=== PATIENT | male | born 1950 | race Caucasian/White ===

== ENCOUNTER → 2017-01-26 | Outpatient (CLI) | payer MEDICARE ==
--- NOTE | 2017-01-26 12:33 | XR ---
EXAM TYPE: LUMBAR SPINE X RAY SERIES COMPARISON: NONE HISTORY: Pain TECHNIQUE: 3 views are submitted. FINDINGS: Alignment is anatomic. The pedicles are intact. The transverse processes are intact. There is no s pondylolisthesis. There is a slight curvature of the spine with diffuse osteopenia. Severe degenerat florencia disc disease of the lumbosacral junction. At the thoracolumbar junction there is a severe compression deformity which likely is chronic and was noted on previous chest x-ray of 04/12/2016. Remaining vertebral bodies demonstrate normal height. IMPRESSION: 1. Severe compression deformity at the thoracolumbar junction appears chronic. 2. Diffuse osteopenia with multilevel degenerative disc disease.
== END | disposition home or self-care (01) ==
LOC: RADXRMAIN 11:45
PROVIDERS: ATTEND Internal Medicine
DX: M51.37 Other intervertebral disc degeneration, lumbosacral region (principal); M43.8X5 Other specified deforming dorsopathies, thoracolumbar region; M85.88 Other specified disorders of bone density and structure, other site
CPT/HCPCS: 72100

== ENCOUNTER → 2017-01-26 | Outpatient (CLI) | payer MEDICARE ==
[2017-01-26 12:16] LABS: ALT 20 U/L (21-72); AST 22 U/L (17-59); Alkaline Phosphatase 60 U/L (38-126); Anion Gap 12 mmol/L; Blood Urea Nitrogen 17 mg/dL (9-20); Calcium 9.5 mg/dL (8.4-10.2); Carbon Dioxide 26 mmol/L (22-30); Chloride 106 mmol/L (98-107); Cholesterol 150 mg/dL (<200); Glucose 89 mg/dL (74-99); HDL Cholesterol 70 mg/dL (40-60); Non-African American GFR(MDRD) >60 (>60 ml/min/1.73 sqM); Sodium 144 mmol/L (137-145); Total Bilirubin 1.9 mg/dL (0.2-1.3); Total Protein 6.9 g/dL (6.3-8.2); Triglycerides 56 mg/dL (<150)
[2017-01-26 12:20] LABS: Basophils # (A) 0.1 k/uL (0-0.2); Basophils % (A) 1 %; CH 32.9; CHCM 33.9; Eosinophils # (A) 0.2 k/uL (0-0.7); Eosinophils % (A) 3 %; HCT 50.2 % (39.0-53.0); HDW 2.59; HGB 16.8 gm/dL (13.0-17.5); Luc # (Auto) 0.15; Luc % (Auto) 3; Lymphocytes # (A) 1.4 k/uL (1.0-4.8); Lymphocytes % (A) 25 %; MCH 32.7 pg (25.0-35.0); MCHC 33.5 g/dL (31.0-37.0); MCV 97.5 fL (80.0-100.0); Mean Platelet Volume 8.3; Monocytes # (A) 0.4 k/uL (0-1.0); Monocytes % (A) 7 %; Neutrophils # (A) 3.6 k/uL (1.3-7.7); Neutrophils % (A) 62 %; RBC 5.15 m/uL (4.30-5.90); WBC 5.8 k/uL (3.8-10.6); WBC (Perox) 5.68
== END | disposition home or self-care (01) ==
LOC: LABWHC1 11:15
PROVIDERS: ATTEND Internal Medicine
DX: I10 Essential (primary) hypertension (principal)
CPT/HCPCS: 36415; 80053; 80061; 85025

== ENCOUNTER → 2017-03-05 | Outpatient (CLI) | payer MEDICARE ==
--- NOTE | 2017-03-05 15:41 | MR ---
EXAMINATION TYPE: MR thoracic spine wo con DATE OF EXAM: 03/05/2017 COMPARISON: NONE HISTORY: Chronic Back Pain Thoracolumbar area CONTRAST: Performed utilizing 0 mL intravenous MultiHance gadolinium contrast. TECHNIQUE: Multiplanar, multiecho imaging on a 3.0 Chloé magnet is performed through the thoracic spi ne. FINDINGS: There is compression deformity at T12. There is disc space narrowing of T11-12. Some news anchor ior wall displacement of T12 is evident estimated at approximately 0.4 cm. Cord terminates at the L1 level. No cord contact is evident. No AP spinal canal stenosis posterior to the wall displacement is evident. Neural foramen are patent. Remainder of the thoracolumbar spine appears unremarkable. Spinal cord maintains normal signal through its visualized course. Vertebral body alignment is normal. Remaining Disc heights are preserved. Disc hydration levels are preserved. No spinal canal stenosis is evident. IMPRESSIONS: 1. Compression deformity T12 appears chronic with approximately 0.4 cm central posterior wall displac ement without spinal canal stenosis or cord contact.
== END | disposition home or self-care (01) ==
LOC: RADMRIMAIN 13:27
PROVIDERS: ATTEND Internal Medicine
DX: M43.8X4 Other specified deforming dorsopathies, thoracic region (principal); M54.9 Dorsalgia, unspecified; G89.29 Other chronic pain
CPT/HCPCS: 72146

== ENCOUNTER → 2017-09-06 | Outpatient (CLI) | payer MEDICARE ==
--- NOTE | 2017-09-07 15:40 | ECHOF ---
Referral Reason:I42.9 Cardiomyopathy MEASUREMENTS -------- HEIGHT: 179.1 cm WEIGHT: 90.7 kg BP: 122/86 RVIDd: 3.1 cm (< 3.3) IVSd: 1.0 cm (0.6 - 1.1) LVIDd: 4.8 cm (3.9 - 5.3) LVPWd: 1.2 cm (0.6 - 1.1) EDV(Teich): 106 ml IVSs: 1.4 cm LVIDs: 4.1 cm LVPWs: 1.4 cm ESV(Teich): 73 ml EF(Teich): 31 % %FS: 15 % SV(Teich): 33 ml LA Diam: 3.1 cm (2.7 - 3.8) LVLd A4C: 8.3 cm LVEDV MOD A4C: 109 ml LVLs A4C: 8.1 cm LVESV MOD A4C: 82 ml LVEF MOD A4C: 25 % SV MOD A4C: 28 ml LVLd A2C: 7.9 cm LVEDV MOD A2C: 85 ml LVLs A2C: 8.6 cm LVESV MOD A2C: 67 ml LVEF MOD A2C: 22 % SV MOD A2C: 19 ml EF Biplane: 21 % LVEDV MOD BP: 96 ml LVESV MOD BP: 76 ml LALs A4C: 6.7 cm LAAs A4C: 27.3 cm LAESV A-L A4C: 95 ml LAESV MOD A4C: 96 ml LALs A2C: 7.8 cm LAAs A2C: 32.2 cm LAESV A-L A2C: 113 ml LAESV MOD A2C: 113 ml LAESV(A-L): 112 ml LAESV Index (A-L): 53.18 ml/m Ao Diam: 3.7 cm (2.0 - 3.7) AV Cusp: 2.4 cm (1.5 - 2.6) EPSS: 0.8 cm MV DecT: 233 ms MV PHT: 84 ms MVA By PHT: 2.6 cm AV Vmax: 0.93 m/s AV maxP.49 mmHg TR Vmax: 2.41 m/s TR maxP.23 mmHg RAP: 5.00 mmHg RVSP: 28.23 mmHg MV EF SLOPE: 87.54 mm/s (70 - 150) MV EXCURSION: 2.04 cm (> 18.000) FINDINGS -------- Atrial fibrillation. This was a technically good study. The left ventricular size is normal. There is borderline concentric left ventricular hypertrophy. Overall left ventricular systolic function is moderately impaired with, an EF between 35 - 40 %. The right ventricle is normal in size. LA is severely dilated >40 ml/m2 The right atrium is normal in size. The aortic valve is trileaflet and appears structurally normal. Mild mitral annular calcification present. Mild tricuspid regurgitation present. Right ventricular systolic pressure is normal at < 35 mmHg. Trace/mild (physiologic) pulmonic regurgitation. The aortic root is dilated measuring 3.7cm. IVC Not well visulized. There is no pericardial effusion. CONCLUSIONS -------- 1. Atrial fibrillation. 2. This was a technically good study. 3. The left ventricular size is normal. 4. There is borderline concentric left ventricular hypertrophy. 5. Overall left ventricular systolic function is moderately impaired with, an EF between 35 - 40 %. 6. The right ventricle is normal in size. 7. LA is severely dilated >40 ml/m2 8. The right atrium is normal in size. 9. The aortic valve is trileaflet and appears structurally normal. 10. Mild mitral annular calcification present. 11. Mild tricuspid regurgitation present. 12. Right ventricular systolic pressure is normal at < 35 mmHg. 13. Trace/mild (physiologic) pulmonic regurgitation. 14. The aortic root is dilated measuring 3.7cm. 15. IVC Not well visulized. 16. There is no pericardial effusion. PEWTER FABRICATOR: Amira Robles RD
== END | disposition home or self-care (01) ==
LOC: RADECHMAIN 15:08
PROVIDERS: ATTEND Internal Medicine
DX: I48.91 Unspecified atrial fibrillation (principal); I07.1 Rheumatic tricuspid insufficiency; I05.8 Other rheumatic mitral valve diseases; I77.819 Aortic ectasia, unspecified site
CPT/HCPCS: 93306

== ENCOUNTER → 2017-12-18 | Outpatient (CLI) | payer MEDICARE ==
[2017-12-18 16:12] LABS: Basophils % (A) 1 %; Eosinophils # (A) 0.2 k/uL (0-0.7); Eosinophils % (A) 3 %; HCT 48.2 % (39.0-53.0); HGB 16.1 gm/dL (13.0-17.5); Lymphocytes # (A) 1.5 k/uL (1.0-4.8); Lymphocytes % (A) 24 %; MCH 31.7 pg (25.0-35.0); MCHC 33.3 g/dL (31.0-37.0); MCV 95.1 fL (80.0-100.0); Mean Platelet Volume 8.6; Monocytes # (A) 0.5 k/uL (0-1.0); Monocytes % (A) 8 %; Neutrophils # (A) 4.1 k/uL (1.3-7.7); Neutrophils % (A) 63 %; Platelet Count 185 k/uL (150-450); RBC 5.07 m/uL (4.30-5.90); RDW 13.4 % (11.5-15.5); WBC 6.5 k/uL (3.8-10.6)
[2017-12-18 16:30] LABS: Albumin 4.1 g/dL (3.5-5.0); Calcium 9.2 mg/dL (8.4-10.2); Potassium 3.7 mmol/L (3.5-5.1); Total Bilirubin 0.9 mg/dL (0.2-1.3); Total Protein 6.4 g/dL (6.3-8.2)
== END | disposition home or self-care (01) ==
LOC: LABWHC1 15:30
PROVIDERS: ATTEND Internal Medicine
DX: I10 Essential (primary) hypertension (principal)
CPT/HCPCS: 36415; 80053; 85025

== ENCOUNTER → 2017-12-20 | Outpatient (CLI) | payer MEDICARE ==
[2017-12-20 15:49] LABS: Appearance,Urine Turbid (Clear); Bacteria,Urine Many /hpf; Bilirubin,Urine Negative (Negative); Blood,Urine Negative (Negative); Color,Urine Light Red; Glucose,Urine (UA) Negative (Negative); Ketones,Urine Negative (Negative); Leukocyte Esterase,Urine Moderate (Negative); Mucus,Urine Few /hpf; Nitrite,Urine Negative (Negative); Protein,Urine 1+ (Negative); RBC,Urine 21 /hpf (0-5); Specific Gravity,Urine 1.022 (1.001-1.035); Squamous Epithelial Cell,Urine 4 /hpf (0-4); WBC,Urine 19 /hpf (0-5)
== END | disposition home or self-care (01) ==
LOC: LABWHC1 15:33
PROVIDERS: ATTEND Internal Medicine
DX: I10 Essential (primary) hypertension (principal)
CPT/HCPCS: 81001

== ENCOUNTER 2018-01-09 07:58 | Day surgery (SDC) | payer MEDICARE ==
[2018-01-07 10:37] VITALS: BMI 28.2
--- NOTE | 2018-01-08 13:21 | HP ---
HISTORY AND PHYSICAL Surgery is 01/09/2018. Derick Valle is a 67-year-old patient seen with progressive right shoulder pain. Treatment options were discussed. He elected to proceed with arthroscopy. Consent was obtained. Medical clearance was provided by Dr. Pierson. Cardiac clearance was provided by Dr. Lewis. PAST MEDICAL HISTORY: Hypertension, cardiovascular disease. PAST SURGICAL HISTORY: Right total hip arthroplasty, left foot surgery. DAILY MEDICATIONS: 1. Lasix. 2. Lisinopril. 3. Percocet. 4. Wellbutrin. 5. Xarelto. 6. Coreg. ALLERGIES: None reported. SOCIAL HISTORY: Patient denies current tobacco use. PHYSICAL EXAMINATION: Physical evaluation right shoulder: Flexion 80 degrees, abduction 80 degrees, external rotation is 30 degrees with pain and weakness. Tenderness along the anterior lateral acromion and rotator cuff insertion site. Impingement sign is positive at 70 degrees. Drop-arm sign is positive. Distal neurovascular exam is intact. Radiographs of the right shoulder revealed a type 2 anterior acromion, acromioclavicular joint osteoarthritis and cystic changes of the greater tuberosity. An MRI of the right shoulder revealed a retracted rotator cuff tendon tear. IMPRESSION: 1. Right shoulder impingement with rotator cuff tear. 2. Hypertension. 3. Cardiovascular disease. PLAN: Right shoulder arthroscopy with subacromial decompression probable arthroscopic rotator cuff repair probable Michael procedure and debridement. MMODL / IJN: [id number] /
[~2018-01-09 07:58] MED LIST: DEXAMETHASONE SOD PHOSPHATE 10 MG/ML 1 ML VIAL IV ONE; LACTATED RINGERS 1,000 ML IV SCH; LIDOCAINE 1% 20 ML VIAL (10MG/ML) FOR IV START INTRADERMA PRN; MIDAZOLAM 2 MG/2 ML VIAL IV PRN; ONDANSETRON ODT 4 MG TAB PO ONE; SCOPOLAMINE 1.5MG/72HR PATCH TRANSDERM ONE; ceFAZolin IN SWFI 2 GM/20 ML SYRINGE IVP ONE; fentaNYL (PF) 50 MCG/ML 2 ML AMP IV PRN
[2018-01-09] MEDS ORDERED: ONDANSETRON 4 MG/2 ML VIAL IVP ONE (08:32)
[2018-01-09] MEDS ORDERED: MIDAZOLAM 2 MG/2 ML VIAL ONE ×2 (08:38→09:47)
[2018-01-09 08:41] LABS: Glucose,Whole Blood 87 mg/dL (75-99)
--- NOTE | 2018-01-09 09:21 | P.ONQ ---
Anesthesiology Proc Note - PNB - Peripheral Nerve Block Performed Right Interscalene Procedure Start Time: 08:45 Indication: Acute Post-Operative Pain, Requested by physician (Dr Vasquez) Sedation Type: Sedate with meaningful contact maintained Preparation: Sterile Prep Position: Supine Catheter: None Needle Types: Other (see comment) (Hazel) Needle Size: 50mm (2") Needle Gauge: 21 Technique: Ultrasound (0.5% Ropivacaine 12cc lidocaine 2% 12cc, 1:100,000 epi) Blood Aspirated: No Pain Paresthesia on Injection Noted: No Resistance on Injection: Normal Events: Uneventful and Well Tolerated
[2018-01-09] MEDS ORDERED: LIDOCAINE 2%-EPI 1:100,000 20 ML VIAL ONE (09:47)
[2018-01-09] MEDS ORDERED: ROCURONIUM BROMIDE 10 MG/ML 10 ML VIAL IV ONE (09:47)
[2018-01-09] MEDS ORDERED: PROPOFOL 10 MG/ML 20 ML VIAL IV ONE (09:47)
[2018-01-09] MEDS ORDERED: SUCCINYLCHOLINE CHLORIDE 100 MG/5 ML SYR IV ONE (09:47)
[2018-01-09] MEDS ORDERED: PHENYLEPHRINE-0.9% NACL SYG 1 MG/10 ML SYRINGE ONE (09:47)
[2018-01-09] MEDS ORDERED: ROPIVACAINE 5 MG/ML 30 ML VIAL ONE (09:47)
[2018-01-09] MEDS ORDERED: NEOSTIGMINE 1 MG/ML 10 ML VIAL ONE (09:47)
[2018-01-09] MEDS ORDERED: fentaNYL (PF) 50 MCG/ML 2 ML AMP ONE (09:47)
[2018-01-09] MEDS ORDERED: GLYCOPYRROLATE 0.2 MG/ML 2 ML VIAL ONE (09:47)
[2018-01-09] MEDS ORDERED: LIDOCAINE 1% INJ 10MG/ML (20 ML MDV) ONE (09:47)
[2018-01-09] MEDS ORDERED: LACTATED RINGERS 1,000 ML IV ONE (10:54)
--- NOTE | 2018-01-09 11:44 | P.OP ---
Date of Procedure: 01/09/18 Preoperative Diagnosis: Right shoulder impingement Postoperative Diagnosis: 1. Right shoulder rotator cuff tear 2. Right shoulder impingement 3. Right shoulder acromioclavicular joint osteoarthritis 4. Right shoulder partial biceps tendon tear 5. Right shoulder superficial labral tear Procedure(s) Performed: 1. Right shoulder arthroscopic rotator cuff repair 2. Right shoulder arthroscopic subacromial decompression 3. Right shoulder arthroscopic Michael procedure 4. Right shoulder arthroscopic biceps tenotomy 5. Right shoulder arthroscopic debridement labral tear Implants: 2-4.5 peek anchors 2-5.5 peek anchors Anesthesia: GETA, regional (Interscalene block) Surgeon: Angel Vasquez Onsite Health Coach #1: Richie Bragg Estimated Blood Loss (ml): 11 Pathology: none sent Condition: stable Disposition: PACU Indications for Procedure: 67-year-old patient seen with progressive right shoulder pain. After treatment options were discussed, he elected to proceed with arthroscopy. Operative Findings: See description of procedure Description of Procedure: Patient underwent a shoulder block by department of anesthesia. The patient was then taken to the operative suite. The patient underwent a general anesthetic by the department of anesthesia. The patient was placed into a lateral position and secured. There was appropriate padding of the bony prominence. Right shoulder was then prepped and draped in normal sterile orthopedic fashion. We placed the extremity in 10 pounds of longitudinal traction. A posterior incision was now made for a posterior working portal site. The trocar and cannula were inserted into the glenohumeral joint. Arthroscopy was initiated. Spinal needle was now inserted anteriorly, to ascertain the anterior working portal site. An incision was now made in that area, a trocar was inserted followed by a probe. There was superficial tearing of the anterior labrum. There was a partial long head biceps tendon tear present. There was an obvious large rotator cuff tear visualized from the glenohumeral side. There were some grade 1 chondromalacia changes of the humeral head and glenoid fossa with no osteochondral tears present. The remaining labrum appeared intact. I performed an arthroscopic biceps tenotomy. I debrided the superficial labral tears down to stable tissue. The residual labrum was found to be stable. Instruments were removed from the glenohumeral joint. Utilizing the posterior working portal site, the trocar and cannula were inserted into the subacromial space. Arthroscopy initiated. I made an incision 2 fingerbreadths lateral to the acromion. I introduced my trocar followed by my ArthroCare ablator. I now began ablating thick subacromial bursal tissue, which exposed the undersurface of the anterior acromion. This was diminished subacromial space. There was a very prominent anterior acromion. A motorized bur was introduced and a subacromial decompression was performed. I also excised some osteophytes off the inferior aspect of the distal clavicle. The AC joint was visualized and noted to be fairly arthritic. Our motorized bur was introduced in the anterior portal site and a Michael procedure was performed without difficulty, decompressing the AC joint nicely. I turned my attention to the rotator cuff. There was a large 3 cm tear along the distal supraspinatus area. It was retracted about 1 cm. It was freely mobile over the footprint. I did debrided the margins down to stable tissue. I abraded the footprint with a motorized bur. I made an assessory portal site off the lateral acromion. I introduced 2 medial row anchors with 2 sutures each. I passed all 8 limbs of suture through good bites of rotator cuff tendon. I crisscrossed the sutures and noted a dogear anteriorly. 2 loops sutures were introduced through good bites of tendon to correct for that dogear area. I now crisscrossed the sutures again pulling over the footprint and introduced 2 lateral anchors compressing the tendon very nicely along her entire abraded footprint. The residual suture limbs were clipped. The repair was probed and found to be stable. I injected 1 mL of a Renue Intra-articular. Instruments now removed from the portal sites. All portal sites were approximated with nylon suture. Sterile dressings were applied followed by a shoulder immobilizer. Vel FITZPATRICK assisted with the procedure. The patient was awakened, transferred to a bed, and taken to recovery in stable condition.
[2018-01-09 11:45] VITALS: RESP 16; TEMP 97.1
[2018-01-09 13:04] VITALS: BP 131/87; PULSE 60
== END 2018-01-09 13:50 | disposition home or self-care (01) ==
LOC: OR 07:58
PROVIDERS: ATTEND Orthopaedic Surgery
DX: M75.101 Unspecified rotator cuff tear or rupture of right shoulder, not specified as traumatic (principal); M75.41 Impingement syndrome of right shoulder; M19.011 Primary osteoarthritis, right shoulder; S46.111A Strain of muscle, fascia and tendon of long head of biceps, right arm, initial encounter; S43.431A Superior glenoid labrum lesion of right shoulder, initial encounter; X58.XXXA Exposure to other specified factors, initial encounter; M25.711 Osteophyte, right shoulder; I48.2 Chronic atrial fibrillation; Z79.01 Long term (current) use of anticoagulants; I25.10 Atherosclerotic heart disease of native coronary artery without angina pectoris; I42.0 Dilated cardiomyopathy; I10 Essential (primary) hypertension; Z79.899 Other long term (current) drug therapy
CPT/HCPCS: 29826; 29827; 29824; 64415; C1713 ×3; C1894; C1765; J2250; J1100; J2710; J2405; J2001; J3010; J2795; J2370; J0330; J2704; J0690

== ENCOUNTER 2018-12-04 18:14 | Inpatient (IN) | payer MEDICARE ==
--- NOTE | 2018-12-04 18:46 | XR ---
EXAMINATION TYPE: XR Hip LT and AP Pelvis DATE OF EXAM: 12/04/2018 COMPARISON: NONE HISTORY: Pain after falling TECHNIQUE: A single AP view of the pelvis is obtained. Two views of the left hip are obtained. FINDINGS: There is an impacted subcapital fracture left femur. There is no dislocation. Pelvic ring i s intact. There are pins fixing the proximal right femur. Sacroiliac joints are intact. IMPRESSION: Acute impacted subcapital fracture left femur.
--- NOTE | 2018-12-04 18:47 | XR ---
EXAMINATION TYPE: XR chest 1V DATE OF EXAM: 12/04/2018 COMPARISON: 04/12/2016 HISTORY: Chest pain TECHNIQUE: Single frontal view of the chest is obtained. FINDINGS: Heart is enlarged. There is no heart failure. Costophrenic angles are clear. Thoracic aort a is atheromatous. Bony thorax is intact. There is hiatal hernia. IMPRESSION: Hiatal hernia. No active cardiopulmonary disease. No significant change.
[2018-12-04 18:58] LABS: Basophils % (A) 0 %; Eosinophils # (A) 0.2 k/uL (0-0.7); Eosinophils % (A) 3 %; HCT 45.6 % (39.0-53.0); HGB 15.6 gm/dL (13.0-17.5); Lymphocytes # (A) 1.1 k/uL (1.0-4.8); Lymphocytes % (A) 17 %; MCHC 34.2 g/dL (31.0-37.0); MCV 96.6 fL (80.0-100.0); Mean Platelet Volume 8.7; Monocytes # (A) 0.4 k/uL (0-1.0); Monocytes % (A) 5 %; Neutrophils # (A) 4.8 k/uL (1.3-7.7); Neutrophils % (A) 73 %; Platelet Count 139 k/uL (150-450); RBC 4.72 m/uL (4.30-5.90); RDW 13.8 % (11.5-15.5); WBC 6.6 k/uL (3.8-10.6)
[2018-12-04 19:10] LABS: INR 1.2 (<1.2); Partial Thromboplastin Time 28.6 sec (22.0-30.0); Prothrombin Time 12.6 sec (9.0-12.0)
[2018-12-04 19:12] LABS: ALT 28 U/L (21-72); AST 22 U/L (17-59); Albumin 3.7 g/dL (3.5-5.0); Alkaline Phosphatase 58 U/L (38-126); Anion Gap 11 mmol/L; Blood Urea Nitrogen 10 mg/dL (9-20); Calcium 8.8 mg/dL (8.4-10.2); Carbon Dioxide 22 mmol/L (22-30); Chloride 105 mmol/L (98-107); Creatine Kinase 50 U/L (55-170); Glucose 77 mg/dL (74-99); Magnesium 2.1 mg/dL (1.6-2.3); Potassium 3.5 mmol/L (3.5-5.1); Sodium 138 mmol/L (137-145); Total Bilirubin 1.4 mg/dL (0.2-1.3); Total Protein 6.1 g/dL (6.3-8.2)
[2018-12-04 19:25] LABS: Creatine Kinase MB 0.6 ng/mL (0.0-2.4); Troponin I <0.012 ng/mL (0.000-0.034)
--- NOTE | 2018-12-04 19:36 | ED ---
Fall HPI - General Chief Complaint: Fall Stated Complaint: fall Time Seen by Provider: 12/04/18 18:14 Source: patient, EMS, RN notes reviewed Mode of arrival: EMS - History of Present Illness Initial Comments: This is a 67-year-old male with a history of heart disease hypertension and prior right hip fracture 2001 who states he was walking his dog today when the dog pulled on any of the falling down. He landed on his left side when trying to a blade after patient himself up could not weight-bear on his left hip. He denies any head neck or back pain or other injury other than abrasions to his left wrist. He is on blood thinner. He was brought in by EMS with a cervical collar in place. MD Complaint: fall - Related Data Home Medications Medication Instructions Recorded Confirmed Rivaroxaban [Xarelto] 20 mg PO DAILY 06/11/15 12/04/18 Furosemide [Lasix] 40 mg PO DAILY 06/14/15 12/04/18 Lisinopril [Zestril] 10 mg PO DAILY 06/14/15 12/04/18 oxyCODONE-APAP 7.5-325MG [Percocet 1 tab PO Q6HR PRN 01/07/18 12/04/18 7.5-325 mg] Carvedilol [Coreg] 6.25 mg PO BID 12/04/18 12/04/18 Pantoprazole Sodium [Protonix] 40 mg PO DAILY 12/04/18 12/04/18 buPROPion HCL [Wellbutrin SR] 200 mg PO BID 12/04/18 12/04/18 Allergies Allergy/AdvReac Type Severity Reaction Status Date / Time No Known Allergies Allergy Verified 12/04/18 19:09 Review of Systems ROS Statement: Those systems with pertinent positive or pertinent negative responses have been documented in the HPI. ROS Other: All systems not noted in ROS Statement are negative. Past Medical History Past Medical History: Heart Failure, Hypertension Additional Past Medical History / Comment(s): DIFFICULTY WITH SWALLOWING History of Any Multi-Drug Resistant Organisms: None Reported Past Surgical History: Orthopedic Surgery Additional Past Surgical History / Comment(s): ESOPHAGUS, HIATAL HERNIA, RIGHT HIP,RIGHT ARM PLATE AND SCREW, LEFT FOOT, Past Anesthesia/Blood Transfusion Reactions: No Reported Reaction Past Psychological History: Depression Smoking Status: Former smoker - Past Family History Mother Family Medical History: No Reported History General Exam - General Exam Comments Initial Comments: This is a well little pulmonary awake alert oriented 3 male he does demonstrate a Vaishnavi Coma Scale of 15 Limitations: no limitations General appearance: alert, in no apparent distress Head exam: Present: atraumatic, normocephalic, normal inspection Eye exam: Present: normal appearance, PERRL, EOMI. Absent: scleral icterus, conjunctival injection, periorbital swelling ENT exam: Present: normal exam, mucous membranes moist Neck exam: Present: normal inspection, full ROM, other (No stridor JVD or bruits cervical collar was cleared clinically). Absent: tenderness, meningismus, lymphadenopathy Respiratory exam: Present: normal lung sounds bilaterally. Absent: respiratory distress, wheezes, rales, rhonchi, stridor Cardiovascular Exam: Present: regular rate, normal rhythm, normal heart sounds. Absent: systolic murmur, diastolic murmur, rubs, gallop, clicks GI/Abdominal exam: Present: soft, normal bowel sounds. Absent: distended, tenderness, guarding, rebound, rigid Extremities exam: Present: full ROM, normal capillary refill, other (Shortening of the left lower extremity compared to the right no rotation seen. On palpation no tenderness is elicited with movement pain is elicited left.). Absent: tenderness, pedal edema, joint swelling, calf tenderness Back exam: Present: normal inspection Neurological exam: Present: alert, oriented X3, CN II-XII intact Psychiatric exam: Present: normal affect, normal mood Skin exam: Present: warm, dry, intact, normal color. Absent: rash Course Vital Signs 12/04/18 18:16 Temperature 97.3 F L Pulse Rate 64 Respiratory 18 Rate Blood Pressure 121/93 O2 Sat by Pulse 95 Oximetry - Reevaluation(s) Reevaluation #1: 12/04/18 19:35 pricing specialist: Indicated for history of A. fib rule out PVCs or PACs. Some PVCs were noted on examination. Heart rate was about 70. Reevaluation #2: 12/04/18 19:35 Repeat EKG was done after the initial one after the findings of PVCs that showed a atrial fibrillation rate of 70 with PVCs QRS 94 daily since QTC 470/o [address]-T wave configuration prolonged QT Medical Decision Making - Medical Decision Making I did discuss the findings with the patient I did also discuss the case with Dr. Egan who is covering orthopedics today. Patient will be admitted with consultation by medicine. I did discuss his Dr. Gutierrez who did come the emergency department to evaluate the patient. - Lab Data Result diagrams: 12/04/18 18:49 12/04/18 18:49 Lab Results 12/04/18 12/04/18 12/04/18 Range/Units 18:49 18:49 18:49 WBC 6.6 (3.8-10.6) k/uL RBC 4.72 (4.30-5.90) m/uL Hgb 15.6 (13.0-17.5) gm/dL Hct 45.6 (39.0-53.0) % MCV 96.6 (80.0-100.0) fL MCH 33.0 (25.0-35.0) pg MCHC 34.2 (31.0-37.0) g/dL RDW 13.8 (11.5-15.5) % Plt Count 139 L (150-450) k/uL Neutrophils % 73 % Lymphocytes % 17 % Monocytes % 5 % Eosinophils % 3 % Basophils % 0 % Neutrophils # 4.8 (1.3-7.7) k/uL Lymphocytes # 1.1 (1.0-4.8) k/uL Monocytes # 0.4 (0-1.0) k/uL Eosinophils # 0.2 (0-0.7) k/uL Basophils # 0.0 (0-0.2) k/uL PT 12.6 H (9.0-12.0) sec INR 1.2 H (<1.2) APTT 28.6 (22.0-30.0) sec Sodium (137-145) mmol/L Potassium (3.5-5.1) mmol/L Chloride (98-107) mmol/L Carbon Dioxide (22-30) mmol/L Anion Gap mmol/L BUN (9-20) mg/dL Creatinine (0.66-1.25) mg/dL Est GFR (CKD-EPI)AfAm (>60 ml/min/1.73 sqM) Est GFR (CKD-EPI)NonAf (>60 ml/min/1.73 sqM) Glucose (74-99) mg/dL Calcium (8.4-10.2) mg/dL Magnesium (1.6-2.3) mg/dL Total Bilirubin (0.2-1.3) mg/dL AST (17-59) U/L ALT (21-72) U/L Alkaline Phosphatase (38-126) U/L Total Creatine Kinase 50 L (55-170) U/L CK-MB (CK-2) 0.6 (0.0-2.4) ng/mL CK-MB (CK-2) Rel Index 1.2 Troponin I <0.012 (0.000-0.034) ng/mL Total Protein (6.3-8.2) g/dL Albumin (3.5-5.0) g/dL 12/04/18 Range/Units 18:49 WBC (3.8-10.6) k/uL RBC (4.30-5.90) m/uL Hgb (13.0-17.5) gm/dL Hct (39.0-53.0) % MCV (80.0-100.0) fL MCH (25.0-35.0) pg MCHC (31.0-37.0) g/dL RDW (11.5-15.5) % Plt Count (150-450) k/uL Neutrophils % % Lymphocytes % % Monocytes % % Eosinophils % % Basophils % % Neutrophils # (1.3-7.7) k/uL Lymphocytes # (1.0-4.8) k/uL Monocytes # (0-1.0) k/uL Eosinophils # (0-0.7) k/uL Basophils # (0-0.2) k/uL PT (9.0-12.0) sec INR (<1.2) APTT (22.0-30.0) sec Sodium 138 (137-145) mmol/L Potassium 3.5 (3.5-5.1) mmol/L Chloride 105 (98-107) mmol/L Carbon Dioxide 22 (22-30) mmol/L Anion Gap 11 mmol/L BUN 10 (9-20) mg/dL Creatinine 0.92 (0.66-1.25) mg/dL Est GFR (CKD-EPI)AfAm >90 (>60 ml/min/1.73 sqM) Est GFR (CKD-EPI)NonAf 85 (>60 ml/min/1.73 sqM) Glucose 77 (74-99) mg/dL Calcium 8.8 (8.4-10.2) mg/dL Magnesium 2.1 (1.6-2.3) mg/dL Total Bilirubin 1.4 H (0.2-1.3) mg/dL AST 22 (17-59) U/L ALT 28 (21-72) U/L Alkaline Phosphatase 58 (38-126) U/L Total Creatine Kinase (55-170) U/L CK-MB (CK-2) (0.0-2.4) ng/mL CK-MB (CK-2) Rel Index Troponin I (0.000-0.034) ng/mL Total Protein 6.1 L (6.3-8.2) g/dL Albumin 3.7 (3.5-5.0) g/dL - EKG Data -: EKG Interpreted by Me - Radiology Data Radiology results: report reviewed (I did review the imaging and report or is a subcapital hip fracture on the left.), image reviewed Disposition Clinical Impression: Fall, Subcapital fracture of left hip, Chronic atrial fibrillation, PVCs (premature ventricular contractions) Disposition: ADMITTED IP TO THIS [facility] Condition: Stable Referrals: Caleb Pierson MD [Primary Care Provider] - 1-2 days
[2018-12-04] MEDS ORDERED: NALOXONE 0.4 MG/ML 1 ML VIAL IV PRN (19:39)
[2018-12-04] MEDS: SODIUM CHLORIDE 0.9% 1,000 ML IV SCH (19:58)
[2018-12-04] MEDS: HYDROmorphone 0.5 MG/0.5 ML SYRINGE IVP PRN (19:59)
--- NOTE | 2018-12-04 21:53 | CONS ---
CONSULTATION DATE OF SERVICE: 12/04/2018 REASON FOR CONSULTATION: Advice regarding hypertension and CHF and other medical issues requested by orthopedic surgery. HISTORY OF PRESENT ILLNESS: This 68-year-old gentleman with a past medical history of hypertension, CHF history of difficulty swallowing being followed by Dr. Pierson in the outpatient setting apparently had a fall. Patient tripped and fell and developed right hip fracture and the patient was taken to [facility] and was admitted for further evaluation and treatment. Patient apparently landed falling down and there is no history of fever, rigors. No history of headache, loss of consciousness, seizures. The patient has seen Dr. Lewis previously. PAST MEDICAL HISTORY: History of CHF, history of hypertension, history of difficulty swallowing, history of esophagitis, hiatal hernia, history of depression. MEDICATIONS: Prior to admission include home medications are: 1. Oxycodone 7.5 mg q.6h p.r.n. 2. Wellbutrin SR 200 mg p.o. b.i.d. 3. Xarelto 20 mg p.o. daily. 4. Protonix 40 mg. 5. Zestril 10 mg p.o. daily. 6. Lasix 40 mg daily. 7. Coreg 6.25 mg p.o. b.i.d. ALLERGIES: None. FAMILY HISTORY: No history of heart disease or strokes in the family. SOCIAL HISTORY: Remote history of smoking. Occasional alcohol intake. REVIEW OF SYSTEMS: ENT: No diminished vision. No diminished hearing. Cardiovascular system: As mentioned earlier. RESPIRATORY: As mentioned earlier. GI no nausea or vomiting. : No dysuria. NERVOUS SYSTEM: No numbness or weakness. ALLERGY/IMMUNOLOGY: No asthma or hayfever. MUSCULOSKELETAL: As mentioned earlier. HEMATOLOGY/ONCOLOGY: No history of anemia. ENDOCRINE: No history of diabetes or hypothyroidism. CONSTITUTIONAL: As mentioned earlier. Dermatology: Negative. Rheumatology: Negative. Psychiatry: As mentioned earlier. PHYSICAL EXAMINATION: The patient is alert and oriented times three. Pulse 64, blood pressure 113/89, respiration 18, temperature 97.2, pulse ox 97% on room air. HEENT: Conjunctivae normal. Oral mucosa moist. NECK: No jugular venous distention. No carotid bruit. No lymph node enlargement. RESPIRATORY SYSTEM: Breath sounds diminished at the bases. Slightly emphysematous. A few scattered rhonchi and crackles otherwise. Abdomen is soft, nontender. No mass palpable. Legs status post hip fracture. NERVOUS SYSTEM: Higher functions as mentioned earlier. Moves all four extremities. No focal deficits. Lymphatics: No lymph nodes palpable in the neck, axillae or groin. SKIN: No ulcer, josie or bleeding. Joints: No active deforming arthropathy. LAB STUDIES: WBC 6.2, hemoglobin 10.2, platelets 139. Total bilirubin is 1.4. ASSESSMENT: 1. Status post right hip fracture. 2. History of hypertension. 3. History of congestive heart failure possible cardiomyopathy with chronic systolic dysfunction EF improving 4. Mild thrombocytopenia. 5. Mild increased bilirubin. 6. History of difficulty swallowing and hiatal hernia. 7. History of degenerative joint disease. 8. History of depression. 9. Remote history of nicotine dependence. 10.Apparent history of EtOH. 11.History of congestive heart failure with chronic systolic dysfunction. RECOMMENDATIONS AND DISCUSSION: In this 62-year-old gentleman with past medical history of multiple medical problems was admitted after fall for orthopedic surgery, is currently hemodynamically stable. At this time, I recommend a BNP, a set of troponins. Also get a cardiology consultation and previous 2D echo done in 2017 showed ejection fraction about 35 to 40%. Otherwise, we will continue to monitor. Guarded, guarded prognosis. Further recommendations to follow Thank you for letting us participate in the care of this patient. MMODL / IJN: [id number] / [place]
[2018-12-04] MEDS: CARVEDILOL 6.25 MG TAB PO SCH (22:36)
[2018-12-04] MEDS: buPROPion SR 100 MG TABLET.ER PO SCH (22:36)
[2018-12-05] MEDS: HYDROmorphone 0.5 MG/0.5 ML SYRINGE IVP PRN ×3 (07:12→20:16)
[2018-12-05] MEDS: FUROSEMIDE 40 MG TAB PO SCH (08:12)
[2018-12-05] MEDS: LISINOPRIL 10 MG TAB PO SCH (08:12)
[2018-12-05] MEDS: CARVEDILOL 6.25 MG TAB PO SCH ×3 (08:12→18:30)
[2018-12-05] MEDS: PANTOPRAZOLE 40 MG TABLET PO SCH (08:12)
--- NOTE | 2018-12-05 08:47 | P.HPOR ---
History of Present Illness H&P Date: 12/05/18 Chief Complaint: Left hip subcapital fracture This is a 68-year-old male with a history of hypertension and chronic atrial fibrillation, who presented to the hospital with a left hip fracture. He states that he was outside with his dog and his dog was going to run after another dog when he tried to stop the dog he fell over onto his left hip. He had immediate left hip pain and was unable to bear weight. He presented to the hospital and he was found to have a displaced left hip subcapital fracture. He denies hitting his head or neck injury. He denies any other injuries. The patient does take Xarelto with the last dose taken yesterday morning. The patient does have a history of a right hip fracture with screw placement in 2001, the patient does not know where or what surgeon performed the procedure. He does live alone in his own house. He does not use an ambulatory aide at home. This morning, the patient states that he only has pain when he bears weight on the leg and sometimes with moving in the bed. Review of Systems Constitutional: Denies chills, Denies fever Cardiovascular: Denies chest pain, Denies shortness of breath Respiratory: Denies cough Gastrointestinal: Denies abdominal pain, Denies diarrhea, Denies nausea, Denies vomiting Musculoskeletal: left: hip pain, hip stiffness, hip swelling Neurological: Denies head injury Past Medical History Past Medical History: Heart Failure, Hypertension Additional Past Medical History / Comment(s): DIFFICULTY WITH SWALLOWING History of Any Multi-Drug Resistant Organisms: None Reported Past Surgical History: Orthopedic Surgery Additional Past Surgical History / Comment(s): ESOPHAGUS, HIATAL HERNIA, RIGHT HIP,RIGHT ARM PLATE AND SCREW, LEFT FOOT, Past Anesthesia/Blood Transfusion Reactions: No Reported Reaction Past Psychological History: Depression Smoking Status: Former smoker Past Alcohol Use History: Occasional Past Drug Use History: None Reported - Past Family History Mother Family Medical History: No Reported History Medications and Allergies Home Medications Medication Instructions Recorded Confirmed Type Rivaroxaban [Xarelto] 20 mg PO DAILY 06/11/15 12/04/18 History Furosemide [Lasix] 40 mg PO DAILY 06/14/15 12/04/18 History Lisinopril [Zestril] 10 mg PO DAILY 06/14/15 12/04/18 History oxyCODONE-APAP 7.5-325MG [Percocet 1 tab PO Q6HR PRN 01/07/18 12/04/18 History 7.5-325 mg] Carvedilol [Coreg] 6.25 mg PO BID 12/04/18 12/04/18 History Pantoprazole Sodium [Protonix] 40 mg PO DAILY 12/04/18 12/04/18 History buPROPion HCL [Wellbutrin SR] 200 mg PO BID 12/04/18 12/04/18 History Allergies Allergy/AdvReac Type Severity Reaction Status Date / Time No Known Allergies Allergy Verified 12/04/18 19:09 Physical Examination The patient is a 68 year old male that is no acute distress. He is alert and oriented x3. The patient's head is normocephalic and atraumatic. Exam of the cervical spine reveals no pain upon palpation or range of motion. Exam of the bilateral upper extremities reveal no obvious deformities or pain upon range of motion. Exam of the right lower extremity reveals no pain upon palpation. Exam of the left lower extremity reveals a externally rotated and shortened leg. There is an abrasion to the anterior left knee without signs or symptoms of infection. No pain upon palpation to the lateral hip. There is pain upon logrolling and any range of motion of the leg. Bilateral calves are soft and nontender. Patient has good foot and ankle motion bilaterally. Neurological and circulatory status is intact. Results - Labs Labs: Abnormal Lab Results - Last 24 Hours (Table) 12/04/18 12/04/18 12/04/18 Range/Units 18:49 18:49 18:49 Plt Count 139 L (150-450) k/uL PT 12.6 H (9.0-12.0) sec INR 1.2 H (<1.2) Total Bilirubin (0.2-1.3) mg/dL Total Creatine Kinase 50 L (55-170) U/L Total Protein (6.3-8.2) g/dL 12/04/18 Range/Units 18:49 Plt Count (150-450) k/uL PT (9.0-12.0) sec INR (<1.2) Total Bilirubin 1.4 H (0.2-1.3) mg/dL Total Creatine Kinase (55-170) U/L Total Protein 6.1 L (6.3-8.2) g/dL H & H 12/04/18 Range/Units 18:49 Hgb 15.6 (13.0-17.5) gm/dL Hct 45.6 (39.0-53.0) % Coagulation 12/04/18 Range/Units 18:49 INR 1.2 H (<1.2) Result Diagrams: 12/04/18 18:49 12/04/18 18:49 - Diagnostic results Hip x-ray: image reviewed (Left hip displaced subcapital fracture and hardware to the right hip appears to be in good position.) Assessment and Plan (1) Hypertension Current Visit: Yes Status: Acute Code(s): I10 - ESSENTIAL (PRIMARY) HYPERTENSION SNOMED Code(s): 96399436 (2) Chronic atrial fibrillation Current Visit: Yes Status: Acute Code(s): I48.2 - CHRONIC ATRIAL FIBRILLAT ION SNOMED Code(s): 082708485 (3) Fall Current Visit: Yes Status: Acute Code(s): W19.XXXA - UNSPECIFIED FALL, INITIAL ENCOUNTER SNOMED Code(s): 7945271 (4) Subcapital fracture of left hip Current Visit: Yes Status: Acute Code(s): S72.012A - UNSP INTRACAPSULAR FRACTURE OF LEFT FEMUR, INIT FOR CLOS FX SNOMED Code(s): 750503907 Plan: The clinical and x-ray findings were discussed with the patient and the patient's daughter at the bedside. The case was also discussed with Dr. Egan. We are recommending a left hip hemiarthroplasty to be performed this afternoon. Internal medicine has seen the patient and recommended a cardiology consult. Xarelto is on hold. The patient is nothing by mouth. The procedure was discussed with the patient and the patient's daughter and surgical risks were discussed at length with the patient. Possible risks and complications including but not limited to risk of bleeding, infection, dislocation, DVT, stroke, heart attack, and were discussed. We will await further recommendations by cardiology and internal medicine and anticipate surgery this afternoon.
[2018-12-05] MEDS: buPROPion SR 100 MG TABLET.ER PO SCH ×2 (10:21→20:06)
--- NOTE | 2018-12-05 12:07 | P.CRDCN ---
History of Present Illness Consult date: 12/05/18 History of present illness: This is a 68-year-old gentleman with history of cardiomyopathy and congestive heart failure being followed by Dr. Lewis regularly. He was diagnosed to have cardiac myopathy and congestive heart failure in 2016. Initial ejection fraction was 20 to 25%. A nuclear stress test done around that time did not reveal any inducible ischemia. Patient has been clinically doing well. He did have an echocardiogram done in September 2017 which showed an ejection fraction about 40-45%. Patient has been clinically stable without any symptoms of chest pain or shortness of breath. He claims that he is physically very active. Yesterday, he apparently he was walking the dog and fell on the dog and sustained fracture of the hip. Patient is being considered for hip replacement. Patient is lying in the bed flat without any symptoms. Given his stable clinical status without any overt signs of CHF or angina, patient is being cleared for surgery with the above average risk. Patient also has history of chronic atrial fibrillation on anticoagulation. Review of Systems REVIEW OF SYSTEMS: CONSTITUTIONAL:. Patient is doing well. No complaints of fever or chills EYES: Denies diplopia, blurring of vision EARS, NOSE, MOUTH, THROAT: Denies headaches, denies sore throat. CARDIOVASCULAR: Denies chest pain, denies shortness of breath, denies palpitations RESPIRATORY: Denies shortness of breath, denies cough. GASTROINTESTINAL: Denies change in appetite, denies abdominal pain, denies diarrhea GENITOURINARY: Denies hematuria, denies infections. MUSKULOSKELETAL: Complains of pain in the hip INTEGUMENTARY: Denies rash, denies eczema. NEUROLOGICAL: Denies focal weakness, or visual disturbance. Denies any dizziness or syncope PSYCHIATRIC: Denies anxiety, denies depression. HEMATOLOGIC/LYMPHATIC: Denies any bleeding, denies enlarged lymph nodes. Past Medical History Past Medical History: Heart Failure, Hypertension Additional Past Medical History / Comment(s): DIFFICULTY WITH SWALLOWING, atrial fibrillation, chronic History of Any Multi-Drug Resistant Organisms: None Reported Past Surgical History: Orthopedic Surgery Additional Past Surgical History / Comment(s): ESOPHAGUS, HIATAL HERNIA, RIGHT HIP,RIGHT ARM PLATE AND SCREW, LEFT FOOT, Past Anesthesia/Blood Transfusion Reactions: No Reported Reaction Past Psychological History: Depression Smoking Status: Former smoker Past Alcohol Use History: Occasional Past Drug Use History: None Reported - Past Family History Mother Family Medical History: No Reported History Medications and Allergies Home Medications Medication Instructions Recorded Confirmed Type Rivaroxaban [Xarelto] 20 mg PO DAILY 06/11/15 12/04/18 History Furosemide [Lasix] 40 mg PO DAILY 06/14/15 12/04/18 History Lisinopril [Zestril] 10 mg PO DAILY 06/14/15 12/04/18 History oxyCODONE-APAP 7.5-325MG [Percocet 1 tab PO Q6HR PRN 01/07/18 12/04/18 History 7.5-325 mg] Carvedilol [Coreg] 6.25 mg PO BID 12/04/18 12/04/18 History Pantoprazole Sodium [Protonix] 40 mg PO DAILY 12/04/18 12/04/18 History buPROPion HCL [Wellbutrin SR] 200 mg PO BID 12/04/18 12/04/18 History Allergies Allergy/AdvReac Type Severity Reaction Status Date / Time No Known Allergies Allergy Verified 12/04/18 19:09 Physical Exam Vitals: Vital Signs Temp Pulse Pulse Resp BP BP Pulse Ox 12/05/18 07:14 99.1 F 71 18 126/79 95 12/05/18 02:15 99.1 F 70 17 111/76 92 L 12/04/18 21:00 98.4 F 65 17 145/90 96 12/04/18 19:54 64 18 139/83 97 12/04/18 18:16 97.3 F L 64 18 121/93 95 Intake and Output 12/04/18 12/05/18 12/05/18 22:59 06:59 14:59 Intake Total 480 640 Balance 480 640 Intake: Intake, IV Titration 640 Amount Sodium Chloride 0.9% 1, 640 000 ml @ 80 mls/hr IV . [id number] [facility] Rx#:[id number] Oral 480 Other: Weight 88.451 kg GENERAL EXAM: Patient is alert and oriented and doesn't appear to be in any acute distress HEENT: Normocephalic. Normal reaction of pupils, equal size, normal range of extraocular motion. No erythema or exudates in the throat. NECK: No masses, no nuchal rigidity. CHEST: No chest wall deformity. LUNGS: Equal air entry with no crackles or wheeze. HEART: S1 and S2 normal with no audible mumurs or gallops. Regular rhythm, femorals equal on both sides.. ABDOMEN: No hepatosplenomegaly, normal bowel sounds, no guarding or rigidity. SKIN: No rashes CENTRAL NERVOUS SYSTEM: No focal deficits. EXTREMITIES: No cyanosis, clubbing or edema. Results 12/04/18 18:49 12/04/18 18:49 Cardiac Enzymes 12/04/18 12/04/18 Range/Units 18:49 18:49 AST 22 (17-59) U/L CK-MB (CK-2) 0.6 (0.0-2.4) ng/mL Troponin I <0.012 (0.000-0.034) ng/mL Coagulation 12/04/18 Range/Units 18:49 PT 12.6 H (9.0-12.0) sec APTT 28.6 (22.0-30.0) sec CBC 12/04/18 Range/Units 18:49 WBC 6.6 (3.8-10.6) k/uL RBC 4.72 (4.30-5.90) m/uL Hgb 15.6 (13.0-17.5) gm/dL Hct 45.6 (39.0-53.0) % Plt Count 139 L (150-450) k/uL Comprehensive Metabolic Panel 12/04/18 Range/Units 18:49 Sodium 138 (137-145) mmol/L Potassium 3.5 (3.5-5.1) mmol/L Chloride 105 (98-107) mmol/L Carbon Dioxide 22 (22-30) mmol/L BUN 10 (9-20) mg/dL Creatinine 0.92 (0.66-1.25) mg/dL Glucose 77 (74-99) mg/dL Calcium 8.8 (8.4-10.2) mg/dL AST 22 (17-59) U/L ALT 28 (21-72) U/L Alkaline Phosphatase 58 (38-126) U/L Total Protein 6.1 L (6.3-8.2) g/dL Albumin 3.7 (3.5-5.0) g/dL Current Medications Generic Name Dose Route Start Last Admin Trade Name Freq PRN Reason Stop Dose Admin Bupropion HCl 200 mg 12/04/18 21:00 12/05/18 10:21 Wellbutrin Sr PO Not Given BID [facility] Carvedilol 6.25 mg 12/04/18 21:00 12/05/18 11:53 Coreg PO 6.25 mg BID-W/MEALS PREM Administration Cefazolin Sodium 2 gm 12/05/18 14:00 Kefzol IVP 12/05/18 14:01 ONCE ONE Furosemide 40 mg 12/05/18 09:00 12/05/18 08:12 Lasix PO Not Given DAILY [facility] [place] Hydromorphone HCl 0.5 mg 12/04/18 19:39 12/05/18 11:53 Dilaudid IVP 0.5 mg Q3HR PRN Administration Moderate Pain Sodium Chloride 1,000 mls @ 80 mls/hr 12/04/18 19:45 12/04/18 19:58 Saline 0.9% IV 80 mls/hr .[id number] PREM Administration Tranexamic Acid 1,000 mg/ 110 mls @ 200 mls/hr 12/05/18 14:30 Sodium Chloride IVPB 12/05/18 15:02 ONCE ONE Protocol Tranexamic Acid 1,000 mg/ 110 mls @ 200 mls/hr 12/05/18 15:00 Sodium Chloride IVPB 12/05/18 15:32 ONCE ONE Protocol Lisinopril 10 mg 12/05/18 09:00 12/05/18 08:12 Zestril PO Not Given DAILY [facility] [place] Naloxone HCl 0.2 mg 12/04/18 19:39 Narcan IV Q2M PRN Opioid Reversal Oxycodone/Acetaminophen 1 each 12/04/18 19:41 Percocet 7.5-325 PO Q6HR PRN Pain Pantoprazole Sodium 40 mg 12/05/18 07:30 12/05/18 08:12 Protonix PO Not Given [id number] PREM Intake and Output 12/04/18 12/05/18 12/05/18 22:59 06:59 14:59 Intake Total 480 640 Balance 480 640 Intake: Intake, IV Titration 640 Amount Sodium Chloride 0.9% 1, 640 000 ml @ 80 mls/hr IV . [id number] [facility] [place] Rx#:[id number] Oral 480 Other: Weight 88.451 kg 12/04/18 18:49 12/04/18 18:49 EKG Interpretations (text) Atrial fibrillation with controlled ventricular response with occasional PVCs Assessment and Plan (1) Chronic systolic (congestive) heart failure Current Visit: Yes Status: Acute Code(s): I50.22 - CHRONIC SYSTOLIC (DOM ESTIVE) HEART FAILURE SNOMED Code(s): 286823557 (2) Fall Current Visit: Yes Status: Acute Code(s): W19.XXXA - UNSPECIFIED FALL, INITIAL ENCOUNTER SNOMED Code(s): 9248809 (3) Hypertension Current Visit: Yes Status: Acute Code(s): I10 - ESSENTIAL (PRIMARY) HYPERTENSION SNOMED Code(s): 75059119 (4) PVCs (premature ventricular contractions) Current Visit: Yes Status: Acute Code(s): I49.3 - VENTRICULAR PREMATURE DEPOLARIZATION SNOMED Code(s): 13957944 (5) Subcapital fracture of left hip Current Visit: Yes Status: Acute Code(s): S72.012A - UNSP INTRACAPSULAR FRACTURE OF LEFT FEMUR, INIT FOR CLOS FX SNOMED Code(s): 127968685 (6) Cardiomyopathy Current Visit: Yes Status: Acute Code(s): I42.9 - CARDIOMYOPATHY, UNSPECIFIED SNOMED Code(s): 36306581 Plan: Patient has history of chronic atrial fibrillation and cardiomyopathy and chronic compensated congestive heart failure. Based on stable clinical status without overt signs of congestive heart failure or angina, patient is being cleared for surgery with more than average risk. Thank you
--- NOTE | 2018-12-05 12:10 | ECHOF ---
Referral Reason:pre-op MEASUREMENTS -------- HEIGHT: 182.9 cm WEIGHT: 88.5 kg BP: IVSd: 1.4 cm (0.6 - 1.1) LVIDd: 4.1 cm (3.9 - 5.3) LVPWd: 1.2 cm (0.6 - 1.1) IVSs: 1.1 cm LVIDs: 2.9 cm LVPWs: 1.2 cm LAESV Index (A-L): 33.29 ml/m Ao Diam: 2.8 cm (2.0 - 3.7) AV Cusp: 2.3 cm (1.5 - 2.6) LA Diam: 2.9 cm (2.7 - 3.8) MV EXCURSION: 14.924 mm (> 18.000) MV EF SLOPE: 92 mm/s (70 - 150) EPSS: 0.5 cm MV E Jose M: 0.81 m/s MV DecT: 294 ms MV A Jose M: 0.33 m/s MV E/A Ratio: 2.48 RAP: 5.00 mmHg RVSP: 39.12 mmHg FINDINGS -------- Atrial fibrillation. This was a technically difficult study with suboptimal views. Pt unable to turn due to hip fx. The left ventricular size is normal. There is mild concentric left ventricular hypertrophy. Overa ll left ventricular systolic function is normal with, an EF between 55 - 60 %. The right ventricle is normal in size. The left atrial size is normal. The right atrium is normal in size. Lumason used Aortic valve is trileaflet and is mildly thickened. There is trace mitral regurgitation. Ettt-js-nhqktzue tricuspid regurgitation present. There is mild pulmonary hypertension. The right ventricular systolic pressure, as measured by Doppler, is 39.12mmHg. The pulmonic valve was not well visualized. The aortic root size is normal. IVC Not well visulized. The pericardium is normal. CONCLUSIONS -------- 1. Atrial fibrillation. 2. This was a technically difficult study with suboptimal views. 3. Pt unable to turn due to hip fx. 4. The left ventricular size is normal. 5. There is mild concentric left ventricular hypertrophy. 6. Overall left ventricular systolic function is normal with, an EF between 55 - 60 %. 7. The right ventricle is normal in size. 8. The left atrial size is normal. 9. The right atrium is normal in size. 10. Lumason used 11. Aortic valve is trileaflet and is mildly thickened. 12. There is trace mitral regurgitation. 13. Oxql-na-hmqmxhxy tricuspid regurgitation present. 14. There is mild pulmonary hypertension. 15. The right ventricular systolic pressure, as measured by Doppler, is 39.12mmHg. 16. The pulmonic valve was not well visualized. 17. The aortic root size is normal. 18. IVC Not well visulized. 19. The pericardium is normal. REIMBURSEMENT ANALYST: Ethel Abebe RDCS
[2018-12-05] MEDS ORDERED: IV FLUID CONTINUATION 1,000 ML IV ONE (13:45)
[2018-12-05] MEDS ORDERED: ceFAZolin IN SWFI 2 GM/20 ML SYRINGE IVP ONE (14:00)
[2018-12-05] MEDS ORDERED: ceFAZolin 2 GM in SODIUM CHLORIDE 0.9% 100 ML IVPB ONE (14:00)
[2018-12-05] MEDS ORDERED: TRANEXAMIC ACID 1,000 MG in SODIUM CHLORIDE 0.9% 100 ML IVPB ONE ×2 (14:30→15:00)
[2018-12-05] MEDS ORDERED: ROCURONIUM BROMIDE 10 MG/ML 10 ML VIAL IV ONE (14:49)
[2018-12-05] MEDS ORDERED: GLYCOPYRROLATE 0.2 MG/ML 2 ML VIAL ONE (14:49)
[2018-12-05] MEDS ORDERED: fentaNYL (PF) 50 MCG/ML 2 ML AMP ONE (14:49)
[2018-12-05] MEDS ORDERED: LIDOCAINE 1% INJ 10MG/ML (20 ML MDV) ONE (14:49)
[2018-12-05] MEDS ORDERED: TRANEXAMIC ACID 1,000 MG/10 ML VIAL ONE (14:49)
[2018-12-05] MEDS ORDERED: NEOSTIGMINE 1 MG/ML 10 ML VIAL ONE (14:49)
[2018-12-05] MEDS ORDERED: PHENYLEPHRINE-0.9% NACL SYG 1 MG/10 ML SYRINGE ONE (14:49)
[2018-12-05] MEDS ORDERED: MIDAZOLAM 2 MG/2 ML VIAL ONE (14:49)
[2018-12-05] MEDS ORDERED: ETOMIDATE 2 MG/ML 10 ML VIAL ONE (14:49)
[2018-12-05] MEDS ORDERED: ePHEDrine SULFATE/0.9% NACL/PF 50 MG/5 ML SYRINGE IV ONE (14:49)
[2018-12-05] MEDS ORDERED: HYDROmorphone (PF) 1 MG/ML ONE (14:49)
[2018-12-05] MEDS ORDERED: SUCCINYLCHOLINE CHLORIDE 100 MG/5 ML SYR IV ONE (14:49)
[2018-12-05] MEDS ORDERED: ONDANSETRON 4 MG/2 ML VIAL ONE (14:49)
[2018-12-05] MEDS ORDERED: SODIUM CHLORIDE 0.9% 100 ML BAG ONE (14:49)
[2018-12-05] MEDS ORDERED: LACTATED RINGERS 1,000 ML IV ONE ×2 (15:16)
--- NOTE | 2018-12-05 16:10 | P.OP ---
Date of Procedure: 12/05/18 Procedure(s) Performed: PREOPERATIVE DIAGNOSIS: Left hip femoral neck fracture POSTOPERATIVE DIAGNOSIS: Left hip femoral neck fracture OPERATION: Left hip cemented unipolar hemiarthroplasty. ANESTHESIA: Spinal ESTIMATED BLOOD LOSS: 100 ml. SENIOR SOFTWARE QA ENGINEER: TRUNG Gage (assistance with: patient positioning, retraction, exposure, hemostasis, leg positioning, implantation, irrigation, closure, dressing) COMPLICATIONS: None apparent. COMPONENTS IMPLANTED: Jhon LDFx cemented femoral stem; unipolar femoral head; neck extension augments as needed. INDICATIONS: Mr. Valle is a 68 year old male with a history of falling and sustaining a femoral neck fracture. I have recommended surgical treatment with a cemented unipolar hemiarthroplasty. I have discussed this procedure in detail and explained the potential risks and complications as being inclusive of, but not limited to: Bleeding, infection, scarring, discomfort, blood vessel and/or nerve damage, limb length inequality, gait disturbance, blood clot, pulmonary embolism, , and other risks. The consent form has been signed. PROCEDURE: After appropriate consent was obtained, the patient was taken to the operating room and placed in supine position. General anesthetic was administered and after confirmation of adequate anesthesia, the patient was placed into the lateral decubitus position with the affected side up. Care was taken to make sure that all pressure points were adequately padded and a Alban hip positioner was utilized for positioning. The hip was prepped and draped in the usual aseptic fashion using a combination of Chloraprep and alcohol. Ioban drape was used for the case and the patient received intravenous antibiotics and 1 gram intravenous tranexamic acid prior to the incision. The incision was created directly over the greater trochanter and carried slightly posteriorly for a posterior approach to the hip. The incision was then deepened down to subcutaneous tissue and fascia hector. Fascia hector was split in line with the incision and split proximally along the fibers of the gluteus maxi mus. The underlying fibers of the muscle were teased apart using finger dissection and bleeding vessels were picked up and coagulated. Retractor was then placed posteriorly consisting of a blunt Ameena. The short external rotators and capsule were exposed and good visualization of the attachment of the external rotators to the femur was established. The short external rotators and capsule were released using electrocautery from their femoral attachments. A hockey stick shaped incision was created in the capsule. Joint fluid and hemarthrosis was evacuated and the patient's hip was internally rotated to expose the fracture site. The femoral neck cut was created approximately 1 cm superior to the lesser trochanter using a reciprocating saw. The femoral head and neck fragment was removed and visualization and palpation of the acetabular vault showed intact hyaline cartilage with no bone exposure or significant degeneration. Attention was then directed back to the proximal femur. Retractors were placed around the proximal femur and box osteotome was used followed by canal finder and trochanteric reamer. Cylindrical reaming was performed. Progressive broaching was then performed starting with a #10 broach and progressing final size, in a position of 10-15 degrees anteversion. [place] anteversion was within 5 degrees of stem position. The final size broach had excellent fit and fill of the patient's metaphysis and diaphysis. Calcar planing was performed. Trial reduction was then performed starting with appropriately sized femoral head and various neck extensions to evaluate stability, limb length equality, and soft tissue tension. Once these parameters were satisfactory, the corresponding final components were then called for. Trial components were removed. The femoral canal was sized for the centralizer and cement plug. Once the cement plug had been inserted distal to the planned length of the femoral component, the canal was pulse lavaged and brushed to remove any unstable bone. It was then dried with a lap sponge. Cement was mixed under vacuum conditions to decrease porosity and inserted into a cement gun. Distal centralizer was placed onto the femoral component with a bit of cement. The cement was allowed to reach a slightly doughy consistency and then the canal was filled retrograde with the cement gun. Thumb pressurization was performed three times. The femoral component was then inserted with the previously determined degree of anteversion. Excess cement was removed before it hardened completely. The femoral head was then impacted onto the Tang taper. Blood and debris were removed from the acetabular socket and the hip was then reduced and checked for stability, limb length and soft tissue tension. These parameters were found to be satisfactory; the wound was then thoroughly irrigated with normal saline. Final hemostasis was obtained using electrocautery and IV tranexamic acid, 1 g given at the time of prepping and draping, and another 1 g given at the time of closure. Closure of the capsule was performed meticulously using #3 Vicryl suture. Four [id number] sutures were placed in the posterior capsule along with repair of the external rotators. The fascia hector was then repaired using combination of #3 Vicryl suture in interrupted fashion and Quill and running fashion. 2-0 Vicryl suture was used for the subcutaneous tissues and 3-0 Quill for the skin. Dermabond or Steri-Strips were then applied. The patient tolerated the procedure well. There were no complications and the wound bed was dry and there was no need for drain placement. Sterile dressing was then applied and the patient was carefully removed from the operating room table, placed on the stretcher and was taken to the recovery room in stable condition. Sponge and needle counts were correct.
[2018-12-05] MEDS ORDERED: TEMAZEPAM 15 MG CAP PO PRN (16:43)
[2018-12-05] MEDS ORDERED: DIAZEPAM 5 MG TAB PO PRN (16:43)
[2018-12-05] MEDS ORDERED: ONDANSETRON 4 MG/2 ML VIAL IVP PRN (16:43)
[2018-12-05] MEDS ORDERED: MAGNESIUM HYDROXIDE 2,400 MG/10 ML CUP PO PRN (16:43)
[2018-12-05] MEDS ORDERED: hydrOXYzine PAMOATE 25 MG CAP PO PRN (16:43)
[2018-12-05] MEDS ORDERED: HYDROmorphone 1 MG/ML 1 ML SYRINGE IVP PRN (16:43)
[2018-12-05] MEDS: HYDROmorphone 1 MG/ML 1 ML SYRINGE IVP ONE ×2 (17:05→17:13)
--- NOTE | 2018-12-05 17:34 | XR ---
PROCEDURE: XR Hip Limited LT - 3V DATE AND TIME: 12/05/2018 5:17 PM CLINICAL INDICATION: PHH; Status post hip surgery, assess surgical alignment TECHNIQUE: Department protocol COMPARISON: None FINDINGS: AP left hip shows post hip arthroplasty changes, with the prosthesis appearing in anatomic positioning and alignment on this single view. No unexpected findings. IMPRESSION: Postoperative left hip AP view.
[2018-12-05 18:53] LABS: ALT 26 U/L (21-72); AST 25 U/L (17-59); Albumin 2.6 g/dL (3.5-5.0); Alkaline Phosphatase 50 U/L (38-126); Anion Gap 4 mmol/L; Blood Urea Nitrogen 13 mg/dL (9-20); Calcium 7.8 mg/dL (8.4-10.2); Carbon Dioxide 24 mmol/L (22-30); Chloride 110 mmol/L (98-107); Glucose 81 mg/dL (74-99); Potassium 3.8 mmol/L (3.5-5.1); Sodium 138 mmol/L (137-145); Total Bilirubin 1.8 mg/dL (0.2-1.3); Total Protein 4.7 g/dL (6.3-8.2)
[2018-12-05] MEDS: SENNOSIDES-DOCUSATE SODIUM 1 EACH TAB PO SCH (20:06)
[2018-12-05] MEDS: SODIUM CHLORIDE 0.9% 1,000 ML IV SCH ×2 (20:42→20:43)
--- NOTE | 2018-12-05 21:45 | PN ---
PROGRESS NOTE DATE OF SERVICE: 12/05/2018 This 68-year-old gentleman was admitted after right total right hip fracture is slated to have surgery today. No chest pain. No palpitations. No fever. The patient also had CHF previously, but the most recent 2D echocardiogram done by Cardiology showed significant improvement in ejection fraction about 50-60. The patient is also euvolemic at this time. There is no evidence of fluid overload. The patient is being closely monitored. PAST MEDICAL HISTORY: Past medical history reviewed. REVIEW OF SYSTEMS: CARDIOVASCULAR: No angina or palpitations. Respiration as mentioned earlier. GI: No nausea or vomiting. no dysuria. CENTRAL NERVOUS SYSTEM: No numbness or weakness. CURRENT MEDICATIONS: Reviewed and include: 1. Wellbutrin 200 mg p.o. b.i.d. 2. Coreg 6.25 mg b.i.d. 3. Kefzol 2 g IV q.8h. 4. Valium 2.5 mg q.i.d. 5. Lactobacillus 40 mg daily. 6. Dilaudid 0.5 q.3 p.r.n. 7. Vistaril. 8. Zestril. 9. Narcan. 10.Zofran. 11.Percocet. 12.Xarelto. EXAM: Patient is alert, oriented x3. Pulse is 70, blood pressure 113/59, respiration 18, temp 99 degrees, pulse ox 98% on 6 L. HEENT: Conjunctivae normal. Neck: Normal. CARDIOVASCULAR: S1, S2 muffled. RESPIRATORY: Breath sounds diminished in the bases. A few scattered rhonchi. No crackles. Abdomen is soft, nontender. No mass palpable. Legs status post fracture. No focal deficits. LABS: WBC 6.7, hemoglobin 10. Platelets 139. Sodium is 130, potassium 3.5. Total bilirubin is 1.4. ASSESSMENT: 1. Status post right hip fracture. 2. History of hypertension. 3. History of congestive heart failure with possible cardiomyopathy with chronic systolic dysfunction, ejection fraction improved to 50 to 60% on recent 2D echo. 4. Mild to moderate tricuspid regurgitation and dilatation. 5. Mild thrombocytopenia. 6. Mildly increased bilirubin. 7. History of following hiatal hernia. 8. History of degenerative joint disease. 9. History of depression. 10.Remote history of nicotine dependence. 11.History of EtOH. RECOMMENDATIONS AND DISCUSSION: Recommend to continue current medications, management and symptomatic treatment. Otherwise we will clear the patient for surgery and we will continue to monitor. Monitor fluid and electrolytes balance closely. Repeat labs. Otherwise, ensure oxygenation. Continue the rest of the medications. DVT prophylaxis. Closely follow with Cardiology as well as Orthopedic surgery. Further recommendations to follow. MMHALLEYL / BEATRICEN: [id number] / MTDD
[2018-12-05] MEDS: ceFAZolin IN SWFI 2 GM/20 ML SYRINGE IVP SCH (23:35)
[2018-12-06] MEDS: HYDROmorphone 0.5 MG/0.5 ML SYRINGE IVP PRN ×3 (02:27→16:36)
[2018-12-06] MEDS: oxyCODONE-APAP 7.5-325MG 1 EACH TAB PO PRN ×2 (07:10→22:11)
[2018-12-06 07:26] LABS: Basophils % (A) 0 %; Eosinophils # (A) 0.1 k/uL (0-0.7); Eosinophils % (A) 2 %; HCT 40.9 % (39.0-53.0); HGB 14.3 gm/dL (13.0-17.5); Lymphocytes # (A) 0.7 k/uL (1.0-4.8); Lymphocytes % (A) 12 %; MCH 33.2 pg (25.0-35.0); MCHC 34.9 g/dL (31.0-37.0); Mean Platelet Volume 10.5; Monocytes # (A) 0.4 k/uL (0-1.0); Monocytes % (A) 6 %; Neutrophils # (A) 4.7 k/uL (1.3-7.7); Neutrophils % (A) 78 %; Platelet Count 118 k/uL (150-450); RBC 4.31 m/uL (4.30-5.90); RDW 14.3 % (11.5-15.5)
--- NOTE | 2018-12-06 08:03 | P.PN ---
Subjective Progress Note Date: 12/06/18 This is a 68-year-old male who is status post left hip hemiarthroplasty. This is postoperative day #1 and patient is seen and evaluated at bedside. Patient states that his pain is under control. Patient denies any new complaints today. Objective - Vital Signs Vital signs: Vital Signs Temp 98.1 F 12/06/18 07:46 Pulse 85 12/06/18 07:46 Resp 16 12/06/18 07:46 BP 131/56 12/06/18 07:46 Pulse Ox 95 12/06/18 07:46 Intake & Output 12/05/18 12/06/18 12/06/18 18:59 06:59 18:59 Intake Total 1500 640 Output Total 1100 600 Balance 400 40 Intake: IV 1500 Intake, IV Titration 640 Amount Sodium Chloride 0.9% 1, 640 000 ml @ 80 mls/hr IV . [id number] [facility] Rx#:[id number] Output: Urine 1000 600 Estimated Blood Loss 100 Other: Voiding Method Toilet - Exam Vital signs are stable. Patient is in no acute distress and is alert and oriented 3. Calf is soft and nontender to palpation. Dressing is clean, dry, and intact. Patient has full foot and ankle motion without pain or difficulty. Neurovascular status and circulatory status are intact. - Labs CBC & Chem 7: 12/06/18 06:35 12/05/18 18:26 Labs: Abnormal Lab Results - Last 24 Hours (Table) 12/05/18 12/06/18 Range/Units 18:26 06:35 Plt Count 118 L (150-450) k/uL Lymphocytes # 0.7 L (1.0-4.8) k/uL Chloride 110 H (98-107) mmol/L Calcium 7.8 L (8.4-10.2) mg/dL Total Bilirubin 1.8 H (0.2-1.3) mg/dL Total Protein 4.7 L (6.3-8.2) g/dL Albumin 2.6 L (3.5-5.0) g/dL Assessment and Plan Assessment: Heart failure Hypertension Atrial fibrillation Dysphagia (1) Fall Current Visit: Yes Status: Acute Code(s): W19.XXXA - UNSPECIFIED FALL, INITIAL ENCOUNTER SNOMED Code(s): 8477109 (2) Subcapital fracture of left hip Current Visit: Yes Status: Acute Code(s): S72.012A - UNSP INTRACAPSULAR FRACTURE OF LEFT FEMUR, INIT FOR CLOS FX SNOMED Code(s): 209216609 Plan: Continue routine postop care and pain control. Continue anticoagulation with Xarelto. Weightbearing as tolerated with a walker. Daily dressing changes. Appreciate input from medicine. Anticipate discharge to rehab in the next 1-2 days.
[2018-12-06] MEDS: LISINOPRIL 10 MG TAB PO SCH (08:52)
[2018-12-06] MEDS: CARVEDILOL 6.25 MG TAB PO SCH ×2 (08:52→17:43)
[2018-12-06] MEDS: PANTOPRAZOLE 40 MG TABLET PO SCH (08:52)
[2018-12-06] MEDS: buPROPion SR 100 MG TABLET.ER PO SCH ×2 (08:53→20:11)
[2018-12-06] MEDS: FUROSEMIDE 40 MG TAB PO SCH (08:53)
[2018-12-06] MEDS: RIVAROXABAN 20 MG TAB PO SCH (08:53)
[2018-12-06] MEDS: ceFAZolin IN SWFI 2 GM/20 ML SYRINGE IVP SCH (09:46)
--- NOTE | 2018-12-06 11:11 | P.PN ---
Subjective Progress Note Date: 12/06/18 This is a 68-year-old gentleman who was admitted with a fracture of the hip and undergone surgery. He has history of chronic atrial fibrillation, cardiomyopathy and congestive heart failure. CHF seemed to be well compensated. Patient tolerated the procedure well. He seemed to be stable without any symp toms of shortness of breath, orthopnea or paroxysmal dyspnea. His heart rate is controlled. Overall, patient is currently stable. We'll continue current medical therapy. We will follow him on when necessary basis. Patient should be continued on anticoagulation therapy Objective - Vital Signs Vital signs: Vital Signs Temp 98.1 F 12/06/18 07:46 Pulse 85 12/06/18 08:00 Resp 16 12/06/18 08:00 BP 131/56 12/06/18 07:46 Pulse Ox 95 12/06/18 07:46 Intake & Output 12/05/18 12/06/18 12/06/18 18:59 06:59 18:59 Intake Total 1500 640 Output Total 1100 600 Balance 400 40 Intake: IV 1500 Intake, IV Titration 640 Amount Sodium Chloride 0.9% 1, 640 000 ml @ 80 mls/hr IV . [id number] [facility] Rx#:[id number] Output: Urine 1000 600 Estimated Blood Loss 100 Other: Voiding Method Toilet Toilet - Exam GENERAL EXAM: Patient is alert and oriented and doesn't appear to be in any acute distress HEENT: Normocephalic. Normal reaction of pupils, equal size, normal range of extraocular motion. No erythema or exudates in the throat. NECK: No masses, no nuchal rigidity. CHEST: No chest wall deformity. LUNGS: Equal air entry with no crackles or wheeze. HEART: S1 and S2 normal with no audible mumurs or gallops. Regular rhythm, femorals equal on both sides.. ABDOMEN: No hepatosplenomegaly, normal bowel sounds, no guarding or rigidity. SKIN: No rashes CENTRAL NERVOUS SYSTEM: No focal deficits. EXTREMITIES: No cyanosis, clubbing or edema. - Labs CBC & Chem 7: 12/06/18 06:35 12/05/18 18:26 Labs: Abnormal Lab Results - Last 24 Hours (Table) 12/05/18 12/06/18 Range/Units 18:26 06:35 Plt Count 118 L (150-450) k/uL Lymphocytes # 0.7 L (1.0-4.8) k/uL Chloride 110 H (98-107) mmol/L Calcium 7.8 L (8.4-10.2) mg/dL Total Bilirubin 1.8 H (0.2-1.3) mg/dL Total Protein 4.7 L (6.3-8.2) g/dL Albumin 2.6 L (3.5-5.0) g/dL Assessment and Plan (1) Chronic systolic (congestive) heart failure Current Visit: Yes Status: Acute Code(s): I50.22 - CHRONIC SYSTOLIC (CONGESTIVE) HEART FAILURE SNOMED Code(s): 301118618 (2) Fall Current Visit: Yes Status: Acute Code(s): W19.XXXA - UNSPECIFIED FALL, INITIAL ENCOUNTER SNOMED Code(s): 7543334 (3) Hypertension Current Visit: Yes Status: Acute Code(s): I10 - ESSENTIAL (PRIMARY) HYPERTENSION SNOMED Code(s): 42393300 (4) PVCs (premature ventricular contractions) Current Visit: Yes Status: Acute Code(s): I49.3 - VENTRICULAR PREMATURE DEPOLARIZATION SNOMED Code(s): 62331610 (5) Subcapital fracture of left hip Current Visit: Yes Status: Acute Code(s): S72.012A - UNSP INTRACAPSULAR FRACTURE OF LEFT FEMUR, INIT FOR CLOS FX SNOMED Code(s): 245172057 (6) Cardiomyopathy Current Visit: Yes Status: Acute Code(s): I42.9 - CARDIOMYOPATHY, UNSPECIFIED SNOMED Code(s): 79676325 Plan: Patient is clinically stable. Patient will continue current medical therapy. We'll follow on when necessary basis
[2018-12-06] MEDS: SODIUM CHLORIDE 0.9% 1,000 ML IV SCH ×2 (19:01→19:30)
[2018-12-06] MEDS: SENNOSIDES-DOCUSATE SODIUM 1 EACH TAB PO SCH (20:11)
--- NOTE | 2018-12-07 00:49 | XR ---
EXAM: XR Chest, 1 View CLINICAL HISTORY: ITS.REASON XR Reason: pneumonia TECHNIQUE: Frontal view of the chest. COMPARISON: Chest x-ray 12/04/18 IMPRESSION: Cardiomegaly. Increased bibasilar opacities may represent atelectasis. No pleural effusion. Hiatal hernia.
[2018-12-07 05:42] LABS: Appearance,Urine Clear (Clear); Bilirubin,Urine Negative (Negative); Blood,Urine Small (Negative); Color,Urine Yellow; Glucose,Urine (UA) Negative (Negative); Ketones,Urine 1+ (Negative); Leukocyte Esterase,Urine Large (Negative); Mucus,Urine Few /hpf; Nitrite,Urine Negative (Negative); Protein,Urine Trace (Negative); RBC,Urine 29 /hpf (0-5); Specific Gravity,Urine 1.022 (1.001-1.035); WBC,Urine 43 /hpf (0-5)
[2018-12-07] MEDS: PANTOPRAZOLE 40 MG TABLET PO SCH (08:32)
[2018-12-07] MEDS: CARVEDILOL 6.25 MG TAB PO SCH ×2 (08:32→16:51)
[2018-12-07] MEDS: FUROSEMIDE 40 MG TAB PO SCH (08:32)
[2018-12-07] MEDS: RIVAROXABAN 20 MG TAB PO SCH (08:32)
[2018-12-07] MEDS: LISINOPRIL 10 MG TAB PO SCH (08:32)
[2018-12-07] MEDS: buPROPion SR 100 MG TABLET.ER PO SCH ×2 (08:32→20:18)
[2018-12-07] MEDS: HYDROmorphone 0.5 MG/0.5 ML SYRINGE IVP PRN ×2 (08:32→15:43)
--- NOTE | 2018-12-07 08:35 | PN ---
PROGRESS NOTE DATE OF SERVICE: 12/06/2018 This 68-year-old gentleman who was admitted with right hip fracture also had hypertension. The patient is being closely monitored at this time. Orthopedics is following the patient closely as well as cardiology. The patient is being worked for rehab. No chest pain. No palpitations. No fever. EXAM: Alert and oriented times three. Pulse 84. Blood pressure 122/80, respiratory rate 18, temperature 101.1, pulse ox 96% on room air. HEENT: Conjunctivae normal. Cardiovascular system: Breath sounds diminished in the bases. A few scattered rhonchi. No crackles. Abdomen is soft, nontender. Legs are no edema. No swelling. CENTRAL NERVOUS SYSTEM: No focal deficits. LABORATORY DATA: Labs are albumin is 2.6, total protein is 4.7, platelets are 118. REVIEW OF SYSTEMS: CARDIOVASCULAR: S1, S2. RESPIRATORY: Occasional cough. GI as mentioned earlier. : No dysuria. CENTRAL NERVOUS SYSTEM: As mentioned earlier. CURRENT MEDICATIONS ARE: Reviewed and include: 1. Wellbutrin 200 mg p.o. b.i.d. 2. Coreg 6.25 mg p.o. b.i.d. 3. Valium 2.5 mg. 4. Lasix. 5. Dilaudid. 6. Restoril. 7. Zestril. 8. Milk of magnesia. 9. Zofran. 10.Protonix. 11.Senokot-S. ASSESSMENT: 1. Status post right hip fracture. 2. Fever for evaluation. 3. History of hypertension. 4. History of congestive heart failure with possible cardiomyopathy with chronic systolic dysfunction, ejection fraction improved to 50 to 60% with most recent 2D echo. 5. [id number] tricuspid regurgitation. 6. Mild thrombocytopenia. 7. Mild increased bilirubin. 8. History of hiatal hernia. 9. History of degenerative joint disease. 10.History of depression. 11.Remote history of nicotine dependence. 12.History of EtOH. RECOMMENDATIONS AND DISCUSSION: Recommend to continue current medications, continue to monitor, symptomatic treatment, recommend UA with micro. Repeat labs. Portable chest x-ray. Symptomatic treatment. Otherwise, continue the rest of medication. Monitor fluid and electrolytes balance closely. Further recommendations to follow. MMODL / IJN: [id number] / [facility]Fran
--- NOTE | 2018-12-07 09:47 | P.PN ---
Subjective Progress Note Date: 12/07/18 This is a 68-year-old male who is status post left hip hemiarthroplasty. This is postoperative day #2 and patient is seen and evaluated at bedside. Patient states that his pain is under control and he denies any new complaints today. Patient denies any fever/chills, numbness, weakness, tingling, abdominal pain, shortness of breath or chest pain. Objective - Vital Signs Vital signs: Vital Signs Temp 99.8 F H 12/07/18 07:39 Pulse 78 12/07/18 07:39 Resp 18 12/07/18 05:17 BP 111/67 12/07/18 07:39 Pulse Ox 92 L 12/07/18 07:39 Intake & Output 12/06/18 12/07/18 12/07/18 18:59 06:59 18:59 Intake Total 560 1280 Output Total 900 Balance -340 1280 Intake: Intake, IV Titration 560 1280 Amount Sodium Chloride 0.9% 1, 560 1280 000 ml @ 80 mls/hr IV . [id number] [facility] Rx#:[id number] Output: Urine 900 Other: Voiding Method Indwelling Catheter Indwelling Catheter # Voids 1 # Bowel Movements 1 - Exam Vital signs are stable. Patient is in no acute distress and is alert and oriented 3. Calf is soft and nontender to palpation. Dressing is clean, dry, and intact. Patient has full foot and ankle motion without pain or difficulty. Neurovascular status and circulatory status are intact. - Labs CBC & Chem 7: 12/06/18 06:35 12/05/18 18:26 Labs: Abnormal Lab Results - Last 24 Hours (Table) 12/07/18 Range/Units 04:40 Urine Protein Trace H (Negative) Urine Ketones 1+ H (Negative) Urine Blood Small H (Negative) Ur Leukocyte Esterase Large H (Negative) Urine RBC 29 H (0-5) /hpf Urine WBC 43 H (0-5) /hpf Urine Mucus Few H (None) /hpf Assessment and Plan Assessment: Heart failure Hypertension Atrial fibrillation Dysphagia (1) Fall Current Visit: Yes Status: Acute Code(s): W19.XXXA - UNSPECIFIED FALL, INITIAL ENCOUNTER SNOMED Code(s): 5745975 (2) Subcapital fracture of left hip Current Visit: Yes Status: Acute Code(s): S72.012A - UNSP INTRACAPSULAR FRACTURE OF LEFT FEMUR, INIT FOR CLOS FX SNOMED Code(s): 545793897 Plan: Continue routine postop care and pain control. Continue anticoagulation with Xarelto. Weightbearing as tolerated with a walker. Daily dressing changes. Appreciate input from medicine. Anticipate discharge to rehab in the next 1-2 days.
--- NOTE | 2018-12-07 09:57 | P.DS ---
Providers Date of admission: 12/04/18 19:39 Expected date of discharge: 12/07/18 Attending physician: Kory Egan Consults: 12/04/18 19:39 Consult Physician Urgent Consulting Provider: Neha Gutierrez Consult Reason/Comments: Medical clearance for surgery Do you want consulting provider notified?: Already Contacted 12/05/18 08:50 Consult Physician Stat Consulting Provider: [facility] Consult Reason/Comments: pre op clearance Do you want consulting provider notified?: Yes Primary care physician: Caleb Pierson - [place] Diagnosis(es) (1) Fall Current Visit: Yes Status: Acute (2) Subcapital fracture of left hip Current Visit: Yes Status: Acute Hospital Course: This is a 68-year-old male who sustained a fracture of the left hip after a fall. The patient presents for evaluation. After discussion and consideration patient elects to proceed with left hip hemiarthroplasty. The patient is seen preoperatively by Dr. Egan and medically cleared for surgery by internal medicine. Patient is admitted to [facility] on 12/04/2018 and left hip hemiarthroplasty is performed on 12/05/2018. The procedures performed without complication or sequelae. The patient is doing well postoperatively. Labs and vital signs are stable on day of discharge. On day of discharge patient's hip incision is healing well. There is minimal erythema. There is no drainage noted at this time. There is minimal soft tissu e swelling to the hip and thigh. Patient has full foot and ankle motion without difficulty or pain. Calf is soft and nontender to palpation. Neurovascular status to the left lower extremity is intact. Patient is discharged to rehab in good condition. Opioid start talking form is reviewed and signed at patient bedside. Please see med rec for accurate list of home medications. Patient Condition at Discharge: Stable Plan - Discharge Summary New Discharge Prescriptions: New oxyCODONE-APAP 7.5-325MG [Percocet 7.5-325 mg] 1 tab PO Q6HR PRN #30 tab PRN Reason: Pain Sennosides [Senokot] 1 tab PO BID #60 tablet No Action Rivaroxaban [Xarelto] 20 mg PO DAILY Furosemide [Lasix] 40 mg PO DAILY Lisinopril [Zestril] 10 mg PO DAILY oxyCODONE-APAP 7.5-325MG [Percocet 7.5-325 mg] 1 tab PO Q6HR PRN PRN Reason: Pain buPROPion HCL [Wellbutrin SR] 200 mg PO BID Carvedilol [Coreg] 6.25 mg PO BID Pantoprazole Sodium [Protonix] 40 mg PO DAILY Discharge Medication List Rivaroxaban [Xarelto] 20 mg PO DAILY 06/11/15 [History] Furosemide [Lasix] 40 mg PO DAILY 06/14/15 [History] Lisinopril [Zestril] 10 mg PO DAILY 06/14/15 [History] oxyCODONE-APAP 7.5-325MG [Percocet 7.5-325 mg] 1 tab PO Q6HR PRN 01/07/18 [History] Carvedilol [Coreg] 6.25 mg PO BID 12/04/18 [History] Pantoprazole Sodium [Protonix] 40 mg PO DAILY 12/04/18 [History] buPROPion HCL [Wellbutrin SR] 200 mg PO BID 12/04/18 [History] Sennosides [Senokot] 1 tab PO BID #60 tablet 12/07/18 [Rx] oxyCODONE-APAP 7.5-325MG [Percocet 7.5-325 mg] 1 tab PO Q6HR PRN #30 tab 12/07/18 [Rx] Follow up Appointment(s)/Referral(s): Alcira Wright, [NON-STAFF] - As Needed Caleb Pierson MD [Primary Care Provider] - 1-2 days Kory Egan MD [STAFF PHYSICIAN] - 10 Days Activity/Diet/Wound Care/Special Instructions: Weightbearing as tolerated with walker. May shower after 2 days if no drainage from the incision. Daily dressing changes. Continue posterior hip precautions. Discharge Xarelto dosing per internal medicine. Follow-up with [facility] in 10 days with any questions or concerns, please call with any questions or concerns, Discharge Disposition: TRANSFER TO SNF/ECF
[2018-12-07] MEDS: SENNOSIDES-DOCUSATE SODIUM 1 EACH TAB PO SCH (21:15)
[2018-12-08] MEDS: oxyCODONE-APAP 7.5-325MG 1 EACH TAB PO PRN ×2 (07:21→14:12)
--- NOTE | 2018-12-08 07:43 | P.PN ---
Subjective Progress Note Date: 12/08/18 This is a 68-year-old male who is status post left hip hemiarthroplasty. This is postoperative day #3 and patient is seen and evaluated at bedside. Patient states that his pain is under control and he has been up and walking with physical therapy. Patient denies any new complaints today. Patient denies any fever/chills, numbness, weakness, tingling, abdominal pain, shortness of breath or chest pain. Objective - Vital Signs Vital signs: Vital Signs Temp 100.0 F H 12/08/18 01:46 Pulse 71 12/08/18 01:46 Resp 16 12/08/18 01:46 BP 125/76 12/08/18 01:46 Pulse Ox 91 L 12/08/18 01:46 Intake & Output 12/07/18 12/08/18 12/08/18 18:59 06:59 18:59 Intake Total 560 280 Output Total 550 1700 Balance 10 -1420 Intake: Intake, IV Titration 560 280 Amount IV Fluid Continuation 1, 560 000 ml @ 0 mls/hr IV .[facility] Rx#:[id number] Sodium Chloride 0.9% 1, 280 000 ml @ 80 mls/hr IV . [id number] [facility] Rx#:[id number] Output: Urine 550 1700 Other: Voiding Method Indwelling Catheter Indwelling Catheter - Exam Vital signs are stable. Patient is in no acute distress and is alert and oriented 3. Calf is soft and nontender to palpation. Dressing is clean, dry, and intact. Patient has full foot and ankle motion without pain or difficulty. Neurovascular status and circulatory status are intact. - Labs CBC & Chem 7: 12/06/18 06:35 12/05/18 18:26 Labs: Microbiology - Last 24 Hours (Table) 12/07/18 00:30 Blood Culture - Preliminary Blood No Growth after 24 hours 12/07/18 04:40 Urine Culture - Preliminary Urine,Catheterized Assessment and Plan Assessment: Heart failure Hypertension Atrial fibrillation Dysphagia (1) Fall Current Visit: Yes Status: Acute Code(s): W19.XXXA - UNSPECIFIED FALL, INITIAL ENCOUNTER SNOMED Code(s): 8920514 (2) Subcapital fracture of left hip Current Visit: Yes Status: Acute Code(s): S72.012A - UNSP INTRACAPSULAR FRACTURE OF LEFT FEMUR, INIT FOR CLOS FX SNOMED Code(s): 214274427 Plan: Continue routine postop care and pain control. Continue anticoagulation with Xarelto. Weightbearing as tolerated with a walker. Daily dressing changes. Appreciate input from medicine. Anticipate discharge to rehab tomorrow.
--- NOTE | 2018-12-08 08:00 | PN ---
PROGRESS NOTE DATE OF SERVICE: 12/07/2018 This 68-year-old gentleman who was admitted after right hip fracture is improving significantly. No chest pain. No palpitations. No fever. PHYSICAL EXAM: Alert and oriented times three. Pulse 88, blood pressure 117/76, respiration 18, temperature 99.4, pulse ox 92% on room air. HEENT: Conjunctivae normal. NECK: No jugular venous distention. CARDIOVASCULAR: S1, S2. RESPIRATIONS: Breath sounds diminished in the bases. Scattered rhonchi. ABDOMEN is soft. No masses. CENTRAL NERVOUS SYSTEM: No focal deficits. LABS: WBC 6, hemoglobin is 14.2, platelets 118. UA noted. ASSESSMENT: 1. Status post right hip fracture. 2. Fever for evaluation. 3. History of hypertension. 4. History of congestive heart failure with possible cardiomyopathy with chronic systolic dysfunction. Ejection fraction 50 to 60% with most recent 2D echo. 5. Mild to moderate tricuspid regurgitation. 6. Mild thrombocytopenia. 7. Increased bilirubin. 8. History of hiatal hernia. 9. History of degenerative joint disease. 10.History of depression. 11.Remote history of nicotine dependence. 12.History of EtOH. 13.Possible urinary tract infection. RECOMMENDATIONS AND DISCUSSION: Recommend to continue current medications, monitoring, management and symptomatic treatment. Patient is currently afebrile. Otherwise, the UA showed some evidence of UTI. Patient has had possibly UTI. I would recommend a short course of antibiotics at this time. Further recommendations to follow. MMODL / IJN: [id number] /
[2018-12-08] MEDS: PANTOPRAZOLE 40 MG TABLET PO SCH (08:29)
[2018-12-08] MEDS: FUROSEMIDE 40 MG TAB PO SCH (08:29)
[2018-12-08] MEDS: RIVAROXABAN 20 MG TAB PO SCH (08:29)
[2018-12-08] MEDS: buPROPion SR 100 MG TABLET.ER PO SCH ×2 (08:29→19:50)
[2018-12-08] MEDS: LISINOPRIL 10 MG TAB PO SCH (08:29)
[2018-12-08] MEDS: CARVEDILOL 6.25 MG TAB PO SCH ×2 (08:29→17:14)
[2018-12-08 09:15] LABS: Basophils % (A) 0 %; Eosinophils # (A) 0.1 k/uL (0-0.7); Eosinophils % (A) 2 %; HCT 36.7 % (39.0-53.0); HGB 12.8 gm/dL (13.0-17.5); Lymphocytes # (A) 0.7 k/uL (1.0-4.8); Lymphocytes % (A) 14 %; MCH 32.9 pg (25.0-35.0); Mean Platelet Volume 11.7; Monocytes # (A) 0.5 k/uL (0-1.0); Monocytes % (A) 10 %; Neutrophils # (A) 3.4 k/uL (1.3-7.7); Neutrophils % (A) 71 %; Platelet Count 116 k/uL (150-450); RDW 15.7 % (11.5-15.5); WBC 4.7 k/uL (3.8-10.6)
[2018-12-08 09:56] LABS: Anion Gap 5 mmol/L; Blood Urea Nitrogen 9 mg/dL (9-20); Calcium 7.8 mg/dL (8.4-10.2); Carbon Dioxide 27 mmol/L (22-30); Chloride 107 mmol/L (98-107); Glucose 99 mg/dL (74-99); Potassium 3.6 mmol/L (3.5-5.1); Sodium 139 mmol/L (137-145)
--- NOTE | 2018-12-08 12:12 | P.CRDCN ---
History of Present Illness History of present illness: Patient is a 68-year-old male with past medical history of chronic atrial fibrillation, cardiomyopathy, and congestive heart failure, who is admitted after a fall and subsequently underwent left hip in my arthroplasty with Dr. Egan. In the cardiac standpoint he has done well during his admission. On exam, patient is resting comfortably in bed. He denies any chest discomfort, dyspnea, palpitations, dizziness, or vertigo. He has gotten up out of at this morning and ambulated to the bathroom without any symptoms. He does report some discomfort in his left, however states he feels as though he is doing well. PHYSICAL EXAMINATION: HEENT: Head is atraumatic, normocephalic. Pupils are equal, round. Sclerae anicteric. Conjunctivae are clear. Mucous membranes of the mouth are moist. Neck is supple. There is no jugular venous distention. No carotid bruit is heard. CHEST EXAMINATION: Lungs are clear to auscultation. No chest wall tenderness is noted on palpation or with deep breathing. HEART EXAMINATION: Heart irregular rate and rhythm. No murmurs, gallops or rub. ABDOMEN: Soft, nontender. Bowel sounds are heard. No organomegaly noted. EXTREMITIES: 2+ peripheral pulses with no evidence of peripheral edema and no calf tenderness noted. NEUROLOGIC EXAMINATION: Patient is awake, alert and oriented x3. LABORATORY DATA: WBC 4.7 Hemoglobin 0.8, sodium 139, potassium 3.6, BUN 9, creatinine 0.64, FINAL ASSESSMENT AND PLAN: Left hip fracture, status post hemiarthroplasty Chronic atrial fibrillation, rate controlled, on anticoagulation Cardiomyopathy Congestive heart failure, euvolemic Hypertension PLAN: We will continue current regimen. Patient will continue to follow up in office with Dr. Lewis. Past Medical History Past Medical History: Heart Failure, Hypertension Additional Past Medical History / Comment(s): DIFFICULTY WITH SWALLOWING, atrial fibrillation, chronic History of Any Multi-Drug Resistant Organisms: None Reported Past Surgical History: Orthopedic Surgery Additional Past Surgical History / Comment(s): ESOPHAGUS, HIATAL HERNIA, RIGHT HIP,RIGHT ARM PLATE AND SCREW, LEFT FOOT, Past Anesthesia/Blood Transfusion Reactions: No Reported Reaction Past Psychological History: Depression Smoking Status: Former smoker Past Alcohol Use History: Occasional Past Drug Use History: None Reported - Past Family History Mother Family Medical History: No Reported History Medications and Allergies Home Medications Medication Instructions Recorded Confirmed Type Rivaroxaban [Xarelto] 20 mg PO DAILY 06/11/15 12/05/18 History Furosemide [Lasix] 40 mg PO DAILY 06/14/15 12/04/18 History Lisinopril [Zestril] 10 mg PO DAILY 06/14/15 12/04/18 History oxyCODONE-APAP 7.5-325MG [Percocet 1 tab PO Q6HR PRN 01/07/18 12/04/18 History 7.5-325 mg] Carvedilol [Coreg] 6.25 mg PO BID 12/04/18 12/04/18 History Pantoprazole Sodium [Protonix] 40 mg PO DAILY 12/04/18 12/04/18 History buPROPion HCL [Wellbutrin SR] 200 mg PO BID 12/04/18 12/04/18 History Sennosides [Senokot] 1 tab PO BID #60 tablet 12/07/18 Rx oxyCODONE-APAP 7.5-325MG [Percocet 1 tab PO Q6HR PRN #30 tab 12/07/18 Rx 7.5-325 mg] Allergies Allergy/AdvReac Type Severity Reaction Status Date / Time No Known Allergies Allergy Verified 12/05/18 13:50 Physical Exam Vitals: Vital Signs Temp Pulse Pulse Resp BP BP Pulse Ox 12/08/18 07:00 98.3 F 60 16 115/73 95 12/08/18 01:46 100.0 F H 71 16 125/76 91 L 12/07/18 20:00 99.5 F 88 18 117/76 92 L 12/07/18 16:00 99.5 F 96 16 129/88 90 L 12/07/18 15:38 78 18 Intake and Output 12/07/18 12/08/18 12/08/18 22:59 06:59 14:59 Intake Total 280 236 Output Total 550 1700 350 Balance -270 -1700 -114 Intake: Intake, IV Titration 280 Amount Sodium Chloride 0.9% 1, 280 000 ml @ 80 mls/hr IV . [id number] [facility] Rx#:[id number] Oral 236 Output: Urine 550 1700 350 Other: Voiding Method Indwelling Catheter Results 12/08/18 08:03 12/08/18 08:03 CBC 12/08/18 Range/Units 08:03 WBC 4.7 (3.8-10.6) k/uL RBC 3.90 L (4.30-5.90) m/uL Hgb 12.8 L (13.0-17.5) gm/dL Hct 36.7 L (39.0-53.0) % Plt Count 116 L (150-450) k/uL Comprehensive Metabolic Panel 12/08/18 Range/Units 08:03 Sodium 139 (137-145) mmol/L Potassium 3.6 (3.5-5.1) mmol/L Chloride 107 (98-107) mmol/L Carbon Dioxide 27 (22-30) mmol/L BUN 9 (9-20) mg/dL Creatinine 0.64 L (0.66-1.25) mg/dL Glucose 99 (74-99) mg/dL Calcium 7.8 L (8.4-10.2) mg/dL Current Medications Generic Name Dose Route Start Last Admin Trade Name Freq PRN Reason Stop Dose Admin Bupropion HCl 200 mg 12/04/18 21:00 12/08/18 08:29 Wellbutrin Sr PO 200 mg BID PREM Administration Carvedilol 6.25 mg 12/04/18 21:00 12/08/18 08:29 Coreg PO 6.25 mg BID-W/MEALS PREM Administration Diazepam 2.5 mg 12/05/18 16:43 Valium PO Q8HR PRN Mild Spasms Furosemide 40 mg 12/05/18 09:00 12/08/18 08:29 Lasix PO 40 mg DAILY PREM Administration Hydromorphone HCl 0.5 mg 12/04/18 19:39 12/07/18 15:43 Dilaudid IVP 0.5 mg Q3HR PRN Administration Moderate Pain Hydromorphone HCl 1 mg 12/05/18 16:43 Dilaudid IVP Q3HR PRN Severe Pain Hydroxyzine Pamoate 25 mg 12/05/18 16:43 Vistaril PO Q4HR PRN Nausea, Anxiety, Pain Control Ceftriaxone Sodium 1 gm/ 50 mls @ 100 mls/hr 12/08/18 09:00 Sodium Chloride IVPB Q24HR [facility] Lisinopril 10 mg 12/05/18 09:00 12/08/18 08:29 Zestril PO 10 mg DAILY PREM Administration Magnesium Hydroxide 2,400 mg 12/05/18 16:43 Milk Of Magnesia PO DAILY PRN Constipation Naloxone HCl 0.2 mg 12/04/18 19:39 Narcan IV Q2M PRN Opioid Reversal Ondansetron HCl 4 mg 12/05/18 16:43 Zofran IVP DAILY PRN Nausea And Vomiting Oxycodone/Acetaminophen 1 each 12/04/18 19:41 12/08/18 07:21 Percocet 7.5-325 PO 1 each Q6HR PRN Administration Pain Pantoprazole Sodium 40 mg 12/05/18 07:30 12/08/18 08:29 Protonix PO 40 mg [id number] PREM Administration Rivaroxaban 20 mg 12/06/18 09:00 12/08/18 08:29 Xarelto PO 20 mg DAILY [facility] Administration Senna/Docusate Sodium 2 each 12/05/18 21:00 12/07/18 21:15 Senokot-S PO Not Given HS [facility] Temazepam 15 mg 12/05/18 16:43 Restoril PO HS PRN Insomnia Intake and Output 12/07/18 12/08/18 12/08/18 22:59 06:59 14:59 Intake Total 280 236 Output Total 550 1700 350 Balance -270 -1700 -114 Intake: Intake, IV Titration 280 Amount Sodium Chloride 0.9% 1, 280 000 ml @ 80 mls/hr IV . [id number] [facility] Rx#:[id number] Oral 236 Output: Urine 550 1700 350 Other: Voiding Method Indwelling Catheter 12/08/18 08:03 12/08/18 08:03
--- NOTE | 2018-12-08 19:32 | PN ---
PROGRESS NOTE DATE OF SERVICE: 12/08/2018 This 68-year-old gentleman admitted after right hip fracture also has fever and hypertension. Patient also has CHF. Multiple consultants are following the patient closely. No chest pain. No palpitations. No fever. EXAM: Alert and oriented x3. Pulse is 64. Blood pressure 190/73, respirations 16, temperature 97.4, pulse ox 97% on room air. HEENT: Conjunctivae normal. NECK: No jugular venous distention. CARDIOVASCULAR: S1, S2 muffled. RESPIRATORY: Breath sounds diminished in the bases. A few scattered rhonchi and crackles. Abdomen is soft, nontender. Legs are status post surgery. CENTRAL NERVOUS SYSTEM: No focal deficits. LABS: UA noted. Possible UTI. ASSESSMENT: 1. Status post left hip femoral neck fracture and left hip unipolar hemiarthroplasty. 2. Fever possible acute urinary tract infection present on admission. 3. History of hypertension. 4. History of congestive heart failure with possible cardiomyopathy with chronic systolic dysfunction, ejection fraction improved to 50 to 60% in the most recent 2D echo. 5. Mild to moderate tricuspid regurgitation. 6. Mild thrombocytopenia. 7. Increased bilirubin. 8. History of hiatal hernia. 9. History of degenerative joint disease. 10.History of depression. 11.Remote history of nicotine dependence. 12.Possible ETOH. RECOMMENDATIONS AND DISCUSSION: Recommend to continue current medications, monitoring, management and symptomatic treatment. Continue with the current medication. Continue small dose of diuretics and empiric antibiotics. The cultures are negative so far. Closely follow with Orthopedic surgery. The patient will be stable for transfer to [facility] tomorrow. MMHALLEYL / IJN: [id number] /
[2018-12-08] MEDS: SENNOSIDES-DOCUSATE SODIUM 1 EACH TAB PO SCH (22:22)
[2018-12-09 01:55] VITALS: RESP 16
[2018-12-09 07:42] LABS: Basophils % (A) 0 %; Eosinophils # (A) 0.2 k/uL (0-0.7); Eosinophils % (A) 4 %; HCT 36.6 % (39.0-53.0); HGB 12.2 gm/dL (13.0-17.5); Lymphocytes # (A) 0.8 k/uL (1.0-4.8); Lymphocytes % (A) 15 %; MCH 32.5 pg (25.0-35.0); MCHC 33.4 g/dL (31.0-37.0); MCV 97.4 fL (80.0-100.0); Mean Platelet Volume 8.7; Monocytes # (A) 0.4 k/uL (0-1.0); Monocytes % (A) 8 %; Neutrophils # (A) 3.6 k/uL (1.3-7.7); Neutrophils % (A) 69 %; Platelet Count 132 k/uL (150-450); RBC 3.76 m/uL (4.30-5.90); WBC 5.3 k/uL (3.8-10.6)
[2018-12-09 08:05] LABS: Anion Gap 6 mmol/L; Blood Urea Nitrogen 12 mg/dL (9-20); Calcium 7.9 mg/dL (8.4-10.2); Carbon Dioxide 26 mmol/L (22-30); Chloride 109 mmol/L (98-107); Glucose 82 mg/dL (74-99); Potassium 3.6 mmol/L (3.5-5.1); Sodium 141 mmol/L (137-145)
[2018-12-09 08:15] VITALS: BP 128/82; PULSE 63; TEMP 98.9
[2018-12-09] MEDS: LISINOPRIL 10 MG TAB PO SCH (08:32)
[2018-12-09] MEDS: FUROSEMIDE 40 MG TAB PO SCH (08:32)
[2018-12-09] MEDS: PANTOPRAZOLE 40 MG TABLET PO SCH (08:33)
[2018-12-09] MEDS: CARVEDILOL 6.25 MG TAB PO SCH (08:34)
[2018-12-09] MEDS: buPROPion SR 100 MG TABLET.ER PO SCH (09:34)
[2018-12-09] MEDS: RIVAROXABAN 20 MG TAB PO SCH (09:34)
== END 2018-12-09 14:49 | DRG 470 ==
LOC: EC 18:14 → 4SSUR 19:39
PROVIDERS: ADMIT Hospitalist; ATTEND Hospitalist
PROC: 0SRS0J9 Replacement of Left Hip Joint, Femoral Surface with Synthetic Substitute, Cemented, Open Approach (ICD-10-PCS; principal; 2018-12-05 14:30)
DX: S72.012A Unspecified intracapsular fracture of left femur, initial encounter for closed fracture (principal); I50.22 Chronic systolic (congestive) heart failure; I42.9 Cardiomyopathy, unspecified; N39.0 Urinary tract infection, site not specified; I48.2 Chronic atrial fibrillation; I49.3 Ventricular premature depolarization; F32.9 Major depressive disorder, single episode, unspecified; D69.6 Thrombocytopenia, unspecified; I07.1 Rheumatic tricuspid insufficiency; I11.0 Hypertensive heart disease with heart failure; R13.10 Dysphagia, unspecified; K44.9 Diaphragmatic hernia without obstruction or gangrene; S60.812A Abrasion of left wrist, initial encounter; W01.0XXA Fall on same level from slipping, tripping and stumbling without subsequent striking against object, initial encounter; Y93.K1 Activity, walking an animal; Z87.891 Personal history of nicotine dependence; Z79.899 Other long term (current) drug therapy; Z79.01 Long term (current) use of anticoagulants; Z87.81 Personal history of (healed) traumatic fracture
CPT/HCPCS: 36415; 71045; 73501; 73502; 80048; 80053; 81001; 82550; 82553; 83735; 84484; 85025; 85610; 85730; 87040; 87086; 88305; 88311; 93005; 93306; 96361; 96374; 99285

== ENCOUNTER → 2019-05-02 | Outpatient (CLI) | payer MEDICARE ==
--- NOTE | 2019-05-02 22:08 | MR ---
EXAMINATION TYPE: MR lumbar spine wo con DATE OF EXAM: 05/02/2019 COMPARISON: None HISTORY: 68-year-old male Chronic low back pain TECHNIQUE: Multiplanar, multisequence images of the lumbar spine were acquired. FINDINGS: Extensive susceptibility artifact right pelvis likely relating to left hip arthroplasty. Additional m etallic pins within the right hip. There is a transitional lumbosacral segment is noted as a lumbarized S1. Mild to moderate degenerative disc disease throughout with disc desiccation. Moderate disc height los s at L5-S1 with some fatty Modic type II endplate change. Scattered ligamentum flavum thickening and hypertrophic facet arthropathy. There is also superior endplate fracture deformity of L1 with mild retropulsion into the ventral spin al canal and accentuated kyphosis at this level. Otherwise, vertebral body heights are preserved. Ali gnment maintained. Conus medullaris is normal. Mild heterogeneous marrow signal without suspicious bone marrow replacement. At T12-L1, retropulsion encroaches onto the ventral spinal canal but does not cause significant spina l canal stenosis. Moderate bilateral neuroforaminal stenosis. At L1-L2, minimal bulging disc. No significant spinal canal or neuroforaminal stenosis. At L2-L3, mild facet arthropathy without significant canal or foraminal stenosis. L3-L4, minimal bulging disc with ligamentum flavum thickening and facet arthropathy. Changes result i n mild left neuroforaminal stenosis without spinal canal stenosis. At L4-L5, mild bulging disc and ligamentum flavum thickening as well as facet arthropathy. Changes re sult in mild bilateral neural foraminal stenosis without significant spinal canal stenosis. At L5-S1, hypertrophic facet arthropathy and mild bulging disc. Changes result in moderate left and m ild right neuroforaminal stenosis. No spinal canal stenosis. No prevertebral or paravertebral soft tissue abnormality seen. IMPRESSION: 1. [id number] multilevel degenerative disc disease. Transitional lumbosacral segment denoted as a lumbarized S1. 2. Some scattered ligamentum flavum thickening and hypertrophic facet arthropathy. 3. Old superior endplate fracture of L1 with mild retropulsion into the spinal canal but no significa nt spinal canal stenosis. Changes result in moderate bilateral neural foraminal stenosis here at T12- L1. The compression deformity also results in focal kyphosis at this level. 4. Variable mild neuroforaminal stenoses as outlined above. No large focal disc herniation or signifi cant spinal canal stenosis.
== END | disposition home or self-care (01) ==
LOC: RADMRIMAIN 17:09
PROVIDERS: ATTEND Internal Medicine
DX: M48.05 Spinal stenosis, thoracolumbar region (principal); M48.061 Spinal stenosis, lumbar region without neurogenic claudication; M51.36 Other intervertebral disc degeneration, lumbar region; M46.96 Unspecified inflammatory spondylopathy, lumbar region; M53.85 Other specified dorsopathies, thoracolumbar region; M40.295 Other kyphosis, thoracolumbar region
CPT/HCPCS: 72148

== ENCOUNTER → 2019-08-01 | Outpatient (CLI) | payer MEDICARE ==
--- NOTE | 2019-08-01 11:29 | CT ---
EXAMINATION TYPE: CT chest w con DATE OF EXAM: 08/01/2019 COMPARISON: 06/03/2015 HISTORY: Cough CT DLP: 454.0 mGycm Automated exposure control for dose reduction was used. CONTRAST: CT scan of the chest is performed with IV Contrast, patient injected with 100 mL of Isovue 300. FINDINGS: LUNGS: There is subtle patchy density right upper lobe posteriorly which may reflect developing infil trate. The lungs are otherwise clear. Hyperinflation is compatible with COPD. No evidence for nodule or mass. MEDIASTINUM: There are no greater than 1 cm hilar or mediastinal lymph nodes. No pericardial effusi on is seen. Thoracic aorta is of normal caliber. The heart is not enlarged. There is a large fixed h iatal hernia with internal debris noted. UPPER ABDOMEN: No significant abnormality appreciated. OTHER: No additional significant abnormality is seen. IMPRESSION: 1. large fixed hiatal hernia with internal debris. No change from prior study. 2. Subtle infiltrate right upper lobe may reflect developing pneumonia. Correlate clinically.
== END ==
LOC: RADCTMAIN 09:31
PROVIDERS: ATTEND Internal Medicine
DX: K44.9 Diaphragmatic hernia without obstruction or gangrene (principal); R91.8 Other nonspecific abnormal finding of lung field
CPT/HCPCS: 36415; 71260; 82565; 84520

== ENCOUNTER 2019-10-03 18:46 | Inpatient (IN) | payer MEDICARE ==
[2019-10-03 19:19] LABS: Basophils # (A) 0.1 k/uL (0-0.2); Basophils % (A) 1 %; Eosinophils # (A) 0.1 k/uL (0-0.7); Eosinophils % (A) 2 %; HCT 49.3 % (39.0-53.0); HGB 16.1 gm/dL (13.0-17.5); Lymphocytes # (A) 1.1 k/uL (1.0-4.8); Lymphocytes % (A) 14 %; MCH 30.3 pg (25.0-35.0); MCHC 32.7 g/dL (31.0-37.0); MCV 92.9 fL (80.0-100.0); Mean Platelet Volume 8.6; Monocytes # (A) 0.5 k/uL (0-1.0); Monocytes % (A) 6 %; Neutrophils # (A) 5.6 k/uL (1.3-7.7); Neutrophils % (A) 75 %; Platelet Count 155 k/uL (150-450); RBC 5.31 m/uL (4.30-5.90); RDW 13.5 % (11.5-15.5); WBC 7.5 k/uL (3.8-10.6)
--- NOTE | 2019-10-03 19:23 | XR ---
EXAMINATION TYPE: XR chest 2V DATE OF EXAM: 10/03/2019 COMPARISON: 12/07/2018 HISTORY: Chest pain TECHNIQUE: FINDINGS: Heart is normal. There is hiatal hernia. Lungs are clear of consolidation. There is no hear t failure. There are no hilar masses. Bony thorax appears intact. There is some increased density rig ht lung base probably due to scarring and subsegmental atelectasis unchanged. IMPRESSION: No active cardiopulmonary disease. There is clearing of the cardiomegaly compared to old exam.
[2019-10-03 19:28] LABS: ALT 12 U/L (4-49); AST 24 U/L (17-59); African American GFR (CKD) >90 (>60 ml/min/1.73 sqM); Albumin 3.9 g/dL (3.5-5.0); Alkaline Phosphatase 52 U/L (38-126); Anion Gap 9 mmol/L; Blood Urea Nitrogen 16 mg/dL (9-20); Calcium 8.6 mg/dL (8.4-10.2); Carbon Dioxide 22 mmol/L (22-30); Chloride 110 mmol/L (98-107); Glucose 95 mg/dL (74-99); Non-African American GFR(CKD) 80 (>60 ml/min/1.73 sqM); Potassium 3.9 mmol/L (3.5-5.1); Sodium 141 mmol/L (137-145); Total Bilirubin 1.5 mg/dL (0.2-1.3); Total Protein 6.6 g/dL (6.3-8.2)
[2019-10-03 19:41] LABS: INR 1.2 (<1.2)
--- NOTE | 2019-10-03 20:23 | ED ---
General Adult HPI - General Chief complaint: Chest Pain Stated complaint: Chest pain Time Seen by Provider: 10/03/19 18:59 Source: patient Mode of arrival: wheelchair Limitations: no limitations - History of Present Illness Initial comments: 69-year-old male patient presents to the emergency department today for evaluation of chest pain. Patient states he's had intermittent chest pain for the last 4 days. Patient states with onset the pain is severe. Denies radiation of the pain through to his back. He does report some shortness of breath with this. States he has been nauseated. Patient does have a history of congestive heart failure and atrial fibrillation. He does take xarelto. He denies any fever or chills. States he does have a cough. Denies any palpitations. Denies dizziness or weakness. Patient denies any recent rash, abdominal pain, diarrhea, constipation, back pain, numbness, tingling, hematuria, dysuria, urinary urgency, urinary frequency, headache, visual changes, or any other complaints. - Related Data Home Medications Medication Instructions Recorded Confirmed Rivaroxaban [Xarelto] 20 mg PO DAILY 06/11/15 12/05/18 Furosemide [Lasix] 40 mg PO DAILY 06/14/15 12/04/18 Lisinopril [Zestril] 10 mg PO DAILY 06/14/15 12/04/18 Carvedilol [Coreg] 6.25 mg PO BID 12/04/18 12/04/18 Pantoprazole Sodium [Protonix] 40 mg PO DAILY 12/04/18 12/04/18 buPROPion HCL [Wellbutrin SR] 200 mg PO BID 12/04/18 12/04/18 Previous Rx's Medication Instructions Recorded Sennosides [Senokot] 1 tab PO BID #60 tablet 12/07/18 oxyCODONE-APAP 7.5-325MG [Percocet 1 tab PO Q6HR PRN #30 tab 12/07/18 7.5-325 mg] Cefuroxime Axetil [Ceftin] 500 mg PO BID 3 Days #6 tab 12/09/18 Allergies Allergy/AdvReac Type Severity Reaction Status Date / Time No Known Allergies Allergy Verified 10/03/19 18:51 Review of Systems ROS Statement: Those systems with pertinent positive or pertinent negative responses have been documented in the HPI. ROS Other: All systems not noted in ROS Statement are negative. Past Medical History Past Medical History: Heart Failure, Hypertension Additional Past Medical History / Comment(s): DIFFICULTY WITH SWALLOWING, atrial fibrillation, chronic History of Any Multi-Drug Resistant Organisms: None Reported Past Surgical History: Orthopedic Surgery Additional Past Surgical History / Comment(s): ESOPHAGUS, HIATAL HERNIA, RIGHT HIP,RIGHT ARM PLATE AND SCREW, LEFT FOOT, Past Anesthesia/Blood Transfusion Reactions: No Reported Reaction Past Psychological History: Depression Smoking Status: Former smoker Past Alcohol Use History: Occasional Past Drug Use History: None Reported - Past Family History Mother Family Medical History: No Reported History General Exam Limitations: no limitations General appearance: alert, in no apparent distress Eye exam: Present: normal appearance, PERRL, EOMI. Absent: scleral icterus, conjunctival injection, periorbital swelling ENT exam: Present: normal exam, normal oropharynx, mucous membranes moist Respiratory exam: Present: normal lung sounds bilaterally. Absent: respiratory distress, wheezes, rales, rhonchi, stridor Cardiovascular Exam: Present: regular rate, normal rhythm, normal heart sounds. Absent: systolic murmur, diastolic murmur, rubs, gallop, clicks GI/Abdominal exam: Present: soft, normal bowel sounds. Absent: distended, tenderness, guarding, rebound, rigid Neurological exam: Present: alert, oriented X3, CN II-XII intact Psychiatric exam: Present: normal affect, normal mood Skin exam: Present: warm, dry, intact, normal color. Absent: rash Course Vital Signs 10/03/19 18:48 Temperature 98.1 F Pulse Rate 59 L Respiratory 20 Rate Blood Pressure 110/72 O2 Sat by Pulse 96 Oximetry EKG Findings - EKG Comments: EKG Findings:: EKG obtained at 2016 shows atrial fibrillation with PVCs. Ventricular rate is 64, QRS duration 92, QT 396, QTc 408. No evidence of ST elevation or depression. Medical Decision Making - Medical Decision Making 69-year-old male patient presents the emergency department today for evaluation of chest pain. Physical examination is relatively unremarkable. Initial troponin is negative. Patient is have history of A. fib and congestive heart failure. We'll admit to the hospital for surgery troponins and evaluation by cardiology. Patient verbalizes understanding and agrees with this plan. - Lab Data Result diagrams: 10/03/19 19:00 10/03/19 19:00 Lab Results 10/03/19 10/03/19 10/03/19 Range/Units 19:00 19:00 19:00 WBC 7.5 (3.8-10.6) k/uL RBC 5.31 (4.30-5.90) m/uL Hgb 16.1 (13.0-17.5) gm/dL Hct 49.3 (39.0-53.0) % MCV 92.9 (80.0-100.0) fL MCH 30.3 (25.0-35.0) pg MCHC 32.7 (31.0-37.0) g/dL RDW 13.5 (11.5-15.5) % Plt Count 155 (150-450) k/uL Neutrophils % 75 % Lymphocytes % 14 % Monocytes % 6 % Eosinophils % 2 % Basophils % 1 % Neutrophils # 5.6 (1.3-7.7) k/uL Lymphocytes # 1.1 (1.0-4.8) k/uL Monocytes # 0.5 (0-1.0) k/uL Eosinophils # 0.1 (0-0.7) k/uL Basophils # 0.1 (0-0.2) k/uL PT 12.0 (9.0-12.0) sec INR 1.2 H (<1.2) APTT 26.0 (22.0-30.0) sec Sodium 141 (137-145) mmol/L Potassium 3.9 (3.5-5.1) mmol/L Chloride 110 H (98-107) mmol/L Carbon Dioxide 22 (22-30) mmol/L Anion Gap 9 mmol/L BUN 16 (9-20) mg/dL Creatinine 0.96 (0.66-1.25) mg/dL Est GFR (CKD-EPI)AfAm >90 (>60 ml/min/1.73 sqM) Est GFR (CKD-EPI)NonAf 80 (>60 ml/min/1.73 sqM) Glucose 95 (74-99) mg/dL Calcium 8.6 (8.4-10.2) mg/dL Magnesium 2.0 (1.6-2.3) mg/dL Total Bilirubin 1.5 H (0.2-1.3) mg/dL AST 24 (17-59) U/L ALT 12 (4-49) U/L Alkaline Phosphatase 52 (38-126) U/L Troponin I (0.000-0.034) ng/mL Total Protein 6.6 (6.3-8.2) g/dL Albumin 3.9 (3.5-5.0) g/dL Lipase 47 (23-300) U/L 10/03/19 Range/Units 19:00 WBC (3.8-10.6) k/uL RBC (4.30-5.90) m/uL Hgb (13.0-17.5) gm/dL Hct (39.0-53.0) % MCV (80.0-100.0) fL MCH (25.0-35.0) pg MCHC (31.0-37.0) g/dL RDW (11.5-15.5) % Plt Count (150-450) k/uL Neutrophils % % Lymphocytes % % Monocytes % % Eosinophils % % Basophils % % Neutrophils # (1.3-7.7) k/uL Lymphocytes # (1.0-4.8) k/uL Monocytes # (0-1.0) k/uL Eosinophils # (0-0.7) k/uL Basophils # (0-0.2) k/uL PT (9.0-12.0) sec INR (<1.2) APTT (22.0-30.0) sec Sodium (137-145) mmol/L Potassium (3.5-5.1) mmol/L Chloride (98-107) mmol/L Carbon Dioxide (22-30) mmol/L Anion Gap mmol/L BUN (9-20) mg/dL Creatinine (0.66-1.25) mg/dL Est GFR (CKD-EPI)AfAm (>60 ml/min/1.73 sqM) Est GFR (CKD-EPI)NonAf (>60 ml/min/1.73 sqM) Glucose (74-99) mg/dL Calcium (8.4-10.2) mg/dL Magnesium (1.6-2.3) mg/dL Total Bilirubin (0.2-1.3) mg/dL AST (17-59) U/L ALT (4-49) U/L Alkaline Phosphatase (38-126) U/L Troponin I <0.012 (0.000-0.034) ng/mL Total Protein (6.3-8.2) g/dL Albumin (3.5-5.0) g/dL Lipase (23-300) U/L - Radiology Data Radiology results: report reviewed, image reviewed Two-view x-ray of the chest is obtained. Report reviewed in its entirety. Impression by Dr. Palacios shows no active cardiopulmonary disease. There is clearing of the cardiomegaly compared to old exam Disposition Clinical Impression: Chest pain Disposition: ADMITTED IP TO THIS [facility] Condition: Serious Referrals: Caleb Pierson MD [Primary Care Provider] - 1-2 days Decision to Admit Reason: Admit from EC Decision Date: 10/03/19 Decision Time: 20:23
[2019-10-03] MEDS ORDERED: NALOXONE 0.4 MG/ML 1 ML VIAL IV PRN (20:30)
[2019-10-03] MEDS ORDERED: ONDANSETRON 4 MG/2 ML VIAL IVP PRN (20:30)
[2019-10-03] MEDS: MORPHINE SULFATE 4 MG/ML SYRINGE IV PRN (20:44)
[2019-10-04] MEDS: MORPHINE SULFATE 4 MG/ML SYRINGE IV PRN ×3 (02:39→22:58)
[2019-10-04] MEDS: RIVAROXABAN 20 MG TAB PO SCH (11:19)
[2019-10-04] MEDS: FUROSEMIDE 40 MG TAB PO SCH (11:19)
[2019-10-04] MEDS: CARVEDILOL 6.25 MG TAB PO SCH ×2 (11:19→17:41)
[2019-10-04] MEDS: LISINOPRIL 10 MG TAB PO SCH (11:19)
[2019-10-04] MEDS: buPROPion SR 100 MG TABLET.ER PO SCH ×2 (12:11→20:19)
--- NOTE | 2019-10-04 13:14 | P.CRDCN ---
History of Present Illness Consult date: 10/04/19 Consult reason: chest pain Chief complaint: Chest pain History of present illness: This is a 68-year-old gentleman presented to the emergency department yesterday afternoon with complaints of chest discomfort. Patient stated he has been having intermittent chest discomfort for the past 4 days. Chest pain is more worse with cough, deep breathing and after eating food. His chest pain is mostly at the mid epigastric, and to the left anterior chest wall no radiation to neck or arms. He reports having some nausea, coughing, and minimal shortness of breath along with it. Patient is been having recurrent hiccups for past 2 months. Denies any palpitations. Denies dizziness or weakness. Patient denies any abdominal pain, diarrhea, constipation, back pain, numbness, tingling, hematuria, dysuria, urinary urgency, urinary frequency, headache, visual changes. Patient has past medical history of cardiomyopathy and congestive heart failure being followed by Dr. Lewis regularly. He was diagnosed to have cardiac m yopathy and congestive heart failure in 2015. Initial ejection fraction was 20 to 25%. A nuclear stress test done around that time did not reveal any inducible ischemia. He did have an echocardiogram done in September 2017 which showed an ejection fraction about 40-45%. Patient also has history of chronic atrial fibrillation on anticoagulation with Xarelto Patient was seen and examined on consultation. He is sitting at the side of the bed, on room air, respirations are stable, does not appear to be any acute discomfort. Patient continued to have minimal chest discomfort, worse with coughing and swallowing food. Denied shortness of breath, denied orthopnea, or PND. He denied lower extremity edema. Patient had normal cardiac enzymes 3, EKG showed atrial fibrillation with a controlled ventricular rate, chest x-ray no active cardiopulmonary disease. There is clearing off the cardiomegaly compared to old exam. Review of Systems All systems: negative Constitutional: Reports as per HPI Ears, nose, mouth and throat: Reports as per HPI Cardiovascular: Reports as per HPI, Reports chest pain Respiratory: Reports as per HPI Gastrointestinal: Reports as per HPI Musculoskeletal: Reports as per HPI Neurological: Reports as per HPI Psychiatric: Reports as per HPI Past Medical History Past Medical History: Atrial Fibrillation, Heart Failure, Hypertension Additional Past Medical History / Comment(s): DIFFICULTY WITH SWALLOWING, atrial fibrillation History of Any Multi-Drug Resistant Organisms: None Reported Past Surgical History: Orthopedic Surgery Additional Past Surgical History / Comment(s): ESOPHAGUS, HIATAL HERNIA, RIGHT HIP,RIGHT ARM PLATE AND SCREW, LEFT FOOT,left hip replaced Past Anesthesia/Blood Transfusion Reactions: No Reported Reaction Past Psychological History: Depression Smoking Status: Former smoker Past Alcohol Use History: Occasional Past Drug Use History: None Reported - Past Family History Mother Family Medical History: No Reported History Medications and Allergies Home Medications Medication Instructions Recorded Confirmed Type Rivaroxaban [Xarelto] 20 mg PO DAILY 06/11/15 10/03/19 History Furosemide [Lasix] 40 mg PO DAILY 06/14/15 10/03/19 History Lisinopril [Zestril] 10 mg PO DAILY 06/14/15 10/03/19 History Carvedilol [Coreg] 6.25 mg PO BID 12/04/18 10/03/19 History buPROPion HCL [Wellbutrin SR] 200 mg PO BID 12/04/18 10/03/19 History oxyCODONE-APAP 7.5-325MG [Percocet 1 tab PO Q6HR PRN #30 tab 12/07/18 10/03/19 Rx 7.5-325 mg] Ibandronate Sodium 150 mg PO Q30D 10/03/19 10/03/19 History Allergies Allergy/AdvReac Type Severity Reaction Status Date / Time No Known Allergies Allergy Verified 10/03/19 22:53 Physical Exam Vitals: Vital Signs Temp Pulse Pulse Resp BP BP Pulse Ox 10/04/19 12:00 98.5 F 73 18 145/87 92 L 10/04/19 08:00 98.4 F 63 18 125/82 96 10/04/19 04:00 98.1 F 73 18 115/72 96 10/03/19 22:14 98.3 F 66 18 124/81 97 10/03/19 20:48 60 18 134/86 98 10/03/19 18:48 98.1 F 59 L 20 110/72 96 Intake and Output 10/03/19 10/04/19 10/04/19 22:59 06:59 14:59 Other: Voiding Method Toilet Toilet Weight 90.718 kg 85.9 kg PHYSICAL EXAMINATION: HEENT: Head is atraumatic, normocephalic. Pupils are equal, round. Sclerae anicteric. Conjunctivae are clear. Mucous membranes of the mouth are moist. Neck is supple. There is no jugular venous distention. No carotid bruit is heard. CHEST EXAMINATION: Lungs are clear to auscultation. Minimal chest wall tenderness is noted on palpation and with deep breathing. HEART EXAMINATION: Irregular rate and rhythm, S1-S2 percent, systolic murmur at the apex. ABDOMEN: Soft, nontender. Bowel sounds are heard. No organomegaly noted. EXTREMITIES: no evidence of peripheral edema and no calf tenderness noted. NEUROLOGIC EXAMINATION: Patient is awake, alert and oriented x3 Results 10/03/19 19:00 10/03/19 19:00 Cardiac Enzymes 10/03/19 10/03/19 10/04/19 Range/Units 19:00 19:00 01:06 AST 24 (17-59) U/L Troponin I <0.012 <0.012 (0.000-0.034) ng/mL 10/04/19 Range/Units 07:10 AST (17-59) U/L Troponin I 0.014 (0.000-0.034) ng/mL Coagulation 10/03/19 Range/Units 19:00 PT 12.0 (9.0-12.0) sec APTT 26.0 (22.0-30.0) sec CBC 10/03/19 Range/Units 19:00 WBC 7.5 (3.8-10.6) k/uL RBC 5.31 (4.30-5.90) m/uL Hgb 16.1 (13.0-17.5) gm/dL Hct 49.3 (39.0-53.0) % Plt Count 155 (150-450) k/uL Comprehensive Metabolic Panel 10/03/19 Range/Units 19:00 Sodium 141 (137-145) mmol/L Potassium 3.9 (3.5-5.1) mmol/L Chloride 110 H (98-107) mmol/L Carbon Dioxide 22 (22-30) mmol/L BUN 16 (9-20) mg/dL Creatinine 0.96 (0.66-1.25) mg/dL Glucose 95 (74-99) mg/dL Calcium 8.6 (8.4-10.2) mg/dL AST 24 (17-59) U/L ALT 12 (4-49) U/L Alkaline Phosphatase 52 (38-126) U/L Total Protein 6.6 (6.3-8.2) g/dL Albumin 3.9 (3.5-5.0) g/dL Current Medications Generic Name Dose Route Start Last Admin Trade Name Freq PRN Reason Stop Dose Admin Bupropion HCl 200 mg 10/04/19 11:00 10/04/19 12:11 Wellbutrin Sr PO 200 mg BID PREM Administration Carvedilol 6.25 mg 10/04/19 10:15 10/04/19 11:19 Coreg PO 6.25 mg BID-W/MEALS PREM Administration Furosemide 40 mg 10/04/19 10:15 10/04/19 11:19 Lasix PO 40 mg DAILY PREM Administration Lisinopril 10 mg 10/04/19 10:15 10/04/19 11:19 Zestril PO 10 mg DAILY PREM Administration Morphine Sulfate 4 mg 10/03/19 20:30 10/04/19 10:03 Morphine Sulfate (Inj) IV 4 mg Q4HR PRN Administration Severe Pain Naloxone HCl 0.2 mg 10/03/19 20:30 Narcan IV Q2M PRN Opioid Reversal Ondansetron HCl 4 mg 10/03/19 20:30 10/04/19 10:05 Zofran IVP 4 mg Q8HR PRN Administration Nausea And Vomiting Oxycodone/Acetaminophen 1 each 10/04/19 10:54 Percocet 7.5-325 PO Q6HR PRN Pain Rivaroxaban 20 mg 10/04/19 10:15 10/04/19 11:19 Xarelto PO 20 mg DAILY PREM Administration Intake and Output 10/03/19 10/04/19 10/04/19 22:59 06:59 14:59 Other: Voiding Method Toilet Toilet Weight 90.718 kg 85.9 kg 10/03/19 19:00 10/03/19 19:00 Assessment and Plan Assessment: -Atypical chest discomfort with a normal cardiac enzymes, no significant EKG changes inconsistent with ACS Chronic atrial fibrillation rate controlled on anticoagulation Cardiomyopathy Congestive heart failure euvolemic Hypertension Hyperlipidemia Multiple medical conditions Plan: We'll continue current cardiac regimen including anticoagulation Obtain echo Doppler to assess left ventricular size and function and valvular abnormalities We'll continue monitor patient closely and make further recommendations. The impression and plan of care has been dictated as directed. Dr. Ribeiro I performed a history and examination of this patient, discussed the same with the dictator. I agree with the dictator's note ,documented as a scribe. Any additional findings or plans will be noted.
--- NOTE | 2019-10-04 18:05 | P.HPIM ---
History of Present Illness H&P Date: 10/04/19 Chief Complaint: Unable to swallow History of presenting complaint: This is a very pleasant 69-year-old patient of Dr. Caleb Maynard. Chronic stable medical conditions include atrial fibrillation, congestive heart failure, hypertension, depression. Patient states he recovered from treatment for flu symptoms. Prognosis remains guarded. We started having attacks of coughing and hiccups. Every time he had a Serious chest pain. 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 mark Liu. Sometimes patient gets bouts of hiccups and coughing that he cannot control. For about 4 days patient will be resumed he did drink anything. Can barely able to keep anything down BACK up. Was only able to tolerate some oranges 2 nights ago. Patient daughter the bedside. No cardiac sounding pain at all. Review of systems: GEN.: Slightly tired EYES: None HEENT: None NECK: None RESPIRATORY: None CARDIOVASCULAR: None GASTROINTESTINAL: As above GENITOURINARY: None MUSCULOSKELETAL: None LYMPHATICS: None HEMATOLOGICAL: None PSYCHIATRY: None NEUROLOGICAL: None Past medical history to include: Atrophic vision, CHF, hypertension, depression Social history: Patient does smoke in the past. Alcohol occasionally. Patient retired from [employer]. Has a dog at home. Lives alone Family history: Reviewed, noncontributory to presentation Physical examination: VITAL SIGNS: 98.1, 73, 18, 11 5/72, 96% on room air GENERAL: BMI 26.8, sitting at the edge of the bed not in distress. EYES: Pupils equal. Conjunctiva normal. HEENT: External appearance of nose and ears normal, oral cavity grossly normal. NECK: JVD not raised; masses not palpable. HEART: First and second heart sounds are normal; no edema. LUNGS: Respiratory rate normal; clear to auscultation. ABDOMEN: Soft, nontender, liver spleen not palpable, no masses palpable. PSYCH: Alert and oriented x3; mood and affect normal. NEUROLOGICAL: Cranial nerves grossly intact; no facial asymmetry, power and sensation grossly intact. LYMPHATICS: No lymph nodes palpable in the axilla and neck INVESTIGATIONS, reviewed in the clinical context: White count 7.5 hemoglobin 16.1 potassium 3.9 bun 16 creatinine 0.96 Troponin I 3 negative EKG tracing personally reviewed by ne-atrial flutter fibrillation rate 64 Chest x-ray film personally reviewed by me-borderline cardiomegaly Assessment: -This is a patient with a surgery for what he describes a ruptured esophagus and hiatal hernia over 25 years ago. Patient intermittently gets episodes of hiccups that sometimes can be intractable. He had the same episode now causing some chest pain with every time he hiccups. For the last 40 is not been able to eat anything. Barely keep anything down. Only got a few pieces of or injured. Denies any obvious reflux symptoms. -Persistent atrial fibrillation flutter -Chronic congestive heart failure EF not known -Essential hypertension -Depression not otherwise specified Plan: Home medications resumed. Presentation does not sound to be cardiac but because of patient and family's conservatively.. We'll get a barium swallow done. We'll also consult Dr. Liu complaint the patient is known and patient will need a further intervention depending on the barium swallow results. Care was discussed with the patient and daughter question were answered. Patient be kept on a full liquid diet. Past Medical History Past Medical History: Atrial Fibrillation, Heart Failure, Hypertension Additional Past Medical History / Comment(s): DIFFICULTY WITH SWALLOWING, atrial fibrillation History of Any Multi-Drug Resistant Organisms: None Reported Past Surgical History: Orthopedic Surgery Additional Past Surgical History / Comment(s): ESOPHAGUS, HIATAL HERNIA, RIGHT HIP,RIGHT ARM PLATE AND SCREW, LEFT FOOT,left hip replaced Past Anesthesia/Blood Transfusion Reactions: No Reported Reaction Past Psychological History: Depression Smoking Status: Former smoker Past Alcohol Use History: Occasional Past Drug Use History: None Reported - Past Family History Mother Family Medical History: No Reported History Medications and Allergies Home Medications Medication Instructions Recorded Confirmed Type Rivaroxaban [Xarelto] 20 mg PO DAILY 06/11/15 10/03/19 History Furosemide [Lasix] 40 mg PO DAILY 06/14/15 10/03/19 History Lisinopril [Zestril] 10 mg PO DAILY 06/14/15 10/03/19 History Carvedilol [Coreg] 6.25 mg PO BID 12/04/18 10/03/19 History buPROPion HCL [Wellbutrin SR] 200 mg PO BID 12/04/18 10/03/19 History oxyCODONE-APAP 7.5-325MG [Percocet 1 tab PO Q6HR PRN #30 tab 12/07/18 10/03/19 Rx 7.5-325 mg] Ibandronate Sodium 150 mg PO Q30D 10/03/19 10/03/19 History Allergies Allergy/AdvReac Type Severity Reaction Status Date / Time No Known Allergies Allergy Verified 10/03/19 22:53 Physical Exam Vitals: Vital Signs Temp Pulse Pulse Resp BP BP Pulse Ox 10/04/19 15:45 98.1 F 53 L 18 101/68 96 10/04/19 12:00 98.5 F 73 18 145/87 92 L 10/04/19 08:00 98.4 F 63 18 125/82 96 10/04/19 04:00 98.1 F 73 18 115/72 96 10/03/19 22:14 98.3 F 66 18 124/81 97 10/03/19 20:48 60 18 134/86 98 10/03/19 18:48 98.1 F 59 L 20 110/72 96 Intake and Output 10/04/19 10/04/19 10/04/19 06:59 14:59 22:59 Other: Voiding Method Toilet Toilet # Voids 1 Weight 85.9 kg Results CBC & Chem 7: 10/03/19 19:00 10/03/19 19:00 Labs: Abnormal Lab Results - Last 24 Hours (Table) 10/03/19 10/03/19 Range/Units 19:00 19:00 INR 1.2 H (<1.2) Chloride 110 H (98-107) mmol/L Total Bilirubin 1.5 H (0.2-1.3) mg/dL Thrombosis Risk Factor Assmnt - Choose All That Apply Any of the Below Risk Factors Present?: Yes Each Factor Represents 1 point: Abnormal pulmonary function (COPD), Obesity (BMI >25) Other Risk Factors: Yes Each Risk Factor Represents 2 Points: Age 61-74 years Other congenital or acquired thrombophilia - If yes, enter type in comment: No Thrombosis Risk Factor Assessment Total Risk Factor Score: 4 Thrombosis Risk Factor Assessment Level: Moderate Risk
[2019-10-04] MEDS: oxyCODONE-APAP 7.5-325MG 1 EACH TAB PO PRN (18:19)
--- NOTE | 2019-10-05 10:04 | P.GSCN ---
History of Present Illness Consult date: 10/05/19 Reason for Consult: Dysphagia History of present illness: 69-year-old male with history of previous hiatal hernia surgery many years ago. States he had a perforation at that time he believes. Comes in with complaints of recurrent reflux and dysphagia. Now with some chest pain for the last 4 weeks or so. Apparently he has been dealing with these issues intermittently over the years. CAT scan performed last year showed a recurrent hiatal hernia containing some food like material. Patient states he has been vomiting sometimes food from 2-3 days prior. No pain if he is not eating. He does have more hiccups lately than he used to. Upper GI was ordered for today but apparently is being performed tomorrow instead. He is afebrile. Vital signs are stable. White blood cell count is normal. Review of Systems The patient denies any acute changes in vision or hearing, no shortness of breath, no dysuria or hematuria, no headache, no runny nose, no rectal bleeding or melena, no unexplained weight loss Past Medical History Past Medical History: Atrial Fibrillation, Heart Failure, Hypertension Additional Past Medical History / Comment(s): DIFFICULTY WITH SWALLOWING, atrial fibrillation History of Any Multi-Drug Resistant Organisms: None Reported Past Surgical History: Orthopedic Surgery Additional Past Surgical History / Comment(s): ESOPHAGUS, HIATAL HERNIA, RIGHT HIP,RIGHT ARM PLATE AND SCREW, LEFT FOOT,left hip replaced Past Anesthesia/Blood Transfusion Reactions: No Reported Reaction Past Psychological History: Depression Smoking Status: Former smoker Past Alcohol Use History: Occasional Past Drug Use History: None Reported - Past Family History Mother Family Medical History: No Reported History Medications and Allergies Home Medications Medication Instructions Recorded Confirmed Type Rivaroxaban [Xarelto] 20 mg PO DAILY 06/11/15 10/03/19 History Furosemide [Lasix] 40 mg PO DAILY 06/14/15 10/03/19 History Lisinopril [Zestril] 10 mg PO DAILY 06/14/15 10/03/19 History Carvedilol [Coreg] 6.25 mg PO BID 12/04/18 10/03/19 History buPROPion HCL [Wellbutrin SR] 200 mg PO BID 12/04/18 10/03/19 History oxyCODONE-APAP 7.5-325MG [Percocet 1 tab PO Q6HR PRN #30 tab 12/07/18 10/03/19 Rx 7.5-325 mg] Ibandronate Sodium 150 mg PO Q30D 10/03/19 10/03/19 History Allergies Allergy/AdvReac Type Severity Reaction Status Date / Time No Known Allergies Allergy Verified 10/03/19 22:53 Surgical - Exam Vital Signs Temp Pulse Resp BP Pulse Ox 98.1 F 59 L 20 110/72 96 10/03/19 18:48 10/03/19 18:48 10/03/19 18:48 10/03/19 18:48 10/03/19 18:48 Physical exam: General: Well-developed, well-nourished HEENT: Normocephalic, sclerae nonicteric Abdomen: Nontender, nondistended Extremities: No edema Neuro: Alert and oriented Results - Labs 10/03/19 19:00 10/03/19 19:00 Assessment and Plan (1) Hiatal hernia Narrative/Plan: 69-year-old male with recurrent hiatal hernia and dysphagia. Agree with plans for esophagram as soon as radiology can perform. May require endoscopy following that. Current Visit: Yes Status: Acute Code(s): K44.9 - DIAPHRAGMATIC HERNIA WITHOUT OBSTRUCTION OR GANGRENE SNOMED Code(s): 15636669
[2019-10-05] MEDS: LISINOPRIL 10 MG TAB PO SCH (10:07)
[2019-10-05] MEDS: RIVAROXABAN 20 MG TAB PO SCH (10:07)
[2019-10-05] MEDS: buPROPion SR 100 MG TABLET.ER PO SCH ×2 (10:07→20:06)
[2019-10-05] MEDS: FUROSEMIDE 40 MG TAB PO SCH (10:07)
[2019-10-05] MEDS: CARVEDILOL 6.25 MG TAB PO SCH ×2 (10:07→18:00)
[2019-10-05] MEDS: PANTOPRAZOLE 40 MG/10 ML VIAL IVP SCH ×2 (10:14→20:06)
[2019-10-05] MEDS: oxyCODONE-APAP 7.5-325MG 1 EACH TAB PO PRN ×2 (10:15→18:00)
--- NOTE | 2019-10-05 18:26 | P.PN ---
Progress Note - Text Progress Note Date: 10/05/19 Chief Complaint: Unable to swallow Interval history: This is a very pleasant 69-year-old patient of Dr. Caleb Maynard. Chronic stable medical conditions include atrial fibrillation, congestive heart failure, hypertension, depression. Patient states he recovered from treatment for flu symptoms. Prognosis remains guarded. We started having attacks of coughing and hiccups. Every time he had a Serious chest pain. 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 mark Liu. Sometimes patient gets bouts of hiccups and coughing that he cannot control. For about 4 days patient barely able to drink anything. Can barely able to keep anything down , throws BACK up. Was only able to tolerate some oranges 2 nights ago. Patient daughter the bedside. No cardiac sounding pain at all. Today-patient did throw up last night. Able to keep some liquids down. Today. Pending barium swallow. Possibly EGD following that. Review of systems: Was done for constitutional, cardiovascular, GI, pulmonary. relevant finding as above Active Medications Bupropion HCl (Wellbutrin Sr) 200 mg PO BID [facility] Last Admin: 10/05/19 10:07 Dose: 200 mg Documented by: Carvedilol (Coreg) 6.25 mg PO BID-W/MEALS [facility] Last Admin: 10/05/19 18:00 Dose: 6.25 mg Documented by: Furosemide (Lasix) 40 mg PO DAILY [facility] Last Admin: 10/05/19 10:07 Dose: 40 mg Documented by: Lisinopril (Zestril) 10 mg PO DAILY [facility] Last Admin: 10/05/19 10:07 Dose: 10 mg Documented by: Morphine Sulfate (Morphine Sulfate (Inj)) 4 mg IV Q4HR PRN PRN Reason: Severe Pain Last Admin: 10/04/19 22:58 Dose: 4 mg Documented by: Naloxone HCl (Narcan) 0.2 mg IV Q2M PRN PRN Reason: Opioid Reversal Ondansetron HCl (Zofran) 4 mg IVP Q8HR PRN PRN Reason: Nausea And Vomiting Last Admin: 10/04/19 10:05 Dose: 4 mg Documented by: Oxycodone/Acetaminophen (Percocet 7.5-325) 1 each PO Q6HR PRN PRN Reason: Pain Last Admin: 10/05/19 18:00 Dose: 1 each Documented by: Pantoprazole Sodium (Protonix) 40 mg IVP BID [facility] Last Admin: 10/05/19 10:14 Dose: 40 mg Documented by: Rivaroxaban (Xarelto) 20 mg PO DAILY [facility] Last Admin: 10/05/19 10:07 Dose: 20 mg Documented by: Physical examination: VITAL SIGNS: 99.2, 68, 18, 11 8/76, 94% GENERAL:, sitting at the edge of the bed not in distress. EYES: Pupils equal. Conjunctiva normal. HEENT: External appearance of nose and ears normal, oral cavity grossly normal. NECK: JVD not raised; masses not palpable. HEART: First and second heart sounds are normal; no edema. LUNGS: Respiratory rate normal; clear to auscultation. ABDOMEN: Soft, nontender, liver spleen not palpable, no masses palpable. PSYCH: Alert and oriented x3; mood and affect normal. INVESTIGATIONS, reviewed in the clinical context: White count 7.5 hemoglobin 16.1 potassium 3.9 bun 16 creatinine 0.96 Troponin I 3 negative EKG tracing personally reviewed by me-atrial flutter fibrillation rate 64 Chest x-ray film personally reviewed by me-borderline cardiomegaly Assessment: -This is a patient with a surgery for what he describes a ruptured esophagus and hiatal hernia over 25 years ago. Patient intermittently gets episodes of hiccups that sometimes can be intractable. He had the same episode now causing some chest pain with every time he hiccups. For the last 4 days is not been able to eat anything. Barely keep anything down. Only got a few pieces of oranges Denies any obvious reflux symptoms. -Persistent atrial fibrillation flutter -Chronic congestive heart failure EF not known -Essential hypertension -Depression not otherwise specified Plan: Pending barium swallow. Possible EGD. Care was discussed with the patient.
[2019-10-06] MEDS: oxyCODONE-APAP 7.5-325MG 1 EACH TAB PO PRN ×2 (02:44→17:14)
--- NOTE | 2019-10-06 09:09 | FL ---
ESOPHOGRAM. HISTORY: Dysphagia Esophagram was performed per the single contrast technique. The patient swallowed barium without dif ficulty or delay. 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 There is a moderately large fixed hi atal hernia identified. Subsequently single contrast cervical esophagram was performed which fails de monstrate evidence for aspiration penetration or mass. IMPRESSION: Moderately large fixed hiatal hernia.
--- NOTE | 2019-10-06 09:39 | P.PN ---
Subjective This is a pleasant 69-year-old male past medical history significant for non-ischemic cardiomyopathy, chronic persistent atrial fibrillation on xarelto, chronic systolic heart failure and hypertension. Most recent echo obtained 12/2018 reveals preserved LV systolic function with EF 55-60%, mild- moderate TR and mild pulmonary hypertension with RVSP of 39mmHg. He is seen and examined sitting up in bed. He is having ongoing vomiting that is quite dark in color. He underwent a barium swallow this morning revaling moderately large fixed hiatal hernia. Surgery is following. He denies chest pain, shortness of breath dizziness or palpitations. Currently maintained on carvedilol 6.25 mg twice a day, Lasix 40 mg daily, lisinopril 10 mg daily and Xarelto 20 mg daily. Blood pressure 110/68 heart rate 53 afebrile and maintaining oxygen saturation on room air. GENERAL: Well-appearing, well-nourished and in no acute distress. NECK: Supple without JVD or thyromegaly. LUNGS: Breath sounds clear to auscultation bilaterally. Respiration equal and unlabored. No wheezes, rales or rhonchi. HEART: Irregular rate and rhythm with systolic ejection murmur at the left sternal border, no rubs or gallops. S1 and S2 heard. EXTREMITIES: Normal range of motion, no edema. No clubbing or cyanosis. Peripheral pulses intact. ASSESSMENT Chest pain, atypical. An acute coronary event has been ruled out. Chronic persistent atrial fibrillation on long-term anticoagulation, rate controlled Chronic systolic heart failure, currently euvolemic Hypertension Dyslipidemia PLAN Repeat echocardiogram has been ordered and will be reviewed. Ongoing medical evaluation to assess for underlying peptic ulcer disease. Stable from a cardiac perspective, follow-up with Dr. Lewis upon discharge. Nurse Practitioner note has been reviewed, I agree with a documented findings and plan of care. Patient was seen and examined. Objective - Vital Signs Vital signs: Vital Signs Temp 98.3 F 10/06/19 07:33 Pulse 53 L 10/06/19 08:00 Resp 18 10/06/19 08:00 BP 110/68 10/06/19 07:33 Pulse Ox 94 L 10/06/19 07:33 Intake & Output 10/05/19 10/06/19 10/06/19 18:59 06:59 18:59 Intake Total 0 Balance 0 Intake: Oral 0 Other: Voiding Method Toilet Toilet Toilet # Voids 1 1 - Labs CBC & Chem 7: 10/03/19 19:00 10/03/19 19:00
[2019-10-06] MEDS: LISINOPRIL 10 MG TAB PO SCH (09:41)
[2019-10-06] MEDS: PANTOPRAZOLE 40 MG/10 ML VIAL IVP SCH ×2 (09:42→20:09)
[2019-10-06] MEDS: buPROPion SR 100 MG TABLET.ER PO SCH ×2 (09:42→20:09)
[2019-10-06] MEDS: CARVEDILOL 6.25 MG TAB PO SCH ×2 (09:42→17:11)
[2019-10-06] MEDS: FUROSEMIDE 40 MG TAB PO SCH (09:42)
[2019-10-06] MEDS: RIVAROXABAN 20 MG TAB PO SCH (10:26)
--- NOTE | 2019-10-06 11:45 | P.PN ---
Subjective Progress Note Date: 10/06/19 CHIEF COMPLAINT: Dysphagia HISTORY OF PRESENT ILLNESS: 69-year-old male who presented to the emergency room due to reflux and dysphagia. Patient underwent upper GI this morning revealing moderately large fixed hiatal hernia. Patient also reports episode of emesis this morning. Denies abdominal pain. Vital signs are stable. PHYSICAL EXAM: VITAL SIGNS: Reviewed. GENERAL: Well-developed in no acute distress. HEENT: No sclera icterus. Extraocular movements grossly intact. Moist buccal mucosa. Head is atraumatic, normocephalic. ABDOMEN: Soft. Nondistended. Nontender. NEUROLOGIC: Alert and oriented. Cranial nerves II through XII grossly intact. ASSESSMENT: 1. Dysphagia 2. Gastroesophageal reflux disease 4. Hiatal hernia PLAN: Continue to hold Xarelto Clear liquid diet today NPO at midnight EGD scheduled for tomorrow with Dr. Liu Nurse practitioner note has been reviewed by physician. Signing provider agrees with the documented findings, assessment, and plan of care. Objective - Vital Signs Vital signs: Vital Signs Temp 98.3 F 10/06/19 07:33 Pulse 53 L 10/06/19 08:00 Resp 18 10/06/19 08:00 BP 110/68 10/06/19 07:33 Pulse Ox 94 L 10/06/19 07:33 Intake & Output 10/05/19 10/06/19 10/06/19 18:59 06:59 18:59 Intake Total 0 Balance 0 Intake: Oral 0 Other: Voiding Method Toilet Toilet Toilet # Voids 1 1 - Labs CBC & Chem 7: 10/03/19 19:00 10/03/19 19:00
--- NOTE | 2019-10-06 12:05 | ECHOF ---
Referral Reason: MEASUREMENTS -------- HEIGHT: 179.1 cm WEIGHT: 85.7 kg BP: 110/68 RVIDd: 5.3 cm (< 3.3) IVSd: 1.5 cm (0.6 - 1.1) LVIDd: 3.5 cm (3.9 - 5.3) LVPWd: 1.8 cm (0.6 - 1.1) IVSs: 2.1 cm LVIDs: 1.9 cm LVPWs: 2.3 cm LAESV Index (A-L): 56.94 ml/m Ao Diam: 3.5 cm (2.0 - 3.7) RAP: 5.00 mmHg RVSP: 37.19 mmHg FINDINGS -------- Atrial fibrillation. This was a technically adequate study. This was a technically difficult study with suboptimal radha ternal views. The left ventricular size is normal. There is moderate concentric left ventricular hypertrophy. O verall left ventricular systolic function is low-normal with, an EF between 50 - 55 %. Left ventric ular fillimg pressure cannot be estimated due to Atrial fibrillation. The right ventricle is severely enlarged. LA is severely dilated >40 ml/m2 The right atrium is moderately enlarged. Interatrial and interventricular septum intact. The aortic valve was not well visualized. There is no evidence of aortic regurgitation. There is no evidence of aortic stenosis. Mild mitral annular calcification present. Moderate mitral regurgitation is present. Mild tricuspid regurgitation present. There is mild pulmonary hypertension. The right ventricular systolic pressure, as measured by Doppler, is 37.19mmHg. There is no pulmonic regurgitation present. The aortic root size is normal. There is no pericardial effusion. CONCLUSIONS -------- 1. Atrial fibrillation. 2. This was a technically adequate study. 3. This was a technically difficult study with suboptimal parasternal views. 4. The left ventricular size is normal. 5. There is moderate concentric left ventricular hypertrophy. 6. Left ventricular fillimg pressure cannot be estimated due to Atrial fibrillation. 7. The right ventricle is severely enlarged. 8. LA is severely dilated >40 ml/m2 9. The right atrium is moderately enlarged. 10. Interatrial and interventricular septum intact. 11. The aortic valve was not well visualized. 12. There is no evidence of aortic regurgitation. 13. There is no evidence of aortic stenosis. 14. Mild mitral annular calcification present. 15. Moderate mitral regurgitation is present. 16. Mild tricuspid regurgitation present. 17. There is mild pulmonary hypertension. 18. The right ventricular systolic pressure, as measured by Doppler, is 37.19mmHg. 19. There is no pulmonic regurgitation present. 20. The aortic root size is normal. 21. There is no pericardial effusion. SKIN CARVER: Yuki Sorto RDCS
--- NOTE | 2019-10-06 17:31 | P.PN ---
Progress Note - Text Progress Note Date: 10/06/19 Chief Complaint: Unable to swallow Interval history: This is a very pleasant 69-year-old patient of Dr. Caleb Maynard. Chronic stable medical conditions include atrial fibrillation, congestive heart failure, hypertension, depression. Patient states he recovered from treatment for flu symptoms. Prognosis remains guarded. We started having attacks of coughing and hiccups. Every time he had a Serious chest pain. 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 mark Liu. Sometimes patient gets bouts of hiccups and coughing that he cannot control. For about 4 days patient barely able to drink anything. Can barely able to keep anything down , throws BACK up. Was only able to tolerate some oranges 2 nights ago. Patient daughter the bedside. No cardiac sounding pain at all. Had a barium swallow study today..-Showing moderately large fixed hiatal hernia. Also evidence of presbyesophagus. Awaiting input from Dr. Liu. Review of systems: Was done for constitutional, cardiovascular, GI, pulmonary. relevant finding as above Active Medications Bupropion HCl (Wellbutrin Sr) 200 mg PO BID [facility] Last Admin: 10/06/19 09:42 Dose: 200 mg Documented by: Carvedilol (Coreg) 6.25 mg PO BID-W/MEALS [facility] Last Admin: 10/06/19 17:11 Dose: 6.25 mg Documented by: Furosemide (Lasix) 40 mg PO DAILY [facility] Last Admin: 10/06/19 09:42 Dose: 40 mg Documented by: Lisinopril (Zestril) 10 mg PO DAILY [facility] Last Admin: 10/06/19 09:41 Dose: 10 mg Documented by: Morphine Sulfate (Morphine Sulfate (Inj)) 4 mg IV Q4HR PRN PRN Reason: Severe Pain Last Admin: 10/04/19 22:58 Dose: 4 mg Documented by: Naloxone HCl (Narcan) 0.2 mg IV Q2M PRN PRN Reason: Opioid Reversal Ondansetron HCl (Zofran) 4 mg IVP Q8HR PRN PRN Reason: Nausea And Vomiting Last Admin: 10/04/19 10:05 Dose: 4 mg Documented by: Oxycodone/Acetaminophen (Percocet 7.5-325) 1 each PO Q6HR PRN PRN Reason: Pain Last Admin: 10/06/19 17:14 Dose: 1 each Documented by: Pantoprazole Sodium (Protonix) 40 mg IVP BID [facility] Last Admin: 10/06/19 09:42 Dose: 40 mg Documented by: Rivaroxaban (Xarelto) 20 mg PO DAILY [facility] Last Admin: 10/06/19 10:26 Dose: Not Given Documented by: Physical examination: VITAL SIGNS: 98.3, 80, 18, 121/70, 94% on room air GENERAL:, Laying in bed, comfortable. EYES: Pupils equal. Conjunctiva normal. HEENT: External appearance of nose and ears normal, oral cavity grossly normal. NECK: JVD not raised; masses not palpable. HEART: First and second heart sounds are normal; no edema. LUNGS: Respiratory rate normal; clear to auscultation. ABDOMEN: Soft, nontender, liver spleen not palpable, no masses palpable. PSYCH: Alert and oriented x3; mood and affect normal. INVESTIGATIONS, reviewed in the clinical context: . Barium Swallow-large fixed hiatal hernia, and evidence of presbyesophagus White count 7.5 hemoglobin 16.1 potassium 3.9 bun 16 creatinine 0.96 Troponin I 3 negative EKG tracing personally reviewed by me-atrial flutter fibrillation rate 64 Chest x-ray film personally reviewed by me-borderline cardiomegaly Assessment: -Severe dysphagia intermittent from patient having significant presbyesophagus. -Large fixed hiatal hernia -Persistent atrial fibrillation flutter -Chronic congestive heart failure EF not known -Essential hypertension -Depression not otherwise specified Plan: Patient's pending evaluation with Dr. Liu from general surgery. We'll also consult GI. Given the tertiary contraction findings. This may be difficult to treat. Follow.
[2019-10-06] MEDS: MORPHINE SULFATE 4 MG/ML SYRINGE IV PRN (20:10)
[2019-10-07] MEDS: oxyCODONE-APAP 7.5-325MG 1 EACH TAB PO PRN ×2 (03:08→15:14)
[2019-10-07] MEDS: RIVAROXABAN 20 MG TAB PO SCH (07:32)
[2019-10-07] MEDS ORDERED: LIDOCAINE 1% INJ 10MG/ML (20 ML MDV) ONE (10:33)
[2019-10-07] MEDS ORDERED: PROPOFOL 10 MG/ML 20 ML VIAL IV ONE (10:33)
[2019-10-07] MEDS ORDERED: SODIUM CHLORIDE 0.9% 500 ML IV ONE ×2 (10:38)
--- NOTE | 2019-10-07 10:53 | P.OP ---
Date of Procedure: 10/07/19 Preoperative Diagnosis: Hiatal hernia GERD Postoperative Diagnosis: Hiatal hernia GERD Procedure(s) Performed: EGD Anesthesia: MAC Surgeon: Salvatore Liu Pathology: none sent Condition: stable Disposition: PACU Description of Procedure: The patient's placed on the endoscopy table lateral position. He received IV sedation. The gastroscope placed oropharynx pharynx in the past esophagus. The proximal esophagus was a large amount of liquid food. The appeared to be vegetable matter within the liquid. The scope was then brought back down into the esophagus the GE junction was at 34 7 is. The scope was then placed and stomach. There was a large hiatal hernia. There was a large amount of fluid within the hiatal hernia. The open hiatal hernia was visualized. It was decided to withdraw from stomach in order to prevent aspiration. A large amount liquid was aspirated. The scope was then withdrawn. There is significant esophagitis seen. The proximal esophagus appeared normal. The scope was withdrawn from patient.
[2019-10-07] MEDS: LISINOPRIL 10 MG TAB PO SCH (11:13)
[2019-10-07] MEDS: CARVEDILOL 6.25 MG TAB PO SCH ×2 (11:13→17:42)
[2019-10-07] MEDS: FUROSEMIDE 40 MG TAB PO SCH (11:13)
[2019-10-07] MEDS: PANTOPRAZOLE 40 MG/10 ML VIAL IVP SCH ×2 (11:13→19:36)
[2019-10-07] MEDS: buPROPion SR 100 MG TABLET.ER PO SCH ×2 (11:14→19:35)
--- NOTE | 2019-10-07 11:57 | P.PN ---
Subjective This is a pleasant 69-year-old male past medical history significant for non-ischemic cardiomyopathy, chronic persistent atrial fibrillation on xarelto, chronic systolic heart failure and hypertension. Most recent echo obtained 12/2018 reveals preserved LV systolic function with EF 55-60%, mild- moderate TR and mild pulmonary hypertension with RVSP of 39mmHg. He is seen and examined sitting up in bed. He is having ongoing vomiting that is quite dark in color. He underwent a barium swallow this morning revaling moderately large fixed hiatal hernia. Surgery is following. He denies chest pain, shortness of breath dizziness or palpitations. Currently maintained on carvedilol 6.25 mg twice a day, Lasix 40 mg daily, lisinopril 10 mg daily and Xarelto 20 mg daily. Blood pressure 110/68 heart rate 53 afebrile and maintaining oxygen saturation on room air. 10/07/2019 Patient is seen and examined sitting up in bed. He is status post EGD. Proximal esophagus had a large amount of liquid food, large hiatal hernia noted and a large amount of fluid within hiatal hernia. He is scheduled to undergo diya fundoplication tomorrow. He denies symptoms of chest discomfort, shortness of breath, dizziness or palpitations. Blood pressure 121/70 heart rate 80 afeibrile and maintaining oxygen saturation on room air. Xarelto currently on hold. Echocardiogram obtained reveals preserved LV systolic function with ejection fraction 50-55%, severely dilated left atrium, moderate mitral regurgitation, mild tricuspid regurgitation and mild pulmonary hypertension with an RVSP of 37 mmHg. Currently maintained on carvedilol 6.25 mg twice a day, Lasix 40 mg by mouth daily and lisinopril 10 mg daily. GENERAL: Well-appearing, well-nourished and in no acute distress. NECK: Supple without JVD or thyromegaly. LUNGS: Breath sounds clear to auscultation bilaterally. Respiration equal and unlabored. No wheezes, rales or rhonchi. HEART: Irregular rate and rhythm with systolic ejection murmur at the left sternal border, no rubs or gallops. S1 and S2 heard. EXTREMITIES: Normal range of motion, no edema. No clubbing or cyanosis. Peripheral pulses intact. ASSESSMENT Chest pain, atypical. An acute coronary event has been ruled out. Febrile illness Hiatal hernia, large Chronic persistent atrial fibrillation on long-term anticoagulation, rate controlled Chronic systolic heart failure, currently euvolemic Hypertension Dyslipidemia PLAN Stable to proceed with proposed surgical intervention. Hold Xarelto. To be resumed as soon as possible after surgery. Follow-up with Dr. Lewis upon discharge. Nurse Practitioner note has been reviewed, I agree with a documented findings and plan of care. Patient was seen and examined. Objective - Vital Signs Vital signs: Vital Signs Temp 99.1 F 10/07/19 11:05 Pulse 80 10/07/19 11:35 Resp 18 10/07/19 11:05 BP 121/70 10/07/19 11:35 Pulse Ox 94 L 10/07/19 11:35 Intake & Output 10/06/19 10/07/19 10/07/19 18:59 06:59 18:59 Intake Total 200 Balance 200 Intake: IV 200 Other: Voiding Method Toilet Toilet Toilet # Voids 2 - Labs CBC & Chem 7: 10/03/19 19:00 10/03/19 19:00
--- NOTE | 2019-10-07 19:00 | CONS ---
CONSULTATION DATE OF DICTATION: 10/07/2019 REASON FOR CONSULTATION: Dysphagia. HISTORY OF PRESENT ILLNESS: The patient is a 69-year-old pleasant white male with history of hiatal hernia surgery in 2001. He was doing reasonably well, started complaining of progressive dysphagia to solids as well as occasional liquids on and off since December of last year. He has been having intermittent chest pain for the same duration of time. He was evaluated by Dr. Liu. He underwent an upper endoscopy today that showed evidence of large amount of retained liquid and solid food in the esophagus and evidence of recurrent large hiatal hernia with retained food in the hiatal hernial sac. The distal stomach appeared normal. The patient is scheduled for laparoscopic hiatal hernia repair tomorrow. The patient states that he has been having intermittent episodes of nausea and vomiting for the last few days' duration. He denies any abdominal pain. He lost about 15 pounds since the onset of this dysphagia. PAST MEDICAL HISTORY: Significant for atrial fibrillation, congestive heart failure, hypertension, gastroesophageal reflux disease. PAST SURGICAL HISTORY: Hiatal hernia repair, right foot surgery, left foot surgery, left hip replacement. MEDICATIONS: Medications at home include Xarelto, Lasix, Zestril, Coreg, Wellbutrin, Percocet. ALLERGIES: NONE. SOCIAL HISTORY: Former smoker. No alcohol use. FAMILY HISTORY: Mother unremarkable. REVIEW OF SYSTEMS: CARDIOPULMONARY: No chest pain or shortness of breath. GENITOURINARY: No dysuria or hematuria. MUSCULOSKELETAL: Unremarkable. SKIN: Unremarkable. ENDOCRINE: Unremarkable. PSYCHIATRIC: Unremarkable. NEUROLOGY: Unremarkable. ENT/VISION: Unremarkable. CONSTITUTIONAL: No recent weight loss. No fever, chills, night sweats. He had a barium esophagogram done yesterday that showed moderately large fixed hiatal hernia. IMPRESSION: This is a patient who presented to the hospital with progressive dysphagia to solids with intermittent nausea, vomiting for the last 7 months' duration. He has remote history of hiatal hernia surgery in 2001. The patient had done well following the surgery. He did have an upper endoscopy by Dr. Liu today that showed retained food in the esophagus and in the hiatal hernial sac with recurrence of large hiatal hernia. No obvious esophageal stricture identified. Reviewed the barium esophagogram results, which also showed a fixed large hiatal hernia. His symptoms likely could be as a result of recurrent large hiatal hernia. RECOMMENDATIONS: 1. The patient is already scheduled for laparoscopic repair of hiatal hernia tomorrow by Dr. Liu. 2. At this time we will follow with you closely. Thank you for this consultation. MMODL / IJN: [id number] /
--- NOTE | 2019-10-07 19:40 | P.PN ---
Progress Note - Text Progress Note Date: 10/07/19 Chief Complaint: Unable to swallow Interval history: This is a very pleasant 69-year-old patient of Dr. Caleb Maynard. Chronic stable medical conditions include atrial fibrillation, congestive heart failure, hypertension, depression. Patient states he recovered from treatment for flu symptoms. Prognosis remains guarded. We started having attacks of coughing and hiccups. Every time he had a Serious chest pain. 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 mark Liu. Sometimes patient gets bouts of hiccups and coughing that he cannot control. For about 4 days patient barely able to drink anything. Can barely able to keep anything down , throws BACK up. Was only able to tolerate some oranges 2 nights ago. Patient daughter the bedside. No cardiac sounding pain at all. Hospital course: barium swallow study ..-Showing moderately large fixed hiatal hernia. Also evidence of presbyesophagus. Today-underwent EGD. large amount of liquid food with vegetable matter. Large amount of fluid with the hiatal hernia. Significant esophagitis. Getting hiccups Review of systems: Was done for constitutional, cardiovascular, GI, pulmonary. relevant finding as above Active Medications Bupropion HCl (Wellbutrin Sr) 200 mg PO BID [facility] Last Admin: 10/07/19 11:14 Dose: 200 mg Documented by: Carvedilol (Coreg) 6.25 mg PO BID-W/MEALS [facility] Last Admin: 10/07/19 17:42 Dose: 6.25 mg Documented by: Furosemide (Lasix) 40 mg PO DAILY [facility] Last Admin: 10/07/19 11:13 Dose: 40 mg Documented by: Lisinopril (Zestril) 10 mg PO DAILY [facility] Last Admin: 10/07/19 11:13 Dose: 10 mg Documented by: Morphine Sulfate (Morphine Sulfate (Inj)) 4 mg IV Q4HR PRN PRN Reason: Severe Pain Last Admin: 10/06/19 20:10 Dose: 4 mg Documented by: Naloxone HCl (Narcan) 0.2 mg IV Q2M PRN PRN Reason: Opioid Reversal Ondansetron HCl (Zofran) 4 mg IVP Q8HR PRN PRN Reason: Nausea And Vomiting Last Admin: 10/04/19 10:05 Dose: 4 mg Documented by: Oxycodone/Acetaminophen (Percocet 7.5-325) 1 each PO Q6HR PRN PRN Reason: Pain Last Admin: 10/07/19 15:14 Dose: 1 each Documented by: Pantoprazole Sodium (Protonix) 40 mg IVP BID [facility] Last Admin: 10/07/19 11:13 Dose: 40 mg Documented by: Physical examination: VITAL SIGNS: Melena 9.4, 72, 18, 111/76, 92% room air GENERAL:, Laying in bed, comfortable. EYES: Pupils equal. Conjunctiva normal. HEENT: External appearance of nose and ears normal, oral cavity grossly normal. NECK: JVD not raised; masses not palpable. HEART: First and second heart sounds are normal; no edema. LUNGS: Respiratory rate normal; clear to auscultation. ABDOMEN: Soft, nontender, liver spleen not palpable, no masses palpable. PSYCH: Alert and oriented x3; mood and affect normal. INVESTIGATIONS, reviewed in the clinical context: EGD-stomach showing a large amount of fluid with vegetable matter. Large hiatal hernia. Significant esophagitis . Barium Swallow-large fixed hiatal hernia, and evidence of presbyesophagus White count 7.5 hemoglobin 16.1 potassium 3.9 bun 16 creatinine 0.96 Troponin I 3 negative EKG tracing personally reviewed by me-atrial flutter fibrillation rate 64 Chest x-ray film personally reviewed by me-borderline cardiomegaly Assessment: -Severe dysphagia intermittent from patient having significant presbyesophagus. Slow to respond -Severe esophagitis, new diagnosis -Large fixed hiatal hernia, new diagnosis -Persistent atrial fibrillation flutter -Chronic congestive heart failure EF not known -Essential hypertension -Depression not otherwise specified Plan: Discussed with Dr. Liu. He will proceed for hiatal hernia surgery tomorrow. Discussed with the patient. Other medications to continue. Start IV fluids.
[2019-10-07] MEDS: LACTATED RINGERS 1,000 ML IV SCH (21:19)
[2019-10-08] MEDS: LACTATED RINGERS 1,000 ML IV SCH ×4 (03:32→23:06)
[2019-10-08 06:11] LABS: HCT 42.8 % (39.0-53.0); HGB 14.1 gm/dL (13.0-17.5); MCH 30.3 pg (25.0-35.0); MCHC 32.8 g/dL (31.0-37.0); MCV 92.2 fL (80.0-100.0); Mean Platelet Volume 9.7; Platelet Count 140 k/uL (150-450); RBC 4.65 m/uL (4.30-5.90); RDW 13.6 % (11.5-15.5); WBC 4.8 k/uL (3.8-10.6)
[2019-10-08 06:28] LABS: African American GFR (CKD) >90 (>60 ml/min/1.73 sqM); Anion Gap 7 mmol/L; Blood Urea Nitrogen 16 mg/dL (9-20); Calcium 8.4 mg/dL (8.4-10.2); Carbon Dioxide 31 mmol/L (22-30); Chloride 100 mmol/L (98-107); Glucose 95 mg/dL (74-99); Non-African American GFR(CKD) >90 (>60 ml/min/1.73 sqM); Potassium 3.4 mmol/L (3.5-5.1); Sodium 138 mmol/L (137-145)
[2019-10-08] MEDS: CARVEDILOL 6.25 MG TAB PO SCH ×2 (08:19→17:00)
[2019-10-08] MEDS: buPROPion SR 100 MG TABLET.ER PO SCH ×2 (08:19→20:09)
[2019-10-08] MEDS: FUROSEMIDE 40 MG TAB PO SCH (08:19)
[2019-10-08] MEDS: LISINOPRIL 10 MG TAB PO SCH (08:19)
[2019-10-08] MEDS: oxyCODONE-APAP 7.5-325MG 1 EACH TAB PO PRN ×2 (08:20→20:09)
[2019-10-08] MEDS: PANTOPRAZOLE 40 MG/10 ML VIAL IVP SCH ×2 (08:20→20:10)
--- NOTE | 2019-10-08 10:25 | PN ---
PROGRESS NOTE DATE OF SERVICE: 10/08/2019 Patient is a 69-year-old white male who was admitted to hospital with dysphagia and underwent an upper endoscopy by Dr. Liu yesterday that showed retained food in the stomach and evidence of large hiatal hernia with significant amount of food within the hiatal hernia sac. He is scheduled for laparoscopic hiatal hernia repair today. In the meantime, he continues to complain of some epigastric discomfort. He has remained n.p.o. for the surgery today. He has been constantly spitting up saliva. He denies any heartburn. PHYSICAL EXAMINATION: Appears comfortable, in no apparent distress. VITAL SIGNS: Stable. Blood pressure is 118/72, pulse rate 77, temperature 98.2 HEENT: Examination unremarkable. Conjunctivae are pink, sclerae nonicteric, oral cavity no lesions. NECK: No JVD or lymph node enlargement. CHEST: Clear to auscultation. HEART: Regular rate and rhythm. ABDOMEN: Soft, bowel sound are positive, no organomegaly. EXTREMITIES: No pedal edema. SKIN: No rashes. NEUROLOGIC: Alert and oriented x3. No focal deficits. LABS: From today, WBC 4.8, hemoglobin 14.1, platelets 140. Basic metabolic panel is within normal limits. IMPRESSION: 1. Dysphagia secondary to large hiatal hernia with retained food in the hiatal hernia sac as well as in the esophagus, status post EGD yesterday as mentioned above. 2. No evidence of esophageal stricture. RECOMMENDATION: 1. Continue with Protonix 40 mg twice daily. 2. He is scheduled for surgery by Dr. Liu today. 3. We will follow him postoperatively. Thank you for this consultation. MMODL / IJN: [id number] /
[2019-10-08] MEDS ORDERED: Potassium Replacement Protocol 1 EACH MISC MISCELLANE PRN (10:40)
[2019-10-08] MEDS: POTASSIUM CHLORIDE 10 MEQ in WATER FOR INJECTION 1 100ML.BAG IVPB SCH ×2 (11:15→12:13)
[2019-10-08] MEDS: POTASSIUM CHLORIDE ER 20 MEQ TAB.ER PO SCH ×2 (12:13→13:21)
--- NOTE | 2019-10-08 16:40 | P.PN ---
Progress Note - Text Progress Note Date: 10/08/19 The patient was scheduled for laparoscopic repair of his hiatal hernia today. However the OR is running extremely late today. Patient will be rescheduled for his surgical repair in the a.m. He'll have clear liquids overnight.
--- NOTE | 2019-10-08 19:59 | P.PN ---
Progress Note - Text Progress Note Date: 10/08/19 Chief Complaint: Unable to swallow Interval history: This is a very pleasant 69-year-old patient of Dr. Caleb Maynard. Chronic stable medical conditions include atrial fibrillation, congestive heart failure, hypertension, depression. Patient states he recovered from treatment for flu symptoms. Prognosis remains guarded. We started having attacks of coughing and hiccups. Every time he had a Serious chest pain. 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 mark Liu. Sometimes patient gets bouts of hiccups and coughing that he cannot control. For about 4 days patient barely able to drink anything. Can barely able to keep anything down , throws BACK up. Was only able to tolerate some oranges 2 nights ago. Patient daughter the bedside. No cardiac sounding pain at all. Hospital course: barium swallow study ..-Showing moderately large fixed hiatal hernia. Also evidence of presbyesophagus. EGD. large amount of liquid food with vegetable matter. Large amount of fluid with the hiatal hernia. Significant esophagitis. Today-Patient is to go down for hiatal hernia surgery today. surgery has been postponed for tomorrow. On clear liquids. No other new symptoms. Review of systems: Was done for constitutional, cardiovascular, GI, pulmonary. relevant finding as above Active Medications Bupropion HCl (Wellbutrin Sr) 200 mg PO BID [facility] Last Admin: 10/08/19 08:19 Dose: 200 mg Documented by: Carvedilol (Coreg) 6.25 mg PO BID-W/MEALS [facility] Last Admin: 10/08/19 17:00 Dose: 6.25 mg Documented by: Furosemide (Lasix) 40 mg PO DAILY [facility] Last Admin: 10/08/19 08:19 Dose: 40 mg Documented by: Lactated Ringer's (Lactated Ringers) 1,000 mls @ 125 mls/hr IV .Q8H [facility] Last Admin: 10/08/19 13:21 Dose: 125 mls/hr Documented by: Lisinopril (Zestril) 10 mg PO DAILY [facility] Last Admin: 10/08/19 08:19 Dose: 10 mg Documented by: Miscellaneous Information (Potassium Per Protocol) 1 each MISCELLANE DAILY PRN; Protocol PRN Reason: Per Protocol Morphine Sulfate (Morphine Sulfate (Inj)) 4 mg IV Q4HR PRN PRN Reason: Severe Pain Last Admin: 10/06/19 20:10 Dose: 4 mg Documented by: Naloxone HCl (Narcan) 0.2 mg IV Q2M PRN PRN Reason: Opioid Reversal Ondansetron HCl (Zofran) 4 mg IVP Q8HR PRN PRN Reason: Nausea And Vomiting Last Admin: 10/04/19 10:05 Dose: 4 mg Documented by: Oxycodone/Acetaminophen (Percocet 7.5-325) 1 each PO Q6HR PRN PRN Reason: Pain Last Admin: 10/08/19 08:20 Dose: 1 each Documented by: Pantoprazole Sodium (Protonix) 40 mg IVP BID [facility] Last Admin: 10/08/19 08:20 Dose: 40 mg Documented by: Physical examination: VITAL SIGNS: 98.5-63-19-118/75-96% GENERAL:, Laying in bed, comfortable. EYES: Pupils equal. Conjunctiva normal. HEENT: External appearance of nose and ears normal, oral cavity grossly normal. NECK: JVD not raised; masses not palpable. HEART: First and second heart sounds are normal; no edema. LUNGS: Respiratory rate normal; clear to auscultation. ABDOMEN: Soft, nontender, liver spleen not palpable, no masses palpable. PSYCH: Alert and oriented x3; mood and affect normal. INVESTIGATIONS, reviewed in the clinical context: EGD-stomach showing a large amount of fluid with vegetable matter. Large hiatal hernia. Significant esophagitis . Barium Swallow-large fixed hiatal hernia, and evidence of presbyesophagus White count 7.5 hemoglobin 16.1 potassium 3.9 bun 16 creatinine 0.96 Troponin I 3 negative EKG tracing personally reviewed by me-atrial flutter fibrillation rate 64 Chest x-ray film personally reviewed by me-borderline cardiomegaly Assessment: -Severe dysphagia intermittent from patient having significant presbyesophagus. Slow to respond -Severe esophagitis, -Large fixed hiatal hernia, -Persistent atrial fibrillation flutter -Chronic congestive heart failure EF not known -Essential hypertension -Depression not otherwise specified Plan: discussed with patient. Hiatal hernia surgery tomorrow. Discussed with Dr. Liu. accepted the patient to his service. Continue with clear liquids Thank you Dr. Liu
[2019-10-09] MEDS: oxyCODONE-APAP 7.5-325MG 1 EACH TAB PO PRN (08:13)
[2019-10-09] MEDS: PANTOPRAZOLE 40 MG/10 ML VIAL IVP SCH ×2 (08:13→20:10)
[2019-10-09] MEDS: FUROSEMIDE 40 MG TAB PO SCH (08:14)
[2019-10-09] MEDS: buPROPion SR 100 MG TABLET.ER PO SCH ×2 (08:14→22:50)
[2019-10-09] MEDS: LISINOPRIL 10 MG TAB PO SCH (08:14)
[2019-10-09] MEDS: CARVEDILOL 6.25 MG TAB PO SCH ×2 (08:16→17:07)
[2019-10-09] MEDS: LACTATED RINGERS 1,000 ML IV SCH ×3 (09:29→20:15)
[2019-10-09] MEDS ORDERED: ONDANSETRON 4 MG/2 ML VIAL IVP ONE (09:45)
[2019-10-09] MEDS ORDERED: DEXAMETHASONE SOD PHOSPHATE 10 MG/ML 1 ML VIAL IV ONE (09:46)
[2019-10-09] MEDS ORDERED: fentaNYL (PF) 50 MCG/ML 2 ML AMP ONE (11:01)
[2019-10-09] MEDS ORDERED: ROCURONIUM BROMIDE 10 MG/ML 5 ML VIAL IV ONE (11:01)
[2019-10-09] MEDS ORDERED: GLYCOPYRROLATE 0.2 MG/ML 2 ML VIAL ONE (11:01)
[2019-10-09] MEDS ORDERED: MIDAZOLAM 2 MG/2 ML VIAL ONE (11:01)
[2019-10-09] MEDS ORDERED: PHENYLEPHRINE-0.9% NACL SYG 1 MG/10 ML SYRINGE ONE (11:01)
[2019-10-09] MEDS ORDERED: NEOSTIGMINE 1 MG/ML 10 ML VIAL ONE (11:01)
[2019-10-09] MEDS ORDERED: PROPOFOL 10 MG/ML 20 ML VIAL IV ONE (11:01)
[2019-10-09] MEDS ORDERED: BUPIVACAINE (PF) 0.25% 30 ML VIAL SQ ONE (11:03)
[2019-10-09] MEDS ORDERED: ceFAZolin 1,000 MG VIAL IVPB ONE (11:10)
[2019-10-09 11:21] VITALS: BMI 27.1
[2019-10-09] MEDS ORDERED: LACTATED RINGERS 1,000 ML IV ONE (12:50)
[2019-10-09] MEDS: D5-0.45% NACL WITH KCL 20MEQ/L 1,000 ML IV SCH ×2 (14:58→22:38)
[2019-10-09] MEDS: HYDROmorphone 1 MG/ML 1 ML SYRINGE IVP PRN ×2 (14:58→20:04)
[2019-10-09 15:36] LABS: Basophils # (A) 0.1 k/uL (0-0.2); Basophils % (A) 1 %; Eosinophils % (A) 0 %; HCT 41.9 % (39.0-53.0); HGB 13.7 gm/dL (13.0-17.5); Lymphocytes # (A) 0.4 k/uL (1.0-4.8); Lymphocytes % (A) 5 %; MCH 30.6 pg (25.0-35.0); MCHC 32.8 g/dL (31.0-37.0); MCV 93.4 fL (80.0-100.0); Mean Platelet Volume 9.7; Monocytes # (A) 0.2 k/uL (0-1.0); Monocytes % (A) 3 %; Neutrophils # (A) 6.9 k/uL (1.3-7.7); Neutrophils % (A) 90 %; Platelet Count 138 k/uL (150-450); RBC 4.48 m/uL (4.30-5.90); RDW 13.6 % (11.5-15.5); WBC 7.6 k/uL (3.8-10.6)
[2019-10-09 15:40] LABS: African American GFR (CKD) >90 (>60 ml/min/1.73 sqM); Anion Gap 7 mmol/L; Blood Urea Nitrogen 14 mg/dL (9-20); Calcium 8.2 mg/dL (8.4-10.2); Carbon Dioxide 31 mmol/L (22-30); Chloride 102 mmol/L (98-107); Glucose 135 mg/dL (74-99); Non-African American GFR(CKD) >90 (>60 ml/min/1.73 sqM); Potassium 3.9 mmol/L (3.5-5.1); Sodium 140 mmol/L (137-145)
--- NOTE | 2019-10-09 17:43 | PN ---
PROGRESS NOTE DATE OF DICTATION: 10/09/2019 Patient is a 69-year-old white male who presented to the hospital with dysphagia, nausea, vomiting, and had an EGD that showed a large recurrent hiatal hernia with retained food in the hiatal hernial sac. He underwent laparoscopic hiatal hernia repair by Dr. Liu this afternoon. The patient just got back to the room. He says he has some pain at the site of surgery. He denies any symptoms. PHYSICAL EXAMINATION: Appears comfortable. No apparent distress. Vital signs are stable. Blood pressure 123/73, pulse rate 66 and afebrile. HEENT examination unremarkable. Conjunctivae pink. Sclerae anicteric. Oral cavity no lesions. NECK: No JVD or lymph node enlargement. CHEST: Clear to auscultation. HEART: Regular rate and rhythm. ABDOMEN: Slightly distended. Bowel sounds are positive. EXTREMITIES: No pedal edema. NEUROLOGIC: He is awake, oriented x3. LABS: WBC 4.8, hemoglobin 14.1, platelets 140. Rest of the labs are within normal limits. IMPRESSION: Nausea, vomiting and dysphagia, status post EGD that showed a large hiatal hernia with retained food in the esophagus, but no esophageal stricture, status post hiatal hernia repair today. The patient just got back from Recovery and is doing better. He has not had any oral intake yet. RECOMMENDATIONS: Continue recommendations as per Surgery. Will follow with you. Thank you for this consultation. LEO / PAULA: [id number] /
[2019-10-09] MEDS ORDERED: ALPRAZolam 0.25 MG TAB PO STA (19:50)
[2019-10-09] MEDS: MORPHINE SULFATE 4 MG/ML SYRINGE IV PRN (22:42)
[2019-10-10] MEDS: LACTATED RINGERS 1,000 ML IV SCH ×3 (05:47→23:26)
[2019-10-10 06:49] LABS: Glucose,Whole Blood 143 mg/dL (75-99)
[2019-10-10] MEDS: PANTOPRAZOLE 40 MG/10 ML VIAL IVP SCH ×2 (10:04→23:32)
[2019-10-10] MEDS: D5-0.45% NACL WITH KCL 20MEQ/L 1,000 ML IV SCH ×3 (10:04→21:50)
[2019-10-10] MEDS: ENOXAPARIN 40 MG/0.4 ML SYRINGE SQ SCH (10:05)
--- NOTE | 2019-10-10 10:41 | P.PN ---
Subjective Progress Note Date: 10/10/19 CHIEF COMPLAINT: Dysphagia HISTORY OF PRESENT ILLNESS: Patient is s/p complicated hiatal hernia repair with Dr. Liu. POD #1. Patient examined this morning at the bedside with Dr. Liu. Patient reports his pain is tolerable this morning. He remains not zenon by mouth. Esophagram is currently pending. Vital signs are stable. He is afebrile. PHYSICAL EXAM: VITAL SIGNS: Reviewed. GENERAL: Well-developed in no acute distress. HEENT: No sclera icterus. Extraocular movements grossly intact. Moist buccal mucosa. Head is atraumatic, normocephalic. ABDOMEN: Soft. Nondistended. Surgical sites clean dry and intact without dr hull. NEUROLOGIC: Alert and oriented. Cranial nerves II through XII grossly intact. ASSESSMENT: 1. Dysphagia 2. Gastroesophageal reflux disease 4. Hiatal hernia PLAN: NPO. Await results of esophagram. Continue IV fluids Pain control Activity as tolerated Incentive spirometer CBC and BMP ordered. Await results. Nurse practitioner note has been reviewed by physician. Signing provider agrees with the documented findings, assessment, and plan of care. Objective - Vital Signs Vital signs: Vital Signs Temp 98.2 F 10/10/19 07:00 Pulse 66 10/10/19 09:45 Resp 16 10/10/19 09:45 BP 99/70 10/10/19 07:00 Pulse Ox 92 L 10/10/19 07:00 Intake & Output 10/09/19 10/10/19 10/10/19 18:59 06:59 18:59 Intake Total 1200 Output Total 20 Balance 1180 Weight 87 kg Intake: IV 1200 Oral 0 Output: Estimated Blood Loss 20 Other: Voiding Method Toilet Toilet Toilet # Voids 1 - Labs CBC & Chem 7: 10/09/19 15:09 10/09/19 15:09 Labs: Abnormal Lab Results - Last 24 Hours (Table) 10/09/19 10/09/19 10/10/19 Range/Units 15:09 15:09 06:48 Plt Count 138 L (150-450) k/uL Lymphocytes # 0.4 L (1.0-4.8) k/uL Carbon Dioxide 31 H (22-30) mmol/L Glucose 135 H (74-99) mg/dL POC Glucose (mg/dL) 143 H (75-99) mg/dL Calcium 8.2 L (8.4-10.2) mg/dL
--- NOTE | 2019-10-10 11:15 | FL ---
Fluoroscopy INDICATION: Status post Martínez fundoplication. TECHNIQUE: Single contrast technique is utilized to evaluate the distal esophagus. Note is made of so me contrast within the transverse colon prior to starting the examination. FINDINGS: Esophagus dilates to normal caliber has normal contour to the diaphragm. Mild hesitancy is present passing through the surgery site. Some secondary tertiary contractions appear to be present w ithin the distal esophagus. There is a fairly prominent free air within the abdomen under the diaphragm. No definite extravasatio n of contrast is evident through multiple images including overhead radiographs and fluoroscopic spot imaging. Fluoroscopy time: 1 minute 7 seconds. Images obtained: 17. IMPRESSIONS: 1. No clear evidence of esophageal leak. 2. Mild hesitancy passing through the Martínez fundoplication. 3. Moderate free air within the abdomen. 4. Presbyesophagus
[2019-10-10 11:19] LABS: Glucose,Whole Blood 117 mg/dL (75-99)
[2019-10-10 11:43] LABS: Basophils # (A) 0.1 k/uL (0-0.2); Basophils % (A) 1 %; Eosinophils # (A) 0.1 k/uL (0-0.7); Eosinophils % (A) 1 %; HCT 38.6 % (39.0-53.0); Lymphocytes % (A) 14 %; MCH 31.6 pg (25.0-35.0); MCHC 33.5 g/dL (31.0-37.0); MCV 94.3 fL (80.0-100.0); Mean Platelet Volume 9.5; Monocytes # (A) 0.4 k/uL (0-1.0); Monocytes % (A) 6 %; Neutrophils # (A) 5.1 k/uL (1.3-7.7); Neutrophils % (A) 76 %; Platelet Count 153 k/uL (150-450); RDW 13.6 % (11.5-15.5); WBC 6.8 k/uL (3.8-10.6)
[2019-10-10] MEDS: buPROPion SR 100 MG TABLET.ER PO SCH ×2 (12:00→23:32)
[2019-10-10] MEDS: CARVEDILOL 6.25 MG TAB PO SCH ×2 (12:00→17:38)
[2019-10-10 12:01] LABS: African American GFR (CKD) >90 (>60 ml/min/1.73 sqM); Anion Gap 5 mmol/L; Blood Urea Nitrogen 11 mg/dL (9-20); Calcium 7.6 mg/dL (8.4-10.2); Carbon Dioxide 31 mmol/L (22-30); Chloride 102 mmol/L (98-107); Glucose 118 mg/dL (74-99); Non-African American GFR(CKD) >90 (>60 ml/min/1.73 sqM); Potassium 3.4 mmol/L (3.5-5.1); Sodium 138 mmol/L (137-145)
[2019-10-10] MEDS: FUROSEMIDE 40 MG TAB PO SCH (12:01)
[2019-10-10] MEDS: LISINOPRIL 10 MG TAB PO SCH (12:01)
[2019-10-10] MEDS: MORPHINE SULFATE 4 MG/ML SYRINGE IV PRN (12:37)
[2019-10-10 16:42] LABS: Glucose,Whole Blood 102 mg/dL (75-99)
--- NOTE | 2019-10-10 20:34 | PN ---
PROGRESS NOTE DATE OF DICTATION: 10/10/2019 This patient is a 69-year-old pleasant white male admitted to the hospital with dysphagia. He underwent EGD followed by hiatal hernia repair by Dr. Liu yesterday. He is doing much better on a clear liquid diet, tolerating well. Dysphagia has completely resolved. He denies any symptoms. Mild pain at the site of surgery. PHYSICAL EXAMINATION: He appears comfortable. No apparent distress. Vital signs are stable. Blood pressure is 199/70, pulse rate 66, temperature 98.2. HEENT examination unremarkable. Conjunctivae pink. Sclerae anicteric. Oral cavity no lesions. NECK: No JVD or lymph node enlargement. CHEST: Clear to auscultation. HEART: Regular rate and rhythm. ABDOMEN: Soft. Non-tender. Bowel sounds are positive. No organomegaly. EXTREMITIES: No pedal edema. SKIN: No rashes. NEUROLOGIC: Alert and oriented x3. No focal deficits. LABS: Labs from today show WBC 6.8, hemoglobin 13, platelets normal. Basic metabolic panel is normal. IMPRESSION: Dysphagia, status post esophagogastroduodenoscopy and laparoscopic hiatal hernia repair by Dr. Liu yesterday. Symptoms are significantly improved. The patient is doing well on a clear liquid diet, tolerating well. RECOMMENDATIONS: 1. Continue clear liquid diet. 2. Increase ambulation. 3. At this time we will sign off. Please call us if needed. Thank you for this consultation. MMODL / IJN: [id number] /
--- NOTE | 2019-10-10 20:58 | P.PN ---
Progress Note - Text Progress Note Date: 10/10/19 Chief Complaint: Unable to swallow Interval history: This is a very pleasant 69-year-old patient of Dr. Caleb Maynard. Chronic stable medical conditions include atrial fibrillation, congestive heart failure, hypertension, depression. Patient states he recovered from treatment for flu symptoms. Prognosis remains guarded. We started having attacks of coughing and hiccups. Every time he had a Serious chest pain. 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 mark Liu. Sometimes patient gets bouts of hiccups and coughing that he cannot control. For about 4 days patient barely able to drink anything. Can barely able to keep anything down , throws BACK up. Was only able to tolerate some oranges 2 nights ago. Patient daughter the bedside. No cardiac sounding pain at all. Hospital course: barium swallow study ..-Showing moderately large fixed hiatal hernia. Also evidence of presbyesophagus. EGD. large amount of liquid food with vegetable matter. Large amount of fluid with the hiatal hernia. Significant esophagitis. On October 09 patient underwent hiatal hernia repair Today-laying in bed. Eyelid today underwent upper GI fluoroscopy was found to have no leaks, presbyesophagus. Patient started on clear liquids Review of systems: Was done for constitutional, cardiovascular, GI, pulmonary. relevant finding as above Active Medications Bupropion HCl (Wellbutrin Sr) 200 mg PO BID [facility] Last Admin: 10/10/19 12:00 Dose: Not Given Documented by: Carvedilol (Coreg) 6.25 mg PO BID-W/MEALS [facility] Last Admin: 10/10/19 17:38 Dose: 6.25 mg Documented by: Enoxaparin Sodium (Lovenox) 40 mg SQ DAILY [facility] Last Admin: 10/10/19 10:05 Dose: 40 mg Documented by: Furosemide (Lasix) 40 mg PO DAILY [facility] Last Admin: 10/10/19 12:01 Dose: Not Given Documented by: Hydromorphone HCl (Dilaudid) 1 mg IVP Q4HR PRN PRN Reason: Pain Last Admin: 10/09/19 20:04 Dose: 1 mg Documented by: Lactated Ringer's (Lactated Ringers) 1,000 mls @ 125 mls/hr IV .Q8H [facility] Last Admin: 10/10/19 13:22 Dose: Not Given Documented by: Potassium Chloride/Dextrose/Sod Cl (D5%-1/2ns-Kcl 20 Meq/L Iv Solution) 1,000 mls @ 125 mls/hr IV .Q8H [facility] Last Admin: 10/10/19 18:14 Dose: 125 mls/hr Documented by: Lisinopril (Zestril) 10 mg PO DAILY [facility] Last Admin: 10/10/19 12:01 Dose: Not Given Documented by: Miscellaneous Information (Potassium Per Protocol) 1 each MISCELLANE DAILY PRN; Protocol PRN Reason: Per Protocol Morphine Sulfate (Morphine Sulfate (Inj)) 4 mg IV Q4HR PRN PRN Reason: Severe Pain Last Admin: 10/10/19 12:37 Dose: 4 mg Documented by: Naloxone HCl (Narcan) 0.2 mg IV Q2M PRN PRN Reason: Opioid Reversal Ondansetron HCl (Zofran) 4 mg IVP Q8HR PRN PRN Reason: Nausea And Vomiting Last Admin: 10/04/19 10:05 Dose: 4 mg Documented by: Oxycodone/Acetaminophen (Percocet 7.5-325) 1 each PO Q6HR PRN PRN Reason: Pain Last Admin: 10/09/19 08:13 Dose: 1 each Documented by: Pantoprazole Sodium (Protonix) 40 mg IVP BID [facility] Last Admin: 10/10/19 10:04 Dose: 40 mg Documented by: Physical examination: VITAL SIGNS: 97.9-70-17-121/79-92% room air GENERAL:, Laying in bed, comfortable. EYES: Pupils equal. Conjunctiva normal. HEENT: External appearance of nose and ears normal, oral cavity grossly normal. NECK: JVD not raised; masses not palpable. HEART: First and second heart sounds are normal; no edema. LUNGS: Respiratory rate normal; clear to auscultation. ABDOMEN: Soft, minimal, liver spleen not palpable, no masses palpable. PSYCH: Alert and oriented x3; mood and affect normal. INVESTIGATIONS, reviewed in the clinical context: White count 6.8 hemoglobin 13.3.4 creatinine 0.69 Upper GI fluoroscopy showing no leak, presbyesophagus Previous testing EGD-stomach showing a large amount of fluid with vegetable matter. Large hiatal hernia. Significant esophagitis . Barium Swallow-large fixed hiatal hernia, and evidence of presbyesophagus White count 7.5 hemoglobin 16.1 potassium 3.9 bun 16 creatinine 0.96 Troponin I 3 negative EKG tracing personally reviewed by me-atrial flutter fibrillation rate 64 Chest x-ray film personally reviewed by me-borderline cardiomegaly Assessment: -Severe dysphagia intermittent from patient having significant presbyesophagus. -Presbyesophagus -Severe esophagitis, -Large fixed hiatal hernia, -followed by repair by Dr. Liu -Persistent atrial fibrillation flutter -Chronic congestive heart failure EF not known -Essential hypertension -Depression not otherwise specified Plan: Patient started on clear liquids today following upper GI fluoroscopy. Care was discussed with the patient. Follow. Thank you Dr. Liu
[2019-10-10] MEDS: oxyCODONE-APAP 7.5-325MG 1 EACH TAB PO PRN (23:32)
[2019-10-11 01:23] VITALS: RESP 16
[2019-10-11 02:16] VITALS: PULSE 60
[2019-10-11] MEDS: LACTATED RINGERS 1,000 ML IV SCH (05:59)
[2019-10-11] MEDS: D5-0.45% NACL WITH KCL 20MEQ/L 1,000 ML IV SCH (05:59)
[2019-10-11 08:20] LABS: Basophils % (A) 1 %; Eosinophils # (A) 0.2 k/uL (0-0.7); Eosinophils % (A) 3 %; HCT 37.8 % (39.0-53.0); HGB 12.5 gm/dL (13.0-17.5); Lymphocytes # (A) 1.1 k/uL (1.0-4.8); Lymphocytes % (A) 20 %; MCH 31.1 pg (25.0-35.0); MCHC 33.1 g/dL (31.0-37.0); MCV 93.9 fL (80.0-100.0); Mean Platelet Volume 9.5; Monocytes # (A) 0.4 k/uL (0-1.0); Monocytes % (A) 7 %; Neutrophils # (A) 3.6 k/uL (1.3-7.7); Neutrophils % (A) 67 %; Platelet Count 153 k/uL (150-450); RBC 4.02 m/uL (4.30-5.90); WBC 5.3 k/uL (3.8-10.6)
[2019-10-11 08:21] LABS: African American GFR (CKD) >90 (>60 ml/min/1.73 sqM); Anion Gap 6 mmol/L; Blood Urea Nitrogen 6 mg/dL (9-20); Calcium 7.4 mg/dL (8.4-10.2); Carbon Dioxide 26 mmol/L (22-30); Chloride 106 mmol/L (98-107); Glucose 106 mg/dL (74-99); Non-African American GFR(CKD) >90 (>60 ml/min/1.73 sqM); Potassium 3.6 mmol/L (3.5-5.1); Sodium 138 mmol/L (137-145)
[2019-10-11] MEDS: FUROSEMIDE 40 MG TAB PO SCH (08:24)
[2019-10-11] MEDS: CARVEDILOL 6.25 MG TAB PO SCH (08:24)
[2019-10-11] MEDS: PANTOPRAZOLE 40 MG/10 ML VIAL IVP SCH (08:24)
[2019-10-11] MEDS: LISINOPRIL 10 MG TAB PO SCH (08:24)
[2019-10-11] MEDS: buPROPion SR 100 MG TABLET.ER PO SCH (08:24)
[2019-10-11] MEDS: ENOXAPARIN 40 MG/0.4 ML SYRINGE SQ SCH (08:25)
[2019-10-11 09:11] VITALS: BP 117/76; TEMP 97.4
--- NOTE | 2019-10-11 11:38 | P.DS ---
Providers Date of admission: 10/04/19 14:32 Expected date of discharge: 10/11/19 Attending physician: Salvatore Liu Consults: 10/03/19 20:30 Consult Physician Routine Consulting Provider: [facility] Consult Reason/Comments: Chest Pain Do you want consulting provider notified?: Yes 10/04/19 12:31 Consult Physician Routine Consulting Provider: Salvatore Liu Consult Reason/Comments: severe dysphagia Do you want consulting provider notified?: Yes 10/06/19 17:31 Consult Physician Routine Consulting Provider: Sherry Lewis Consult Reason/Comments: Severe presbyesophagus Do you want consulting provider notified?: Yes 10/09/19 18:41 Consult Physician Routine Consulting Provider: J Carlos Garcia Consult Reason/Comments: medical management Do you want consulting provider notified?: Yes Primary care physician: Caleb Pierson [facility] Course: This a 69-year-old male who was admitted for dysphagia related to a paraesophageal hernia. Patient underwent laparoscopic repair. He did well postoperatively. Please see hospital chart for details. Procedures: Laparoscopic Chidi fundoplication Patient Condition at Discharge: Good Plan - Discharge Summary Discharge Rx Participant: No New Discharge Prescriptions: Continue oxyCODONE-APAP 7.5-325MG [Percocet 7.5-325 mg] 1 tab PO Q6HR PRN #30 tab PRN Reason: Pain No Action Rivaroxaban [Xarelto] 20 mg PO DAILY Furosemide [Lasix] 40 mg PO DAILY Lisinopril [Zestril] 10 mg PO DAILY buPROPion HCL [Wellbutrin SR] 200 mg PO BID Carvedilol [Coreg] 6.25 mg PO BID Ibandronate Sodium 150 mg PO Q30D Discharge Medication List Rivaroxaban [Xarelto] 20 mg PO DAILY 06/11/15 [History] Furosemide [Lasix] 40 mg PO DAILY 06/14/15 [History] Lisinopril [Zestril] 10 mg PO DAILY 06/14/15 [History] Carvedilol [Coreg] 6.25 mg PO BID 12/04/18 [History] buPROPion HCL [Wellbutrin SR] 200 mg PO BID 12/04/18 [History] oxyCODONE-APAP 7.5-325MG [Percocet 7.5-325 mg] 1 tab PO Q6HR PRN #30 tab 04/06/19 [Rx] Ibandronate Sodium 150 mg PO Q30D 10/03/19 [History] Follow up Appointment(s)/Referral(s): Caleb Pierson MD [Primary Care Provider] - 1-2 days Ned Lewis MD [STAFF PHYSICIAN] - 10/29/19 2:00 pm Salvatore Liu MD [STAFF PHYSICIAN] - 10/23/19 3:30 pm Activity/Diet/Wound Care/Special Instructions: No driving while taking narcotics No lifting over 10 pounds You may shower. No soaking or tub baths Very light activity until you are reevaluated at your follow up appointment with your surgeon Discharge Disposition: HOME SELF-CARE
--- NOTE | 2019-11-05 14:40 | P.OP ---
Date of Procedure: 10/09/19 Preoperative Diagnosis: Paraesophageal hernia Postoperative Diagnosis: Paraesophageal hernia Procedure(s) Performed: Laparoscopic repair of paraesophageal hernia Anesthesia: MATTIE Surgeon: Salvatore Liu Estimated Blood Loss (ml): 5 Pathology: none sent Condition: stable Disposition: PACU Description of Procedure: HThe patient was placed on the operating table in the supine position. The patient received general anesthesia. And was placed in dorsal lithotomy position. The patient was prepped and draped in the usual sterile fashion. The skin incision sites were anesthetized with 1% local Xylocaine. The skin was incised in the left periumbilical area and then using a blade less 5 mm trocar under direct visualization panel cavity was entered. After adequate insufflation the laparoscope was then placed into the peritoneal cavity. Next a 5 mm trochars placed in the right epigastric position. Another 5 millimeter trocar the right lateral position. Another 5 millimeter trocar in the left lateral position a 5 mm trocar is placed in the left epigastric position. And then the initial 5 mm trocar was exchanged for a 10 mm trocar. The left lateral lobe liver was retracted. The hernia was seen. The patient had a large paraesophageal hernia. The crural defect was then dissected using the Harmonic scissors device. The stomach was reduced into the perineal cavity. The crural defect was then closed using 2-0 Ethibond suture. Care was taken to make sure the crural defect was not closed too tightly against esophagus. here was no injury seen to the stomach or esophagus. The dilator was then withdrawn. The abdomen was irrigated there is no bleeding seen. The trochars were then withdrawn and then skin incision sites were closed using 3-0 Monocryl suture Steri-Strips are applied. Patient thought procedure well and sent to recovery r oom in stable condition.
== END 2019-10-11 12:30 | disposition home or self-care (01) | DRG 327 ==
LOC: EC 18:46 → 1SOBS 20:14 → OBSVTOIN 10-04 14:32 → 4SSUR 10-09 10:49
PROVIDERS: ADMIT Surgery; ATTEND Surgery
PROC: 0DJ08ZZ Inspection of Upper Intestinal Tract, Via Natural or Artificial Opening Endoscopic (ICD-10-PCS; 2019-10-07)
PROC: 0BQT4ZZ Repair Diaphragm, Percutaneous Endoscopic Approach (ICD-10-PCS; principal; 2019-10-09 07:30)
DX: K44.9 Diaphragmatic hernia without obstruction or gangrene (principal); I50.22 Chronic systolic (congestive) heart failure; I42.8 Other cardiomyopathies; I48.19 Other persistent atrial fibrillation; I48.92 Unspecified atrial flutter; K22.8 Other specified diseases of esophagus; K21.0 Gastro-esophageal reflux disease with esophagitis; E78.5 Hyperlipidemia, unspecified; F32.9 Major depressive disorder, single episode, unspecified; I11.0 Hypertensive heart disease with heart failure; I27.20 Pulmonary hypertension, unspecified; I07.1 Rheumatic tricuspid insufficiency; R13.10 Dysphagia, unspecified; Z79.01 Long term (current) use of anticoagulants; Z79.899 Other long term (current) drug therapy; Z87.891 Personal history of nicotine dependence; Z96.642 Presence of left artificial hip joint; Z60.2 Problems related to living alone; R06.6 Hiccough
CPT/HCPCS: 36415; 43235; 71046; 74210; 74220; 80048; 80053; 83690; 83735; 84132; 84484; 85025; 85027; 85610; 85730; 93005; 93306; 94760; 96374; 99285

== ENCOUNTER → 2020-01-23 | Outpatient (CLI) | payer MEDICARE ==
--- NOTE | 2020-01-23 10:35 | FL ---
EXAMINATION TYPE: FL UGI w esophagus DATE OF EXAM: 01/23/2020 COMPARISON: NONE HISTORY: Recent hiatal hernia repair in October 2019 with recurrent symptoms of gastroesophageal ref lux and dysphagia TECHNIQUE: A single contrast UGI study is performed. Fluoroscopy time of 1.27 minutes with 44 fluoro scopic images saved. FINDINGS: The esophagus shows abnormal motility with tertiary contractions and delayed emptying through the rec urrent moderate hiatal hernia into the remainder of the stomach. The stomach shows a focal area of luminal narrowing at the diaphragmatic hiatus. Moderate gastroesoph ageal reflux was seen during real time performance of this study. The duodenal bulb, sweep, and proximal small bowel loops are unremarkable. IMPRESSION: Recurrent moderate hiatal hernia with narrowing of the gastric lumen at the diaphragmatic hiatus and resultant increased transit time through the esophagus and gastroesophageal junction with moderate gastroesophageal reflux.
== END | disposition home or self-care (01) ==
LOC: RADUSWWP 08:57
PROVIDERS: ATTEND Surgery
DX: K44.9 Diaphragmatic hernia without obstruction or gangrene (principal); K21.9 Gastro-esophageal reflux disease without esophagitis
CPT/HCPCS: 74240

== ENCOUNTER → 2020-02-05 | Outpatient (CLI) | payer MEDICARE | END | disposition home or self-care (01) | LOC: LABWHC1 09:45 | PROVIDERS: ATTEND Surgery | DX: Z11.59 Encounter for screening for other viral diseases (principal) ==

== ENCOUNTER 2020-02-06 11:11 | Day surgery (SDC) | payer MEDICARE ==
[2020-02-05 13:13] VITALS: BMI 26.1
[~2020-02-06 11:11] MED LIST changes: -DEXAMETHASONE SOD PHOSPHATE 10 MG/ML 1 ML VIAL IV ONE; -LIDOCAINE 1% 20 ML VIAL (10MG/ML) FOR IV START INTRADERMA PRN; -MIDAZOLAM 2 MG/2 ML VIAL IV PRN; -ONDANSETRON ODT 4 MG TAB PO ONE; -SCOPOLAMINE 1.5MG/72HR PATCH TRANSDERM ONE; -ceFAZolin IN SWFI 2 GM/20 ML SYRINGE IVP ONE; -fentaNYL (PF) 50 MCG/ML 2 ML AMP IV PRN
[2020-02-06 11:29] VITALS: TEMP 97.8
[2020-02-06] MEDS ORDERED: LACTATED RINGERS 1,000 ML IV ONE (11:36)
[2020-02-06] MEDS ORDERED: LIDOCAINE 1% (10MG/ML) FOR IV START INTRADERMA ONE (11:38)
[2020-02-06] MEDS ORDERED: PROPOFOL 10 MG/ML 20 ML VIAL IV ONE (12:22)
[2020-02-06] MEDS ORDERED: LIDOCAINE 1% INJ 10MG/ML (20 ML MDV) ONE (12:22)
--- NOTE | 2020-02-06 12:28 | P.GSHP ---
History of Present Illness H&P Date: 02/06/20 Chief Complaint: GERD This a 69-year-old male with history of GERD. Patient has safer EGD. His recent esophagram shows evidence of recurrent hiatal hernia Past Medical History Past Medical History: Atrial Fibrillation, Heart Failure, Hearing Disorder / Deafness, Hypertension Additional Past Medical History / Comment(s): DIFFICULTY WITH SWALLOWING, atrial fibrillation, [place]- hearing aids., states coughs and sometimes vomits. History of Any Multi-Drug Resistant Organisms: None Reported Past Surgical History: Orthopedic Surgery Additional Past Surgical History / Comment(s): ESOPHAGUS, HIATAL HERNIA, RIGHT HIP,RIGHT ARM PLATE AND SCREW, LEFT FOOT,left hip replaced Past Anesthesia/Blood Transfusion Reactions: No Reported Reaction Past Psychological History: Depression Smoking Status: Former smoker Past Alcohol Use History: None Reported Past Drug Use History: None Reported - Past Family History Mother Family Medical History: No Reported History Medications and Allergies Home Medications Medication Instructions Recorded Confirmed Type Rivaroxaban [Xarelto] 20 mg PO DAILY 06/11/15 02/05/20 History Furosemide [Lasix] 40 mg PO DAILY 06/14/15 02/05/20 History Lisinopril [Zestril] 10 mg PO DAILY 06/14/15 02/05/20 History Carvedilol [Coreg] 6.25 mg PO BID 12/04/18 02/05/20 History buPROPion HCL [Wellbutrin SR] 200 mg PO BID 12/04/18 02/05/20 History oxyCODONE-APAP 7.5-325MG [Percocet 1 tab PO Q6HR PRN #30 tab 12/07/18 02/05/20 Rx 7.5-325 mg] Ibandronate Sodium 150 mg PO Q30D 10/03/19 02/05/20 History Allergies Allergy/AdvReac Type Severity Reaction Status Date / Time No Known Allergies Allergy Verified 02/05/20 12:54 Surgical - Exam Vital Signs Temp Pulse Resp BP Pulse Ox 97.8 F 43 L 18 109/73 94 L 02/06/20 11:28 02/06/20 11:28 02/06/20 11:28 02/06/20 11:28 02/06/20 11:28 - General well developed, well nourished, no distress - Eyes PERRL - ENT normal pinna - Neck no masses - Respiratory normal expansion - Cardiovascular Rhythm: regular - Abdomen Abdomen: soft, non tender Assessment and Plan Assessment: GERD. We'll perform EGD.
--- NOTE | 2020-02-06 12:33 | P.OP ---
Date of Procedure: 02/06/20 Preoperative Diagnosis: GERD Postoperative Diagnosis: Recurrent hiatal hernia Procedure(s) Performed: EGD Anesthesia: MAC Surgeon: Salvatore Liu Pathology: none sent Condition: stable Disposition: PACU Description of Procedure: The patient's placed on the endoscopy table in the lateral position. He rec eived IV sedation. The gastroscope placed oropharynx and passed in the esophagus and stomach. Scope was then placed through the pylorus. The duodenum. Normal. Scope was brought back the antrum had retained food. The gastric scope was unretroflexed the patient had a large hiatal hernia. Approximately one third of the stomach was in the hernia. There is retained food in the hiatus. The GE junction was at 38 7 is. The distal esophagus. Normal. The proximal esophagus. Normal. Scope was withdrawn for patient.
[2020-02-06 12:55] VITALS: BP 113/72; PULSE 78
[2020-02-06 13:52] VITALS: RESP 16
== END 2020-02-06 13:30 | disposition home or self-care (01) ==
LOC: ORWHC2ENDO 11:11
PROVIDERS: ATTEND Surgery
DX: K44.9 Diaphragmatic hernia without obstruction or gangrene (principal); K21.9 Gastro-esophageal reflux disease without esophagitis; I48.91 Unspecified atrial fibrillation; I11.0 Hypertensive heart disease with heart failure; I50.9 Heart failure, unspecified; R13.10 Dysphagia, unspecified; H91.90 Unspecified hearing loss, unspecified ear; Z98.890 Other specified postprocedural states; Z96.642 Presence of left artificial hip joint; F32.9 Major depressive disorder, single episode, unspecified; J44.9 Chronic obstructive pulmonary disease, unspecified; Z87.891 Personal history of nicotine dependence; Z79.01 Long term (current) use of anticoagulants; Z79.899 Other long term (current) drug therapy
CPT/HCPCS: 43235; J2001; J2704

== ENCOUNTER 2020-02-24 09:00 | Inpatient (IN) | payer MEDICARE ==
[2020-02-24] MEDS: LACTATED RINGERS 1,000 ML IV SCH ×2 (06:30→17:01)
--- NOTE | 2020-02-24 07:55 | P.GSHP ---
History of Present Illness H&P Date: 02/24/20 Chief Complaint: Recurrent paraesophageal hernia Is a 69-year-old male who is developed recurrent paraesophageal hernia. Patient has developed significant dysphagia. He presents today for open repair of paraesophageal hernia. Past Medical History Past Medical History: Atrial Fibrillation, Heart Failure, Hypertension Additional Past Medical History / Comment(s): Having difficulty swallowing with coughing and sometimes vomiting History of Any Multi-Drug Resistant Organisms: None Reported Past Surgical History: Joint Replacement, Orthopedic Surgery Additional Past Surgical History / Comment(s): ESOPHAGUS, HIATAL HERNIA,ORIF RIGHT HIP,RIGHT ARM PLATE AND SCREW, LEFT FOOT,left hip replaced Past Anesthesia/Blood Transfusion Reactions: No Reported Reaction Additional Past Anesthesia/Blood Transfusion Reaction / Comment(s): no hx blood transfusion Smoking Status: Former smoker - Past Family History Mother Family Medical History: No Reported History Medications and Allergies Home Medications Medication Instructions Recorded Confirmed Type Rivaroxaban [Xarelto] 20 mg PO DAILY 06/11/15 02/24/20 History Furosemide [Lasix] 40 mg PO DAILY 06/14/15 02/24/20 History Lisinopril [Zestril] 10 mg PO QAM 06/14/15 02/24/20 History Carvedilol [Coreg] 6.25 mg PO BID 12/04/18 02/24/20 History buPROPion HCL [Wellbutrin SR] 200 mg PO BID 12/04/18 02/24/20 History oxyCODONE-APAP 7.5-325MG [Percocet 1 tab PO Q6HR PRN #30 tab 12/07/18 02/24/20 Rx 7.5-325 mg] Ibandronate Sodium 150 mg PO Q30D 10/03/19 02/24/20 History Fluticasone/Umeclidin/Vilanter 1 inhalation INHALATION QAM 02/18/20 02/24/20 History [Trelegy Ellipta 100-62.5-25] Allergies Allergy/AdvReac Type Severity Reaction Status Date / Time No Known Allergies Allergy Verified 02/18/20 15:49 Surgical - Exam Vital Signs Temp Pulse Resp BP Pulse Ox 97.8 F 42 L 16 113/68 95 02/24/20 06:18 02/24/20 06:18 02/24/20 06:18 02/24/20 06:18 02/24/20 06:18 - General well developed, well nourished, no distress - Eyes PERRL - ENT normal pinna - Neck no masses - Respiratory normal expansion - Cardiovascular Rhythm: regular - Abdomen Abdomen: soft, non tender Results - Labs 02/24/20 06:25 Diabetes panel 02/24/20 Range/Units 06:25 Potassium 4.0 (3.5-5.1) mmol/L Pituitary panel 02/24/20 Range/Units 06:25 Potassium 4.0 (3.5-5.1) mmol/L Adrenal panel 02/24/20 Range/Units 06:25 Potassium 4.0 (3.5-5.1) mmol/L Assessment and Plan Assessment: Social hernia. We'll perform open repair. Patient aware the risk of recurrent hernia and dysphagia. As well as injury to the stomach liver or spleen.
[~2020-02-24 09:00] MED LIST changes: +ACETAMINOPHEN TAB 500 MG TAB PO ONE; +GLYCOPYRROLATE 0.2 MG/ML 2 ML VIAL ONE; +HEPARIN SODIUM,PORCINE 5,000 UNIT/ML 1 ML VIAL SQ ONE; +LACTATED RINGERS 1,000 ML IV ONE; -LACTATED RINGERS 1,000 ML IV SCH; +LIDOCAINE 1% INJ 10MG/ML (20 ML MDV) ONE; +MIDAZOLAM 2 MG/2 ML VIAL ONE; +NEOSTIGMINE 1 MG/ML 10 ML VIAL ONE; +ONDANSETRON 4 MG/2 ML VIAL IVP ONE; +ONDANSETRON 4 MG/2 ML VIAL IVP PRN; +PROPOFOL 10 MG/ML 20 ML VIAL IV ONE; +ROCURONIUM BROMIDE 10 MG/ML 5 ML VIAL IV ONE; +SUCCINYLCHOLINE CHLORIDE 100 MG/5 ML SYR IV ONE; +ePHEDrine SULFATE/0.9% NACL/PF 50 MG/5 ML SYRINGE IV ONE; +fentaNYL (PF) 50 MCG/ML 2 ML AMP ONE
--- NOTE | 2020-02-24 09:00 | P.OP ---
Date of Procedure: 02/24/20 Preoperative Diagnosis: Recurrent paraesophageal hernia Postoperative Diagnosis: Recurrent paraesophageal hernia Slipped fundoplication Procedure(s) Performed: Open repair of para softer hernia Revision of Chidi fundoplication Anesthesia: MATTIE Surgeon: Salvatore Liu Estimated Blood Loss (ml): 20 Pathology: none sent Condition: stable Disposition: PACU Description of Procedure: The patient's placed on the operating table in the supine position. He received general. His abdomen was prepped and draped usual sterile fashion. The skin was incised in the upper midline. Then using left cautery and subcu tissue divided. The fascia was divided midline. The Omni-Tract placed a wound. In the abdominal wall was exposed. The left lateral lobe liver was then dissected off the diaphragm the left cautery. The paraesophageal hernia was visualized. The patient also appeared to have a slipped fundoplication. At this point the fundoplication wrap was taken down by dividing the sutures and scar tissue which held the fundoplication wrap in place. The stomach was pulled down into the abdominal cavity. The hernia defect was then sutured with 0 Ethibond suture. After the hernia was repaired a finger could be placed against the esophagus and the crura. The stomach was then insufflated with methylene blue normal saline. There is no evidence of any extravasation. The abdomen was irrigated is no bleeding seen. The fascia was closed with looped #1 PDS suture. The skin was then closed with luke. Patient tolerated the procedure well and was sent to recovery room in stable condition.
[2020-02-24] MEDS: fentaNYL (PF) 50 MCG/ML 2 ML AMP IV PRN ×2 (09:50→09:55)
[2020-02-24] MEDS: HYDROmorphone 0.5 MG/0.5 ML SYRINGE IVP PRN ×2 (13:37→13:51)
--- NOTE | 2020-02-24 15:19 | FL ---
"EXAMINATION TYPE: FL esophagus cervic/pharynx DATE OF EXAM: 02/24/2020 LIMITED UGI-ESOPHAGRAM: CLINICAL HISTORY: Recurrent hiatal hernia status post new open Martínez fundoplication surgery earlier today. TECHNIQUE: Limited esophagram is performed utilizing 2-3 oz of Isovue-370. A total of 1.48 minutes o f fluoroscopic time was utilized during procedure. 41 spot images are saved to PACS. Comparison: CT chest August 01, 2019. Recent upper GI study January 23, 2020. FINDINGS: The patient swallowed contrast without difficulty or delay. Esophageal redemonstrates rm e mild dysmotility with a few abnormal secondary and tertiary contractions. There is persistent fairl y moderate-sized fixed hiatal hernia above the diaphragm not significantly changed from most recent u pper GI study. There is satisfactory flow of contrast along the diaphragmatic hiatus into the stomach below diaphragm, there is no evidence of contrast extravasation to suggest leak. Extensive free air presumed postsurgical seen below both hemidiaphragms. There is dilated debris-filled stomach with geoff ntual reflux of contrast and debris into the distal two thirds of the esophagus. Roughly 4 to 5 minut es after starting exam there is persistent contrast and debris filled stomach and fixed moderate size hiatal hernia. New Overlying vertical skin luke noted. Patient shows no increased or worsened symptoms from baseline nausea. IMPRESSION: No evidence of leak status post recurrent Martínez fundoplication surgery earlier today. Th ere is persistent moderate size fixed hiatal hernia. There is moderately dilated debris filled stomac h below the diaphragm with reflux of contrast and debris into hiatal hernia and distal esophagus. A Yellow level critical message alert has been initiated for Salvatore Liu MD via the [employer] 60 | Critical Results System on 02/24/2020 3:16 PM. This message alert has been sent to Salvatore olivares MD via the preferences provided by the clinician for the receipt of Radiology Critical Findings. M essage ID [id number]."
[2020-02-24] MEDS: HYDROmorphone 1 MG/ML 1 ML SYRINGE IVP PRN ×3 (17:00→23:59)
[2020-02-24] MEDS: METOCLOPRAMIDE 5 MG/ML 2 ML VIAL IVP SCH ×2 (17:07→23:59)
[2020-02-24] MEDS: D5-0.45% NACL WITH KCL 20MEQ/L 1,000 ML IV SCH (18:00)
--- NOTE | 2020-02-24 19:44 | HP ---
HISTORY AND PHYSICAL DATE OF SERVICE: 02/24/2020 REASON FOR CONSULTATION: Advice regarding atrial fibrillation and other medical issues, requested by Dr. Liu. HISTORY OF PRESENT ILLNESS: This 69-year-old gentleman with a past medical history of atrial fibrillation, CHF, history of hypertension, history of swallowing difficulty, being followed by Dr. Pierson in the outpatient setting, underwent open repair of a paraesophageal hernia as well as revision of Chidi fundoplication by Dr. Liu. There is no history of any fever, rigor or chills. No history of headache, loss of consciousness, seizures. The patient is slightly drowsy postoperatively at this time. PAST MEDICAL HISTORY: History of atrial fibrillation, history of CHF, history of hypertension, history of difficulty swallowing. HOME MEDICATIONS: 1. Coreg 6.25 mg p.o. b.i.d. 2. Oxycodone 1 tablet p.o. q.6 p.r.n. 3. Wellbutrin SR 200 mg p.o. b.i.d. 4. Zestril 10 mg each morning. 5. Ibandronate 150 mg p.o. q.3 days. 6. Lasix 40 mg p.o. daily. 7. Trelegy Ellipta 1 inhalation each morning. 8. Xarelto 20 mg daily. ALLERGIES: NONE. FAMILY HISTORY: No history of heart disease or strokes in the family. SOCIAL HISTORY: Previous history of smoking. No current smoking or alcohol intake. REVIEW OF SYSTEMS: ENT: No diminished hearing. No diminished vision. CARDIOVASCULAR SYSTEM: No angina, palpitations. RESPIRATORY SYSTEM: As mentioned earlier. GI: As mentioned earlier. : No dysuria or retention. NERVOUS SYSTEM: No numbness, weakness. ALLERGY/IMMUNOLOGY: No asthma, hayfever. MUSCULOSKELETAL: As mentioned earlier. HEMATOLOGY/ONCOLOGY: No history of anemia. ENDOCRINE: No history of diabetes, hypothyroidism. CONSTITUTIONAL: As mentioned earlier. DERMATOLOGY: Negative. RHEUMATOLOGY: Negative. PSYCHIATRY: As mentioned earlier. PHYSICAL EXAMINATION: Alert and oriented x3. Pulse 66, irregular, blood pressure 130/85, respiration 18, temperature 97.7, pulse ox 92% on room air. HEENT: Conjunctivae normal. Oral mucosa moist. NECK: No jugular venous distention. CARDIOVASCULAR SYSTEM: S1, S2 irregular. RESPIRATORY SYSTEM: Breath sounds diminished at the bases. A few scattered rhonchi. ABDOMEN: Soft, non-tender. No mass palpable. LEGS: No edema. No swelling. NERVOUS SYSTEM: No focal deficit. LABS: Potassium 4. Preop labs are hemoglobin 12.5. Coags are normal. Chemistry also reviewed. ASSESSMENT: 1. Status post open repair of paraesophageal hernia as well as revision of Chidi fundoplication. 2. Chronic atrial fibrillation, on Xarelto. 3. History of congestive heart failure. 4. Hypertension. 5. History of swallowing difficulty. 6. History of degenerative joint disease. 7. History of depression. 8. Remote history of nicotine dependence. RECOMMENDATIONS AND DISCUSSION: In this 69-year-old gentleman who presented after surgery, at this time I recommend to continue current medications, resume the home medications. Resume the Xarelto when okay with Surgery. Monitor fluid/electrolyte balance closely. Limit the IV fluids. Otherwise, we will continue to monitor. Repeat labs also will be ordered. DVT prophylaxis. We will follow the patient closely with you. Thank you, Dr. Liu, for letting us participate in the care of this patient. The patient may be asked to follow up with a primary physician closely after discharge. MMODL / IJN: [id number] /
[2020-02-25] MEDS: D5-0.45% NACL WITH KCL 20MEQ/L 1,000 ML IV SCH ×3 (01:05→23:39)
[2020-02-25] MEDS: METOCLOPRAMIDE 5 MG/ML 2 ML VIAL IVP SCH ×4 (05:24→23:35)
[2020-02-25] MEDS: HYDROmorphone 1 MG/ML 1 ML SYRINGE IVP PRN ×4 (05:35→20:25)
[2020-02-25] MEDS: ENOXAPARIN 40 MG/0.4 ML SYRINGE SQ SCH (07:42)
[2020-02-25] MEDS: TAMSULOSIN 0.4 MG CAP.ER.24H PO SCH (07:43)
[2020-02-25] MEDS: LISINOPRIL 10 MG TAB PO SCH (07:43)
[2020-02-25] MEDS: CARVEDILOL 6.25 MG TAB PO SCH ×2 (07:43→17:35)
[2020-02-25] MEDS: FUROSEMIDE 40 MG TAB PO SCH (07:43)
[2020-02-25] MEDS: IPRATROPIUM 0.5 MG/2.5 ML NEBU INHALATION SCH ×4 (08:47→19:04)
[2020-02-25] MEDS: SYMBICORT 80-4.5 MCG INHALER INHALATION SCH ×2 (08:47→19:04)
[2020-02-25 10:16] VITALS: BMI 27.8
--- NOTE | 2020-02-25 11:29 | P.PN ---
Subjective Progress Note Date: 02/25/20 Principal diagnosis: Dysphagia, paraesophageal hernia The patient underwent open repair of his paraesophageal hernia yesterday. He is doing fairly well. His esophagram shows a smaller residual fixed hiatal hernia. There is some reflux on esophagram. O Objective - Vital Signs Vital signs: Vital Signs Temp 98.4 F 02/25/20 04:25 Pulse 66 02/25/20 04:25 Resp 16 02/25/20 04:25 BP 120/67 02/25/20 04:25 Pulse Ox 93 L 02/25/20 04:25 Intake & Output 02/24/20 02/25/20 02/25/20 18:59 06:59 18:59 Intake Total 1350 600 150 Output Total 25 500 Balance 1325 100 150 Weight 88 kg 88 kg Intake: IV 1350 Intake, IV Titration 600 150 Amount D5-0.45% NaCl with KCl 600 150 20Meq/l 1,000 ml @ 50 mls /hr IV .Q20H [facility] Rx#: [id number] Output: Urine 500 Estimated Blood Loss 25 Other: Voiding Method Urinal Indwelling Catheter - Gastrointestinal Gastrointestinal Comment(s): Abdomen soft. Incision site is clean dry and intact. - Labs CBC & Chem 7: 02/24/20 06:25 Assessment and Plan Plan: Status post open repair appears softer hernia. Patient will start clears today. Dysphagia discharged home the next 48 hours.
[2020-02-25] MEDS: LACTATED RINGERS 1,000 ML IV SCH (14:07)
[2020-02-25 17:04] LABS: Appearance,Urine Turbid (Clear); Bacteria,Urine Many /hpf; Bilirubin,Urine Negative (Negative); Blood,Urine Small (Negative); Color,Urine Yellow; Glucose,Urine (UA) Negative (Negative); Ketones,Urine Negative (Negative); Leukocyte Esterase,Urine Large (Negative); Mucus,Urine Many /hpf; Nitrite,Urine Negative (Negative); PH, Urine 7.5 (5.0-8.0); Protein,Urine 1+ (Negative); RBC,Urine 2 /hpf (0-5); Specific Gravity,Urine 1.009 (1.001-1.035); Urobilinogen,Urine <2.0 mg/dL (<2.0); WBC,Urine 23 /hpf (0-5)
--- NOTE | 2020-02-25 17:49 | PN ---
PROGRESS NOTE DATE OF SERVICE: 02/25/2020 This 69-year-old gentleman admitted after repair of paraesophageal hernia is being closely monitored. No chest pain. No palpitations. No fever. PHYSICAL EXAMINATION: Alert and oriented x3. Pulse is 74, blood pressure 108/68, respiration 18, temperature 98.4, pulse ox 93% on room air. HEENT: Conjunctivae normal. NECK: No jugular venous distention. CARDIOVASCULAR SYSTEM: S1, S2 muffled. RESPIRATORY SYSTEM: Breath sounds diminished at the bases. No rhonchi. No crackles. ABDOMEN: Soft, non-tender. Status post surgery. NERVOUS SYSTEM: No focal deficit. LABS: Potassium 4. ASSESSMENT: 1. Status post open repair of paraesophageal hernia as well as revision of the Chidi fundoplication. 2. Chronic atrial fibrillation, on Xarelto. 3. History of congestive heart failure. 4. Hypertension. 5. History of swallowing difficulty. 6. History of degenerative joint disease. 7. History of depression. 8. Remote history of nicotine dependence. RECOMMENDATIONS AND DISCUSSION: I recommend to continue current medications, continue with the monitoring, symptomatic treatment. Continue with the DVT prophylaxis and initiate Xarelto when okay with Surgery. Otherwise closely follow with Dr. Liu. Further recommendations to follow. MMODL / IJN: [id number] / [facility]Fran
[2020-02-25] MEDS: buPROPion SR 100 MG TABLET.ER PO SCH (21:21)
[2020-02-26] MEDS: HYDROmorphone 1 MG/ML 1 ML SYRINGE IVP PRN ×4 (02:29→21:12)
[2020-02-26] MEDS: METOCLOPRAMIDE 5 MG/ML 2 ML VIAL IVP SCH ×4 (05:34→23:46)
[2020-02-26] MEDS: IPRATROPIUM 0.5 MG/2.5 ML NEBU INHALATION SCH ×4 (07:47→21:42)
[2020-02-26] MEDS: SYMBICORT 80-4.5 MCG INHALER INHALATION SCH ×2 (07:47→21:50)
[2020-02-26] MEDS: FUROSEMIDE 40 MG TAB PO SCH (07:48)
[2020-02-26] MEDS: CARVEDILOL 6.25 MG TAB PO SCH ×2 (07:48→16:18)
[2020-02-26] MEDS: buPROPion SR 100 MG TABLET.ER PO SCH ×2 (07:48→21:07)
[2020-02-26] MEDS: TAMSULOSIN 0.4 MG CAP.ER.24H PO SCH (07:48)
[2020-02-26] MEDS: LISINOPRIL 10 MG TAB PO SCH (07:48)
[2020-02-26] MEDS: ENOXAPARIN 40 MG/0.4 ML SYRINGE SQ SCH (07:49)
[2020-02-26] MEDS: LACTATED RINGERS 1,000 ML IV SCH (12:10)
--- NOTE | 2020-02-26 15:33 | P.PN ---
Subjective Progress Note Date: 02/26/20 Principal diagnosis: This is a 69-year-old male who was recently admitted after repair of a paraesophageal hernia and is being closely monitored. Following along closely with surgery. Currently patient has no reports of chest pain, shortness of breath, or palpitations. Patient is afebrile. No reports of nausea or vomiting and patient is tolerating a clear liquid diet. Patient had a urinalysis done yesterday which showed a large amount of leukocytes and urine cultures are currently pending. Will initiate IV ceftriaxone. Will repeat a.m. labs. Objective - Vital Signs Vital signs: Vital Signs Temp 98.2 F 02/26/20 12:46 Pulse 58 L 02/26/20 12:46 Resp 16 02/26/20 12:46 BP 128/77 02/26/20 12:46 Pulse Ox 92 L 02/26/20 04:15 Intake & Output 02/25/20 02/26/20 02/26/20 18:59 06:59 18:59 Intake Total 359 844 3252 Output Total 2150 850 Balance 550 -1550 1050 Weight 88 kg Intake: Intake, IV Titration 550 600 700 Amount D5-0.45% NaCl with KCl 550 600 700 20Meq/l 1,000 ml @ 50 mls /hr IV .Q20H [facility] Rx#: [id number] Oral 1200 Output: Urine 2150 850 Uretheral (David) 450 Other: Voiding Method Indwelling Catheter Indwelling Catheter Indwelling Catheter - Exam Gen: This is a 69-year-old male sitting up in bed awake, alert and oriented 3, well-developed, well-nourished. HEENT: Head is atraumatic, normocephalic. Pupils equal, round. Sclerae is anicteric. NECK: Supple. No JVD. No lymphadenopathy. No thyromegaly. LUNGS: Diminished breath sounds bilaterally with no wheezing or rhonchi noted. No intercostal retractions. HEART: S1, S2 are muffled ABDOMEN: Soft. Bowel sounds are present. No masses. No tenderness on palpation status post surgery. EXTREMITIES: No pedal edema. No calf tenderness. NEUROLOGICAL: Patient is awake, alert and oriented x3. Cranial nerves 2 through 12 are grossly intact. - Labs CBC & Chem 7: 02/24/20 06:25 Labs: Abnormal Lab Results - Last 24 Hours (Table) 02/25/20 Range/Units 16:30 Urine Protein 1+ H (Negative) Urine Blood Small H (Negative) Ur Leukocyte Esterase Large H (Negative) Urine WBC 23 H (0-5) /hpf Urine Bacteria Many H (None) /hpf Urine Mucus Many H (None) /hpf Microbiology - Last 24 Hours (Table) 02/25/20 16:30 Urine Culture - Preliminary Urine,Voided Assessment and Plan Assessment: Status post open repair of paraesophageal hernia as well as revision of the Chidi fundoplication Chronic atrial fibrillation, on Xarelto Possible acute urinary tract infection History of congestive heart failure Hypertension History of swallowing difficulty history of degenerative joint disease History of depression Remote history of nicotine dependence Recommendations and discussion: Recommend to continue current medications, management, and symptomatic treatment. Will continue to follow along closely with surgery. Urinalysis shows some leukocytes and awaiting urine culture and will initiate IV antibiotics in the form of ceftriaxone. Will repeat a.m. labs. Further recommendations to follow.
--- NOTE | 2020-02-26 16:25 | P.PN ---
Progress Note - Text Progress Note Date: 02/26/20 the patient is resting comfortab In his bed. He denies any significant complaints. He is tolerating clear liquid diet. On exam vital signs are stable. Incision is clean dry and intact. Patient will have his diet to full liquid diet
[2020-02-26] MEDS: HYDROcodone/APAP 5-325MG 1 EACH TAB PO PRN (17:49)
[2020-02-26] MEDS: D5-0.45% NACL WITH KCL 20MEQ/L 1,000 ML IV SCH (22:24)
[2020-02-27] MEDS: METOCLOPRAMIDE 5 MG/ML 2 ML VIAL IVP SCH ×4 (06:14→23:27)
[2020-02-27] MEDS: SYMBICORT 80-4.5 MCG INHALER INHALATION SCH ×2 (07:02→19:15)
[2020-02-27] MEDS: IPRATROPIUM 0.5 MG/2.5 ML NEBU INHALATION SCH ×4 (07:02→19:16)
[2020-02-27 07:44] LABS: Basophils % (A) 0 %; Eosinophils # (A) 0.3 k/uL (0-0.7); Eosinophils % (A) 3 %; HCT 44.3 % (39.0-53.0); Lymphocytes % (A) 13 %; MCH 29.8 pg (25.0-35.0); MCHC 31.5 g/dL (31.0-37.0); MCV 94.6 fL (80.0-100.0); Mean Platelet Volume 9.3; Monocytes # (A) 0.4 k/uL (0-1.0); Monocytes % (A) 5 %; Neutrophils # (A) 5.8 k/uL (1.3-7.7); Neutrophils % (A) 76 %; Platelet Count 130 k/uL (150-450); RBC 4.68 m/uL (4.30-5.90); RDW 13.8 % (11.5-15.5); WBC 7.6 k/uL (3.8-10.6)
[2020-02-27] MEDS: ENOXAPARIN 40 MG/0.4 ML SYRINGE SQ SCH (08:02)
[2020-02-27 08:03] LABS: African American GFR (CKD) >90 (>60 ml/min/1.73 sqM); Anion Gap 8 mmol/L; Blood Urea Nitrogen 7 mg/dL (9-20); Calcium 8.2 mg/dL (8.4-10.2); Carbon Dioxide 28 mmol/L (22-30); Chloride 102 mmol/L (98-107); Glucose 102 mg/dL (74-99); Non-African American GFR(CKD) >90 (>60 ml/min/1.73 sqM); Potassium 3.9 mmol/L (3.5-5.1); Sodium 138 mmol/L (137-145)
[2020-02-27] MEDS: CARVEDILOL 6.25 MG TAB PO SCH ×2 (08:03→16:15)
[2020-02-27] MEDS: buPROPion SR 100 MG TABLET.ER PO SCH ×2 (08:03→20:46)
[2020-02-27] MEDS: FUROSEMIDE 40 MG TAB PO SCH (08:03)
[2020-02-27] MEDS: LISINOPRIL 10 MG TAB PO SCH (08:03)
[2020-02-27] MEDS: TAMSULOSIN 0.4 MG CAP.ER.24H PO SCH (08:03)
--- NOTE | 2020-02-27 10:05 | P.PN ---
Progress Note - Text Progress Note Date: 02/27/20 The patient is resting comfortably in his bed. He denies minimal pain. He is tolerating his full liquid diet. On exam his vital signs are stable. Abdomen soft. Incisions clean dry tach. Patient will have his David discontinued today. We will dysphagia discharged tomorrow.
--- NOTE | 2020-02-27 14:26 | P.PN ---
Subjective Progress Note Date: 02/27/20 Principal diagnosis: This is a 69-year-old male who was recently admitted after repair of a paraesophageal hernia and is being closely monitored. Following along closely with surgery. Currently patient has no reports of chest pain, shortness of breath, or palpitations. Patient is afebrile. No reports of nausea or vomiting and patient is tolerating a clear liquid diet. Patient had a urinalysis done yesterday which showed a large amount of leukocytes and urine cultures are currently pending. Will initiate IV ceftriaxone. Will repeat a.m. labs. 02/27/2020 Patient is seen and evaluated in follow-up today and is lethargic but easily arousable. Patient is tolerating diet and states he has been up to the bathroom with no difficulties. Patient's diet is being advanced by surgery again today. Patient denies any chest pain, shortness of breath, or palpitations. Patient is afebrile. No reports of nausea or vomiting and patient is tolerating diet. Patient is currently maintained on IV ceftriaxone and will continue at this time. Urine cultures preliminary showing Aerococcus urinae and awaiting finalization. Will continue to follow closely along with surgery. Objective - Vital Signs Vital signs: Vital Signs Temp 98.5 F 02/27/20 11:40 Pulse 64 02/27/20 11:40 Resp 17 02/27/20 11:40 BP 134/77 02/27/20 11:40 Pulse Ox 93 L 02/27/20 11:40 Intake & Output 02/26/20 02/27/20 02/27/20 18:59 06:59 18:59 Intake Total 1900 70 500 Output Total 1600 625 Balance 300 -555 500 Intake: Intake, IV Titration 700 70 500 Amount D5-0.45% NaCl with KCl 700 70 400 20Meq/l 1,000 ml @ 50 mls /hr IV .Q20H [facility] Rx#: [id number] cefTRIAXone 1 gm In 100 Sodium Chloride 0.9% 50 ml @ 100 mls/hr IVPB Q24HR [facility] Rx#:[id number] Oral 1200 Output: Urine 1600 625 Uretheral (David) 1200 Other: Voiding Method Indwelling Catheter Indwelling Catheter Indwelling Catheter # Voids 5 # Bowel Movements 1 - Exam Gen: This is a 69-year-old male sitting up in bed asleep but arousable, alert and oriented 3, well-developed, well-nourished. Temp is 98.5F, pulse is 64, respirations are 17, blood pressure is 134/77, oxygen saturation is 93% on room air. HEENT: Head is atraumatic, normocephalic. Pupils equal, round. Sclerae is anicteric. NECK: Supple. No JVD. No lymphadenopathy. No thyromegaly. LUNGS: Diminished breath sounds bilaterally with no wheezing or rhonchi noted. No intercostal retractions. HEART: S1, S2 are muffled ABDOMEN: Soft. Bowel sounds are present. No masses. No tenderness on palpation status post surgery. EXTREMITIES: No pedal edema. No calf tenderness. NEUROLOGICAL: Patient is asleep but easily arousable, alert and oriented x3. Cranial nerves 2 through 12 are grossly intact. - Labs CBC & Chem 7: 02/27/20 06:30 02/27/20 06:30 Labs: Abnormal Lab Results - Last 24 Hours (Table) 02/27/20 02/27/20 Range/Units 06:30 06:30 Plt Count 130 L (150-450) k/uL BUN 7 L (9-20) mg/dL Glucose 102 H (74-99) mg/dL Calcium 8.2 L (8.4-10.2) mg/dL Microbiology - Last 24 Hours (Table) 02/25/20 16:30 Urine Culture - Final Urine,Voided Aerococcus urinae Assessment and Plan Assessment: Status post open repair of paraesophageal hernia as well as revision of the Chidi fundoplication Chronic atrial fibrillation, on Xarelto Possible acute urinary tract infection History of congestive heart failure Hypertension History of swallowing difficulty history of degenerative joint disease History of depression Remote history of nicotine dependence Recommendations and discussion: Recommend to continue current medications, management, and symptomatic treatment. Will continue to follow along closely with surgery. Urinalysis culture preliminary showing Aerococcus urinae and will await finalization. Further recommendations to follow.
--- NOTE | 2020-02-27 15:30 | CDI ---
Documentation Clarification Form Date: 02/27/2020 03:18:08 PM From: Zaina Batista CCS, CCDS Admit Date: 02/24/2020 09:01:00 AM Patient Name: Derick Valle Visit Number: [id number] Discharge Date: ATTENTION: The Clinical Documentation Specialists (CDI) and [facility] Coding Staff appreciate your assistance in clarifying documentation. Please respond to the clarification below the line at the bottom and electronically sign. The CDI & [facility] Coding staff will review the response and follow-up if needed. Please note: Queries are made part of the Legal Health Record. If you have any questions, please contact the author of this message via ITS. Dr. Neha Gutierrez: Per the Medical Management Progress Notes: 02/24, 02/25 & 02/26: "History of congestive heart failure" is documented without further specificity. History/Risk Factors: CHF, Chronic atrial fibrillation, Hypertension, DJD, Former Smoker. Clinical Indicators: Presented on 02/23 for elective surgery: Open repair of paraesophageal hernia, Revision of Chidi fundoplication. VS 02/23: T 97.8 - 97.0*, P 55* - 67, R 16-18, BP 157/93, PO 98 RA - 98-99 2-3Lnc BNP: Not on this admission. Echocardiogram Results (Most recent 10/06/19): Difficult study. Moderate concentric LVH, Left ventricular systolic function is low normal w/EF 50-55%, Right ventricle severe enlarged, Right atrium moderately enlarged, Moderate MR, Mild TR, Mild pulmonary hypertension. Chest X Ray (Most recent 10/03/19): Clearing of cardiomegaly. Treatment: Home dose Lasix 40 mg po daily. IV Cefazolin, Heparin sq, IV Zofran, IV Kcl, IV Dilaudid, IV Reglan, INH Symbicort, INH Atrovent. O2 2-3Lnc In your professional opinion, can you please clarify the acuity and type of CHF if known? Heart Failure is rule out Systolic Heart Failure: o Chronic Diastolic Heart Failure: o Chronic Systolic & Diastolic Heart Failure: o Chronic Unable to Determine Other, please specify (Last Revision: December 2017) Heart Failure is rule out MTDD
[2020-02-27] MEDS: HYDROcodone/APAP 5-325MG 1 EACH TAB PO PRN (16:14)
[2020-02-27] MEDS: LACTATED RINGERS 1,000 ML IV SCH (16:15)
[2020-02-27] MEDS: HYDROmorphone 1 MG/ML 1 ML SYRINGE IVP PRN (20:51)
[2020-02-28 00:49] VITALS: RESP 18
[2020-02-28] MEDS: METOCLOPRAMIDE 5 MG/ML 2 ML VIAL IVP SCH (06:14)
[2020-02-28 07:13] VITALS: BP 132/85; TEMP 98.5
[2020-02-28] MEDS: SYMBICORT 80-4.5 MCG INHALER INHALATION SCH (07:15)
[2020-02-28] MEDS: IPRATROPIUM 0.5 MG/2.5 ML NEBU INHALATION SCH ×2 (07:15→10:58)
[2020-02-28] MEDS: CARVEDILOL 6.25 MG TAB PO SCH (09:58)
[2020-02-28] MEDS: buPROPion SR 100 MG TABLET.ER PO SCH (09:58)
[2020-02-28] MEDS: ENOXAPARIN 40 MG/0.4 ML SYRINGE SQ SCH (09:58)
[2020-02-28] MEDS: TAMSULOSIN 0.4 MG CAP.ER.24H PO SCH (09:58)
[2020-02-28] MEDS: FUROSEMIDE 40 MG TAB PO SCH (09:58)
[2020-02-28] MEDS: LISINOPRIL 10 MG TAB PO SCH (09:58)
[2020-02-28 11:08] VITALS: PULSE 72
--- NOTE | 2020-02-28 11:48 | P.DS ---
Providers Date of admission: 02/24/20 09:01 Expected date of discharge: 02/28/20 Attending physician: Salvatore Liu Consults: 02/24/20 09:00 Consult Physician Routine Consulting Provider: J Carlos Garcia Consult Reason/Comments: Medical management Do you want consulting provider notified?: Yes Primary care physician: [facility] Course: This a 69-year-old male who underwent repair of paraesophageal hernia. Patient's postoperative stay was unremarkable. Discussed her for details. Procedures: (Per soft her hernia Patient Condition at Discharge: Good Plan - Discharge Summary Discharge Rx Participant: No New Discharge Prescriptions: New Docusate [Colace] 100 mg PO BID #20 capsule HYDROcodone/APAP 5-325MG [[place] 5-325] 1 tab PO Q6HR PRN #10 tab PRN Reason: Pain No Action Rivaroxaban [Xarelto] 20 mg PO DAILY Furosemide [Lasix] 40 mg PO DAILY Lisinopril [Zestril] 10 mg PO QAM buPROPion HCL [Wellbutrin SR] 200 mg PO BID Carvedilol [Coreg] 6.25 mg PO BID oxyCODONE-APAP 7.5-325MG [Percocet 7.5-325 mg] 1 tab PO Q6HR PRN #30 tab PRN Reason: Pain Ibandronate Sodium 150 mg PO Q30D Fluticasone/Umeclidin/Vilanter [Trelegy Ellipta 100-62.5-25] 1 inhalation INHALATION QAM Discharge Medication List Rivaroxaban [Xarelto] 20 mg PO DAILY 06/11/15 [History] Furosemide [Lasix] 40 mg PO DAILY 06/14/15 [History] Lisinopril [Zestril] 10 mg PO QAM 06/14/15 [History] Carvedilol [Coreg] 6.25 mg PO BID 12/04/18 [History] buPROPion HCL [Wellbutrin SR] 200 mg PO BID 12/04/18 [History] oxyCODONE-APAP 7.5-325MG [Percocet 7.5-325 mg] 1 tab PO Q6HR PRN #30 tab 12/07/18 [Rx] Ibandronate Sodium 150 mg PO Q30D 10/03/19 [History] Fluticasone/Umeclidin/Vilanter [Trelegy Ellipta 100-62.5-25] 1 inhalation INHALATION QAM 02/18/20 [History] Docusate [Colace] 100 mg PO BID #20 capsule 02/28/20 [Rx] HYDROcodone/APAP 5-325MG [[place] 5-325] 1 tab PO Q6HR PRN #10 tab 02/28/20 [Rx] Follow up Appointment(s)/Referral(s): Salvatore Liu MD [STAFF PHYSICIAN] - 1 Week
--- NOTE | 2020-02-28 20:11 | PN ---
PROGRESS NOTE DATE OF SERVICE: 02/28/2020 This 69-year-old gentleman was admitted after repair of the paraesophageal hernia, is improving. No chest pain. No palpitations. No fever. PHYSICAL EXAMINATION: Pulse 68, blood pressure 133/85, respiration 18, temperature 98.4, pulse ox 92% on room air. HEENT: Conjunctivae normal. Oral mucosa moist. NECK: No jugular venous distention. No lymph node enlargement. CARDIOVASCULAR: S1, S2, muffled. No S3, no S4, RESPIRATORY: Diminished breath sounds at the bases. No rhonchi, no crackles. ABDOMEN: Soft, nontender. LEGS: No edema, no swelling. NERVOUS SYSTEM: No focal deficits. LABS: CBC with platelets of130, other labs are noted. ASSESSMENT: 1. Status post repair of the paraesophageal hernia as well as revision of the Chidi fundoplication. 2. Chronic atrial fibrillation, on Xarelto. 3. Possible acute urinary tract infection. 4. History of congestive heart failure. 5. Hypertension. 6. History of swallowing difficulty. 7. History of degenerative joint disease. 8. History of depression. 9. Remote history of nicotine dependence. RECOMMENDATIONS AND DISCUSSION: Recommend to continue current medications, symptomatic treatment. Otherwise, I recommend resume the home medications. Closely follow with primary physician in the outpatient setting. Rest of the recommendations per Surgery. Further recommendations to follow. MMODL / IJN: [id number] /
== END 2020-02-28 13:31 | disposition home or self-care (01) | DRG 327 ==
LOC: 5NMEDONC 09:00 → OR 09:00 → 5NMEDONC 09:01 → OR 02-25 09:00 → 5NMEDONC 02-25 09:00
PROVIDERS: ADMIT Surgery; ATTEND Surgery
DX: K44.9 Diaphragmatic hernia without obstruction or gangrene (principal); I48.20 Chronic atrial fibrillation, unspecified; I10 Essential (primary) hypertension; R13.10 Dysphagia, unspecified; Z79.01 Long term (current) use of anticoagulants; Z87.891 Personal history of nicotine dependence; Z79.899 Other long term (current) drug therapy
CPT/HCPCS: 74210; 80048; 81001; 84132; 85025; 87086; 94640; 94760

== ENCOUNTER → 2020-03-20 | Outpatient (CLI) | payer MEDICARE ==
--- NOTE | 2020-03-21 21:38 | XR ---
EXAMINATION TYPE: XR lumbar spine 2 or 3V DATE OF EXAM: 03/20/2020 Comparison: 01/26/2017 Clinical History: 69-year-old male with pain, M9903, M545 Findings: Anterior compression fracture of L1 unchanged from 01/26/2017. Similar mild retropulsion. Trace grade 1 retrolistheses at L2-L3 and L3-L4. Transitional lumbosacral segment denoted as a lumbar ized S1. Moderate to severe degenerative disc disease here at L5-S1. Facet arthropathy lower lumbar s pine. Impression: 1. Overall similar appearance to 01/26/2017 with anterior compression fracture of L1, transitional lum bosacral segment denoted as a lumbarized S1, and degenerative grade 1 retrolistheses from L2 through L4 levels. 2. Moderate to severe degenerative disc disease at L5-S1. Hypertrophic facet arthropathy mid to lower lumbar spine.
--- NOTE | 2020-03-21 22:04 | XR ---
EXAMINATION TYPE: XR pelvis AP view DATE OF EXAM: 03/20/2020 COMPARISON: NONE HISTORY: 69-year-old male pain, M9903, M545 FINDINGS: Percutaneous pinning of the right femoral neck. Chronic appearing fracture deformity in this region. Left hip hemiarthroplasty. The femoral stem component is only partially visualized. Degenerative gaines ges lower lumbar spine. IMPRESSION: Prior percutaneous pinning of the right femoral neck. Partially visualized left hip hemia rthroplasty. Degenerative changes lower lumbar spine.
== END | disposition home or self-care (01) ==
LOC: RADXRMAIN 10:33
PROVIDERS: ATTEND Chiropractor
DX: S32.019A Unspecified fracture of first lumbar vertebra, initial encounter for closed fracture (principal); M43.16 Spondylolisthesis, lumbar region; M51.37 Other intervertebral disc degeneration, lumbosacral region; M47.896 Other spondylosis, lumbar region; Z96.642 Presence of left artificial hip joint; M54.5 Low back pain
CPT/HCPCS: 72100; 72170

== ENCOUNTER 2021-05-21 11:29 | Emergency (ER) | payer MEDICARE ==
[2021-05-21 11:44] VITALS: BP 95/71; PULSE 65; RESP 20; TEMP 98.2
--- NOTE | 2021-05-21 13:09 | ED ---
General Adult HPI - General Chief complaint: Extremity Injury, Lower Stated complaint: rt foot pain Time Seen by Provider: 05/21/21 13:00 Source: patient, RN notes reviewed, old records reviewed Mode of arrival: ambulatory Limitations: no limitations - History of Present Illness Initial comments: 70-year-old white male patient presents to the emergency room with complaints of right foot pain since yesterday morning. He states that is worse with ambulation and better when he elevates it. He denies any injuries. He has not had this before. He denies any fevers. -: days(s) (2) Location: right, lower extremity (Foot) Radiation: non-radiation Severity scale (1-10): 3 Quality: aching Consistency: intermittent Improves with: immobilization Worsens with: other Associated Symptoms: denies other symptoms (Ambulation) Treatments Prior to Arrival: none - Related Data Home Medications Medication Instructions Recorded Confirmed Rivaroxaban [Xarelto] 20 mg PO DAILY 06/11/15 02/24/20 Furosemide [Lasix] 40 mg PO DAILY 06/14/15 02/24/20 lisinopriL [Zestril] 10 mg PO QAM 06/14/15 02/24/20 Carvedilol [Coreg] 6.25 mg PO BID 12/04/18 02/24/20 buPROPion HCL [Wellbutrin SR] 200 mg PO BID 12/04/18 02/24/20 Ibandronate Sodium 150 mg PO Q30D 10/03/19 02/24/20 Fluticasone/Umeclidin/Vilanter 1 inhalation INHALATION QAM 02/18/20 02/24/20 [Trelegy Ellipta 100-62.5-25] Previous Rx's Medication Instructions Recorded oxyCODONE-APAP 7.5-325MG [Percocet 1 tab PO Q6HR PRN #30 tab 12/07/18 7.5-325 mg] Docusate [Colace] 100 mg PO BID #20 capsule 02/28/20 HYDROcodone/APAP 5-325MG [[place] 1 tab PO Q6HR PRN #10 tab 02/28/20 5-325] Allergies Allergy/AdvReac Type Severity Reaction Status Date / Time No Known Allergies Allergy Verified 05/21/21 11:44 Review of Systems ROS Statement: Those systems with pertinent positive or pertinent negative responses have been documented in the HPI. ROS Other: All systems not noted in ROS Statement are negative. Past Medical History Past Medical History: Atrial Fibrillation, Heart Failure, Hypertension Additional Past Medical History / Comment(s): Having difficulty swallowing with coughing and sometimes vomiting, Retention-per patient he straight caths at home 3-4 times daily. History of Any Multi-Drug Resistant Organisms: None Reported Past Surgical History: Joint Replacement, Orthopedic Surgery Additional Past Surgical History / Comment(s): ESOPHAGUS, HIATAL HERNIA,ORIF RIGHT HIP,RIGHT ARM PLATE AND SCREW, LEFT FOOT,left hip replaced Past Anesthesia/Blood Transfusion Reactions: No Reported Reaction Additional Past Anesthesia/Blood Transfusion Reaction / Comment(s): no hx blood transfusion Past Psychological History: Depression Smoking Status: Never smoker Past Alcohol Use History: None Reported Past Drug Use History: None Reported - Past Family History Mother Family Medical History: No Reported History General Exam Limitations: no limitations General appearance: alert, in no apparent distress Head exam: Present: atraumatic, normocephalic, normal inspection Eye exam: Present: normal appearance, PERRL, EOMI. Absent: scleral icterus, conjunctival injection, periorbital swelling ENT exam: Present: normal exam, normal oropharynx, mucous membranes moist Neck exam: Present: normal inspection, full ROM. Absent: tenderness, meningismus, lymphadenopathy Respiratory exam: Present: normal lung sounds bilaterally. Absent: respiratory distress, wheezes, rales, rhonchi, stridor, accessory muscle use Cardiovascular Exam: Present: regular rate, normal rhythm, normal heart sounds. Absent: systolic murmur, diastolic murmur, rubs, gallop, clicks Right Foot/Toe exam: Present: full ROM, tenderness, swelling (Medial malleolus). Absent: ecchymosis, dislocation, tenderness at base of 5th metatarsal Neurovascular tendon exam: Present: no vascular compromise. Absent: abnormal cap refill, extremity cold to touch Back exam: Present: normal inspection, full ROM. Absent: tenderness Neurological exam: Present: alert, oriented X3, CN II-XII intact Psychiatric exam: Present: normal affect, normal mood Skin exam: Present: warm, dry, intact, normal color. Absent: rash Course Vital Signs 05/21/21 11:41 Temperature 98.2 F Pulse Rate 65 Respiratory 20 Rate Blood Pressure 95/71 O2 Sat by Pulse 98 Oximetry Medical Decision Making - Medical Decision Making XR of the right foot shows osteopenia with vascular calcifications suggesting underlying diabetes and chronic kidney disease. There is mild first metatarsal joint osteoarthritis with mild spurring in the midfoot as well which is the location of the patient's pain. Instructed to rest, ice and elevate the foot well at home, Motrin as needed for pain. Follow-up with his primary care doctor in 1 week. Restrictive return to the emergency room with any worsening pain, or symptoms including fever. Disposition Clinical Impression: Foot pain Disposition: HOME SELF-CARE Condition: Good Instructions (If sedation given, give patient instructions): Arthralgia (ED) Additional Instructions: Rest, ice and elevate left foot, take Motrin as needed for pain. Follow-up with the primary care doctor in 1 week. Return to the emergency room with any new or worsening symptoms including increased pain, fever or inability to ambulate. Is patient prescribed a controlled substance at d/c from ED?: No Referrals: Renato Moore MD [Primary Care Provider] - 1-2 days Time of Disposition: 14:05
--- NOTE | 2021-05-21 13:23 | XR ---
EXAMINATION TYPE: XR foot complete RT DATE OF EXAM: 05/21/2021 COMPARISON: NONE HISTORY: 70 year-old male right foot pain TECHNIQUE: 3 views FINDINGS: Mild degenerative spurring first MTP joint. Small plantar heel spur. Some dorsal mid foot d egenerative spurring is noted. Subchondral cystic change in the mid navicular. Osteopenia. Hammer toe s. No acute fracture, subluxation, dislocation is seen. Vascular calcifications. IMPRESSION: Osteopenia. Vascular calcifications suggest underlying diabetes and/or chronic kidney disease. Mild f irst MTP joint OA. Some degenerative spurring in the mid foot as well. No acute osseous abnormality s een.
== END 2021-05-21 14:13 | disposition home or self-care (01) ==
LOC: EC 11:29
DX: M85.871 Other specified disorders of bone density and structure, right ankle and foot (principal); M19.071 Primary osteoarthritis, right ankle and foot; I11.0 Hypertensive heart disease with heart failure; I50.9 Heart failure, unspecified; I48.91 Unspecified atrial fibrillation; Z79.899 Other long term (current) drug therapy
CPT/HCPCS: 99283

== ENCOUNTER 2022-06-26 17:27 | Emergency (ER) | payer MEDICARE ==
--- NOTE | 2022-06-26 18:08 | ED ---
General Adult HPI - General Chief complaint: Head Injury Stated complaint: head laceration Time Seen by Provider: 06/26/22 17:47 Source: patient, RN notes reviewed, old records reviewed Mode of arrival: ambulatory Limitations: no limitations - History of Present Illness Initial comments: 72-year-old male presents for evaluation of head injury, laceration. The injury occurred 23 hours prior to arrival. The patient states it was significant bleeding he does take Xarelto with history of atrial fibrillation. He was able to obtain hemorrhage control yesterday evening and had developed a small scab over the laceration which was his left forehead. This evening the bleeding began again and there was significant amounts of blood prior to arrival. - Related Data Home Medications Medication Instructions Recorded Confirmed Rivaroxaban [Xarelto] 20 mg PO DAILY 06/11/15 02/24/20 Furosemide [Lasix] 40 mg PO DAILY 06/14/15 02/24/20 lisinopriL [Zestril] 10 mg PO QAM 06/14/15 02/24/20 buPROPion HCL [Wellbutrin SR] 200 mg PO BID 12/04/18 02/24/20 carvediloL [Coreg] 6.25 mg PO BID 12/04/18 02/24/20 Ibandronate Sodium 150 mg PO Q30D 10/03/19 02/24/20 Fluticasone/Umeclidin/Vilanter 1 inhalation INHALATION QAM 02/18/20 02/24/20 [Trelegy Ellipta 100-62.5-25] Previous Rx's Medication Instructions Recorded oxyCODONE-APAP 7.5-325MG [Percocet 1 tab PO Q6HR PRN #30 tab 12/07/18 7.5-325 mg] Docusate [Colace] 100 mg PO BID #20 capsule 02/28/20 HYDROcodone/APAP 5-325MG [[place] 1 tab PO Q6HR PRN #10 tab 02/28/20 5-325] Allergies Allergy/AdvReac Type Severity Reaction Status Date / Time No Known Allergies Allergy Verified 06/26/22 17:43 Review of Systems ROS Statement: Those systems with pertinent positive or pertinent negative responses have been documented in the HPI. ROS Other: All systems not noted in ROS Statement are negative. Past Medical History Past Medical History: Atrial Fibrillation, Heart Failure, Hypertension Additional Past Medical History / Comment(s): Having difficulty swallowing with coughing and sometimes vomiting, Retention-per patient he straight caths at home 3-4 times daily. History of Any Multi-Drug Resistant Organisms: None Reported Past Surgical History: Joint Replacement, Orthopedic Surgery Additional Past Surgical History / Comment(s): ESOPHAGUS, HIATAL HERNIA,ORIF RIGHT HIP,RIGHT ARM PLATE AND SCREW, LEFT FOOT,left hip replaced Past Anesthesia/Blood Transfusion Reactions: No Reported Reaction Additional Past Anesthesia/Blood Transfusion Reaction / Comment(s): no hx blood transfusion Past Psychological History: Depression Smoking Status: Never smoker Past Alcohol Use History: None Reported Past Drug Use History: None Reported - Past Family History Mother Family Medical History: No Reported History General Exam Limitations: no limitations General appearance: alert, in no apparent distress Head exam: Present: other (Laceration to the left forehead with arterial hemorr brody) Eye exam: Present: PERRL Respiratory exam: Present: normal lung sounds bilaterally. Absent: respiratory distress Cardiovascular Exam: Present: regular rate, normal rhythm GI/Abdominal exam: Present: soft. Absent: distended, tenderness, guarding Extremities exam: Present: normal inspection, normal capillary refill Neurological exam: Present: alert, oriented X3. Absent: motor sensory deficit Psychiatric exam: Present: normal affect, normal mood Skin exam: Present: warm Course Vital Signs 06/26/22 17:36 Temperature 98.2 F Pulse Rate 75 Respiratory 16 Rate Blood Pressure 123/70 O2 Sat by Pulse 98 Oximetry Procedures - Laceration Laceration #1 Consent Obtained: emergent situation Indication: laceration Site: face Description: linear Depth: simple, single layer, arterial injury Anesthetic Used: lidocaine 1%, with epi Anesthesia Technique: local infiltration Amount (mls): 3 Pre-repair: wound explored Type of Sutures: nylon Size of Sutures: 5-0 Number of Sutures: 2 Technique: simple, interrupted Patient Tolerated Procedure: well Medical Decision Making - Medical Decision Making 72-year-old male with laceration and arterial hemorrhage from the left frontal scalp. Although the laceration was 23 hours old I did perform a primary closure given the arterial hemorrhage. I infiltrated lidocaine with epinephrine around the laceration and placed 2 5-0 nylon sutures. Then a pressure dressing was applied. This did achieve hemorrhage control. Head CT was performed which is negative for intracranial hemorrhage or mass effect. Patient states his tetanus is up-to-date. Disposition Clinical Impression: Concussion without loss of consciousness, Laceration Disposition: HOME SELF-CARE Condition: Fair Instructions (If sedation given, give patient instructions): Laceration (ED), Care For Your Stitches (DC) Additional Instructions: Please return for suture removal in 10 days. Is patient prescribed a controlled substance at d/c from ED?: No Referrals: Renato Moore MD [Primary Care Provider] - 1-2 days Time of Disposition: 18:08
--- NOTE | 2022-06-26 18:57 | CT ---
EXAMINATION TYPE: CT brain wo con DATE OF EXAM: 06/26/2022 COMPARISON: None HISTORY: head injury, large head lac to left side of forehead. CT DLP: 1147.4 mGycm Automated exposure control for dose reduction was used. Images of the brain obtained with no contrast. There is cerebral cortical atrophy. There is no mass effect or midline shift. No sign of intracranial hemorrhage. Calvarium is intact. There is normal aeration of the mastoid sinuses. There is mild left frontal scalp soft tissue swelling. No fracture seen. IMPRESSION: Cerebral atrophy. No acute intracranial abnormality. Small left frontal scalp hematoma.
[2022-06-27 00:28] VITALS: BP 126/77; PULSE 80; RESP 20; TEMP 97.8
== END 2022-06-26 19:22 | disposition home or self-care (01) ==
LOC: EC 17:27
DX: S06.0X0A Concussion without loss of consciousness, initial encounter (principal); I48.91 Unspecified atrial fibrillation; I11.0 Hypertensive heart disease with heart failure; I50.9 Heart failure, unspecified; F32.A Depression, unspecified; Z79.899 Other long term (current) drug therapy; X58.XXXA Exposure to other specified factors, initial encounter
CPT/HCPCS: 12011; 70450; 99283

== ENCOUNTER → 2022-08-05 | Outpatient (CLI) | payer MEDICARE ==
--- NOTE | 2022-08-05 11:54 | MR ---
EXAMINATION TYPE: MR brain wo con DATE OF EXAM: 08/05/2022 11:08 AM COMPARISON: CT brain 06/26/2022. CLINICAL INDICATION:Male, 72 years old with history of Z86.73 PRSNL HX OF TIA; TECHNIQUE: Multi planar, multi sequence imaging was performed through the brain including: T1, T2, In version recovery, Diffusion weighted imaging, and gradient echo imaging. No gadolinium was given. FINDINGS: The bates-white junctions, ventricular system, and cisterns appear unremarkable. Scattered high T2 si gnal intensity are seen within the periventricular white matter. Midline structures show no abnormali ty. Diffusion-weighted imaging shows no evidence of restricted diffusion. The susceptibility weighted images demonstrate scattered foci of blooming artifact within the cerebellar hemispheres most pronou nced on the left consistent with microhemorrhage. The bone marrow signal is within normal limits. Paranasal sinuses and mastoid air cells: Clear Visualized orbits: Orbital contents are intact. IMPRESSION: 1. No evidence of intracranial mass or acute/subacute infarct. 2. Nonspecific white matter changes, likely secondary to small vessel ischemic disease.
== END | disposition home or self-care (01) ==
LOC: RADMRIMAIN 10:15
PROVIDERS: ATTEND Psychiatry & Neurology Neurology
DX: R90.82 White matter disease, unspecified (principal); Z86.73 Personal history of transient ischemic attack (TIA), and cerebral infarction without residual deficits
CPT/HCPCS: 70551

== ENCOUNTER → 2022-10-04 | Outpatient (CLI) | payer MEDICARE ==
[2022-10-04 23:10] LABS: African American GFR (CKD) 78.5 (60.0-200.0); Blood Urea Nitrogen 8.3 mg/dL (9.0-27.0); Carbon Dioxide 29.7 mmol/L (20.0-27.5); Non-African American GFR(CKD) 67.7 (60.0-200.0); Potassium 3.8 mmol/L (3.5-5.5)
[2022-10-04 23:28] LABS: HCT 46.8 % (39.6-50.0); MCH 30.8 pg (27.0-32.0); MCHC 32.1 g/dL (32.0-37.0); MCV 96.1 fL (80.0-97.0); Mean Platelet Volume 11.9 fL (9.5-12.2); NRBC Per 100 WBC 0 /100 WBCS (0.0-0.0); Platelet Count 161 X 10*3/uL (140-440); RBC 4.87 X 10*6/uL (4.40-5.60); RDW 14.4 % (11.5-14.5); WBC 5.19 X 10*3/uL (4.50-10.00)
== END | disposition home or self-care (01) ==
LOC: LABPAT 14:14
PROVIDERS: ATTEND Internal Medicine Cardiovascular Disease
DX: Z01.812 Encounter for preprocedural laboratory examination (principal); I34.0 Nonrheumatic mitral (valve) insufficiency
CPT/HCPCS: 36415; 80051; 82565; 84520; 85027

== ENCOUNTER → 2022-11-28 | Outpatient (CLI) | payer MEDICARE ==
--- NOTE | 2022-11-28 09:50 | P.PN ---
Progress Note - Text Progress Note Date: 11/28/22 5 meter walk test performed without difficulty: #1 4.72 sec #2 4.80 sec #3 4.25 sec STS risk score calculated and discussed with patient
--- NOTE | 2022-11-28 11:05 | XR ---
EXAMINATION TYPE: XR chest 2V DATE OF EXAM: 11/28/2022 COMPARISON: 10/03/2019 TECHNIQUE: PA and lateral views submitted. HISTORY: Preop FINDINGS: The lungs are clear and there is no pneumothorax, pleural effusion, or focal pneumonia. Osseous str uctures demonstrate hypertrophic and degenerative changes of the spine. Heart is mildly enlarged. Hyp erinflation suggests COPD and there is arthropathy of the shoulders bilaterally. Chronic appearing se bobby wedge deformity at the thoracolumbar junction. Chronic-appearing rib deformities are seen subcor tically for history of prior trauma. IMPRESSION: 1. Suspect the moderate sized hiatal hernia. COPD with cardiomegaly but no overt failure. 2 hiatal hernia.
[2022-11-28 11:45] LABS: INR 1.2 (<1.2); Partial Thromboplastin Time 31.6 sec (22.0-30.0); Prothrombin Time 12.3 sec (9.0-12.0)
[2022-11-28 18:13] LABS: HCT 44.3 % (39.6-50.0); HGB 14.6 g/dL (13.0-17.0); MCH 32.5 pg (27.0-32.0); MCV 98.7 fL (80.0-97.0); Mean Platelet Volume 12.2 fL (9.5-12.2); NRBC Per 100 WBC 0 /100 WBCS (0.0-0.0); Platelet Count 120 X 10*3/uL (140-440); RBC 4.49 X 10*6/uL (4.40-5.60); RDW 13.7 % (11.5-14.5); WBC 4.63 X 10*3/uL (4.50-10.00)
[2022-11-28 18:35] LABS: ALT 16 U/L (10-49); AST 21 U/L (14-35); African American GFR (CKD) 77.6 (60.0-200.0); Albumin 4.3 g/dL (3.8-4.9); Albumin/Globulin Ratio 2.42 (1.60-3.17); Alkaline Phosphatase 64 U/L (41-126); BUN/Creat Ratio 12.57 Ratio (12.00-20.00); Bilirubin, Conjugated 0.41 mg/dL (0.20-0.40); Bilirubin,Unconjugated 0.77 mg/dL (0.20-1.00); Blood Urea Nitrogen 13.7 mg/dL (9.0-27.0); Calcium 9.4 mg/dL (8.7-10.3); Carbon Dioxide 30.9 mmol/L (20.0-27.5); Chloride 103 mmol/L (96-109); Chol/HDL Ratio 1.58 Ratio; Globulin 1.8 g/dL (1.6-3.3); Glucose 118 mg/dL (70-110); LDL Cholesterol,Calculated 30.1 mg/dL (0.0-131.0); Magnesium 2.1 mg/dL (1.5-2.4); Potassium 3.8 mmol/L (3.5-5.5); Sodium 143 mmol/L (135-145); VLDL Calculation 8.82 mg/dL (5.00-40.00)
[2022-11-29 16:22] LABS: Hepatitis A Antibody IgM Nonreactive (Nonreactive); Hepatitis B Core IgM Nonreactive (Nonreactive); Hepatitis B Surface Antigen Nonreactive (Nonreactive); Hepatitis C IgG Antibody Nonreactive (Nonreactive)
[2022-11-29 18:05] LABS: Appearance,Urine Cloudy (Clear); Bilirubin,Urine Negative (Negative); Blood,Urine Negative (Negative); Color,Urine Dark Yellow (Yellow); Ketones,Urine Negative (Negative); Nitrite,Urine Positive (Negative); Specific Gravity,Urine 1.018 (1.001-1.030); Urobilinogen,Urine >=8.0 (0.2,1.0)
[2022-11-29 18:18] LABS: Bacteria,Urine 3+ /HPF (None Seen)
--- NOTE | 2022-11-30 06:47 | US ---
EXAMINATION TYPE: US vein mapping BIL DATE OF EXAM: 11/28/2022 11:17 AM COMPARISON: NONE CLINICAL HISTORY: OPEN HEART. Presurgical. SIDE PERFORMED: Bilateral TECHNIQUE: Lower extremity saphenous vein is examined and measured utilizing real time linear array sonography. Patient History: Smoker: Yes Heart Disease: Yes Previous DVT: No Vascular Surgery: No Discoloration: No Hypertension: Yes Diabetes: No Paralysis: No Varicosities: No Edema: No DUPLEX FINDINGS: Greater Saphenous: Color flow seen Measurements in mm: Right Greater Saphenous: Groin: 8.7 mm High Thigh: 5.5 mm Mid Thigh: 4.3 mm Above Knee: 4.2 mm Knee: 5.4 mm Below Knee: 3.2 mm Mid Calf: 2.9 mm At Ankle: 4.3 mm Left Greater Saphenous: Groin: 5.6 mm High Thigh: 4.5 mm Mid Thigh: 3.8 mm Above Knee: 3.5 mm Knee: 5.5 mm Below Knee: 3.8 mm Mid Calf: 3.2 mm At Ankle: 4.0 mm IMPRESSION: 1. Bilateral GSV measurements listed above. 2. Performing surgeon to determine viability as conduit.
--- NOTE | 2022-11-30 12:24 | US ---
EXAMINATION TYPE: US arterial LE single level DATE OF EXAM: 11/28/2022 11:51 AM CLINICAL HISTORY: OPEN HEART. History of: Smoker: Yes Hypertension: Takes medication Diabetic: No Hyperlipidemia: Yes TIA/CVA: No Previous Vascular Surgery: No CAD: Yes VA: No Vascular Ulcers: No Gangrene: No Doppler Waveforms: Right: Multiphasic Left: Multiphasic Right Brachial Pressure: 120 Left Brachial Pressure: 126 Ankle-Brachial Indices: Right: 1.26 Left: 1.38 Toe Brachial Indices: Right: 0.56 Left: 0.59 IMPRESSION: Mildly diminished bilateral TBI is consistent with at least mild peripheral arterial dis ease in the bilateral feet.
== END | disposition home or self-care (01) ==
LOC: LABWHC1 09:01
PROVIDERS: ATTEND Thoracic Surgery (Cardiothoracic Vascular Surgery)
DX: Z01.818 Encounter for other preprocedural examination (principal); I34.0 Nonrheumatic mitral (valve) insufficiency; I25.10 Atherosclerotic heart disease of native coronary artery without angina pectoris; I48.91 Unspecified atrial fibrillation; Z79.01 Long term (current) use of anticoagulants; I50.9 Heart failure, unspecified; K21.9 Gastro-esophageal reflux disease without esophagitis; E78.5 Hyperlipidemia, unspecified; I10 Essential (primary) hypertension; R33.9 Retention of urine, unspecified
CPT/HCPCS: 36415; 71046; 80053; 80061; 80074; 81001; 82248; 83036; 83735; 84443; 85027; 85610; 85730; 87070; 87086; 93005; 93923; 93970; 94150

== ENCOUNTER 2022-12-06 05:47 | Inpatient (IN) | payer MEDICARE, OTHER ==
[~2022-12-06 05:47] MED LIST changes: -ACETAMINOPHEN TAB 500 MG TAB PO ONE; +ALBUMIN HUMAN 25% 50 ML IV ONE; +ALBUMIN HUMAN 5% 500 ML IVPB ONE; +ASPIRIN 325 MG TAB PO ONE; +ATORVASTATIN 10 MG TAB PO ONE; +CALCIUM CHLORIDE 100 MG/ML 10 ML SYRINGE IV ONE; +CARDIOPLEGIC SOLN (K+ 16 MEQ/L 1,000 ML with SODIUM BICARB (1 MEQ/ML) 20 ML, LIDOCAINE ... PERFUSION ONE; +CHLORHEXIDINE GLUCONATE 15 ML CUP MUCOUS MEM ONE; +CLEVIDIPINE BUTYRATE 25 MG in EMPTY BAG 1 BAG IV ONE; -GLYCOPYRROLATE 0.2 MG/ML 2 ML VIAL ONE; +HEPARIN SODIUM 1,000 UN/ML (10ML VL) IV ONE; +HEPARIN SODIUM,PORCINE 5,000 UNIT in SODIUM CHLORIDE 0.9% 500 ML 500 ML IV ONE; -HEPARIN SODIUM,PORCINE 5,000 UNIT/ML 1 ML VIAL SQ ONE; +INSULIN REGULAR 100 UNIT in SODIUM CHLORIDE 0.9% 100 ML IV ONE; -LIDOCAINE 1% INJ 10MG/ML (20 ML MDV) ONE; +MAGNESIUM SULFATE 16.24 MEQ in EMPTY SYRINGE 1 SYR IV ONE; +MANNITOL 25% 12.5 GM/50 ML VIAL IV ONE; +METOPROLOL TARTRATE 12.5 MG TAB PO ONE; -MIDAZOLAM 2 MG/2 ML VIAL ONE; -NEOSTIGMINE 1 MG/ML 10 ML VIAL ONE; +NITROGLYCERIN SL TABS 0.4 MG TAB SUBLINGUAL ONE; +NITROGLYCERIN-D5W PMX 25 MG/250 ML BTL IV ONE; +NITROGLYCERIN-D5W PMX 50 MG in DEXTROSE/WATER 1 250ML.BAG IV ONE; +NOREPINEPHRINE 4 MG in SODIUM CHLORIDE 0.9% 250 ML IV ONE; -ONDANSETRON 4 MG/2 ML VIAL IVP ONE; -ONDANSETRON 4 MG/2 ML VIAL IVP PRN; +PAPAVERINE 360 MG in SODIUM CHLORIDE 0.9% 90 ML IV ONE; +PHENYLEPHRINE 10 MG/ML VIAL IV ONE; +PHENYLEPHRINE 40 MG in SODIUM CHLORIDE 0.9% 250 ML IV ONE; -PROPOFOL 10 MG/ML 20 ML VIAL IV ONE; +PROTAMINE SULFATE 10 MG/ML 25 ML VIAL IV ONE; +PROTAMINE SULFATE 250 MG in EMPTY BAG 1 BAG IV ONE; -ROCURONIUM BROMIDE 10 MG/ML 5 ML VIAL IV ONE; +SODIUM BICARB 8.4% 50 ML SYR (1 MEQ/ML) IV ONE; +SODIUM CHLORIDE 0.9% 1,000 ML IV ONE; -SUCCINYLCHOLINE CHLORIDE 100 MG/5 ML SYR IV ONE; +TRANEXAMIC ACID 2,000 MG in SODIUM CHLORIDE 0.9% 80 ML IV ONE; +ceFAZolin 1,000 MG in SODIUM CHLORIDE 0.9% IRRIGATIO 1,000 ML IRRIGATION ONE; -ePHEDrine SULFATE/0.9% NACL/PF 50 MG/5 ML SYRINGE IV ONE; -fentaNYL (PF) 50 MCG/ML 2 ML AMP ONE; +propofoL 1,000 MG/100 ML VIAL IV ONE
[2022-12-06] MEDS ORDERED: SUCCINYLCHOLINE CHLORIDE 200 MG/10 ML VIAL IV ONE (08:01)
[2022-12-06] MEDS ORDERED: fentaNYL (PF) 50 MCG/ML 50 ML VIAL ONE (08:01)
[2022-12-06] MEDS ORDERED: ePHEDrine 50 MG/ML 1 ML VIAL ONE (08:01)
[2022-12-06] MEDS ORDERED: PROPOFOL 10 MG/ML 20 ML VIAL IV ONE (08:01)
[2022-12-06] MEDS ORDERED: PROTAMINE SULFATE 10 MG/ML 25 ML VIAL IV ONE (08:01)
[2022-12-06] MEDS ORDERED: ELECTROLYTE-R (PH 7.4) 1,000 ML IV.SOLN IV ONE (08:01)
[2022-12-06] MEDS ORDERED: CALCIUM CHLORIDE 100 MG/ML 10 ML SYRINGE ONE (08:01)
[2022-12-06] MEDS ORDERED: LIDOCAINE 2% INJ 20 MG/ML (2 ML VIAL) ONE (08:01)
[2022-12-06] MEDS ORDERED: HEPARIN SODIUM,PORCINE 10,000 UNIT/ML 1 ML VIAL ONE (08:01)
[2022-12-06] MEDS ORDERED: MAGNESIUM SULFATE 4 MEQ/ML 10ML VIAL ONE (08:01)
[2022-12-06] MEDS ORDERED: MIDAZOLAM HCL 10 MG/10 ML VIAL ONE (08:01)
[2022-12-06] MEDS ORDERED: TRANEXAMIC ACID IN NACL,ISO-OS 1,000 MG/100 ML BAG ONE (08:01)
[2022-12-06] MEDS ORDERED: VECURONIUM 10 MG VIAL IV ONE (08:01)
[2022-12-06 08:29] LABS: ABG Base Excess -0.9 mmol/L; ABG Glucose Whole Blood 83 mg/dL (75-99); ABG HCO3 24 mmol/L (21-25); ABG Hematocrit 35 % (34.0-46.0); ABG Ionized Calcium 4.1 mg/dL (4.5-5.3); ABG Oxygen Saturation 99.8 % (94-97); ABG PCO2 42 mmHg (35-45); ABG PH 7.38 (7.35-7.45); ABG PO2 240 mmHg (83-108); ABG Potassium Whole Blood 3.3 mmol/L (3.4-4.5); ABG Sodium Whole Blood 145 mmol/L (135-146); ABG TCO2 26 mmol/L (19-24)
[2022-12-06] MEDS ORDERED: hydrALAZINE HCL 20 MG/ML 1 ML VIAL IVP PRN (13:18)
[2022-12-06] MEDS ORDERED: ONDANSETRON 4 MG/2 ML VIAL IVP PRN (13:18)
[2022-12-06] MEDS ORDERED: BENZOCAINE/MENTHOL LOZENG 1 EACH LOZENGE MUCOUS MEM PRN (13:18)
[2022-12-06] MEDS ORDERED: Potassium Replacement Protocol 1 EACH MISC MISCELLANE PRN (13:18)
[2022-12-06] MEDS ORDERED: DEXTROSE 5% IN WATER 100 ML with AMIODARONE 150 MG IV PRN (13:18)
[2022-12-06] MEDS ORDERED: CALCIUM GLUCONATE IN NACL 2 GM in SALINE 1 100ML.BAG IVPB PRN (13:18)
[2022-12-06] MEDS ORDERED: AMIODARONE 360 MG in DEXTROSE 5% IN WATER 200 ML IV ONE ×2 (13:18)
[2022-12-06] MEDS ORDERED: Magnesium Replacement Protocol 1 EACH MISC MISCELLANE PRN (13:18)
[2022-12-06] MEDS ORDERED: DEXTROSE 50% SYRINGE 50 ML IVP PRN ×2 (13:18)
[2022-12-06] MEDS ORDERED: INSULIN REGULAR 100 UNIT in SODIUM CHLORIDE 0.9% 100 ML IV SCH (13:18)
[2022-12-06] MEDS ORDERED: IPRATROPIUM-ALBUTEROL 3 ML NEB INHALATION PRN (13:18)
[2022-12-06] MEDS ORDERED: METOCLOPRAMIDE 5 MG/ML 2 ML VIAL IVP PRN (13:18)
[2022-12-06] MEDS ORDERED: DEXMEDETOMIDINE/0.9% NACL(PMX) 400 MCG in EMPTY BAG 1 BAG IV SCH (13:18)
[2022-12-06] MEDS ORDERED: CLEVIDIPINE BUTYRATE 25 MG in EMPTY BAG 1 BAG IV SCH (13:18)
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
[2022-12-06] MEDS: LACTATED RINGERS 1,000 ML IV SCH (13:45)
[2022-12-06 14:01] LABS: Glucose,Whole Blood 110 mg/dL (70-110)
[2022-12-06 14:16] LABS: HCT 32.4 % (39.0-53.0); HGB 10.9 gm/dL (13.0-17.5); MCH 32.3 pg (25.0-35.0); MCHC 33.6 g/dL (31.0-37.0); MCV 96.1 fL (80.0-100.0); Mean Platelet Volume 9.4; RBC 3.37 m/uL (4.30-5.90); RDW 13.9 % (11.5-15.5)
[2022-12-06 14:22] LABS: Ionized Calcium 4.8 mg/dL (4.5-5.3)
--- NOTE | 2022-12-06 14:26 | XR ---
EXAMINATION TYPE: XR chest 1V portable DATE OF EXAM: 12/06/2022 COMPARISON: 11/28/2022 HISTORY: Postop cardiology TECHNIQUE: Single frontal view of the chest is obtained. FINDINGS: ET tube 3.87 m above silvana. NG tube seen with the tip near the GE junction. Mediastinal d rain and chest tubes are noted. There is no sizable pneumothorax identified. Postoperative changes ar e seen with left lower lobe consolidation, small effusion. Subsegmental changes bilateral upper lung zones. Suspect that there is underlying COPD. Arthropathy of the shoulders with diffuse osteopenia. IMPRESSION: 1. Cardiomegaly with left lower lobe infiltrate and small effusion. 2. Postoperative changes. No sizable pneumothorax.
[2022-12-06 14:28] LABS: INR 1.5 (<1.2); Partial Thromboplastin Time 28.7 sec (22.0-30.0); Prothrombin Time 15.3 sec (9.0-12.0)
[2022-12-06 14:31] LABS: ALT 16 U/L (4-49); AST 42 U/L (17-59); African American GFR (CKD) >90 (>60 ml/min/1.73 sqM); Albumin 2.3 g/dL (3.5-5.0); Alkaline Phosphatase 28 U/L (38-126); Anion Gap 4 mmol/L; Blood Urea Nitrogen 12 mg/dL (9-20); Calcium 7.2 mg/dL (8.4-10.2); Carbon Dioxide 25 mmol/L (22-30); Chloride 111 mmol/L (98-107); Glucose 105 mg/dL (74-99); Magnesium 3.9 mg/dL (1.6-2.3); Non-African American GFR(CKD) >90 (>60 ml/min/1.73 sqM); Potassium 4.3 mmol/L (3.5-5.1); Sodium 140 mmol/L (137-145); Total Bilirubin 0.9 mg/dL (0.2-1.3); Total Protein 3.8 g/dL (6.3-8.2)
[2022-12-06 14:39] LABS: ABG Base Excess -0.4 mmol/L; ABG HCO3 25 mmol/L (21-25); ABG PCO2 46 mmHg (35-45); ABG PH 7.35 (7.35-7.45); ABG PO2 197 mmHg (83-108); ABG TCO2 27 mmol/L (19-24)
[2022-12-06 14:56] LABS: Band Neutrophils % 2 %; Eosinophils # (M) 0.05 k/uL (0-0.7); Monocytes # (M) 0.05 k/uL (0-1.0); Neutrophils % (M) 76 %; Nucleated Red Blood Cells 0 /100 WBC (0-0); Total Cells Counted 100
[2022-12-06 14:58] LABS: Platelet Count 78 k/uL (150-450); RBC Morphology Normal
[2022-12-06 15:05] LABS: Glucose,Whole Blood 139 mg/dL (70-110)
[2022-12-06] MEDS ORDERED: IPRATROPIUM-ALBUTEROL 3 ML NEB INHALATION SCH (16:00)
[2022-12-06] MEDS: HEPARIN SODIUM,PORCINE/PF 5,000 UNIT/0.5 ML SYRINGE SQ SCH ×2 (16:10→23:33)
[2022-12-06 16:20] LABS: Glucose,Whole Blood 154 mg/dL (70-110)
[2022-12-06] MEDS: HYDROcodone/APAP 10-325MG 1 EACH TAB PO PRN ×2 (16:32→21:14)
[2022-12-06 17:04] LABS: ABG Base Excess 1.7 mmol/L; ABG HCO3 27 mmol/L (21-25); ABG PCO2 46 mmHg (35-45); ABG PH 7.38 (7.35-7.45); ABG PO2 111 mmHg (83-108); ABG TCO2 28 mmol/L (19-24)
[2022-12-06 17:06] LABS: Allen Test Performed? no
[2022-12-06 17:11] LABS: Glucose,Whole Blood 154 mg/dL (70-110)
[2022-12-06 17:31] LABS: Basophils % (A) 0 %; Eosinophils # (A) 0.1 k/uL (0-0.7); Eosinophils % (A) 1 %; HCT 29.6 % (39.0-53.0); HGB 10.1 gm/dL (13.0-17.5); Lymphocytes # (A) 0.5 k/uL (1.0-4.8); Lymphocytes % (A) 6 %; MCHC 34.1 g/dL (31.0-37.0); MCV 96.6 fL (80.0-100.0); Mean Platelet Volume 8.8; Monocytes # (A) 0.4 k/uL (0-1.0); Monocytes % (A) 5 %; Neutrophils # (A) 7.1 k/uL (1.3-7.7); Neutrophils % (A) 87 %; RBC 3.07 m/uL (4.30-5.90); RDW 13.7 % (11.5-15.5); WBC 8.2 k/uL (3.8-10.6)
[2022-12-06 17:33] LABS: Platelet Count 92 k/uL (150-450)
[2022-12-06] MEDS: ACETAMINOPHEN IV (For NPO) 1,000 MG in EMPTY BAG 1 BAG IVPB SCH (17:58)
[2022-12-06] MEDS ORDERED: MUPIROCIN 2% OINT 22 GM TUBE NASAL ONE (18:15)
[2022-12-06 18:23] LABS: Glucose,Whole Blood 144 mg/dL (70-110)
[2022-12-06 19:07] LABS: Glucose,Whole Blood 134 mg/dL (70-110)
[2022-12-06] MEDS: AMIODARONE 450 MG in DEXTROSE 5% IN WATER 250 ML IV SCH ×2 (19:14)
[2022-12-06 19:53] LABS: Glucose,Whole Blood 112 mg/dL (70-110)
[2022-12-06 20:49] LABS: HCT 29.7 % (39.0-53.0); HGB 10.2 gm/dL (13.0-17.5); MCH 33.1 pg (25.0-35.0); MCHC 34.4 g/dL (31.0-37.0); MCV 96.3 fL (80.0-100.0); Mean Platelet Volume 8.9; RBC 3.08 m/uL (4.30-5.90); RDW 13.7 % (11.5-15.5); WBC 7.3 k/uL (3.8-10.6)
[2022-12-06 20:53] LABS: Platelet Count 88 k/uL (150-450)
[2022-12-06] MEDS: IPRATROPIUM-ALBUTEROL 3 ML NEB INHALATION SCH (21:13)
[2022-12-06] MEDS: buPROPion SR 100 MG TABLET.ER PO SCH (21:15)
[2022-12-06] MEDS: PANTOPRAZOLE 40 MG/10 ML VIAL IVP SCH (21:15)
[2022-12-06] MEDS: MUPIROCIN 2% OINT 22 GM TUBE NASAL SCH (21:16)
[2022-12-06 21:59] LABS: Glucose,Whole Blood 175 mg/dL (70-110)
--- NOTE | 2022-12-06 22:01 | CONS ---
CONSULTATION HISTORY OF PRESENT ILLNESS: This is a 72-year-old gentleman with history of mitral regurgitation, who on a recent cardiac catheterization was found to have 60% to 70% stenosis involving the ostial diagonal branch with dilated left ventricle with severe mitral regurgitation on a transesophageal echo with severe tricuspid regurgitation. The patient underwent bypass surgery with venous graft to diagonal and mitral valve repair with a ring. The patient has just been extubated. He is in a paced rhythm, stable hemodynamically and is still sleepy. PAST MEDICAL HISTORY: Significant for coronary artery disease and severe mitral regurgitation, history of atrial fibrillation, and hypertension along with dyslipidemia. MEDICATIONS AT HOME: 1. Lipitor. 2. Iron. 3. Lasix. 4. Protonix. 5. Xarelto. 6. Zestril. 7. Coreg. 8. Aspirin. ALLERGIES: No known drug allergies. FAMILY HISTORY: Negative for premature coronary artery disease. SOCIAL HISTORY: Negative for current smoking, EtOH, or drug abuse. REVIEW OF SYSTEMS: I am unable to obtain from the patient who has just been extubated. PHYSICAL EXAMINATION: GENERAL: On exam, comfortable at rest. VITAL SIGNS: Stable. CHEST: Reveals diminished air entry at the bases. I do not hear any crackles or rhonchi. HEART: Reveals first and second heart sounds. No gallop, no murmur. ABDOMEN: Soft. EXTREMITIES: Reveals mild edema. LABORATORY DATA: Labs show a hemoglobin of 10.9, platelet count is 78. Blood gases reveal a pH of 7.3, PO2 of 111, creatinine is normal at 0.6. ASSESSMENT: Severe mitral regurgitation, status post mitral valve repair, coronary artery disease, status post single-vessel CABG. PLAN: Patient has just been extubated. He will continue current supportive care. MMODL / IJN: [id number] /
[2022-12-06 22:21] LABS: Band Neutrophils % 8 %; Lymphocytes # (M) 0.29 k/uL (1.0-4.8); Monocytes # (M) 0.29 k/uL (0-1.0); Neutrophils % (M) 84 %; Nucleated Red Blood Cells 0 /100 WBC (0-0); RBC Morphology Normal; Total Cells Counted 100
[2022-12-06 23:01] LABS: Glucose,Whole Blood 205 mg/dL (70-110)
[2022-12-07 00:06] LABS: Glucose,Whole Blood 148 mg/dL (70-110)
[2022-12-07] MEDS: ACETAMINOPHEN IV (For NPO) 1,000 MG in EMPTY BAG 1 BAG IVPB SCH (00:06)
[2022-12-07] MEDS ORDERED: ACETAMINOPHEN TAB 325 MG TAB PO PRN (01:01)
--- NOTE | 2022-12-07 01:07 | P.CNPUL ---
History of Present Illness Consult date: 12/07/22 Requesting physician: Ethel Lucas Reason for consult: other (ICU management) Chief complaint: Elective CABG and mitral valve repair History of present illness: I am seeing this patient in new consultation today 12/07/2022 in the intensive care unit, currently recovering from an elective open-heart surgery. This is a 72-year-old white male who follows with Dr. Lewis for his known history of severe mitral valve regurgitation. Patient's other medical history includes COPD in which he takes Trelegy at home, obstructive sleep apnea without CPAP or BiPAP, hyperlipidemia, hypertension, CAD, heart failure, urinary retention which he straight caths at home, and osteoarthritis, Patient's cardiac workup includes recent VLAD on 10/11/2022 which showed a preserved left ventricular ejection fraction of 55-60% with severe mitral regurgitation. Patient also had a recent cardiac catheterization 10/11/2022 showing single-vessel coronary artery disease with 60-70 % lesion in the ostium of the large diagonal branch of LAD and redemonstration of severe mitral regurgitation. Patient was scheduled for an elective CABG and mitral valve repair yesterday with Dr. Mathew. Patient underwent a CABG 1 with a saphenous vein graft to the diagonal coronary artery, mitral valve repair with a 28 mm physio-2 ring and endovascular vein harvest. Intraoperatively, the patient had an estimated 500 ML blood loss. Patient received 2 FFP, 2 packed platelet, 1 cryoprecipitate. Patient was extubated at 1712 this afternoon. Patient's currently resting in bed, on room air, in no acute distress. No obvious neuro deficits. Vital signs are stable, patient's heart rhythm is normal sinus rhythm at a rate of 66 bpm and there is a backup epicardial pacer set at DDD rate of 60. Blood pressure is normotensive. PA pressures 38/19. Most recent CO/CI is 4.5 and 2.3. Patient is lactated Ringer's infusing at 50 ML's per hour, insulin infusing at 3 units per hour, and prophylactic amiodarone dose of 0.5 mg/m. Patient has not been in atrial fibrillation, but does have a history of atrial fibrillation. Patient has 3 chest tubes including right and left pleural chest tube which is draining about 50 ML's per hour of serosanguineous output and a mediastinal chest tube which has minimal output. There is a small pleural chest tube leak with coughing. Postoperative, chest x-ray shows some cardiomegaly with left lower lobe infiltrate and small effusion. No obvious pneumothorax identified. [place] catheter appropriately placed. An postoperative changes. Most recent CBC shows a WBC count of 7.3, hemoglobin 10.2, hematocrit 29.7, platelets 88,000. Patient's BMP shows a sodium 140, potassium 4.3, chloride 111, serum CO2 25, B1 12, creatinine 0.69, glucose 105. Patient's preextubation ABG showed a pO2 of 111, pCO2 46, pH is 7.38. Patient was extubated without complication. Patient has incentive spirometer at bedside. Patient is currently receiving DuoNeb inhalation 4 times a day. Patient is currently hemodynamically stable. Review of Systems REVIEW OF SYSTEMS: CONSTITUTIONAL: Denies any recent significant weight loss or weight gain. EYES: Denies change in vision. EARS, NOSE, MOUTH, THROAT: Denies headaches, denies sore throat. CARDIOVASCULAR: Denies palpitations or syncopal episodes. Admits incisional chest pain with coughing and deep breathing RESPIRATORY: Denies shortness of breath, cough, congestion or hemoptysis. GASTROINTESTINAL: Denies change in appetite, abdominal pain, nausea and vomiting, or diarrhea GENITOURINARY: Denies hematuria, denies infections. MUSKULOSKELETAL: Denies pain, denies swelling. INTEGUMENTARY: Denies rash, denies eczema. NEUROLOGICAL: Denies recent memory loss, no recent seizure activity. PSYCHIATRIC: Denies anxiety, denies depression. HEMATOLOGIC/LYMPHATIC: Denies anemia, denies enlarged lymph node Past Medical History Past Medical History: Atrial Fibrillation, Coronary Artery Disease (CAD), Heart Failure, COPD, GERD/Reflux, Hyperlipidemia, Hypertension, Musculoskeletal Disorder, Osteoarthritis (OA), Pneumonia, Sleep Apnea/CPAP/BIPAP Additional Past Medical History / Comment(s): mitral valve regurgitation,urinary retention-per patient he straight caths at home 3-4 times daily, osteoporosis,no cpap,pt had one episode w/in last several months at [place] when he could hear his friend talking to him but was not able to respond,hx pneumonia years ago History of Any Multi-Drug Resistant Organisms: None Reported Past Surgical History: Heart Catheterization, Hernia Repair, Joint Replacement, Orthopedic Surgery Additional Past Surgical History / Comment(s): repair of ESOPHAGUS tear, umbilical surg. x3,ORIF RIGHT HIP,RIGHT ARM PLATE AND SCREW, LEFT FOOT,left hip replaced, gordy shoulder surg,foot procedure,VLAD Past Anesthesia/Blood Transfusion Reactions: No Reported Reaction Additional Past Anesthesia/Blood Transfusion Reaction / Comment(s): no known hx blood transfusion Smoking Status: Former smoker - Past Family History Mother Family Medical History: No Reported History Medications and Allergies Home Medications Medication Instructions Recorded Confirmed Type Rivaroxaban [Xarelto] 20 mg PO DAILY 06/11/15 11/28/22 History Furosemide [Lasix] 40 mg PO DAILY 06/14/15 11/28/22 History lisinopriL [Zestril] 10 mg PO DAILY 06/14/15 11/28/22 History buPROPion HCL [Wellbutrin SR] 200 mg PO BID 12/04/18 11/28/22 History carvediloL [Coreg] 6.25 mg PO BID 12/04/18 11/28/22 History Fluticasone/Umeclidin/Vilanter 1 puff INHALATION RT-DAILY 02/18/20 11/28/22 History [Alba Ellipta 100-62.5-25] Ascorbic Acid [Vitamin C] 500 mg PO DAILY 06/26/22 11/28/22 History Cholecalciferol [Vitamin D3 (25 25 mcg PO DAILY 06/26/22 11/28/22 History Mcg = 1000 Iu)] Pantoprazole [Protonix] 40 mg PO TID 06/26/22 11/28/22 History Zinc Gluconate [Zinc] 50 mg PO DAILY 06/26/22 11/28/22 History Atorvastatin [Lipitor] 20 mg PO DAILY 10/09/22 11/28/22 History Calcium Carbonate [Calcium] 600 mg PO DAILY 10/09/22 11/28/22 History Ferrous Sulfate [Feosol] 65 mg PO DAILY 10/09/22 11/28/22 History oxyCODONE-APAP 10-325MG [Percocet 1 tab PO Q6HR PRN 10/09/22 11/28/22 History 10-325 mg] tadalafiL [Cialis] 5 mg PO DAILY 10/09/22 11/28/22 History Mupirocin 2% Oint [Bactroban 2% 1 applic NASAL BID 5 Days #22 gm 11/30/22 12/05/22 Rx Oint] Aspirin 325 mg PO DAILY 12/05/22 12/05/22 History Allergies Allergy/AdvReac Type Severity Reaction Status Date / Time No Known Allergies Allergy Verified 12/06/22 06:19 Physical Exam Vitals: Vital Signs Temp Pulse Pulse Resp BP BP Pulse Ox 12/06/22 22:00 67 25 H 102/70 96 12/06/22 21:30 70 16 96 12/06/22 21:23 70 12/06/22 21:15 77 12/06/22 21:00 80 20 97 12/06/22 20:30 80 19 95 12/06/22 20:00 98.2 F 80 21 96 12/06/22 19:30 80 19 99/65 92 L 12/06/22 19:00 78 17 94 L 12/06/22 18:30 80 18 95 12/06/22 18:00 80 17 95 12/06/22 17:45 80 17 94 L 12/06/22 17:30 80 16 96 12/06/22 17:22 36.9 F L 80 19 97/62 100 12/06/22 17:15 84 17 100 12/06/22 17:02 36.9 F L 80 19 101/61 100 12/06/22 17:00 81 19 100 12/06/22 16:49 36.8 F L 80 17 93/57 99 12/06/22 16:47 36.8 F L 81 20 92/58 100 12/06/22 16:32 36.8 F L 80 17 95/65 100 12/06/22 16:31 12/06/22 16:30 79 14 98 12/06/22 16:12 36.7 F L 80 16 92/62 98 12/06/22 16:00 98.2 F 81 17 98 12/06/22 15:55 36.6 F L 80 15 90/60 100 12/06/22 15:35 12/06/22 15:34 80 15 12/06/22 15:30 36.6 F L 82 16 106/72 100 12/06/22 15:24 79 15 12/06/22 15:10 36.6 F L 80 15 103/66 99 12/06/22 15:00 36.5 F L 80 80 14 90/59 92/62 100 12/06/22 14:56 36.5 F L 80 14 90/61 100 12/06/22 14:45 80 14 94/64 100 12/06/22 14:43 12/06/22 14:39 12/06/22 14:38 36.5 F L 80 14 91/63 100 12/06/22 14:30 36.5 F L 90 14 89/60 100 12/06/22 14:18 36.5 F L 80 14 95/62 99 12/06/22 14:15 80 14 95/62 100 12/06/22 14:00 36.5 F L 80 14 91/63 100 12/06/22 13:52 12/06/22 13:27 12/06/22 12:51 97.7 F 80 14 94/62 98 12/06/22 06:25 98.2 F 50 L 16 122/73 97 FiO2 12/06/22 22:00 12/06/22 21:30 12/06/22 21:23 12/06/22 21:15 12/06/22 21:00 12/06/22 20:30 12/06/22 20:00 12/06/22 19:30 12/06/22 19:00 12/06/22 18:30 12/06/22 18:00 12/06/22 17:45 12/06/22 17:30 12/06/22 17:22 12/06/22 17:15 12/06/22 17:02 12/06/22 17:00 50 12/06/22 16:49 12/06/22 16:47 12/06/22 16:32 12/06/22 16:31 50 12/06/22 16:30 60 12/06/22 16:12 12/06/22 16:00 60 12/06/22 15:55 12/06/22 15:35 60 12/06/22 15:34 12/06/22 15:30 60 12/06/22 15:24 12/06/22 15:10 12/06/22 15:00 100 12/06/22 14:56 12/06/22 14:45 12/06/22 14:43 80 12/06/22 14:39 100 12/06/22 14:38 12/06/22 14:30 100 12/06/22 14:18 12/06/22 14:15 12/06/22 14:00 100 12/06/22 13:52 100 12/06/22 13:27 100 12/06/22 12:51 12/06/22 06:25 Intake and Output 12/06/22 12/06/22 12/06/22 06:59 14:59 22:59 Intake Total 804 057 7067.559 Output Total 1210 938 Balance 100 -468 324.559 Intake: IV 100 132 542 Cardiac Output (0.9 20 70 Sodium Chloride) Lactated Ringers 1,000 ml 50 400 @ 50 mls/hr IV .Q20H [facility] Rx#:[id number] Pressure Bag (0.9 Sodium 9 72 Chloride) Intake, IV Titration 163.559 Amount Amiodarone 360 mg In 154.443 Dextrose 5% in Water 200 ml @ 1 MG/MIN 33.333 mls/ hr IV .Q6H [facility] Rx#: [id number] Insulin Regular 100 unit 9.116 In Sodium Chloride 0.9% 100 ml @ Per Protocol IV .Q0M [facility] Rx#:[id number] Blood Product 610 557 Ffp 24 Cpd Unit 0 276 [id number] Ffp 24 Cpd Unit 341 [id number] Platelet Pheresis Pas 269 Psoralen Unit [id number] Platelet Pheresis Pas 281 Psoralen Unit [id number] Pooled Cryoprecipitate 0 Unit [id number] Output: Chest Tube Drainage 180 498 Chest Tube Bilateral 100 380 Anterior Chest Chest Tube Lower 80 118 Mediastinal Urine 480 440 Estimated Blood Loss 550 Other: Voiding Method Indwelling Catheter Indwelling Catheter Weight 78.4 kg ABP, PAP, CO, CI - Last 8 Hours Arterial Blood Pressure 118/63 Arterial Blood Pressure 124/73 Arterial Blood Pressure 110/71 Arterial Blood Pressure 108/69 Arterial Blood Pressure 102/65 Arterial Blood Pressure 108/65 Arterial Blood Pressure 90/59 Arterial Blood Pressure 88/60 Arterial Blood Pressure 89/60 Arterial Blood Pressure 91/60 Arterial Blood Pressure 94/56 Arterial Blood Pressure 110/62 Arterial Blood Pressure 97/60 Arterial Blood Pressure 104/63 Arterial Blood Pressure 89/62 Arterial Blood Pressure 108/75 Pulmonary Artery Pressure 42/20 Pulmonary Artery Pressure 43/22 Pulmonary Artery Pressure 42/23 Pulmonary Artery Pressure 41/20 Pulmonary Artery Pressure 38/22 Pulmonary Artery Pressure 41/20 Pulmonary Artery Pressure 34/15 Pulmonary Artery Pressure 36/17 Pulmonary Artery Pressure 33/17 Pulmonary Artery Pressure 31/14 Pulmonary Artery Pressure 33/14 Pulmonary Artery Pressure 34/15 Pulmonary Artery Pressure 34/18 Pulmonary Artery Pressure 34/16 Pulmonary Artery Pressure 40/21 Pulmonary Artery Pressure 41/23 Cardiac Output 4.5 Cardiac Output 4.2 Cardiac Output 4.4 Cardiac Index 2.3 Cardiac Index 2.2 Cardiac Index 2.3 GENERAL EXAM: Alert, 72-year-old white male, comfortable in no apparent distress. HEAD: Normocephalic and atraumatic EYES: Normal reaction of pupils, equal size. NOSE: Clear with pink turbinates. THROAT: No erythema or exudates. NECK: No masses, no JVD. Right IJ pulmonary artery catheter in place CHEST: No chest wall deformity. Midsternal surgical incision with incisional dressing clean, dry, intact. 3 chest tubes including bilateral pleural and mediastinal. LUNGS: Equal air entry with no crackles, wheeze, rhonchi or dullness. On room air. No conversational dyspnea or accessory muscle use.. CVS: S1 and S2 normal with no audible murmur, regular rhythm. There is a pericardial friction rub. ABDOMEN: No hepatosplenomegaly, hypoactive bowel sounds, no guarding or rigidity. SPINE: No scoliosis or deformity SKIN: No rashes CENTRAL NERVOUS SYSTEM: No focal deficits, tone is normal in all 4 extremities. EXTREMITIES: There is no peripheral edema, clubbing, or cyanosis. Peripheral pulses are intact. Results - Laboratory Findings CBC and BMP: 12/06/22 19:52 12/06/22 14:00 ABG ABG pH 7.38 (7.35-7.45) 12/06/22 17:01 ABG pCO2 46 mmHg (35-45) H 12/06/22 17:01 ABG pO2 111 mmHg (83-108) H 12/06/22 17:01 ABG O2 Saturation 99.0 % (94-97) H 12/06/22 17:01 PT/INR, D-dimer PT 15.3 sec (9.0-12.0) H 12/06/22 14:00 INR 1.5 (<1.2) H 12/06/22 14:00 Abnormal lab findings: Abnormal Labs 11/28/22 12/06/22 12/06/22 09:06 09:00 14:00 RBC 3.37 L Hgb 10.9 L Hct 32.4 L Plt Count 78 L Lymphocytes # Lymphocytes # (Manual) PT INR Fibrinogen ABG pCO2 ABG pO2 240 H ABG HCO3 ABG Total CO2 26 H ABG O2 Saturation 99.8 H ABG Potassium 3.3 L ABG Ionized Calcium 4.1 L Hemoglobin 11.5 L Chloride Glucose POC Glucose (mg/dL) Calcium Magnesium Alkaline Phosphatase Total Protein Albumin Arterial Blood Potassium 3.3 L Crossmatch See Detail 12/06/22 12/06/22 12/06/22 14:00 14:00 14:37 RBC Hgb Hct Plt Count Lymphocytes # Lymphocytes # (Manual) PT 15.3 H INR 1.5 H Fibrinogen 98 L ABG pCO2 46 H ABG pO2 197 H ABG HCO3 ABG Total CO2 27 H ABG O2 Saturation 98.0 H ABG Potassium ABG Ionized Calcium Hemoglobin Chloride 111 H Glucose 105 H POC Glucose (mg/dL) Calcium 7.2 L Magnesium 3.9 H Alkaline Phosphatase 28 L Total Protein 3.8 L Albumin 2.3 L Arterial Blood Potassium Crossmatch 12/06/22 12/06/22 12/06/22 15:04 16:18 17:01 RBC Hgb Hct Plt Count Lymphocytes # Lymphocytes # (Manual) PT INR Fibrinogen ABG pCO2 46 H ABG pO2 111 H ABG HCO3 27 H ABG Total CO2 28 H ABG O2 Saturation 99.0 H ABG Potassium ABG Ionized Calcium Hemoglobin Chloride Glucose POC Glucose (mg/dL) 139 H 154 H Calcium Magnesium Alkaline Phosphatase Total Protein Albumin Arterial Blood Potassium Crossmatch 12/06/22 12/06/22 12/06/22 17:09 17:13 18:22 RBC 3.07 L Hgb 10.1 L Hct 29.6 L Plt Count 92 L Lymphocytes # 0.5 L Lymphocytes # (Manual) PT INR Fibrinogen ABG pCO2 ABG pO2 ABG HCO3 ABG Total CO2 ABG O2 Saturation ABG Potassium ABG Ionized Calcium Hemoglobin Chloride Glucose POC Glucose (mg/dL) 154 H 144 H Calcium Magnesium Alkaline Phosphatase Total Protein Albumin Arterial Blood Potassium Crossmatch 12/06/22 12/06/22 12/06/22 19:05 19:51 19:52 RBC 3.08 L Hgb 10.2 L Hct 29.7 L Plt Count 88 L Lymphocytes # Lymphocytes # (Manual) 0.29 L PT INR Fibrinogen ABG pCO2 ABG pO2 ABG HCO3 ABG Total CO2 ABG O2 Saturation ABG Potassium ABG Ionized Calcium Hemoglobin Chloride Glucose POC Glucose (mg/dL) 134 H 112 H Calcium Magnesium Alkaline Phosphatase Total Protein Albumin Arterial Blood Potassium Crossmatch 12/06/22 21:57 RBC Hgb Hct Plt Count Lymphocytes # Lymphocytes # (Manual) PT INR Fibrinogen ABG pCO2 ABG pO2 ABG HCO3 ABG Total CO2 ABG O2 Saturation ABG Potassium ABG Ionized Calcium Hemoglobin Chloride Glucose POC Glucose (mg/dL) 175 H Calcium Magnesium Alkaline Phosphatase Total Protein Albumin Arterial Blood Potassium Crossmatch - Diagnostic Findings Chest x-ray: image reviewed Assessment and Plan Assessment: The patient is postop day #1 for an elective CABG 1 with a saphenous vein graft to the diagonal coronary artery, mitral valve repair with a 28 mm physio-2 ring, left atrial appendage ligation, and endovascular vein harvest. Patient was extubated without complications to room air Coronary artery disease History of mitral valve regurgitation History of atrial fibrillation currently receiving prophylactic amiodarone at 0.5 mg/m Hyperlipidemia Hypertension COPD which is stable Obstructive sleep apnea without CPAP or BiPAP Urinary retention requiring straight catheterizations Osteoarthritis Ex-smoker Plan: Patient's medications, labs, chest x-ray reviewed Patient extubated successfully to room air Encourage incentive spirometer Start Symbicort inhaler Continue bronchodilators Pain control Continue insulin infusion per protocol Continue prophylactic amiodarone infusion LR infusing at 50 ML's per hour DVT prophylaxis with heparin subcu GI prophylaxis Protonix We will continue to follow I have personally seen and examined the patient, performed the documentation and the assessment and plan as written. Number of minutes spent on the visit:20 Time with Patient: Greater than 30
[2022-12-07 01:23] LABS: Glucose,Whole Blood 109 mg/dL (70-110)
[2022-12-07] MEDS: ALBUMIN HUMAN 5% 250 ML in EMPTY BAG 1 BAG IVPB PRN ×2 (01:55→05:42)
[2022-12-07 02:56] LABS: Glucose,Whole Blood 114 mg/dL (70-110)
[2022-12-07 04:51] LABS: Glucose,Whole Blood 118 mg/dL (70-110)
[2022-12-07] MEDS: HYDROcodone/APAP 7.5-325MG 1 EACH TAB PO PRN ×2 (05:20→11:15)
[2022-12-07 05:29] LABS: Basophils % (A) 0 %; Eosinophils # (A) 0.1 k/uL (0-0.7); Eosinophils % (A) 2 %; HCT 29.2 % (39.0-53.0); HGB 10.1 gm/dL (13.0-17.5); Lymphocytes # (A) 0.7 k/uL (1.0-4.8); Lymphocytes % (A) 11 %; MCH 33.6 pg (25.0-35.0); MCHC 34.5 g/dL (31.0-37.0); MCV 97.3 fL (80.0-100.0); Mean Platelet Volume 8.7; Monocytes # (A) 0.3 k/uL (0-1.0); Monocytes % (A) 5 %; Neutrophils # (A) 5.2 k/uL (1.3-7.7); Neutrophils % (A) 80 %; Platelet Count 87 k/uL (150-450); RDW 13.7 % (11.5-15.5); WBC 6.4 k/uL (3.8-10.6)
[2022-12-07 05:42] LABS: Ionized Calcium 4.6 mg/dL (4.5-5.3)
[2022-12-07 05:53] LABS: ALT 18 U/L (4-49); AST 55 U/L (17-59); African American GFR (CKD) >90 (>60 ml/min/1.73 sqM); Albumin 2.6 g/dL (3.5-5.0); Alkaline Phosphatase 37 U/L (38-126); Anion Gap 6 mmol/L; Blood Urea Nitrogen 16 mg/dL (9-20); Calcium 7.3 mg/dL (8.4-10.2); Carbon Dioxide 26 mmol/L (22-30); Chloride 106 mmol/L (98-107); Glucose 108 mg/dL (74-99); Magnesium 2.7 mg/dL (1.6-2.3); Non-African American GFR(CKD) >90 (>60 ml/min/1.73 sqM); Potassium 4.4 mmol/L (3.5-5.1); Sodium 138 mmol/L (137-145); Total Bilirubin 1.4 mg/dL (0.2-1.3); Total Protein 4.4 g/dL (6.3-8.2)
[2022-12-07 06:40] LABS: Glucose,Whole Blood 126 mg/dL (70-110)
[2022-12-07] MEDS: carvediloL 3.125 MG TAB PO SCH ×2 (07:13→17:43)
[2022-12-07 08:02] LABS: Glucose,Whole Blood 135 mg/dL (70-110)
[2022-12-07] MEDS: IPRATROPIUM-ALBUTEROL 3 ML NEB INHALATION SCH ×4 (08:13→19:46)
[2022-12-07] MEDS: SYMBICORT 160-4.5 MCG INHALER INHALATION SCH ×2 (08:17→19:47)
--- NOTE | 2022-12-07 08:28 | P.PN ---
Subjective Progress Note Date: 12/07/22 Principal diagnosis: Mitral valve regurgitation, coronary artery disease. Previous medical history of hypertension, hyperlipidemia, persistent atrial fibrillation on Xarelto for a nticoagulation outpatient, TIA, previous tobacco dependence, COPD, obstructive sleep apnea without CPAP use, remote history of pneumonia, GERD, urinary retention with straight cathetered home, depression, preoperative thrombocytopenia, preoperative nasal swab positive for MSSA POD #1 coronary artery bypass graft 1 with reverse saphenous vein graft to the diagonal coronary artery, mitral valve repair with a 28 mm physio-2 ring, endovascular vein harvest of the left lower extremity from the knee to the ankle, left atrial appendage oversewn and closed, epi-aortic ultrasound Postoperative acute blood loss anemia and thrombocytopenia, expected given hemodilution and cardiopulmonary bypass pump as well as preoperative thrombocytopenia The patient was seen and examined this morning sitting up in a recliner in no acute distress in the intensive care unit. He was successfully extubated last night at 17:12. Does complain of postoperative incisional pain, mostly controlled with current medication regimen, denies shortness of breath. Remains in sinus rhythm, hemodynamically stable on no inotropes or pressors. Remains on IV amiodarone for A. fib prophylaxis. Right internal jugular Robbins/Cordis, right radial arterial line, mediastinal/left/right pleural chest tubes all remain. Labs and chest x-ray reviewed. No other new concerns. Objective - Vital Signs Vital signs: Vital Signs Temp 98.2 F 12/06/22 20:00 Pulse 67 12/07/22 07:00 Resp 7 L 12/07/22 07:00 BP 90/60 12/07/22 01:30 Pulse Ox 91 L 12/07/22 07:00 FiO2 50 12/06/22 17:00 Intake & Output 12/06/22 12/07/22 12/07/22 18:59 06:59 18:59 Intake Total 6262.800 6934.276 59 Output Total 1785 923 35 Balance -207.449 86.276 24 Weight 81.6 kg Intake: IV 408 838 59 Cardiac Output (0.9 60 130 Sodium Chloride) Lactated Ringers 1,000 ml 250 600 50 @ 50 mls/hr IV .Q20H [facility] Rx#:[id number] Pressure Bag (0.9 Sodium 45 108 9 Chloride) Intake, IV Titration 2.551 171.276 Amount Amiodarone 360 mg In 154.443 Dextrose 5% in Water 200 ml @ 1 MG/MIN 33.333 mls/ hr IV .Q6H [facility] Rx#: [id number] Insulin Regular 100 unit 2.551 16.833 In Sodium Chloride 0.9% 100 ml @ Per Protocol IV .Q0M [facility] Rx#:[id number] Blood Product 1167 Ffp 24 Cpd Unit 276 [id number] Ffp 24 Cpd Unit 341 [id number] Platelet Pheresis Pas 269 Psoralen Unit [id number] Platelet Pheresis Pas 281 Psoralen Unit [id number] Pooled Cryoprecipitate 0 Unit [id number] Output: Chest Tube Drainage 450 568 0 Chest Tube Bilateral 290 460 0 Anterior Chest Chest Tube Lower 160 108 0 Mediastinal Urine 785 355 35 Estimated Blood Loss 550 Other: Voiding Method Indwelling Catheter Indwelling Catheter ABP, PAP, CO, CI - Last Documented Arterial Blood Pressure 111/61 Pulmonary Artery Pressure 25/9 Cardiac Output 4.2 Cardiac Index 2.2 - Exam CONSTITUTIONAL: Appears comfortable, cooperative, no acute distress RESPIRATORY: Lungs sounds diminished bilaterally. Respirations even, nonlabo red. Currently on room air with oxygen saturation 96%. Able to achieve 1250 mL on incentive spirometry. Strong cough. CARDIOVASCULAR: S1, S2 present. Regular rate and rhythm, sinus rhythm on te lemetry. Sternum stable. Palpable peripheral pulses bilaterally. No edema present. No calf pain or tenderness noted. Heart hugger in place with patient demonstrating appropriate use. Antiembolism stockings, SCDs present. GASTROINTESTINAL: Abdomen soft, nontender, nondistended. Hypoactive bowel sounds present 4 quadrants. Tolerating clear liquid diet. Positive belching, negative flatus GENITOURINARY: David present draining clear, yellow urine. Output overnight 10-50 mL per hour INTEGUMENTARY: Skin is warm and dry with evidence of good perfusion. Anterior chest incision well approximated and covered with dry intact dressing. Left lower extremity EVH site well approximated without redness or drainage. NEUROLOGIC: Cranial nerves II through XII intact MUSKULOSKELETAL: Able to move all extremities, strength equal bilaterally PSYCHIATRIC: Alert and oriented to person place and time, appropriate affect, intact judgment and insight INVASIVE LINES AND TUBES: Mediastinal/left/right pleural chest tubes present and connected to wall suction, no air leaks present. Mediastinal tube with 70 mL serosanguineous drainage overnight, 300 mL since surgery. Left/right pleural chest tubes with 270 mL serosanguineous drainage overnight, 750 mL since surgery. A/V epicardial pacemaker wires present, connected to generator, backup rate 60 bpm. Right internal jugular Robbins/Cordis, right radial arterial line present. Last CO/CI 4.2/2.2, PA 26/9, CVP 7. - Allied health notes Allied health notes reviewed: nursing - Labs CBC & Chem 7: 12/07/22 04:51 12/07/22 04:51 Labs: Abnormal Lab Results - Last 24 Hours (Table) 11/28/22 12/06/22 12/06/22 Range/Units 09:06 09:00 14:00 RBC 3.37 L (4.30-5.90) m/uL Hgb 10.9 L (13.0-17.5) gm/dL Hct 32.4 L (39.0-53.0) % Plt Count 78 L (150-450) k/uL Lymphocytes # (1.0-4.8) k/uL Lymphocytes # (Manual) (1.0-4.8) k/uL PT (9.0-12.0) sec INR (<1.2) Fibrinogen (200-500) mg/dL ABG pCO2 (35-45) mmHg ABG pO2 240 H (83-108) mmHg ABG HCO3 (21-25) mmol/L ABG Total CO2 26 H (19-24) mmol/L ABG O2 Saturation 99.8 H (94-97) % ABG Potassium 3.3 L (3.4-4.5) mmol/L ABG Ionized Calcium 4.1 L (4.5-5.3) mg/dL Hemoglobin 11.5 L (13.0-17.5) gm/dL Chloride (98-107) mmol/L Glucose (74-99) mg/dL POC Glucose (mg/dL) (70-110) mg/dL Calcium (8.4-10.2) mg/dL Magnesium (1.6-2.3) mg/dL Total Bilirubin (0.2-1.3) mg/dL Alkaline Phosphatase (38-126) U/L Total Protein (6.3-8.2) g/dL Albumin (3.5-5.0) g/dL Arterial Blood Potassium 3.3 L (3.4-4.5) mmol/L Crossmatch See Detail 12/06/22 12/06/22 12/06/22 Range/Units 14:00 14:00 14:37 RBC (4.30-5.90) m/uL Hgb (13.0-17.5) gm/dL Hct (39.0-53.0) % Plt Count (150-450) k/uL Lymphocytes # (1.0-4.8) k/uL Lymphocytes # (Manual) (1.0-4.8) k/uL PT 15.3 H (9.0-12.0) sec INR 1.5 H (<1.2) Fibrinogen 98 L (200-500) mg/dL ABG pCO2 46 H (35-45) mmHg ABG pO2 197 H (83-108) mmHg ABG HCO3 (21-25) mmol/L ABG Total CO2 27 H (19-24) mmol/L ABG O2 Saturation 98.0 H (94-97) % ABG Potassium (3.4-4.5) mmol/L ABG Ionized Calcium (4.5-5.3) mg/dL Hemoglobin (13.0-17.5) gm/dL Chloride 111 H (98-107) mmol/L Glucose 105 H (74-99) mg/dL POC Glucose (mg/dL) (70-110) mg/dL Calcium 7.2 L (8.4-10.2) mg/dL Magnesium 3.9 H (1.6-2.3) mg/dL Total Bilirubin (0.2-1.3) mg/dL Alkaline Phosphatase 28 L (38-126) U/L Total Protein 3.8 L (6.3-8.2) g/dL Albumin 2.3 L (3.5-5.0) g/dL Arterial Blood Potassium (3.4-4.5) mmol/L Crossmatch 12/06/22 12/06/22 12/06/22 Range/Units 15:04 16:18 17:01 RBC (4.30-5.90) m/uL Hgb (13.0-17.5) gm/dL Hct (39.0-53.0) % Plt Count (150-450) k/uL Lymphocytes # (1.0-4.8) k/uL Lymphocytes # (Manual) (1.0-4.8) k/uL PT (9.0-12.0) sec INR (<1.2) Fibrinogen (200-500) mg/dL ABG pCO2 46 H (35-45) mmHg ABG pO2 111 H (83-108) mmHg ABG HCO3 27 H (21-25) mmol/L ABG Total CO2 28 H (19-24) mmol/L ABG O2 Saturation 99.0 H (94-97) % ABG Potassium (3.4-4.5) mmol/L ABG Ionized Calcium (4.5-5.3) mg/dL Hemoglobin (13.0-17.5) gm/dL Chloride (98-107) mmol/L Glucose (74-99) mg/dL POC Glucose (mg/dL) 139 H 154 H (70-110) mg/dL Calcium (8.4-10.2) mg/dL Magnesium (1.6-2.3) mg/dL Total Bilirubin (0.2-1.3) mg/dL Alkaline Phosphatase (38-126) U/L Total Protein (6.3-8.2) g/dL Albumin (3.5-5.0) g/dL Arterial Blood Potassium (3.4-4.5) mmol/L Crossmatch 12/06/22 12/06/22 12/06/22 Range/Units 17:09 17:13 18:22 RBC 3.07 L (4.30-5.90) m/uL Hgb 10.1 L (13.0-17.5) gm/dL Hct 29.6 L (39.0-53.0) % Plt Count 92 L (150-450) k/uL Lymphocytes # 0.5 L (1.0-4.8) k/uL Lymphocytes # (Manual) (1.0-4.8) k/uL PT (9.0-12.0) sec INR (<1.2) Fibrinogen (200-500) mg/dL ABG pCO2 (35-45) mmHg ABG pO2 (83-108) mmHg ABG HCO3 (21-25) mmol/L ABG Total CO2 (19-24) mmol/L ABG O2 Saturation (94-97) % ABG Potassium (3.4-4.5) mmol/L ABG Ionized Calcium (4.5-5.3) mg/dL Hemoglobin (13.0-17.5) gm/dL Chloride (98-107) mmol/L Glucose (74-99) mg/dL POC Glucose (mg/dL) 154 H 144 H (70-110) mg/dL Calcium (8.4-10.2) mg/dL Magnesium (1.6-2.3) mg/dL Total Bilirubin (0.2-1.3) mg/dL Alkaline Phosphatase (38-126) U/L Total Protein (6.3-8.2) g/dL Albumin (3.5-5.0) g/dL Arterial Blood Potassium (3.4-4.5) mmol/L Crossmatch 12/06/22 12/06/22 12/06/22 Range/Units 19:05 19:51 19:52 RBC 3.08 L (4.30-5.90) m/uL Hgb 10.2 L (13.0-17.5) gm/dL Hct 29.7 L (39.0-53.0) % Plt Count 88 L (150-450) k/uL Lymphocytes # (1.0-4.8) k/uL Lymphocytes # (Manual) 0.29 L (1.0-4.8) k/uL PT (9.0-12.0) sec INR (<1.2) Fibrinogen (200-500) mg/dL ABG pCO2 (35-45) mmHg ABG pO2 (83-108) mmHg ABG HCO3 (21-25) mmol/L ABG Total CO2 (19-24) mmol/L ABG O2 Saturation (94-97) % ABG Potassium (3.4-4.5) mmol/L ABG Ionized Calcium (4.5-5.3) mg/dL Hemoglobin (13.0-17.5) gm/dL Chloride (98-107) mmol/L Glucose (74-99) mg/dL POC Glucose (mg/dL) 134 H 112 H (70-110) mg/dL Calcium (8.4-10.2) mg/dL Magnesium (1.6-2.3) mg/dL Total Bilirubin (0.2-1.3) mg/dL Alkaline Phosphatase (38-126) U/L Total Protein (6.3-8.2) g/dL Albumin (3.5-5.0) g/dL Arterial Blood Potassium (3.4-4.5) mmol/L Crossmatch 12/06/22 12/06/22 12/07/22 Range/Units 21:57 22:59 00:05 RBC (4.30-5.90) m/uL Hgb (13.0-17.5) gm/dL Hct (39.0-53.0) % Plt Count (150-450) k/uL Lymphocytes # (1.0-4.8) k/uL Lymphocytes # (Manual) (1.0-4.8) k/uL PT (9.0-12.0) sec INR (<1.2) Fibrinogen (200-500) mg/dL ABG pCO2 (35-45) mmHg ABG pO2 (83-108) mmHg ABG HCO3 (21-25) mmol/L ABG Total CO2 (19-24) mmol/L ABG O2 Saturation (94-97) % ABG Potassium (3.4-4.5) mmol/L ABG Ionized Calcium (4.5-5.3) mg/dL Hemoglobin (13.0-17.5) gm/dL Chloride (98-107) mmol/L Glucose (74-99) mg/dL POC Glucose (mg/dL) 175 H 205 H 148 H (70-110) mg/dL Calcium (8.4-10.2) mg/dL Magnesium (1.6-2.3) mg/dL Total Bilirubin (0.2-1.3) mg/dL Alkaline Phosphatase (38-126) U/L Total Protein (6.3-8.2) g/dL Albumin (3.5-5.0) g/dL Arterial Blood Potassium (3.4-4.5) mmol/L Crossmatch 12/07/22 12/07/22 12/07/22 Range/Units 02:55 04:50 04:51 RBC 3.00 L (4.30-5.90) m/uL Hgb 10.1 L (13.0-17.5) gm/dL Hct 29.2 L (39.0-53.0) % Plt Count 87 L (150-450) k/uL Lymphocytes # 0.7 L (1.0-4.8) k/uL Lymphocytes # (Manual) (1.0-4.8) k/uL PT (9.0-12.0) sec INR (<1.2) Fibrinogen (200-500) mg/dL ABG pCO2 (35-45) mmHg ABG pO2 (83-108) mmHg ABG HCO3 (21-25) mmol/L ABG Total CO2 (19-24) mmol/L ABG O2 Saturation (94-97) % ABG Potassium (3.4-4.5) mmol/L ABG Ionized Calcium (4.5-5.3) mg/dL Hemoglobin (13.0-17.5) gm/dL Chloride (98-107) mmol/L Glucose (74-99) mg/dL POC Glucose (mg/dL) 114 H 118 H (70-110) mg/dL Calcium (8.4-10.2) mg/dL Magnesium (1.6-2.3) mg/dL Total Bilirubin (0.2-1.3) mg/dL Alkaline Phosphatase (38-126) U/L Total Protein (6.3-8.2) g/dL Albumin (3.5-5.0) g/dL Arterial Blood Potassium (3.4-4.5) mmol/L Crossmatch 12/07/22 12/07/22 12/07/22 Range/Units 04:51 06:39 08:01 RBC (4.30-5.90) m/uL Hgb (13.0-17.5) gm/dL Hct (39.0-53.0) % Plt Count (150-450) k/uL Lymphocytes # (1.0-4.8) k/uL Lymphocytes # (Manual) (1.0-4.8) k/uL PT (9.0-12.0) sec INR (<1.2) Fibrinogen (200-500) mg/dL ABG pCO2 (35-45) mmHg ABG pO2 (83-108) mmHg ABG HCO3 (21-25) mmol/L ABG Total CO2 (19-24) mmol/L ABG O2 Saturation (94-97) % ABG Potassium (3.4-4.5) mmol/L ABG Ionized Calcium (4.5-5.3) mg/dL Hemoglobin (13.0-17.5) gm/dL Chloride (98-107) mmol/L Glucose 108 H (74-99) mg/dL POC Glucose (mg/dL) 126 H 135 H (70-110) mg/dL Calcium 7.3 L (8.4-10.2) mg/dL Magnesium 2.7 H (1.6-2.3) mg/dL Total Bilirubin 1.4 H (0.2-1.3) mg/dL Alkaline Phosphatase 37 L (38-126) U/L Total Protein 4.4 L (6.3-8.2) g/dL Albumin 2.6 L (3.5-5.0) g/dL Arterial Blood Potassium (3.4-4.5) mmol/L Crossmatch - Imaging and Cardiology Chest x-ray: image reviewed Assessment and Plan Assessment: Mitral valve regurgitation, status post mitral valve repair Coronary artery disease, status post 1 vessel CABG History of hypertension, currently borderline Hyperlipidemia, treated, cholesterol 106, LDL 30 Persistent atrial fibrillation on Xarelto for anticoagulation outpatient, left a trial appendage oversewn and closed TIA Previous tobacco dependence COPD, preoperative FEV1 82% of predicted Obstructive sleep apnea without CPAP use Remote history of pneumonia GERD Urinary retention with straight cath at home Depression Preoperative thrombocytopenia Preoperative nasal swab positive for MSSA, treated Postoperative acute blood loss anemia and thrombocytopenia, expected Plan: Continue to maximize medical therapy with aspirin, statin, Plavix, beta donovan. Will increase beta donovan as tolerated Continue amiodarone for A. fib prophylaxis, will transition to oral. No anticoagulation at this time Encourage incentive spirometry is 10 times every hour while awake, bronchodilators per pulmonology Increase activity, ambulate as tolerated. PT/OT/cardiac rehab consulted Will monitor daily labs and x-rays. Electrolyte replacement per protocol GI/DVT prophylaxis Pain controlled with current medication regimen. No Toradol due to thrombocytopenia Insulin management per internal medicine. Patient is not diabetic, preoperative hemoglobin A1c 5.2%. Patient needs tight blood sugar control to prevent infection and promote healing Discontinue Robbins. Connect Cordis to continuous CVP monitoring Continue mediastinal/left/right pleural chest tubes for to the 24 hours Continue David catheter for another 24 hours for strict accurate intake and output Daily weights More recommendations to follow based on patient's progress
[2022-12-07] MEDS: HEPARIN SODIUM,PORCINE/PF 5,000 UNIT/0.5 ML SYRINGE SQ SCH ×3 (08:31→20:29)
[2022-12-07 08:59] LABS: Glucose,Whole Blood 137 mg/dL (70-110)
[2022-12-07] MEDS ORDERED: MAGNESIUM HYDROXIDE 2,400 MG/10 ML CUP PO PRN (09:00)
[2022-12-07] MEDS ORDERED: bisacodyL 10 MG SUPP RECTAL PRN (09:00)
[2022-12-07] MEDS ORDERED: ASPIRIN 325 MG TAB PO SCH (09:00)
--- NOTE | 2022-12-07 09:21 | XR ---
EXAMINATION TYPE: XR chest 1V portable DATE OF EXAM: 12/07/2022 HISTORY: Post Operative Cardiac Surgery COMPARISON: 12/06/2022 TECHNIQUE: Single view of the chest is submitted. FINDINGS: SG catheter, mediastinal drains and chest tubes are appropriately placed. Median sternotomy with valvular prosthesis. Removal of endotracheal tube and NG tube. No sizeable pneumothorax. Scattered Pleural-parenchymal opacities may reflect atelectasis. The heart is enlarged. IMPRESSION: 1. Post operative changes of CABG.
[2022-12-07] MEDS: CHOLECALCIFEROL 25 MCG (1000 IU) TABLET PO SCH (10:05)
[2022-12-07] MEDS: FERROUS SULFATE 325 MG TAB PO SCH (10:05)
[2022-12-07] MEDS: ATORVASTATIN 20 MG TAB PO SCH (10:05)
[2022-12-07] MEDS: ASCORBIC ACID 500 MG TAB PO SCH (10:05)
[2022-12-07] MEDS: buPROPion SR 100 MG TABLET.ER PO SCH ×2 (10:06→20:25)
[2022-12-07] MEDS: MUPIROCIN 2% OINT 22 GM TUBE NASAL SCH ×2 (10:07→20:25)
[2022-12-07] MEDS: CLOPIDOGREL 75 MG TAB PO SCH (10:07)
[2022-12-07 10:18] LABS: Glucose,Whole Blood 129 mg/dL (70-110)
[2022-12-07] MEDS: ASPIRIN 81 MG PO SCH (10:18)
[2022-12-07] MEDS: AMIODARONE 200 MG TAB PO SCH ×3 (10:18→20:25)
[2022-12-07] MEDS: LACTATED RINGERS 1,000 ML IV SCH (10:31)
[2022-12-07] MEDS: AMIODARONE 450 MG in DEXTROSE 5% IN WATER 250 ML IV SCH ×2 (10:32)
[2022-12-07 11:21] LABS: Glucose,Whole Blood 134 mg/dL (70-110)
[2022-12-07 12:13] LABS: Glucose,Whole Blood 138 mg/dL (70-110)
[2022-12-07 14:18] LABS: Glucose,Whole Blood 122 mg/dL (70-110)
[2022-12-07 14:50] VITALS: BMI 26.5
[2022-12-07 15:28] LABS: Glucose,Whole Blood 121 mg/dL (70-110)
[2022-12-07 16:41] LABS: Glucose,Whole Blood 131 mg/dL (70-110)
[2022-12-07] MEDS ORDERED: DEXTROSE 50% SYRINGE 50 ML IVP PRN ×2 (16:48)
[2022-12-07] MEDS: INSULIN ASPART (NovoLOG) 100 UNIT/ML VIAL SQ SCH ×2 (17:40→20:02)
[2022-12-07] MEDS: PANTOPRAZOLE 40 MG TABLET PO SCH (17:43)
[2022-12-07 19:56] LABS: Glucose,Whole Blood 114 mg/dL (70-110)
[2022-12-07] MEDS: SENNOSIDES-DOCUSATE SODIUM 1 EACH TAB PO SCH (20:25)
--- NOTE | 2022-12-07 20:31 | PN ---
PROGRESS NOTE SUBJECTIVE: Derick is a 72-year-old gentleman with severe mitral regurgitation and single-vessel CAD and prior history of persistent atrial fibrillation, who underwent mitral valve repair with single-vessel bypass surgery. Today, the patient is postop day #1. Remains in atrial fibrillation with controlled ventricular rate. Extubated, awake, alert, hemodynamically stable. OBJECTIVE: GENERAL: Comfortable at rest. VITAL SIGNS: Stable. Heart rate is 70 beats per minute, irregular. Blood pressure is 100/58, respiratory rate is 18. NECK: There is no jugular venous distention. CHEST: Reveals diminished air entry at the bases. HEART: Reveals first and second heart sounds, irregular rhythm, and a systolic murmur at the apex. ABDOMEN: Soft. EXTREMITIES: Did not reveal any edema. Peripheral pulses are palpable. LABORATORY DATA: Labs show a hemoglobin of 10. Potassium is 4.4, creatinine is 0.7. ASSESSMENT AND PLAN: Severe mitral regurgitation, status post mitral valve repair. Coronary artery disease, status post bypass, single-vessel coronary artery bypass graft. Persistent atrial fibrillation with controlled ventricular rate. PLAN: The patient will continue current medications. We will resume the Xarelto whenever surgeon is comfortable with their concern about ablating. MMODL / IJN: [id number] /
--- NOTE | 2022-12-07 22:40 | CONS ---
CONSULTATION HISTORY OF PRESENT ILLNESS: This is a 72-year-old white male status post mitral valve clip repair by Dr. Mathew. Nurse says he is doing well postop, status post mitral valve repair, coronary artery disease, history of hypertension, dyslipidemia, persistent atrial fibrillation, COPD, sleep apnea, urinary retention, GERD, depression, thrombocytopenia, and MSSA. PHYSICAL EXAMINATION: GENERAL: Resting comfortably on vent. CARDIOVASCULAR: S1, S2. LUNGS: Clear. GI: Soft. HEMATOLOGY: Negative for Homans. ABDOMEN: Soft. ASSESSMENT: 1. Status post mitral valve repair. 2. Atrial fibrillation. 3. Hypertension. 4. Chronic obstructive pulmonary disease. 5. Coronary artery disease. 6. Gastroesophageal reflux disease. 7. Urinary retention. PROGNOSIS: Guarded. Home medications have been reordered. Standard postop care will be done per Dr. Mathew. Please see further orders. Wean vent as tolerated. ICU notes are reviewed. MMODL / IJN: [id number] /
--- NOTE | 2022-12-08 00:16 | PN ---
PROGRESS NOTE SUBJECTIVE: This is a 72-year-old white male status post mitral valve repair, appears to be doing better. He is not on any vasopressors. He is on broad-spectrum antibiotics. ICU notes reviewed. He is on Plavix, Coreg, Lipitor, aspirin, Cordarone, DuoNeb, some albumin was given, vitamin D. He is on amiodarone for atrial fibrillation prophylaxis. Sugars have been a little bit high. He is now on Accu-Chek protocol a.c. h.s. Sugars are high due to his surgery. OBJECTIVE: VITAL SIGNS: Pulse 70s, respiratory rate 14 to 16, blood pressure is 120s to 110s over 70s to 90s, O2 95% on room air. CARDIOVASCULAR: S1, S2. LUNGS: Transmitted upper airway sounds. GI: Soft. HEMATOLOGY: Negative for Homans. PSYCH: Fair mood and affect. ASSESSMENT: Status post mitral valve repair, hypertension, coronary artery disease, chronic obstructive sleep apnea. Continue home medications. Wean oxygen as tolerated. Continue current treatment. He is doing very well after mitral valve repair. MMODL / IJN: [id number] /
[2022-12-08] MEDS: HYDROcodone/APAP 10-325MG 1 EACH TAB PO PRN ×2 (04:37→18:49)
[2022-12-08 04:54] LABS: Basophils % (A) 0 %; Eosinophils # (A) 0.1 k/uL (0-0.7); Eosinophils % (A) 2 %; HCT 30.5 % (39.0-53.0); HGB 10.3 gm/dL (13.0-17.5); Lymphocytes # (A) 0.7 k/uL (1.0-4.8); Lymphocytes % (A) 10 %; MCH 32.8 pg (25.0-35.0); MCHC 33.7 g/dL (31.0-37.0); MCV 97.3 fL (80.0-100.0); Mean Platelet Volume 9.6; Monocytes # (A) 0.3 k/uL (0-1.0); Monocytes % (A) 5 %; Neutrophils # (A) 6.1 k/uL (1.3-7.7); Neutrophils % (A) 82 %; RBC 3.13 m/uL (4.30-5.90); RDW 13.6 % (11.5-15.5); WBC 7.4 k/uL (3.8-10.6)
[2022-12-08 04:57] LABS: Platelet Count 86 k/uL (150-450)
[2022-12-08 05:00] LABS: Ionized Calcium 4.7 mg/dL (4.5-5.3)
[2022-12-08 05:05] LABS: ALT 18 U/L (4-49); AST 58 U/L (17-59); African American GFR (CKD) >90 (>60 ml/min/1.73 sqM); Albumin 2.9 g/dL (3.5-5.0); Alkaline Phosphatase 36 U/L (38-126); Anion Gap 3 mmol/L; Blood Urea Nitrogen 15 mg/dL (9-20); Calcium 7.7 mg/dL (8.4-10.2); Carbon Dioxide 28 mmol/L (22-30); Chloride 106 mmol/L (98-107); Glucose 120 mg/dL (74-99); Non-African American GFR(CKD) >90 (>60 ml/min/1.73 sqM); Potassium 4.8 mmol/L (3.5-5.1); Sodium 137 mmol/L (137-145); Total Protein 4.7 g/dL (6.3-8.2)
[2022-12-08] MEDS ORDERED: ALBUTEROL NEBULIZED 2.5 MG/3 ML INHALATION PRN (06:30)
[2022-12-08] MEDS ORDERED: IPRATROPIUM 0.5 MG/2.5 ML NEBU INHALATION PRN (06:30)
[2022-12-08 06:34] LABS: Glucose,Whole Blood 162 mg/dL (70-110)
[2022-12-08 06:42] LABS: Glucose,Whole Blood 129 mg/dL (70-110)
[2022-12-08] MEDS: PANTOPRAZOLE 40 MG TABLET PO SCH ×2 (06:43→17:15)
[2022-12-08] MEDS: INSULIN ASPART (NovoLOG) 100 UNIT/ML VIAL SQ SCH ×4 (06:43→21:07)
[2022-12-08] MEDS: carvediloL 3.125 MG TAB PO SCH ×2 (06:43→17:15)
--- NOTE | 2022-12-08 07:21 | P.PN ---
Subjective Progress Note Date: 12/08/22 Principal diagnosis: Mitral valve regurgitation, coronary artery disease. Previous medical history of hypertension, hyperlipidemia, persistent atrial fibrillation on Xarelto for a nticoagulation outpatient, TIA, previous tobacco dependence, COPD, obstructive sleep apnea without CPAP use, remote history of pneumonia, GERD, urinary retention with straight cathetered home, depression, preoperative thrombocytopenia, preoperative nasal swab positive for MSSA POD #2 coronary artery bypass graft 1 with reverse saphenous vein graft to the diagonal coronary artery, mitral valve repair with a 28 mm physio-2 ring, endovascular vein harvest of the left lower extremity from the knee to the ankle, left atrial appendage oversewn and closed, epi-aortic ultrasound Postoperative acute blood loss anemia and thrombocytopenia, expected given hemodilution and cardiopulmonary bypass pump as well as preoperative thrombocytopenia The patient was seen and examined this morning sitting up in a recliner in the ICU in no acute distress. Does complain of postoperative incisional pain, mos tly controlled with current medication regimen, denies shortness of breath. Currently in controlled atrial fibrillation, hemodynamically stable on no inotropes or pressors. Ambulated in the hallway yesterday. Remains on room air with oxygen saturation in the mid 90s. Right internal jugular Cordis, right radial arterial line, mediastinal/left/right pleural chest tubes all remain. Labs and chest x-ray reviewed. No other new concerns. Objective - Vital Signs Vital signs: Vital Signs Temp 98.5 F 12/08/22 04:00 Pulse 80 12/08/22 07:00 Resp 20 12/08/22 07:00 BP 113/78 12/08/22 01:00 Pulse Ox 96 12/08/22 07:00 FiO2 50 12/06/22 17:00 Intake & Output 12/07/22 12/08/22 12/08/22 18:59 06:59 18:59 Intake Total 1499.964 972 566 Output Total 635 982 30 Balance 864.964 -10 536 Weight 81.6 kg 81.8 kg Intake: IV 541 312 26 Cardiac Output (0.9 20 Sodium Chloride) Lactated Ringers 1,000 ml 440 240 20 @ 20 mls/hr IV .Q24H ON LICENSE OF [facility] Rx#:[id number] Pressure Bag (0.9 Sodium 81 72 6 Chloride) Intake, IV Titration 258.964 Amount Amiodarone 450 mg In 250 Dextrose 5% in Water 250 ml @ 0.5 MG/MIN 16.667 mls/hr IV .Q15H ON LICENSE OF [facility] Rx#: [id number] Insulin Regular 100 unit 8.964 In Sodium Chloride 0.9% 100 ml @ Per Protocol IV .Q0M [facility] Rx#:[id number] Oral 700 660 540 Output: Chest Tube Drainage 270 510 Chest Tube Bilateral 200 470 Anterior Chest Chest Tube Lower 70 40 Mediastinal Urine 365 472 30 Other: Voiding Method Indwelling Catheter Indwelling Catheter ABP, PAP, CO, CI - Last Documented Arterial Blood Pressure 115/74 Pulmonary Artery Pressure 23/10 Cardiac Output 4.2 Cardiac Index 2.2 - Exam CONSTITUTIONAL: Appears comfortable, cooperative, no acute distress RESPIRATORY: Lungs sounds diminished bilaterally. Respirations even, nonlabored. Currently on room air with oxygen saturation 96%. Able to achieve 1250 mL on incentive spirometry. Strong cough. CARDIOVASCULAR: S1, S2 present. Irregular rate and rhythm, controlled atrial fibrillation on telemetry. Sternum stable. Palpable peripheral pulses bilaterally. No edema present. No calf pain or tenderness noted. Heart hugger in place with patient demonstrating appropriate use. Antiembolism stockings, SCDs present. GASTROINTESTINAL: Abdomen soft, nontender, nondistended. Active bowel sounds present 4 quadrants. Tolerating diet. Positive flatus GENITOURINARY: David present draining clear, yellow urine. Output overnight 30-60 mL per hour, 840 mL in the last 24 hours INTEGUMENTARY: Skin is warm and dry with evidence of good perfusion. Anterior chest incision well approximated and covered with dry intact dressing. Left lower extremity EVH site well approximated without redness or drainage. NEUROLOGIC: Cranial nerves II through XII intact MUSKULOSKELETAL: Able to move all extremities, strength equal bilaterally PSYCHIATRIC: Alert and oriented to person place and time, appropriate affect, intact judgment and insight INVASIVE LINES AND TUBES: Mediastinal/left/right pleural chest tubes present and connected to wall suction, no air leaks present. Mediastinal tube with 30 mL serosanguineous drainage overnight, 200 mL in the last 24 hours. Left/right pleural chest tubes with 370 mL serosanguineous drainage overnight, 800 mL in the last 24 hours. A/V epicardial pacemaker wires present, connected to generator, backup rate 60 bpm. Right internal jugular Cordis, right radial arterial line present. - Allied health notes Allied health notes reviewed: nursing - Labs CBC & Chem 7: 12/08/22 04:45 12/08/22 04:45 Labs: Abnormal Lab Results - Last 24 Hours (Table) 12/07/22 12/07/22 12/07/22 Range/Units 08:01 08:58 10:17 RBC (4.30-5.90) m/uL Hgb (13.0-17.5) gm/dL Hct (39.0-53.0) % Plt Count (150-450) k/uL Lymphocytes # (1.0-4.8) k/uL Creatinine (0.66-1.25) mg/dL Glucose (74-99) mg/dL POC Glucose (mg/dL) 135 H 137 H 129 H (70-110) mg/dL Calcium (8.4-10.2) mg/dL Alkaline Phosphatase (38-126) U/L Total Protein (6.3-8.2) g/dL Albumin (3.5-5.0) g/dL 12/07/22 12/07/22 12/07/22 Range/Units 11:20 12:12 14:07 RBC (4.30-5.90) m/uL Hgb (13.0-17.5) gm/dL Hct (39.0-53.0) % Plt Count (150-450) k/uL Lymphocytes # (1.0-4.8) k/uL Creatinine (0.66-1.25) mg/dL Glucose (74-99) mg/dL POC Glucose (mg/dL) 134 H 138 H 122 H (70-110) mg/dL Calcium (8.4-10.2) mg/dL Alkaline Phosphatase (38-126) U/L Total Protein (6.3-8.2) g/dL Albumin (3.5-5.0) g/dL 12/07/22 12/07/22 12/07/22 Range/Units 15:27 16:40 19:54 RBC (4.30-5.90) m/uL Hgb (13.0-17.5) gm/dL Hct (39.0-53.0) % Plt Count (150-450) k/uL Lymphocytes # (1.0-4.8) k/uL Creatinine (0.66-1.25) mg/dL Glucose (74-99) mg/dL POC Glucose (mg/dL) 121 H 131 H 114 H (70-110) mg/dL Calcium (8.4-10.2) mg/dL Alkaline Phosphatase (38-126) U/L Total Protein (6.3-8.2) g/dL Albumin (3.5-5.0) g/dL 12/08/22 12/08/22 12/08/22 Range/Units 04:45 04:45 06:32 RBC 3.13 L (4.30-5.90) m/uL Hgb 10.3 L (13.0-17.5) gm/dL Hct 30.5 L (39.0-53.0) % Plt Count 86 L (150-450) k/uL Lymphocytes # 0.7 L (1.0-4.8) k/uL Creatinine 0.62 L (0.66-1.25) mg/dL Glucose 120 H (74-99) mg/dL POC Glucose (mg/dL) 162 H (70-110) mg/dL Calcium 7.7 L (8.4-10.2) mg/dL Alkaline Phosphatase 36 L (38-126) U/L Total Protein 4.7 L (6.3-8.2) g/dL Albumin 2.9 L (3.5-5.0) g/dL 12/08/22 Range/Units 06:41 RBC (4.30-5.90) m/uL Hgb (13.0-17.5) gm/dL Hct (39.0-53.0) % Plt Count (150-450) k/uL Lymphocytes # (1.0-4.8) k/uL Creatinine (0.66-1.25) mg/dL Glucose (74-99) mg/dL POC Glucose (mg/dL) 129 H (70-110) mg/dL Calcium (8.4-10.2) mg/dL Alkaline Phosphatase (38-126) U/L Total Protein (6.3-8.2) g/dL Albumin (3.5-5.0) g/dL - Imaging and Cardiology Chest x-ray: image reviewed Assessment and Plan Assessment: Mitral valve regurgitation, status post mitral valve repair Coronary artery disease, status post 1 vessel CABG History of hypertension, currently borderline Hyperlipidemia, treated, cholesterol 106, LDL 30 Persistent atrial fibrillation on Xarelto for anticoagulation outpatient, left atrial appendage oversewn and closed TIA Previous tobacco dependence COPD, preoperative FEV1 82% of predicted Obstructive sleep apnea without CPAP use Remote history of pneumonia GERD Urinary retention with straight cath at home Depression Preoperative thrombocytopenia Preoperative nasal swab positive for MSSA, treated Postoperative acute blood loss anemia and thrombocytopenia, expected Plan: Continue to maximize medical therapy with aspirin, statin, Plavix, beta donovan. Will increase beta donovan as tolerated Continue amiodarone for A. fib prophylaxis. No anticoagulation at this time Encourage incentive spirometry is 10 times every hour while awake, bron chodilators per pulmonology Increase activity, ambulate as tolerated. PT/OT/cardiac rehab following Will monitor daily labs and x-rays. Electrolyte replacement per protocol. Will give 20 mg IVP lasix today GI/DVT prophylaxis Pain controlled with current medication regimen Insulin management per internal medicine. Patient is not diabetic, preoperative hemoglobin A1c 5.2%. Patient needs tight blood sugar control to prevent infection and promote healing Discontinue cordis, arterial line Will discontinue epicardial pacemaker wires, patient to remain on bedrest for 1 hour post-wire removal Will discontinue mediastinal chest tube, split and keep left/right pleural chest tubes for another 24 hours Discontinue David catheter, beta donovan scan and straight catheter greater than 300 mL residual, patient does straight cath at home Will consult urology due to history of retention and straight cath at home, patient states he has never been on retention meds nor has he seen a urologist Strict accurate intake and output Daily weights Will place transfer orders for [address] [place] [address] cardiac stepdown unit. May transfer when bed available More recommendations to follow based on patient's progress
[2022-12-08] MEDS ORDERED: FUROSEMIDE 10 MG/ML 2 ML VIAL IV ONE (07:34)
--- NOTE | 2022-12-08 07:44 | XR ---
EXAMINATION TYPE: XR chest 1V portable DATE OF EXAM: 12/08/2022 5:43 AM COMPARISON: Chest radiographs from 12/07/2022 TECHNIQUE: XR chest 1V portable Portable AP radiograph of the chest. CLINICAL INDICATION:Male, 72 years old with history of Post Operative Cardiac Surgery; FINDINGS: Lungs/Pleura: No consolidation. Small left pleural effusion. No sizable pneumothorax. Pulmonary vascularity: Unremarkable. Heart/mediastinum: Cardiomediastinal silhouette is enlarged and stable. Atherosclerotic calcificatio ns are seen in the aorta. Musculoskeletal: No acute osseous pathology. Midline sternotomy wires are noted and stable. Redemonst ration of valvular prosthesis. Other findings: None Lines/Tubes: Interval removal of [place]anna catheter. Stable position of bilateral chest tubes and mediastinal drai n. Suggestive right IJ central venous catheter with distal tip in the brachiocephalic superior vena c blaine confluence. IMPRESSION: 1. Stable bilateral chest tubes and mediastinal drain without evidence for sizable pneumothorax. 2. Persistent cardiomegaly with small left pleural effusion status post cardiac surgery.
[2022-12-08] MEDS: IPRATROPIUM 0.5 MG/2.5 ML NEBU INHALATION SCH ×4 (07:59→21:15)
[2022-12-08] MEDS: SYMBICORT 160-4.5 MCG INHALER INHALATION SCH ×2 (07:59→21:15)
[2022-12-08] MEDS: ALBUTEROL NEBULIZED 2.5 MG/3 ML INHALATION SCH ×4 (07:59→21:15)
[2022-12-08] MEDS: CHOLECALCIFEROL 25 MCG (1000 IU) TABLET PO SCH (08:17)
[2022-12-08] MEDS: FERROUS SULFATE 325 MG TAB PO SCH (08:17)
[2022-12-08] MEDS: CLOPIDOGREL 75 MG TAB PO SCH (08:17)
[2022-12-08] MEDS: buPROPion SR 100 MG TABLET.ER PO SCH ×2 (08:17→21:40)
[2022-12-08] MEDS: TAMSULOSIN 0.4 MG CAP.ER.24H PO SCH (08:18)
[2022-12-08] MEDS: ASPIRIN 81 MG PO SCH (08:18)
[2022-12-08] MEDS: MUPIROCIN 2% OINT 22 GM TUBE NASAL SCH ×2 (08:18→21:40)
[2022-12-08] MEDS: HEPARIN SODIUM,PORCINE/PF 5,000 UNIT/0.5 ML SYRINGE SQ SCH ×3 (08:18→23:30)
[2022-12-08] MEDS: AMIODARONE 200 MG TAB PO SCH ×2 (08:18→21:12)
[2022-12-08] MEDS: ASCORBIC ACID 500 MG TAB PO SCH (08:18)
[2022-12-08] MEDS: ATORVASTATIN 20 MG TAB PO SCH (08:18)
[2022-12-08 11:39] LABS: Glucose,Whole Blood 150 mg/dL (70-110)
[2022-12-08] MEDS: LACTATED RINGERS 1,000 ML IV SCH (11:57)
--- NOTE | 2022-12-08 12:04 | P.PN ---
Subjective Progress Note Date: 12/08/22 Principal diagnosis: POD #2 coronary artery bypass graft 1 with reverse saphenous vein graft to the diagonal coronary artery, mitral valve repair with a 28 mm physio-2 ring, endov ascular vein harvest of the left lower extremity from the knee to the ankle, left atrial appendage oversewn and closed, epi-aortic ultrasound Patient was reevaluated today on 12/08/2022, patient remains in the ICU, doing quite well. He is not in any distress, patient is on room air, no cough no wh eezing no shortness of breath is hemodynamically stable not requiring any to any inotropes or any pressors. Has been ambulating in the hallway, his O2 sat she's remained in the mid 90s. Continues to have right internal jugular Cordis and right radial arterial line as well as mediastinal left right and the pleural chest tubes. Chest x-ray showed no evidence of any acute process, mostly postoperative changes and minimal boat postoperative atelectasis. Which is expected. WBC count is 7.4 hemoglobin is 10.3 Renal profile is normal Objective - Vital Signs Vital signs: Vital Signs Temp 97.8 F 12/08/22 08:00 Pulse 79 12/08/22 11:00 Resp 24 12/08/22 11:00 BP 113/78 12/08/22 01:00 Pulse Ox 94 L 12/08/22 11:00 FiO2 50 12/06/22 17:00 Intake & Output 12/07/22 12/08/22 12/08/22 18:59 06:59 18:59 Intake Total 1499.964 972 944 Output Total 635 982 605 Balance 864.964 -10 339 Weight 81.6 kg 81.8 kg Intake: IV 541 312 104 Cardiac Output (0.9 20 Sodium Chloride) Lactated Ringers 1,000 ml 440 240 80 @ 20 mls/hr IV .Q24H [facility] Rx#:[id number] Pressure Bag (0.9 Sodium 81 72 24 Chloride) Intake, IV Titration 258.964 Amount Amiodarone 450 mg In 250 Dextrose 5% in Water 250 ml @ 0.5 MG/MIN 16.667 mls/hr IV .Q15H [facility] Rx#: [id number] Insulin Regular 100 unit 8.964 In Sodium Chloride 0.9% 100 ml @ Per Protocol IV .Q0M [facility] Rx#:[id number] Oral 700 660 840 Output: Chest Tube Drainage 270 510 Chest Tube Bilateral 200 470 Anterior Chest Chest Tube Lower 70 40 Mediastinal Urine 365 202 605 Other: Voiding Method Indwelling Catheter Indwelling Catheter Indwelling Catheter ABP, PAP, CO, CI - Last Documented Arterial Blood Pressure 111/68 Pulmonary Artery Pressure 23/10 Cardiac Output 4.2 Cardiac Index 2.2 - Exam Physical Exam: Revealed 72-year-old white male in no distress, pleasant, on room air. Head: Atraumatic, normocephalic. HEENT:[Neck is supple.] [No neck masses.] [No thyromegaly.] [No JVD.] Chest: [Clear throughout, no crackles, no rhonchi, no wheezes.] Chest tubes noted to be intact. Cardiac Exam: [Normal S1 and S2, no S3 gallop, no murmur.] Abdomen: [Soft, nontender, no megaly, no rebound, no guarding, normal bowel sounds.] Extremities: [No clubbing, no edema, no cyanosis.] Neurological Exam: [No focal neurologic deficit. Alert and oriented 3. Psychiatric: Normal mood affect and normal mental status examination. Skin: No rashes] - Labs CBC & Chem 7: 12/08/22 04:45 12/08/22 04:45 Labs: Abnormal Lab Results - Last 24 Hours (Table) 12/07/22 12/07/22 12/07/22 Range/Units 12:12 14:07 15:27 RBC (4.30-5.90) m/uL Hgb (13.0-17.5) gm/dL Hct (39.0-53.0) % Plt Count (150-450) k/uL Lymphocytes # (1.0-4.8) k/uL Creatinine (0.66-1.25) mg/dL Glucose (74-99) mg/dL POC Glucose (mg/dL) 138 H 122 H 121 H (70-110) mg/dL Calcium (8.4-10.2) mg/dL Alkaline Phosphatase (38-126) U/L Total Protein (6.3-8.2) g/dL Albumin (3.5-5.0) g/dL 12/07/22 12/07/22 12/08/22 Range/Units 16:40 19:54 04:45 RBC 3.13 L (4.30-5.90) m/uL Hgb 10.3 L (13.0-17.5) gm/dL Hct 30.5 L (39.0-53.0) % Plt Count 86 L (150-450) k/uL Lymphocytes # 0.7 L (1.0-4.8) k/uL Creatinine (0.66-1.25) mg/dL Glucose (74-99) mg/dL POC Glucose (mg/dL) 131 H 114 H (70-110) mg/dL Calcium (8.4-10.2) mg/dL Alkaline Phosphatase (38-126) U/L Total Protein (6.3-8.2) g/dL Albumin (3.5-5.0) g/dL 12/08/22 12/08/22 12/08/22 Range/Units 04:45 06:32 06:41 RBC (4.30-5.90) m/uL Hgb (13.0-17.5) gm/dL Hct (39.0-53.0) % Plt Count (150-450) k/uL Lymphocytes # (1.0-4.8) k/uL Creatinine 0.62 L (0.66-1.25) mg/dL Glucose 120 H (74-99) mg/dL POC Glucose (mg/dL) 162 H 129 H (70-110) mg/dL Calcium 7.7 L (8.4-10.2) mg/dL Alkaline Phosphatase 36 L (38-126) U/L Total Protein 4.7 L (6.3-8.2) g/dL Albumin 2.9 L (3.5-5.0) g/dL 12/08/22 Range/Units 11:37 RBC (4.30-5.90) m/uL Hgb (13.0-17.5) gm/dL Hct (39.0-53.0) % Plt Count (150-450) k/uL Lymphocytes # (1.0-4.8) k/uL Creatinine (0.66-1.25) mg/dL Glucose (74-99) mg/dL POC Glucose (mg/dL) 150 H (70-110) mg/dL Calcium (8.4-10.2) mg/dL Alkaline Phosphatase (38-126) U/L Total Protein (6.3-8.2) g/dL Albumin (3.5-5.0) g/dL Assessment and Plan Assessment: The patient is postop day #2 for an elective CABG 1 with a saphenous vein graft to the diagonal coronary artery, mitral valve repair with a 28 mm physio-2 ring, left atrial appendage ligation, and endovascular vein harvest. Coronary artery disease History of mitral valve regurgitation History of atrial fibrillation currently receiving prophylactic amiodarone at 0.5 mg/m Hyperlipidemia Hypertension COPD which is stable Obstructive sleep apnea without CPAP or BiPAP Urinary retention requiring straight catheterizations Osteoarthritis Ex-smoker Postoperative atelectasis, expected. Recommendation: Continue medical therapy including statins, Plavix, aspirin, and beta blockers. Continue incentive spirometry Continue bronchodilators Continue to ambulate Continue DVT prophylaxis and GI prophylaxis We'll continue to follow Time with Patient: Less than 30
--- NOTE | 2022-12-08 13:19 | P.GSCN ---
History of Present Illness Consult date: 12/08/22 Reason for Consult: Urinary retention History of present illness: This is a 72-year-old male with history of urinary retention, he is status post CABG and mitral valve repair on 12/06. He does have history of chronic retention, being managed with CIC 3-4 times a day. Indicated able to void small amount of urine, but majority of output is through catheterization. He does follow up with urologist at the [place]. Denies any history of recurrent UTIs or kidney stones. Unsure if he ever underwent evaluation for his bladder. Review of Systems - Constitutional Denies fever, Denies weight loss - Cardiovascular Denies chest pain, Denies shortness of breath - Respiratory Reports as per HPI - Gastrointestinal Reports as per HPI - Genitourinary Reports urinary retention Past Medical History Past Medical History: Atrial Fibrillation, Coronary Artery Disease (CAD), Heart Failure, COPD, GERD/Reflux, Hyperlipidemia, Hypertension, Musculoskeletal Diso rder, Osteoarthritis (OA), Pneumonia, Sleep Apnea/CPAP/BIPAP Additional Past Medical History / Comment(s): mitral valve regurgitation,urinary retention-per patient he straight caths at home 3-4 times daily, osteoporosis,no cpap,pt had one episode w/in last several months at [email or web address] when he could hear his friend talking to him but was not able to respond,hx pneumonia years ago History of Any Multi-Drug Resistant Organisms: None Reported Past Surgical History: Heart Catheterization, Hernia Repair, Joint Replacement, Orthopedic Surgery Additional Past Surgical History / Comment(s): repair of ESOPHAGUS tear, umbilical surg. x3,ORIF RIGHT HIP,RIGHT ARM PLATE AND SCREW, LEFT FOOT,left hip replaced, gordy shoulder surg,foot procedure,VLAD Past Anesthesia/Blood Transfusion Reactions: No Reported Reaction Additional Past Anesthesia/Blood Transfusion Reaction / Comm: no known hx blood transfusion Smoking Status: Former smoker - Past Family History Mother Family Medical History: No Reported History Medications and Allergies Home Medications Medication Instructions Recorded Confirmed Type Rivaroxaban [Xarelto] 20 mg PO DAILY 06/11/15 11/28/22 History Furosemide [Lasix] 40 mg PO DAILY 06/14/15 11/28/22 History lisinopriL [Zestril] 10 mg PO DAILY 06/14/15 11/28/22 History buPROPion HCL [Wellbutrin SR] 200 mg PO BID 12/04/18 11/28/22 History carvediloL [Coreg] 6.25 mg PO BID 12/04/18 11/28/22 History Fluticasone/Umeclidin/Vilanter 1 puff INHALATION RT-DAILY 02/18/20 11/28/22 History [Alba Ellipta 100-62.5-25] Ascorbic Acid [Vitamin C] 500 mg PO DAILY 06/26/22 11/28/22 History Cholecalciferol [Vitamin D3 (25 25 mcg PO DAILY 06/26/22 11/28/22 History Mcg = 1000 Iu)] Pantoprazole [Protonix] 40 mg PO TID 06/26/22 11/28/22 History Zinc Gluconate [Zinc] 50 mg PO DAILY 06/26/22 11/28/22 History Atorvastatin [Lipitor] 20 mg PO DAILY 10/09/22 11/28/22 History Calcium Carbonate [Calcium] 600 mg PO DAILY 10/09/22 11/28/22 History Ferrous Sulfate [Feosol] 65 mg PO DAILY 10/09/22 11/28/22 History oxyCODONE-APAP 10-325MG [Percocet 1 tab PO Q6HR PRN 10/09/22 11/28/22 History 10-325 mg] tadalafiL [Cialis] 5 mg PO DAILY 10/09/22 11/28/22 History Mupirocin 2% Oint [Bactroban 2% 1 applic NASAL BID 5 Days #22 gm 11/30/22 12/05/22 Rx Oint] Aspirin 325 mg PO DAILY 12/05/22 12/05/22 History Allergies Allergy/AdvReac Type Severity Reaction Status Date / Time No Known Allergies Allergy Verified 12/06/22 06:19 Surgical - Exam Vital Signs Temp Pulse Resp BP Pulse Ox 98.2 F 50 L 16 122/73 97 12/06/22 06:25 12/06/22 06:25 12/06/22 06:25 12/06/22 06:25 12/06/22 06:25 - General no distress, no pain - Eyes normal ocular movement, no pale - ENT normal nares, normal mucosa - Abdomen Abdomen: soft, non tender - Genitourinary David in place draining clear urine Results - Labs 12/08/22 04:45 12/08/22 04:45 Abnormal Lab Results - Last 24 Hours (Table) 12/07/22 12/07/22 12/07/22 Range/Units 14:07 15:27 16:40 RBC (4.30-5.90) m/uL Hgb (13.0-17.5) gm/dL Hct (39.0-53.0) % Plt Count (150-450) k/uL Lymphocytes # (1.0-4.8) k/uL Creatinine (0.66-1.25) mg/dL Glucose (74-99) mg/dL POC Glucose (mg/dL) 122 H 121 H 131 H (70-110) mg/dL Calcium (8.4-10.2) mg/dL Alkaline Phosphatase (38-126) U/L Total Protein (6.3-8.2) g/dL Albumin (3.5-5.0) g/dL 12/07/22 12/08/22 12/08/22 Range/Units 19:54 04:45 04:45 RBC 3.13 L (4.30-5.90) m/uL Hgb 10.3 L (13.0-17.5) gm/dL Hct 30.5 L (39.0-53.0) % Plt Count 86 L (150-450) k/uL Lymphocytes # 0.7 L (1.0-4.8) k/uL Creatinine 0.62 L (0.66-1.25) mg/dL Glucose 120 H (74-99) mg/dL POC Glucose (mg/dL) 114 H (70-110) mg/dL Calcium 7.7 L (8.4-10.2) mg/dL Alkaline Phosphatase 36 L (38-126) U/L Total Protein 4.7 L (6.3-8.2) g/dL Albumin 2.9 L (3.5-5.0) g/dL 12/08/22 12/08/22 12/08/22 Range/Units 06:32 06:41 11:37 RBC (4.30-5.90) m/uL Hgb (13.0-17.5) gm/dL Hct (39.0-53.0) % Plt Count (150-450) k/uL Lymphocytes # (1.0-4.8) k/uL Creatinine (0.66-1.25) mg/dL Glucose (74-99) mg/dL POC Glucose (mg/dL) 162 H 129 H 150 H (70-110) mg/dL Calcium (8.4-10.2) mg/dL Alkaline Phosphatase (38-126) U/L Total Protein (6.3-8.2) g/dL Albumin (3.5-5.0) g/dL Diabetes panel 12/07/22 12/08/22 Range/Units 04:51 04:45 Sodium 137 (137-145) mmol/L Potassium 4.8 (3.5-5.1) mmol/L Chloride 106 (98-107) mmol/L Carbon Dioxide 28 (22-30) mmol/L BUN 15 (9-20) mg/dL Creatinine 0.62 L (0.66-1.25) mg/dL Glucose 120 H (74-99) mg/dL Hemoglobin A1c 5.2 (0.0-6.0) % Calcium 7.7 L (8.4-10.2) mg/dL AST 58 (17-59) U/L ALT 18 (4-49) U/L Alkaline Phosphatase 36 L (38-126) U/L Total Protein 4.7 L (6.3-8.2) g/dL Albumin 2.9 L (3.5-5.0) g/dL Calcium panel 12/08/22 Range/Units 04:45 Calcium 7.7 L (8.4-10.2) mg/dL Ionized Calcium Raji 4.7 (4.5-5.3) mg/dL Albumin 2.9 L (3.5-5.0) g/dL Pituitary panel 12/08/22 Range/Units 04:45 Sodium 137 (137-145) mmol/L Potassium 4.8 (3.5-5.1) mmol/L Chloride 106 (98-107) mmol/L Carbon Dioxide 28 (22-30) mmol/L BUN 15 (9-20) mg/dL Creatinine 0.62 L (0.66-1.25) mg/dL Glucose 120 H (74-99) mg/dL Calcium 7.7 L (8.4-10.2) mg/dL Adrenal panel 12/08/22 Range/Units 04:45 Sodium 137 (137-145) mmol/L Potassium 4.8 (3.5-5.1) mmol/L Chloride 106 (98-107) mmol/L Carbon Dioxide 28 (22-30) mmol/L BUN 15 (9-20) mg/dL Creatinine 0.62 L (0.66-1.25) mg/dL Glucose 120 H (74-99) mg/dL Calcium 7.7 L (8.4-10.2) mg/dL Total Bilirubin 1.0 (0.2-1.3) mg/dL AST 58 (17-59) U/L ALT 18 (4-49) U/L Alkaline Phosphatase 36 L (38-126) U/L Total Protein 4.7 L (6.3-8.2) g/dL Albumin 2.9 L (3.5-5.0) g/dL Assessment and Plan Assessment: This is a 72-year-old male with history of urinary retention. Has chronic urinary retention be managed with CIC. -David catheter can be removed when no longer needed by the primary, at that point patient can resume CICX3-4 times per day
--- NOTE | 2022-12-08 13:28 | PN ---
PROGRESS NOTE SUBJECTIVE: Status post mitral valve clip placement. The patient is sitting up in the chair. He is doing well. He is off vasopressors, still in the ICU. OBJECTIVE: VITAL SIGNS: Pulse is 60, temperature 97.8, , O2 is 97 on room air, respiratory rate 18 to 20. CARDIOVASCULAR: S1, S2. LUNGS: Clear. GI: Soft. HEMATOLOGY: Negative for Homans. PSYCH: Fair mood and affect. NEUROLOGIC: Alert and oriented x3. LABORATORY DATA: Hemoglobin is 10.3, white count 7.4, creatinine 0.62, BUN 15. Sugars mid 100s. Calcium 7.7, albumin is 2.9. ASSESSMENT: Acute hypoxemic respiratory distress, status post mitral clip repair, COPD, diabetes mellitus. Sugars have been running controlled mid 100s on sliding scale now. Continue cardiac rehab orders. Prognosis guarded. LEO / PAULA: [id number] /
[2022-12-08 16:53] LABS: Glucose,Whole Blood 120 mg/dL (70-110)
[2022-12-08 20:02] LABS: Glucose,Whole Blood 121 mg/dL (70-110)
[2022-12-08] MEDS: SENNOSIDES-DOCUSATE SODIUM 1 EACH TAB PO SCH (21:12)
--- NOTE | 2022-12-08 21:55 | PN ---
PROGRESS NOTE SUBJECTIVE: A 72-year-old gentleman, who is status post CABG with MOON graft to diagonal and mitral valve repair, postoperative day #2, and history of atrial fibrillation. This morning, the patient is doing well. He is on amiodarone 400 b.i.d., aspirin, Lipitor, and Coreg. He is in sinus rhythm. OBJECTIVE: GENERAL: Comfortable at rest. VITAL SIGNS: Stable. CHEST: Reveals diminished air entry at the bases. HEART: Reveals first and second heart sounds. No gallop. EXTREMITIES: Did not reveal any edema. Peripheral pulses are palpable. LABORATORY DATA: Show a hemoglobin of 10.3. Potassium is 4.8, creatinine is 0.6. ASSESSMENT: 1. Severe mitral regurgitation, status post mitral valve repair. 2. Coronary artery disease, status post 1-vessel bypass surgery. PLAN: We will continue current medications. We will resume the anticoagulant when okay with the surgeon. MMODL / IJN: [id number] /
[2022-12-09 06:04] LABS: Glucose,Whole Blood 120 mg/dL (70-110)
[2022-12-09] MEDS: INSULIN ASPART (NovoLOG) 100 UNIT/ML VIAL SQ SCH ×4 (06:28→21:16)
[2022-12-09] MEDS: PANTOPRAZOLE 40 MG TABLET PO SCH ×2 (06:36→17:20)
[2022-12-09] MEDS: carvediloL 3.125 MG TAB PO SCH (06:36)
[2022-12-09] MEDS ORDERED: carvediloL 3.125 MG TAB PO ONE (07:30)
--- NOTE | 2022-12-09 07:39 | XR ---
EXAMINATION TYPE: XR chest 1V portable DATE OF EXAM: 12/09/2022 COMPARISON: 12/08/2022 HISTORY: Post cardiac surgery TECHNIQUE: Single frontal view of the chest is obtained. FINDINGS: There are median sternotomy wires, prosthetic heart valve and bilateral chest tubes all unchanged com pared to previous. The heart is markedly enlarged but the pulmonary vasculature does not appear conge sted. There is no pneumothorax or definite pleural effusion. There are chronic rotator cuff tears bilaterally. Overall no interval change. IMPRESSION: Postsurgical changes as described above with no significant interval change. There is ma rked cardiomegaly without definite acute cardiopulmonary disease.
--- NOTE | 2022-12-09 07:57 | P.PN ---
Subjective Progress Note Date: 12/09/22 Principal diagnosis: Mitral valve regurgitation, coronary artery disease. Previous medical history of hypertension, hyperlipidemia, persistent atrial fibrillation on Xarelto for a nticoagulation outpatient, TIA, previous tobacco dependence, COPD, obstructive sleep apnea without CPAP use, remote history of pneumonia, GERD, urinary retention with straight cathetered home, depression, preoperative thrombocytopenia, preoperative nasal swab positive for MSSA POD #3 coronary artery bypass graft 1 with reverse saphenous vein graft to the diagonal coronary artery, mitral valve repair with a 28 mm physio-2 ring, endovascular vein harvest of the left lower extremity from the knee to the ankle, left atrial appendage oversewn and closed, epi-aortic ultrasound Postoperative acute blood loss anemia and thrombocytopenia, expected given hemodilution and cardiopulmonary bypass pump as well as preoperative thrombocytopenia The patient was seen and examined this morning sitting up in bed on the stepdown unit in no acute distress. Does complain of postoperative incisional pain, mostly controlled with current medication regimen, denies shortness of breath. Currently in controlled atrial fibrillation, hemodynamically stable. Ambulated in the hallway yesterday. Remains on room air with oxygen saturation in the mid 90s. Left/right pleural chest tubes all remain. Patient needs encouragement, would prefer to stay in bed all day and sleep. Discussed post operative care an d need for increased activity. No other new concerns. Objective - Vital Signs Vital signs: Vital Signs Temp 99.0 F 12/09/22 00:00 Pulse 82 12/09/22 04:00 Resp 16 12/09/22 04:00 BP 136/89 12/09/22 04:00 Pulse Ox 91 L 12/09/22 04:00 FiO2 50 12/06/22 17:00 Intake & Output 12/08/22 12/09/22 12/09/22 18:59 06:59 18:59 Intake Total 1062 260 Output Total 841 155 220 Balance 221 105 -220 Weight 79.6 kg Intake: IV 104 Lactated Ringers 1,000 ml 80 @ 20 mls/hr IV .Q24H [facility] Rx#:[id number] Pressure Bag (0.9 Sodium 24 Chloride) Oral 958 260 Output: Chest Tube Drainage 61 105 220 Chest Tube Left 28 30 100 Chest Tube Right 33 75 120 Urine 780 50 Straight 50 Other: Voiding Method Urinal Urinal Self-Catheterization Self-Catheterization ABP, PAP, CO, CI - Last Documented Arterial Blood Pressure 111/68 Pulmonary Artery Pressure 23/10 Cardiac Output 4.2 Cardiac Index 2.2 - Exam CONSTITUTIONAL: Appears comfortable, cooperative, no acute distress RESPIRATORY: Lungs sounds diminished bilaterally. Respirations even, non labored. Currently on room air with oxygen saturation 95%. Able to achieve 1500 mL on incentive spirometry. Strong cough. CARDIOVASCULAR: S1, S2 present. Irregular rate and rhythm, controlled atrial fibrillation on telemetry. Sternum stable. Palpable peripheral pulses bilaterally. No edema present. No calf pain or tenderness noted. Heart hugger in place with patient demonstrating appropriate use. Antiembolism stockings, SCDs present. GASTROINTESTINAL: Abdomen soft, nontender, nondistended. Active bowel sounds present 4 quadrants. Tolerating diet. Positive flatus GENITOURINARY: David discontinued, patient to void and straight cath as previous INTEGUMENTARY: Skin is warm and dry with evidence of good perfusion. Anterior chest incision well approximated and covered with dry intact dressing. Left lower extremity EVH site well approximated without redness or drainage. NEUROLOGIC: Cranial nerves II through XII intact MUSKULOSKELETAL: Able to move all extremities, strength equal bilaterally PSYCHIATRIC: Alert and oriented to person place and time, appropriate affect, intact judgment and insight INVASIVE LINES AND TUBES: Left/right pleural chest tubes present and connected to wall suction, no air leaks present. Left pleural chest tube with 100 mL serosanguineous drainage overnight, 200 mL in the last 24 hours. Right pleural chest tubes with 120 mL serosanguineous drainage overnight, 250 mL in the last 24 hours. - Allied health notes Allied health notes reviewed: nursing - Labs CBC & Chem 7: 12/08/22 04:45 12/08/22 04:45 Labs: Abnormal Lab Results - Last 24 Hours (Table) 12/08/22 12/08/22 12/08/22 Range/Units 11:37 16:51 20:00 POC Glucose (mg/dL) 150 H 120 H 121 H (70-110) mg/dL 12/09/22 Range/Units 06:03 POC Glucose (mg/dL) 120 H (70-110) mg/dL - Imaging and Cardiology Chest x-ray: report reviewed, image reviewed Assessment and Plan Assessment: Mitral valve regurgitation, status post mitral valve repair Coronary artery disease, status post 1 vessel CABG History of hypertension, currently borderline Hyperlipidemia, treated, cholesterol 106, LDL 30 Persistent atrial fibrillation on Xarelto for anticoagulation outpatient, left atrial appendage oversewn and closed TIA Previous tobacco dependence COPD, preoperative FEV1 82% of predicted Obstructive sleep apnea without CPAP use Remote history of pneumonia GERD Urinary retention with straight cath at home Depression Preoperative thrombocytopenia Preoperative nasal swab positive for MSSA, treated Postoperative acute blood loss anemia and thrombocytopenia, expected Plan: Continue to maximize medical therapy with aspirin, statin, Plavix, beta donovan. Will increase beta donovan as tolerated, increased to 6.25 mg BID today. Will start low-dose TAMIA for afterload reduction Continue amiodarone for A. fib prophylaxis. Will restart Xarelto after chest tubes discontinued, will discontinue Plavix at that time Encourage incentive spirometry is 10 times every hour while awake, bronchodilators per pulmonology Increase activity, ambulate as tolerated. PT/OT/cardiac rehab following Will monitor daily labs and x-rays. Electrolyte replacement per protocol. GI/DVT prophylaxis Pain controlled with current medication regimen Insulin management per internal medicine. Patient is not diabetic, preoperative hemoglobin A1c 5.2%. Patient needs tight blood sugar control to prevent infection and promote healing Will discontinue pleural chest tubes Continue flomax, straight cath per urology recommendations Strict accurate intake and output Daily weights Discharge planning in progress, anticipate discharge to home with home care in the next 48 hours More recommendations to follow based on patient's progress
[2022-12-09 08:27] LABS: Basophils % (A) 0 %; Eosinophils # (A) 0.1 k/uL (0-0.7); Eosinophils % (A) 2 %; HCT 31.4 % (39.0-53.0); HGB 10.7 gm/dL (13.0-17.5); Lymphocytes # (A) 0.6 k/uL (1.0-4.8); Lymphocytes % (A) 8 %; MCH 32.8 pg (25.0-35.0); MCHC 33.9 g/dL (31.0-37.0); MCV 96.8 fL (80.0-100.0); Monocytes # (A) 0.4 k/uL (0-1.0); Monocytes % (A) 6 %; Neutrophils # (A) 5.7 k/uL (1.3-7.7); Neutrophils % (A) 82 %; RBC 3.25 m/uL (4.30-5.90); RDW 13.7 % (11.5-15.5)
[2022-12-09 08:46] LABS: ALT 16 U/L (4-49); AST 34 U/L (17-59); African American GFR (CKD) >90 (>60 ml/min/1.73 sqM); Albumin 2.8 g/dL (3.5-5.0); Alkaline Phosphatase 37 U/L (38-126); Anion Gap 4 mmol/L; Blood Urea Nitrogen 16 mg/dL (9-20); Calcium 8.1 mg/dL (8.4-10.2); Carbon Dioxide 29 mmol/L (22-30); Chloride 104 mmol/L (98-107); Glucose 109 mg/dL (74-99); Non-African American GFR(CKD) >90 (>60 ml/min/1.73 sqM); Potassium 4.1 mmol/L (3.5-5.1); Sodium 137 mmol/L (137-145); Total Bilirubin 1.2 mg/dL (0.2-1.3); Total Protein 4.7 g/dL (6.3-8.2)
[2022-12-09] MEDS: ALBUTEROL NEBULIZED 2.5 MG/3 ML INHALATION SCH ×4 (08:47→21:15)
[2022-12-09] MEDS: IPRATROPIUM 0.5 MG/2.5 ML NEBU INHALATION SCH ×4 (08:47→21:15)
[2022-12-09] MEDS: SYMBICORT 160-4.5 MCG INHALER INHALATION SCH ×2 (08:47→21:15)
[2022-12-09 08:52] LABS: Platelet Count 95 k/uL (150-450)
[2022-12-09] MEDS ORDERED: FUROSEMIDE 10 MG/ML 2 ML VIAL IV ONE (08:54)
[2022-12-09] MEDS: CLOPIDOGREL 75 MG TAB PO SCH (09:01)
[2022-12-09] MEDS: HEPARIN SODIUM,PORCINE/PF 5,000 UNIT/0.5 ML SYRINGE SQ SCH (09:01)
[2022-12-09] MEDS: ATORVASTATIN 20 MG TAB PO SCH (09:11)
[2022-12-09] MEDS: FERROUS SULFATE 325 MG TAB PO SCH (09:11)
[2022-12-09] MEDS: AMIODARONE 200 MG TAB PO SCH ×2 (09:11→21:17)
[2022-12-09] MEDS: ASPIRIN 81 MG PO SCH (09:11)
[2022-12-09] MEDS: ASCORBIC ACID 500 MG TAB PO SCH (09:11)
[2022-12-09] MEDS: CHOLECALCIFEROL 25 MCG (1000 IU) TABLET PO SCH (09:11)
[2022-12-09] MEDS: TAMSULOSIN 0.4 MG CAP.ER.24H PO SCH (09:12)
[2022-12-09] MEDS: MUPIROCIN 2% OINT 22 GM TUBE NASAL SCH ×2 (09:12→21:17)
[2022-12-09] MEDS: buPROPion SR 100 MG TABLET.ER PO SCH ×2 (09:12→21:18)
[2022-12-09] MEDS ORDERED: oxyCODONE-APAP 10-325MG 1 EACH TAB PO PRN (09:14)
--- NOTE | 2022-12-09 10:41 | P.PN ---
Subjective Progress Note Date: 12/09/22 HISTORY OF PRESENT ILLNESS: This is 72-year-old male who is a patient of Dr. Lewis. Patient is status post CABG 1 vessel with SVG to diagonal coronary artery and mitral valve repair. Postoperative day #3. Patient examined this morning at the bedside. Patient denies chest pain or pressure. He denies shortness of breath. Patient's chest tubes remain in place. His Xarelto remains on hold. Telemetry reveals atrial fibrillation with controlled ventricular rates. Vital signs stable. Patient requires significant encouragement to use his incentive spirometer. PHYSICAL EXAM: VITAL SIGNS: Reviewed. GENERAL: Well-developed in no acute distress. NECK: Supple. No JVD or thyromegaly LUNGS: Respirations even and unlabored. Lungs essentially clear to auscultation bilaterally, diminished. HEART: Irregular rate and rhythm. S1 and S2 heard. Heart hugger noted. EXTREMITIES: Normal range of motion. No clubbing or cyanosis. Peripheral pulses intact. No lower extremity edema ASSESSMENT: Coronary artery disease, status post 1 vessel CABG with SVG to diagonal coronary artery Mitral valve regurgitation, status post mitral valve repair Hypertension Hyperlipidemia Persistent atrial fibrillation COPD Obstructive sleep apnea History of urinary retention PLAN: Continue postoperative management per cardiothoracic surgery Resume Xarelto after patient's chest tubes have been discontinued Continue additional cardiac medications Increase activity as tolerated Patient requires much encouragement to use his incentive spirometer Further recommendations pending patient's course Nurse practitioner note has been reviewed by physician. Signing provider agrees with the documented findings, assessment, and plan of care. Objective - Vital Signs Vital signs: Vital Signs Temp 99.0 F 12/09/22 00:00 Pulse 82 12/09/22 09:11 Resp 18 12/09/22 08:00 BP 116/71 12/09/22 08:00 Pulse Ox 95 12/09/22 08:47 FiO2 50 12/06/22 17:00 Intake & Output 12/08/22 12/09/22 12/09/22 18:59 06:59 18:59 Intake Total 1062 260 118 Output Total 841 155 220 Balance 221 105 -102 Weight 79.6 kg Intake: IV 104 Lactated Ringers 1,000 ml 80 @ 20 mls/hr IV .Q24H [facility] Rx#:[id number] Pressure Bag (0.9 Sodium 24 Chloride) Oral 958 260 118 Output: Chest Tube Drainage 61 105 220 Chest Tube Left 28 30 100 Chest Tube Right 33 75 120 Urine 780 50 Straight 50 Other: Voiding Method Urinal Urinal Urinal Self-Catheterization Self-Catheterization Self-Catheterization ABP, PAP, CO, CI - Last Documented Arterial Blood Pressure 111/68 Pulmonary Artery Pressure 23/10 Cardiac Output 4.2 Cardiac Index 2.2 - Labs CBC & Chem 7: 12/09/22 07:29 12/09/22 07:29 Labs: Abnormal Lab Results - Last 24 Hours (Table) 12/08/22 12/08/22 12/08/22 Range/Units 11:37 16:51 20:00 RBC (4.30-5.90) m/uL Hgb (13.0-17.5) gm/dL Hct (39.0-53.0) % Plt Count (150-450) k/uL Lymphocytes # (1.0-4.8) k/uL Creatinine (0.66-1.25) mg/dL Glucose (74-99) mg/dL POC Glucose (mg/dL) 150 H 120 H 121 H (70-110) mg/dL Calcium (8.4-10.2) mg/dL Alkaline Phosphatase (38-126) U/L Total Protein (6.3-8.2) g/dL Albumin (3.5-5.0) g/dL 12/09/22 12/09/22 12/09/22 Range/Units 06:03 07:29 07:29 RBC 3.25 L (4.30-5.90) m/uL Hgb 10.7 L (13.0-17.5) gm/dL Hct 31.4 L (39.0-53.0) % Plt Count 95 L (150-450) k/uL Lymphocytes # 0.6 L (1.0-4.8) k/uL Creatinine 0.58 L (0.66-1.25) mg/dL Glucose 109 H (74-99) mg/dL POC Glucose (mg/dL) 120 H (70-110) mg/dL Calcium 8.1 L (8.4-10.2) mg/dL Alkaline Phosphatase 37 L (38-126) U/L Total Protein 4.7 L (6.3-8.2) g/dL Albumin 2.8 L (3.5-5.0) g/dL
[2022-12-09 11:26] LABS: Glucose,Whole Blood 117 mg/dL (70-110)
[2022-12-09] MEDS: RIVAROXABAN 20 MG TAB PO SCH (12:13)
--- NOTE | 2022-12-09 12:42 | P.PN ---
Subjective Progress Note Date: 12/09/22 Principal diagnosis: POD #3 coronary artery bypass graft 1 with reverse saphenous vein graft to the diagonal coronary artery, mitral valve repair with a 28 mm physio-2 ring, endov ascular vein harvest of the left lower extremity from the knee to the ankle, left atrial appendage oversewn and closed, epi-aortic ultrasound Patient was reevaluated today on 12/08/2022, patient remains in the ICU, doing quite well. He is not in any distress, patient is on room air, no cough no wh eezing no shortness of breath is hemodynamically stable not requiring any to any inotropes or any pressors. Has been ambulating in the hallway, his O2 sat she's remained in the mid 90s. Continues to have right internal jugular Cordis and right radial arterial line as well as mediastinal left right and the pleural chest tubes. Chest x-ray showed no evidence of any acute process, mostly postoperative changes and minimal boat postoperative atelectasis. Which is expected. WBC count is 7.4 hemoglobin is 10.3 Renal profile is normal Reevaluated today on 12/09/2022, patient is doing well, he is on room air, not in any distress POD #3 coronary artery bypass graft 1 with reverse saphenous vein graft to the diagonal coronary artery, mitral valve repair with a 28 mm physio-2 ring, endovascular vein harvest of the left lower extremity from the knee to the ankle, left atrial appendage oversewn and closed, epi-aortic ultrasound. Chest x-ray today showed mostly postsurgical changes no significant interval change no acute cardiopulmonary process WBC count is 7 hemoglobin 10.7 and lites are nor mal renal profile is normal Objective - Vital Signs Vital signs: Vital Signs Temp 99.0 F 12/09/22 00:00 Pulse 84 12/09/22 12:37 Resp 18 12/09/22 08:00 BP 116/71 12/09/22 08:00 Pulse Ox 95 12/09/22 08:47 FiO2 50 12/06/22 17:00 Intake & Output 12/08/22 12/09/22 12/09/22 18:59 06:59 18:59 Intake Total 1062 260 118 Output Total 841 155 220 Balance 221 105 -102 Weight 79.6 kg Intake: IV 104 Lactated Ringers 1,000 ml 80 @ 20 mls/hr IV .Q24H [facility] Rx#:[id number] Pressure Bag (0.9 Sodium 24 Chloride) Oral 958 260 118 Output: Chest Tube Drainage 61 105 220 Chest Tube Left 28 30 100 Chest Tube Right 33 75 120 Urine 780 50 Straight 50 Other: Voiding Method Urinal Urinal Urinal Self-Catheterization Self-Catheterization Self-Catheterization ABP, PAP, CO, CI - Last Documented Arterial Blood Pressure 111/68 Pulmonary Artery Pressure 23/10 Cardiac Output 4.2 Cardiac Index 2.2 - Exam Physical Exam: Revealed 72-year-old white male in no distress, pleasant, on room air. Head: Atraumatic, normocephalic. HEENT:[Neck is supple.] [No neck masses.] [No thyromegaly.] [No JVD.] Chest: [Clear throughout, no crackles, no rhonchi, no wheezes.] Chest tubes have been removed Cardiac Exam: [Normal S1 and S2, no S3 gallop, no murmur.] Abdomen: [Soft, nontender, no megaly, no rebound, no guarding, normal bowel sounds.] Extremities: [No clubbing, no edema, no cyanosis.] Neurological Exam: [No focal neurologic deficit. Alert and oriented 3. Psychiatric: Normal mood affect and normal mental status examination. Skin: No rashes] - Labs CBC & Chem 7: 12/09/22 07:29 12/09/22 07:29 Labs: Abnormal Lab Results - Last 24 Hours (Table) 12/08/22 12/08/22 12/09/22 Range/Units 16:51 20:00 06:03 RBC (4.30-5.90) m/uL Hgb (13.0-17.5) gm/dL Hct (39.0-53.0) % Plt Count (150-450) k/uL Lymphocytes # (1.0-4.8) k/uL Creatinine (0.66-1.25) mg/dL Glucose (74-99) mg/dL POC Glucose (mg/dL) 120 H 121 H 120 H (70-110) mg/dL Calcium (8.4-10.2) mg/dL Alkaline Phosphatase (38-126) U/L Total Protein (6.3-8.2) g/dL Albumin (3.5-5.0) g/dL 12/09/22 12/09/22 12/09/22 Range/Units 07:29 07:29 11:22 RBC 3.25 L (4.30-5.90) m/uL Hgb 10.7 L (13.0-17.5) gm/dL Hct 31.4 L (39.0-53.0) % Plt Count 95 L (150-450) k/uL Lymphocytes # 0.6 L (1.0-4.8) k/uL Creatinine 0.58 L (0.66-1.25) mg/dL Glucose 109 H (74-99) mg/dL POC Glucose (mg/dL) 117 H (70-110) mg/dL Calcium 8.1 L (8.4-10.2) mg/dL Alkaline Phosphatase 37 L (38-126) U/L Total Protein 4.7 L (6.3-8.2) g/dL Albumin 2.8 L (3.5-5.0) g/dL Assessment and Plan Assessment: The patient is postop day #3 for an elective CABG 1 with a saphenous vein graft to the diagonal coronary artery, mitral valve repair with a 28 mm physio-2 ring, left atrial appendage ligation, and endovascular vein harvest. Coronary artery disease History of mitral valve regurgitation History of atrial fibrillation currently receiving prophylactic amiodarone at 0.5 mg/m Hyperlipidemia Hypertension COPD which is stable Obstructive sleep apnea without CPAP or BiPAP Urinary retention requiring straight catheterizations Osteoarthritis Ex-smoker Postoperative atelectasis, expected. Recommendation: Continue medical therapy including statins, Plavix, aspirin, and beta blockers. Continue incentive spirometry Continue bronchodilators Continue to ambulate Continue DVT prophylaxis and GI prophylaxis Supple discharge home in the next 24-48 hours We'll continue to follow Time with Patient: Less than 30
[2022-12-09 16:14] LABS: Glucose,Whole Blood 116 mg/dL (70-110)
[2022-12-09] MEDS: carvediloL 6.25 MG TAB PO SCH (17:20)
[2022-12-09] MEDS: PANTOPRAZOLE 40 MG/10 ML VIAL IVP SCH (18:39)
[2022-12-09 20:01] LABS: Glucose,Whole Blood 114 mg/dL (70-110)
[2022-12-09] MEDS: SENNOSIDES-DOCUSATE SODIUM 1 EACH TAB PO SCH (21:18)
[2022-12-10 06:01] LABS: Glucose,Whole Blood 99 mg/dL (70-110)
[2022-12-10 06:08] VITALS: RESP 18
[2022-12-10] MEDS: INSULIN ASPART (NovoLOG) 100 UNIT/ML VIAL SQ SCH ×4 (06:09→21:53)
--- NOTE | 2022-12-10 06:36 | XR ---
EXAMINATION TYPE: XR chest 2V DATE OF EXAM: 12/10/2022 COMPARISON: 12/09/2022 HISTORY: Postcardiac surgery TECHNIQUE: Frontal and lateral views of the chest are obtained. FINDINGS: There is a prosthetic heart valve and median sternotomy wires. There has been interval removal of the bilateral chest tubes and there is no pneumothorax. The pulmonary vasculature appears mildly prominent but unchanged compared to previous. There are smal l bilateral pleural effusions. The osseous structures are intact. IMPRESSION: 1. Interval removal of the chest tubes with no pneumothorax. 2. No significant interval change in the mild prominence of the pulmonary vasculature and small bilat eral pleural effusions.
[2022-12-10] MEDS: carvediloL 6.25 MG TAB PO SCH ×2 (06:52→16:32)
[2022-12-10] MEDS: PANTOPRAZOLE 40 MG TABLET PO SCH ×2 (06:52→16:42)
--- NOTE | 2022-12-10 07:42 | PN ---
PROGRESS NOTE SUBJECTIVE: White male, status post mitral valve repair. He has been transferred out of the ICU to a medical floor. Remains on Lipitor 20 daily for cholesterol, , Cordarone for atrial fibrillation prevention. Symbicort inhaler 160 two puffs b.i.d., 200 b.i.d., Coreg 6.25 b.i.d., iron, insulin sliding scale. He has had recovery after surgery. OBJECTIVE: VITAL SIGNS: Temp 98.2, pulse 80 to 84, respiratory rate 16 to 18, blood pressure 110/72. O2 is 96% on room air. CARDIOVASCULAR: S1, S2. LUNGS: Transmitted upper airway sounds. HEMATOLOGY: Negative for Homans. PSYCH: Fair mood and affect. LABORATORY DATA: Hemoglobin is 10.7, white count 7. Sodium 137, potassium 4.1. . Albumin is 2.8. ASSESSMENT: COPD, diabetes mellitus, status post mitral valve repair. His Xarelto on hold. He is in atrial fibrillation with controlled ventricular response. Incentive spirometer. Status post CABG x1 vessel with SVG to the diagonal coronary artery, mitral valve repair, postop day 3, doing very well medically. Mitral valve regurgitation, status post mitral valve repair; coronary artery disease, status post 1 vessel CABG; hypertension; dyslipidemia; persistent atrial fibrillation; sleep apnea; COPD; urinary retention. Continue current treatments. Resume his Xarelto and Home medications, wean oxygen as tolerated. Prognosis guarded. MMODL / IJN: [id number] /
--- NOTE | 2022-12-10 08:02 | P.PN ---
Subjective Progress Note Date: 12/10/22 Principal diagnosis: Mitral valve regurgitation, coronary artery disease. Previous medical history of hypertension, hyperlipidemia, persistent atrial fibrillation on Xarelto for a nticoagulation outpatient, TIA, previous tobacco dependence, COPD, obstructive sleep apnea without CPAP use, remote history of pneumonia, GERD, urinary retention with straight cathetered home, depression, preoperative thrombocytopenia, preoperative nasal swab positive for MSSA POD #4 coronary artery bypass graft 1 with reverse saphenous vein graft to the diagonal coronary artery, mitral valve repair with a 28 mm physio-2 ring, endovascular vein harvest of the left lower extremity from the knee to the ankle, left atrial appendage oversewn and closed, epi-aortic ultrasound Postoperative acute blood loss anemia and thrombocytopenia, expected given hemodilution and cardiopulmonary bypass pump as well as preoperative thrombocytopenia The patient was seen and examined this morning sitting up in a recliner on the stepdown unit in no acute distress. Denies chest pain or shortness of breath, hasn't taken any pain meds in 24 hours. Currently in controlled atrial fibrillation, hemodynamically stable. Ambulated in the hallway yesterday. Remains on room air with oxygen saturation in the mid 90s. All tubes/lines have been discontinued and patient was restarted on anticoagulation. No other new concerns. Objective - Vital Signs Vital signs: Vital Signs Temp 98.7 F 12/09/22 20:00 Pulse 71 12/10/22 04:00 Resp 18 12/10/22 04:00 BP 129/80 12/10/22 04:00 Pulse Ox 94 L 12/10/22 04:00 FiO2 50 12/06/22 17:00 Intake & Output 12/09/22 12/10/22 12/10/22 18:59 06:59 18:59 Intake Total 358 Output Total 1180 Balance -822 Weight 77.5 kg Intake: Oral 358 Output: Chest Tube Drainage 220 Chest Tube Left 100 Chest Tube Right 120 Urine 960 Other: Voiding Method Urinal Urinal Self-Catheterization Self-Catheterization # Voids 0 ABP, PAP, CO, CI - Last Documented Arterial Blood Pressure 111/68 Pulmonary Artery Pressure 23/10 Cardiac Output 4.2 Cardiac Index 2.2 - Exam CONSTITUTIONAL: Appears comfortable, cooperative, no acute distress RESPIRATORY: Lungs sounds diminished bilaterally. Respirations even, nonlabored. Currently on room air with oxygen saturation 94%. Able to achieve 2115-7120 mL on incentive spirometry. Strong cough. CARDIOVASCULAR: S1, S2 present. Irregular rate and rhythm, controlled atrial fibrillation on telemetry. Sternum stable. Palpable peripheral pulses bilaterally. No edema present. No calf pain or tenderness noted. Heart hugger in place with patient demonstrating appropriate use. Antiembolism stockings, SCDs present. GASTROINTESTINAL: Abdomen soft, nontender, nondistended. Active bowel sounds present 4 quadrants. Tolerating diet. Positive flatus GENITOURINARY: Patient to continues to void and straight cath as previous INTEGUMENTARY: Skin is warm and dry with evidence of good perfusion. Anterior chest incision well approximated and covered with dry intact dressing. Left lower extremity EVH site well approximated without redness or drainage. NEUROLOGIC: Cranial nerves II through XII intact MUSKULOSKELETAL: Able to move all extremities, strength equal bilaterally PSYCHIATRIC: Alert and oriented to person place and time, appropriate affect, intact judgment and insight - Allied health notes Allied health notes reviewed: nursing - Labs CBC & Chem 7: 12/10/22 07:38 12/10/22 07:38 Labs: Abnormal Lab Results - Last 24 Hours (Table) 12/09/22 12/09/22 12/09/22 Range/Units 07:29 07:29 11:22 RBC 3.25 L (4.30-5.90) m/uL Hgb 10.7 L (13.0-17.5) gm/dL Hct 31.4 L (39.0-53.0) % Plt Count 95 L (150-450) k/uL Lymphocytes # 0.6 L (1.0-4.8) k/uL Creatinine 0.58 L (0.66-1.25) mg/dL Glucose 109 H (74-99) mg/dL POC Glucose (mg/dL) 117 H (70-110) mg/dL Calcium 8.1 L (8.4-10.2) mg/dL Alkaline Phosphatase 37 L (38-126) U/L Total Protein 4.7 L (6.3-8.2) g/dL Albumin 2.8 L (3.5-5.0) g/dL 12/09/22 12/09/22 Range/Units 16:13 19:59 RBC (4.30-5.90) m/uL Hgb (13.0-17.5) gm/dL Hct (39.0-53.0) % Plt Count (150-450) k/uL Lymphocytes # (1.0-4.8) k/uL Creatinine (0.66-1.25) mg/dL Glucose (74-99) mg/dL POC Glucose (mg/dL) 116 H 114 H (70-110) mg/dL Calcium (8.4-10.2) mg/dL Alkaline Phosphatase (38-126) U/L Total Protein (6.3-8.2) g/dL Albumin (3.5-5.0) g/dL - Imaging and Cardiology Chest x-ray: report reviewed, image reviewed Assessment and Plan Assessment: Mitral valve regurgitation, status post mitral valve repair Coronary artery disease, status post 1 vessel CABG History of hypertension, currently borderline Hyperlipidemia, treated, cholesterol 106, LDL 30 Persistent atrial fibrillation on Xarelto for anticoagulation outpatient, left atrial appendage oversewn and closed TIA Previous tobacco dependence COPD, preoperative FEV1 82% of predicted Obstructive sleep apnea without CPAP use Remote history of pneumonia GERD Urinary retention with straight cath at home Depression Preoperative thrombocytopenia Preoperative nasal swab positive for MSSA, treated Postoperative acute blood loss anemia and thrombocytopenia, expected Plan: Continue to maximize medical therapy with aspirin, statin, beta donovan, low- dose TAMIA for afterload reduction Continue amiodarone for A. fib prophylaxis. Xarelto restarted yesterday for anticoagulation Encourage incentive spirometry is 10 times every hour while awake, bronchodilators per pulmonology Increase activity, ambulate as tolerated. PT/OT/cardiac rehab following Will monitor daily labs and x-rays. Electrolyte replacement per protocol. GI/DVT prophylaxis Pain control with current medication regimen Insulin management per internal medicine. Patient is not diabetic, preoperative hemoglobin A1c 5.2%. Patient needs tight blood sugar control to prevent infection and promote healing Continue flomax, straight cath per urology recommendations Strict accurate intake and output Daily weights Discharge planning in progress, anticipate discharge to home with home care tomorrow More recommendations to follow based on patient's progress
[2022-12-10] MEDS: ASPIRIN 81 MG PO SCH (08:11)
[2022-12-10] MEDS: TAMSULOSIN 0.4 MG CAP.ER.24H PO SCH (08:11)
[2022-12-10] MEDS: ASCORBIC ACID 500 MG TAB PO SCH (08:11)
[2022-12-10] MEDS: buPROPion SR 100 MG TABLET.ER PO SCH ×2 (08:11→21:52)
[2022-12-10] MEDS: FERROUS SULFATE 325 MG TAB PO SCH (08:11)
[2022-12-10] MEDS: RIVAROXABAN 20 MG TAB PO SCH (08:11)
[2022-12-10] MEDS: AMIODARONE 200 MG TAB PO SCH ×2 (08:11→21:52)
[2022-12-10] MEDS: CHOLECALCIFEROL 25 MCG (1000 IU) TABLET PO SCH (08:11)
[2022-12-10] MEDS: ATORVASTATIN 20 MG TAB PO SCH (08:12)
[2022-12-10 08:56] LABS: HCT 30.5 % (39.0-53.0); HGB 10.5 gm/dL (13.0-17.5); MCH 33.6 pg (25.0-35.0); MCHC 34.6 g/dL (31.0-37.0); Mean Platelet Volume 9.5; Platelet Count 119 k/uL (150-450); RBC 3.14 m/uL (4.30-5.90); RDW 14.1 % (11.5-15.5); WBC 5.7 k/uL (3.8-10.6)
[2022-12-10] MEDS: SYMBICORT 160-4.5 MCG INHALER INHALATION SCH ×2 (09:05→20:57)
[2022-12-10] MEDS: ALBUTEROL NEBULIZED 2.5 MG/3 ML INHALATION SCH ×4 (09:05→20:57)
[2022-12-10] MEDS: IPRATROPIUM 0.5 MG/2.5 ML NEBU INHALATION SCH ×4 (09:05→20:57)
[2022-12-10 09:09] LABS: African American GFR (CKD) >90 (>60 ml/min/1.73 sqM); Anion Gap 5 mmol/L; Blood Urea Nitrogen 19 mg/dL (9-20); Calcium 8.2 mg/dL (8.4-10.2); Carbon Dioxide 30 mmol/L (22-30); Chloride 103 mmol/L (98-107); Glucose 89 mg/dL (74-99); Magnesium 1.9 mg/dL (1.6-2.3); Non-African American GFR(CKD) >90 (>60 ml/min/1.73 sqM); Potassium 3.3 mmol/L (3.5-5.1); Sodium 138 mmol/L (137-145)
--- NOTE | 2022-12-10 11:13 | P.PN ---
Subjective Progress Note Date: 12/10/22 HISTORY OF PRESENT ILLNESS: This is 72-year-old male who is a patient of Dr. Lewis. Patient is status post CABG 1 vessel with SVG to diagonal coronary artery and mitral valve repair. Postoperative day #3. Patient examined this morning at the bedside. Patient denies chest pain or pressure. He denies shortness of breath. Patient's chest tubes remain in place. His Xarelto remains on hold. Telemetry reveals atrial fibrillation with controlled ventricular rates. Vital signs stable. Patient requires significant encouragement to use his incentive spirometer. 12/10/2022 Patient examined this morning. Patient is sitting up in a chair. He denies chest pain or pressure. He denies shortness of breath. Patient required a lot of encouragement to use his incentive spirometer. His vital signs are stable. Telemetry reveals atrial fibrillation with controlled ventricular rates. The patient's chest tubes have been discontinued and his anticoagulation has been resumed. PHYSICAL EXAM: VITAL SIGNS: Reviewed. GENERAL: Well-developed in no acute distress. NECK: Supple. No JVD or thyromegaly LUNGS: Respirations even and unlabored. Lungs essentially clear to auscultation bilaterally, diminished. HEART: Irregular rate and rhythm. S1 and S2 heard. Heart hugger noted. EXTREMITIES: Normal range of motion. No clubbing or cyanosis. Peripheral pulse s intact. No lower extremity edema ASSESSMENT: Coronary artery disease, status post 1 vessel CABG with SVG to diagonal coronary artery Mitral valve regurgitation, status post mitral valve repair Hypertension Hyperlipidemia Persistent atrial fibrillation COPD Obstructive sleep apnea History of urinary retention PLAN: Continue postoperative management per cardiothoracic surgery Patients Xarelto has been resumed Continue additional cardiac medications Increase activity as tolerated Patient requires much encouragement to use his incentive spirometer Further recommendations pending patient's course Nurse practitioner note has been reviewed by physician. Signing provider agrees with the documented findings, assessment, and plan of care. Objective - Vital Signs Vital signs: Vital Signs Temp 98.3 F 12/10/22 08:06 Pulse 68 12/10/22 08:06 Resp 18 12/10/22 08:06 BP 108/71 12/10/22 08:06 Pulse Ox 95 12/10/22 09:06 FiO2 21 12/10/22 09:06 Intake & Output 12/09/22 12/10/22 12/10/22 18:59 06:59 18:59 Intake Total 358 130 Output Total 1180 Balance -822 130 Weight 77.5 kg Intake: IV 10 Invasive Line 4 10 Oral 358 120 Output: Chest Tube Drainage 220 Chest Tube Left 100 Chest Tube Right 120 Urine 960 Other: Voiding Method Urinal Urinal Urinal Self-Catheterization Self-Catheterization Self-Catheterization # Voids 0 ABP, PAP, CO, CI - Last Documented Arterial Blood Pressure 111/68 Pulmonary Artery Pressure 23/10 Cardiac Output 4.2 Cardiac Index 2.2 - Labs CBC & Chem 7: 12/10/22 07:38 12/10/22 07:38 Labs: Abnormal Lab Results - Last 24 Hours (Table) 12/09/22 12/09/22 12/09/22 Range/Units 11:22 16:13 19:59 RBC (4.30-5.90) m/uL Hgb (13.0-17.5) gm/dL Hct (39.0-53.0) % Plt Count (150-450) k/uL Potassium (3.5-5.1) mmol/L POC Glucose (mg/dL) 117 H 116 H 114 H (70-110) mg/dL Calcium (8.4-10.2) mg/dL 12/10/22 12/10/22 Range/Units 07:38 07:38 RBC 3.14 L (4.30-5.90) m/uL Hgb 10.5 L (13.0-17.5) gm/dL Hct 30.5 L (39.0-53.0) % Plt Count 119 L (150-450) k/uL Potassium 3.3 L (3.5-5.1) mmol/L POC Glucose (mg/dL) (70-110) mg/dL Calcium 8.2 L (8.4-10.2) mg/dL
[2022-12-10 11:27] LABS: Glucose,Whole Blood 112 mg/dL (70-110)
[2022-12-10] MEDS: POTASSIUM CHLORIDE ER 20 MEQ TAB.ER PO SCH ×2 (11:31→13:14)
--- NOTE | 2022-12-10 11:37 | P.PN ---
Subjective Progress Note Date: 12/10/22 Principal diagnosis: POD #4 coronary artery bypass graft 1 with reverse saphenous vein graft to the diagonal coronary artery, mitral valve repair with a 28 mm physio-2 ring, endov ascular vein harvest of the left lower extremity from the knee to the ankle, left atrial appendage oversewn and closed, epi-aortic ultrasound Patient was reevaluated today on 12/08/2022, patient remains in the ICU, doing quite well. He is not in any distress, patient is on room air, no cough no wh eezing no shortness of breath is hemodynamically stable not requiring any to any inotropes or any pressors. Has been ambulating in the hallway, his O2 sat she's remained in the mid 90s. Continues to have right internal jugular Cordis and right radial arterial line as well as mediastinal left right and the pleural chest tubes. Chest x-ray showed no evidence of any acute process, mostly postoperative changes and minimal boat postoperative atelectasis. Which is expected. WBC count is 7.4 hemoglobin is 10.3 Renal profile is normal Reevaluated today on 12/09/2022, patient is doing well, he is on room air, not in any distress POD #3 coronary artery bypass graft 1 with reverse saphenous vein graft to the diagonal coronary artery, mitral valve repair with a 28 mm physio-2 ring, endovascular vein harvest of the left lower extremity from the knee to the ankle, left atrial appendage oversewn and closed, epi-aortic ultrasound. Chest x-ray today showed mostly postsurgical changes no significant interval change no acute cardiopulmonary process WBC count is 7 hemoglobin 10.7 and lites are nor mal renal profile is normal Reevaluated today on 12/10/2022, patient is doing well, remains on room air, asymptomatic, doing well with incentive spirometry, patient is already ambulating, he is in atrial fibrillation with controlled ventricular rate, all his chest tubes and catheters have been removed. Patient is being considered for discharge in the next 24 hours. Chest x-ray showed small left-sided pleural effusion. Not large enough to consider thoracentesis. Labs today were basically unremarkable including normal CBC and basic metabolic profile potassium is a bit low at 3.3 Objective - Vital Signs Vital signs: Vital Signs Temp 98.3 F 12/10/22 08:06 Pulse 68 12/10/22 08:06 Resp 18 12/10/22 08:06 BP 108/71 12/10/22 08:06 Pulse Ox 95 12/10/22 09:06 FiO2 21 12/10/22 09:06 Intake & Output 12/09/22 12/10/22 12/10/22 18:59 06:59 18:59 Intake Total 358 130 Output Total 1180 Balance -822 130 Weight 77.5 kg Intake: IV 10 Invasive Line 4 10 Oral 358 120 Output: Chest Tube Drainage 220 Chest Tube Left 100 Chest Tube Right 120 Urine 960 Other: Voiding Method Urinal Urinal Urinal Self-Catheterization Self-Catheterization Self-Catheterization # Voids 0 ABP, PAP, CO, CI - Last Documented Arterial Blood Pressure 111/68 Pulmonary Artery Pressure 23/10 Cardiac Output 4.2 Cardiac Index 2.2 - Exam Physical Exam: Revealed 72-year-old white male in no distress, pleasant, on room air. Head: Atraumatic, normocephalic. HEENT:[Neck is supple.] [No neck masses.] [No thyromegaly.] [No JVD.] Chest: [Clear throughout, no crackles, no rhonchi, no wheezes.] Cardiac Exam: [Normal S1 and S2, no S3 gallop, no murmur.] Abdomen: [Soft, nontender, no megaly, no rebound, no guarding, normal bowel sounds.] Extremities: [No clubbing, no edema, no cyanosis.] Neurological Exam: [No focal neurologic deficit. Alert and oriented 3. Psychiatric: Normal mood affect and normal mental status examination. Skin: No rashes] - Labs CBC & Chem 7: 12/10/22 07:38 12/10/22 07:38 Labs: Abnormal Lab Results - Last 24 Hours (Table) 12/09/22 12/09/22 12/10/22 Range/Units 16:13 19:59 07:38 RBC 3.14 L (4.30-5.90) m/uL Hgb 10.5 L (13.0-17.5) gm/dL Hct 30.5 L (39.0-53.0) % Plt Count 119 L (150-450) k/uL Potassium (3.5-5.1) mmol/L POC Glucose (mg/dL) 116 H 114 H (70-110) mg/dL Calcium (8.4-10.2) mg/dL 12/10/22 12/10/22 Range/Units 07:38 11:22 RBC (4.30-5.90) m/uL Hgb (13.0-17.5) gm/dL Hct (39.0-53.0) % Plt Count (150-450) k/uL Potassium 3.3 L (3.5-5.1) mmol/L POC Glucose (mg/dL) 112 H (70-110) mg/dL Calcium 8.2 L (8.4-10.2) mg/dL Assessment and Plan Assessment: The patient is postop day #4 for an elective CABG 1 with a saphenous vein graft to the diagonal coronary artery, mitral valve repair with a 28 mm physio-2 ring, left atrial appendage ligation, and endovascular vein harvest. Coronary artery disease History of mitral valve regurgitation History of atrial fibrillation rate controlled. Hyperlipidemia Hypertension COPD which is stable Obstructive sleep apnea without CPAP or BiPAP Urinary retention requiring straight catheterizations Osteoarthritis Ex-smoker Postoperative atelectasis, and small left pleural effusion expected. Recommendation: Continue medical therapy including statins, Plavix, aspirin, and beta blockers. Continue incentive spirometry Continue bronchodilators Continue to ambulate Continue DVT prophylaxis and GI prophylaxis Possible discharge in a.m. Time with Patient: Less than 30
[2022-12-10 16:30] LABS: Glucose,Whole Blood 124 mg/dL (70-110)
[2022-12-10 20:01] LABS: Glucose,Whole Blood 97 mg/dL (70-110)
[2022-12-10] MEDS: SENNOSIDES-DOCUSATE SODIUM 1 EACH TAB PO SCH (21:52)
[2022-12-11 05:35] LABS: Glucose,Whole Blood 105 mg/dL (70-110)
[2022-12-11 06:03] LABS: HCT 29.9 % (39.0-53.0); HGB 10.3 gm/dL (13.0-17.5); MCH 32.9 pg (25.0-35.0); MCHC 34.5 g/dL (31.0-37.0); MCV 95.6 fL (80.0-100.0); Mean Platelet Volume 8.9; Platelet Count 120 k/uL (150-450); RBC 3.13 m/uL (4.30-5.90)
[2022-12-11 06:15] LABS: African American GFR (CKD) >90 (>60 ml/min/1.73 sqM); Anion Gap 5 mmol/L; Blood Urea Nitrogen 19 mg/dL (9-20); Carbon Dioxide 29 mmol/L (22-30); Chloride 105 mmol/L (98-107); Glucose 88 mg/dL (74-99); Magnesium 1.8 mg/dL (1.6-2.3); Non-African American GFR(CKD) >90 (>60 ml/min/1.73 sqM); Potassium 3.5 mmol/L (3.5-5.1); Sodium 139 mmol/L (137-145)
[2022-12-11] MEDS: INSULIN ASPART (NovoLOG) 100 UNIT/ML VIAL SQ SCH (06:26)
[2022-12-11] MEDS ORDERED: POTASSIUM CHLORIDE ER 20 MEQ TAB.ER PO STA (06:38)
[2022-12-11] MEDS: carvediloL 6.25 MG TAB PO SCH (06:40)
[2022-12-11] MEDS: PANTOPRAZOLE 40 MG TABLET PO SCH (06:40)
[2022-12-11] MEDS: buPROPion SR 100 MG TABLET.ER PO SCH (08:25)
[2022-12-11] MEDS: RIVAROXABAN 20 MG TAB PO SCH (08:25)
[2022-12-11] MEDS: ASPIRIN 81 MG PO SCH (08:26)
[2022-12-11] MEDS: ATORVASTATIN 20 MG TAB PO SCH (08:26)
[2022-12-11] MEDS: ASCORBIC ACID 500 MG TAB PO SCH (08:26)
[2022-12-11] MEDS: CHOLECALCIFEROL 25 MCG (1000 IU) TABLET PO SCH (08:26)
[2022-12-11] MEDS: TAMSULOSIN 0.4 MG CAP.ER.24H PO SCH (08:26)
[2022-12-11] MEDS: FERROUS SULFATE 325 MG TAB PO SCH (08:26)
[2022-12-11] MEDS: MAGNESIUM SULFATE-D5W PMX 1 GM in DEXTROSE/WATER 1 100ML.BAG IVPB SCH ×2 (08:26→09:40)
[2022-12-11] MEDS: AMIODARONE 200 MG TAB PO SCH (08:26)
--- NOTE | 2022-12-11 08:29 | P.PN ---
Subjective Progress Note Date: 12/11/22 Principal diagnosis: Mitral valve regurgitation, coronary artery disease. Previous medical history of hypertension, hyperlipidemia, persistent atrial fibrillation on Xarelto for a nticoagulation outpatient, TIA, previous tobacco dependence, COPD, obstructive sleep apnea without CPAP use, remote history of pneumonia, GERD, urinary retention with straight cathetered home, depression, preoperative thrombocytopenia, preoperative nasal swab positive for MSSA POD #5 coronary artery bypass graft 1 with reverse saphenous vein graft to the diagonal coronary artery, mitral valve repair with a 28 mm physio-2 ring, endovascular vein harvest of the left lower extremity from the knee to the ankle, left atrial appendage oversewn and closed, epi-aortic ultrasound Postoperative acute blood loss anemia and thrombocytopenia, expected given hemodilution and cardiopulmonary bypass pump as well as preoperative thrombocytopenia The patient was seen and examined this morning sitting up in a recliner on the stepdown unit in no acute distress. Denies chest pain or shortness of breath. Currently in controlled atrial fibrillation, hemodynamically stable. Has ambulated in the hallway, first post op shower yesterday. Remains on room air with oxygen saturation in the mid 90s. Patient wants to go home. No other new concerns. Objective - Vital Signs Vital signs: Vital Signs Temp 98.3 F 12/11/22 04:00 Pulse 64 12/11/22 04:00 Resp 18 12/11/22 04:00 BP 117/73 12/11/22 04:00 Pulse Ox 96 12/11/22 04:00 FiO2 21 12/10/22 09:06 Intake & Output 12/10/22 12/11/22 12/11/22 18:59 06:59 18:59 Intake Total 853 354 Output Total 575 300 Balance 278 -300 354 Weight 77.2 kg Intake: IV 20 Invasive Line 4 20 Oral 833 354 Output: Urine 575 300 Other: Voiding Method Urinal Urinal Self-Catheterization Self-Catheterization # Bowel Movements 1 ABP, PAP, CO, CI - Last Documented Arterial Blood Pressure 111/68 Pulmonary Artery Pressure 23/10 Cardiac Output 4.2 Cardiac Index 2.2 - Exam CONSTITUTIONAL: Appears comfortable, cooperative, no acute distress RESPIRATORY: Lungs sounds diminished bilaterally. Respirations even, nonlabored. Currently on room air with oxygen saturation 96%. Able to achieve 2000 mL on incentive spirometry. Strong cough. CARDIOVASCULAR: S1, S2 present. Irregular rate and rhythm, controlled atrial fibrillation on telemetry. Sternum stable. Palpable peripheral pulses bilaterally. No edema present. No calf pain or tenderness noted. Heart hugger in place with patient demonstrating appropriate use. Antiembolism stockings, SCDs present. GASTROINTESTINAL: Abdomen soft, nontender, nondistended. Active bowel sounds present 4 quadrants. Tolerating diet. Positive bowel movement 12/10/22 GENITOURINARY: Patient to continues to void and straight cath as previous INTEGUMENTARY: Skin is warm and dry with evidence of good perfusion. Anterior chest incision well approximated. Left lower extremity EVH site well approximated without redness or drainage. NEUROLOGIC: Cranial nerves II through XII intact MUSKULOSKELETAL: Able to move all extremities, strength equal bilaterally PSYCHIATRIC: Alert and oriented to person place and time, appropriate affect, intact judgment and insight - Allied health notes Allied health notes reviewed: nursing - Labs CBC & Chem 7: 12/11/22 05:26 12/11/22 05:26 Labs: Abnormal Lab Results - Last 24 Hours (Table) 12/10/22 12/10/22 12/10/22 Range/Units 07:38 07:38 11:22 RBC 3.14 L (4.30-5.90) m/uL Hgb 10.5 L (13.0-17.5) gm/dL Hct 30.5 L (39.0-53.0) % Plt Count 119 L (150-450) k/uL Potassium 3.3 L (3.5-5.1) mmol/L POC Glucose (mg/dL) 112 H (70-110) mg/dL Calcium 8.2 L (8.4-10.2) mg/dL 12/10/22 12/11/22 12/11/22 Range/Units 16:27 05:26 05:26 RBC 3.13 L (4.30-5.90) m/uL Hgb 10.3 L (13.0-17.5) gm/dL Hct 29.9 L (39.0-53.0) % Plt Count 120 L (150-450) k/uL Potassium (3.5-5.1) mmol/L POC Glucose (mg/dL) 124 H (70-110) mg/dL Calcium 8.0 L (8.4-10.2) mg/dL - Imaging and Cardiology Chest x-ray: image reviewed Assessment and Plan Assessment: Mitral valve regurgitation, status post mitral valve repair Coronary artery disease, status post 1 vessel CABG History of hypertension, currently borderline Hyperlipidemia, treated, cholesterol 106, LDL 30 Persistent atrial fibrillation on Xarelto for anticoagulation outpatient, left atrial appendage oversewn and closed TIA Previous tobacco dependence COPD, preoperative FEV1 82% of predicted Obstructive sleep apnea without CPAP use Remote history of pneumonia GERD Urinary retention with straight cath at home Depression Preoperative thrombocytopenia Preoperative nasal swab positive for MSSA, treated Postoperative acute blood loss anemia and thrombocytopenia, expected Plan: Continue to maximize medical therapy with aspirin, statin, beta donovan, low- dose TAMIA for afterload reduction Continue amiodarone, Xarelto Encourage incentive spirometry is 10 times every hour while awake, bronchodilators per pulmonology Increase activity, ambulate as tolerated. PT/OT/cardiac rehab following Will monitor daily labs and x-rays. Electrolyte replacement per protocol. GI/DVT prophylaxis Pain control with current medication regimen Insulin management per internal medicine. Patient is not diabetic, preoperative hemoglobin A1c 5.2%. Patient needs tight blood sugar control to prevent infection and promote healing Continue flomax, straight cath per urology recommendations Strict accurate intake and output Daily weights Discharge planning in progress, anticipate discharge to home with home care today Follow up appointments and discharge instructions placed on discharge plan
[2022-12-11 08:43] VITALS: BP 107/69; PULSE 63; TEMP 98.1
[2022-12-11] MEDS: ALBUTEROL NEBULIZED 2.5 MG/3 ML INHALATION SCH ×2 (09:16→11:14)
[2022-12-11] MEDS: SYMBICORT 160-4.5 MCG INHALER INHALATION SCH (09:17)
[2022-12-11] MEDS: IPRATROPIUM 0.5 MG/2.5 ML NEBU INHALATION SCH ×2 (09:18→11:15)
--- NOTE | 2022-12-11 09:51 | XR ---
EXAMINATION TYPE: XR chest 2V DATE OF EXAM: 12/11/2022 COMPARISON: 12/10/22 HISTORY: post cardiac surgery TECHNIQUE: Frontal and lateral views of the chest are obtained. FINDINGS: Persistent left basilar atelectasis with scattered linear densities. No evidence for pneumothorax. Heart size is stable. Mediastinal structures are stable and grossly unremarkable. No evidence for hilar prominence. Degenerative changes dorsal spine. IMPRESSION: 1. Postoperative changes appear essentially stable.
--- NOTE | 2022-12-11 10:10 | P.DS ---
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 Consult: post cardiac surgery Do you want consulting provider notified?: Yes Consult Physician Routine Consulting Provider: Renato Moore Consult Reason/Comments: med management Do you want consulting provider notified?: Yes Consult Physician Routine Consulting Provider: Ned Lewis Consult Reason/Comments: Demographer Consult: post cardiac surgery Do you want consulting provider notified?: Yes 12/08/22 07:35 Consult Physician Routine Consulting Provider: Fan Griffith Consult Reason/Comments: history of urine retention w/home straight cath Do you want consulting provider notified?: Yes Primary care physician: [facility] Course: FINAL DIAGNOSIS: 1. Mitral valve regurgitation 2. Coronary artery disease 3. Hypertension 4. Hyperlipidemia, treated, cholesterol 106, LDL 30 5. Persistent atrial fibrillation and Xarelto for anticoagulation outpatient 6. TIA 7. Previous tobacco dependence 8. COPD, preoperative FEV1 82% of predicted 9. Obstructive sleep apnea without CPAP use 10. Remote history of pneumonia 11. GERD 12. Urinary retention with straight cath at home 13. Depression 14. Preoperative thrombocytopenia, unknown etiology 15. Preoperative nasal swab positive for MSSA, treated 16. Postoperative acute blood loss anemia and thrombocytopenia, expected PRINCIPAL PROCEDURE: 1. Coronary artery bypass graft 1 with reverse saphenous vein graft to the diagonal coronary artery 2. Mitral valve repair with a 28 mm physio-2 ring 3. Endovascular vein harvest of the left lower extremity from the knee to the ankle 4. Left atrial appendage oversewn and closed 5. Epi-aortic ultrasound HISTORY OF PRESENT ILLNESS: This is a 72-year-[facility] for primary care and Dr. Lewis for cardiology. Over the previous several months the patient had been experiencing increasing fatigue and mild dyspnea on exertion. He has been followed for years for his mitral valve regurgitation by Dr. Lewis. In addition he had several episodes of acute neurological dysfunction with resolution after short periods of time for which he did not seek care in the emergency room. The patient was referred to Dr. Mathew from cardiothoracic surgery. He was recommended to undergo mitral valve repair. The usual perioperative course was discussed in detail with the patient, all risks and benefits were explained, all questions were answered, and consent was obtained to proceed with surgery. He was recommended to undergo neurology evaluation as well as cardiac catheterization and VLAD prior to surgery. Heart catheterization did reveal disease of the ostium of a large diagonal branch of the LAD. After being cleared by neurology he followed up again with Dr. Mathew with recommendations now including coronary bypass, and he was scheduled to undergo single vessel CABG and mitral valve repair. HOSPITAL COURSE: The patient was brought to the hospital on 12/06/22, taken to the preoperative area, prepared in the usual fashion, and subsequently taken to the operating room where Dr. Mathew performed single vessel CABG and mitral valve repair. Upon completion of surgery the patient was transferred to the cardiovascular intensive care unit where he was recovered and monitored hemodynamically. He was extubated, all lines, tubes, and drips were discontinued when appropriate, and he was transferred to 3 S. cardiac stepdown unit for further monitoring and rehabilitation. His oxygen was titrated down, he continued to work with physical and occupational therapy, he was tolerating oral diet, his pain was controlled, and he was ready to be discharged to home with [facility] on postoperative day #5. He received written and verbal instruction regarding his medications, activity restrictions, signs and symptoms requiring physician notification, and follow-up appointments. Patient Condition at Discharge: Stable Plan - Discharge Summary Discharge Rx Participant: No New Discharge Prescriptions: New Aspirin 81 mg PO DAILY #30 tab Tamsulosin [Flomax] 0.4 mg PO PC-BRKFST #30 cap Sennosides-Docusate Sodium [Senokot-S] 2 each PO HS PRN tab PRN Reason: Constipation Acetaminophen Tab [Tylenol] 650 mg PO Q4HR PRN tab PRN Reason: Fever And/ Or Mild Pain (1-3) Amiodarone [Cordarone] 400 mg PO DAILY #20 tab lisinopriL [Zestril] 2.5 mg PO DAILY@1200 #30 tab Continue Rivaroxaban [Xarelto] 20 mg PO DAILY buPROPion HCL [Wellbutrin SR] 200 mg PO BID carvediloL [Coreg] 6.25 mg PO BID Fluticasone/Umeclidin/Vilanter [Trelegy Ellipta 100-62.5-25] 1 puff INHALA TION RT-DAILY Zinc Gluconate [Zinc] 50 mg PO DAILY Ascorbic Acid [Vitamin C] 500 mg PO DAILY oxyCODONE-APAP 10-325MG [Percocet 10-325 mg] 1 tab PO Q6HR PRN PRN Reason: Pain Ferrous Sulfate [Iron (65 MG Elemental)] 65 mg PO DAILY Cholecalciferol [Vitamin D3 (25 Mcg = 1000 Iu)] 25 mcg PO DAILY Atorvastatin [Lipitor] 20 mg PO DAILY Calcium Carbonate [Calcium] 600 mg PO DAILY Changed Pantoprazole [Protonix] 40 mg PO BID #0 Discontinued Furosemide [Lasix] 40 mg PO DAILY lisinopriL [Zestril] 10 mg PO DAILY tadalafiL [Cialis] 5 mg PO DAILY Mupirocin 2% Oint [Bactroban 2% Oint] 1 applic NASAL BID 5 Days #22 gm Aspirin 325 mg PO DAILY Discharge Medication List Rivaroxaban [Xarelto] 20 mg PO DAILY 06/11/15 [History] buPROPion HCL [Wellbutrin SR] 200 mg PO BID 12/04/18 [History] carvediloL [Coreg] 6.25 mg PO BID 12/04/18 [History] Fluticasone/Umeclidin/Vilanter [Trelegy Ellipta 100-62.5-25] 1 puff INHALATION RT-DAILY 02/18/20 [History] Ascorbic Acid [Vitamin C] 500 mg PO DAILY 06/26/22 [History] Cholecalciferol [Vitamin D3 (25 Mcg = 1000 Iu)] 25 mcg PO DAILY 06/26/22 [Hist ory] Zinc Gluconate [Zinc] 50 mg PO DAILY 06/26/22 [History] Atorvastatin [Lipitor] 20 mg PO DAILY 10/09/22 [History] Calcium Carbonate [Calcium] 600 mg PO DAILY 10/09/22 [History] Ferrous Sulfate [Iron (65 MG Elemental)] 65 mg PO DAILY 10/09/22 [History] oxyCODONE-APAP 10-325MG [Percocet 10-325 mg] 1 tab PO Q6HR PRN 10/09/22 [History] Acetaminophen Tab [Tylenol] 650 mg PO Q4HR PRN tab 12/11/22 [Rx] Amiodarone [Cordarone] 400 mg PO DAILY #20 tab 12/11/22 [Rx] Aspirin 81 mg PO DAILY #30 tab 04/10/23 [Rx] Pantoprazole [Protonix] 40 mg PO BID #0 12/11/22 [Rx] Sennosides-Docusate Sodium [Senokot-S] 2 each PO HS PRN tab 12/11/22 [Rx] Tamsulosin [Flomax] 0.4 mg PO PC-BRKFST #30 cap 12/11/22 [Rx] lisinopriL [Zestril] 2.5 mg PO DAILY@1200 #30 tab 12/11/22 [Rx] Follow up Appointment(s)/Referral(s): Fatemeh Aiken MD [STAFF PHYSICIAN] - 01/02/23 9:30 am Ethel Lucas NPC [Nurse Practitioner] - 12/18/22 2:00 pm (You will be seen in the surgeon's office behind the hospital in [facility], [address] (across the streeter from Dr. Moore). Office phone number is ) Rehab Pau ANN,Cardiac [NON-STAFF] - 4 Weeks (You will receive a phone call in approximately 4-6 weeks for evaluation for cardiac rehab) Kaitlynn Arrieta,Home Care [NON-STAFF] - 1-2 Days (To be seen the day after discharge, then 2-3 times per week for 4 weeks) Renato Moore MD [Primary Care Provider] - 12/18/22 2:30 pm Chino Mathew MD [STAFF PHYSICIAN] - 01/04/23 1:00 pm Ned Lewis MD [STAFF PHYSICIAN] - 12/26/22 3:00 pm Ambulatory/Diagnostic Orders: Complete Blood Count w/diff [LAB.AMB] Time Frame: 3 Days, Location: None Selected Comprehensive Metabolic Panel [LAB.AMB] Time Frame: 3 Days, Location: None Selected Activity/Diet/Wound Care/Special Instructions: DISCHARGE INSTRUCTIONS: 1. No driving for 4 weeks, or until physician gives their ok. 2. The patient should sleep in their own bed, no medical bed needed. 3. Stairs are not an issue. If the bedroom is upstairs, it is advised that the patient go up at night and down in the morning for the first week. Go slowly, using handrail and take 1 step at a time. 4. EH hose are to be worn for 30 days post surgery or until physician discontinues. 5. Heart hugger is to be worn 100% of the time until physician discontinues.(except when showering) 6. No lifting, pushing, or pulling more than 10 pounds for 12 weeks. The physician will advise of any restriction changes. 7. The patient is expected to continue the prescribed walking program. 8. Continue pain control per as needed orders. 9. Continue with incentive spirometry and splinting/heart hugger until otherwise directed by the physician. 10. Must shower daily using liquid antibacterial soap 11. Routine sternal incision care. No powders, lotions, ointments on incisions. No dressings are necessary on incisions unless they are draining. Dermabond tape is to remain on sternal incision until surgeon follow-up. 12. Please call surgeon/LINING CLOSER for temp greater than 101 F or purulent drainage from incisions. 13. You should weigh yourself daily, record and bring log with you to follow up appointments. 14. All prescriptions given by surgeon for 30 days. Refills need to be filled through cask maker/primary care physician. 15. A Red armband has been placed on the patient. It should be worn for 30 days post discharge from surgery and will be removed by the cardiac surgeons. If an ER visit is necessary, please make sure the number on the Red armband is called before going to ER. 16. You have been referred to and are expected to begin Cardiac Rehab in approximately 4-6 weeks. HOME HEALTH SERVICES TO PROVIDE: RN SKILLED HOME CARE SERVICES FOR POST-OP SURGICAL PATIENTS WITH THE FOLLOWING: Coronary Artery Bypass Surgery (CABG), Mitral Valve Replacement/Repair ( MVR), Aortic Valve Replacement/Repair (AVR) RN TO CONTINUE EDUCATION FROM ``ROAD TO A HEALTH HEART PATIENT EDUCATION MANUAL (GIVEN TO PATIENT IN THE HOSPITAL) MEDICATION RECONCILIATION WITH EDUCATION NEEDED ON FIRST HOME VISIT EMPHASIZE IMPORTANCE OF WEARING BREAST SUPPORT/HEART HUGGER ENCOURAGE USE OF INCENTIVE SPIROMETER 10 X EVERY HOUR WHILE AWAKE ENCOURAGE UTILIZATION OF LOWER EXTREMITY COMPRESSION STOCKINGS/EH HOSE and ELEVATE LEGS ABOVE LEVEL OF HEART WHILE AT REST. ENCOURAGE AMBULATION 3-5x/day INCREASING TOLERATES, WHILE AVOIDING EXTREMES IN TEMPERATURE FREQUENCY: RN TO OPEN THE PATIENT WITHIN 24 HOURS OF DISCHARGE FROM THE HOSPITAL WITH TELEHEALTH INSTALLED AT [facility], RN TO VISIT 2-3 X A WEEK FOR 4 WEEKS ESTABLISHED BY PATIENT NEEDS. LABORATORY: CBC, CMP TO BE DRAWN ON THE THIRD DAY HOME, (RAN STAT) FAX RESULTS TO [phone]. TELEHEALTH PARAMETERS: WEIGHT: NOTIFY MD OF WEIGHT GAIN OF 2 LBS IN 24 HOURS OR 5 LBS IN ONE WEEK HR: NOTIFY MD OF HR <55 BPM OR HR>100 BPM BP: NOTIFY MD IF BP <90/55 OR BP>140/100 O2 SAT: NOTIFY MD IF PO2<93% ON ROOM AIR SEND TELEHEALTH REPORT TO RETAIL SELLING SPECIALIST AND CARDIOVASCULAR SURGEON THE FIRST WEEK OF CARE AND THEN BI-WEEKLY. PLEASE ADDITIONALLY COMMUNICATE ANY ABNORMALS AND NEW FINDINGS TO THE SURGEONS OFFICE. Discharge Disposition: HOME WITH HOME HEALTH SERVICES
--- NOTE | 2022-12-11 10:51 | P.PN ---
Subjective Progress Note Date: 12/11/22 Principal diagnosis: Coronary disease. Patient was reevaluated today on 12/08/2022, patient remains in the ICU, doing quite well. He is not in any distress, patient is on room air, no cough no wheezing no shortness of breath is hemodynamically stable not requiring any to any inotropes or any pressors. Has been ambulating in the hallway, his O2 sat she's remained in the mid 90s. Continues to have right internal jugular Cordis and right radial arterial line as well as mediastinal left right and the pleural chest tubes. Chest x-ray showed no evidence of any acute process, mostly postoperative changes and minimal boat postoperative atelectasis. Which is expected. WBC count is 7.4 hemoglobin is 10.3 Renal profile is normal Reevaluated today on 12/09/2022, patient is doing well, he is on room air, not in any distress POD #3 coronary artery bypass graft 1 with reverse saphenous vein graft to the diagonal coronary artery, mitral valve repair with a 28 mm physio-2 ring, endovascular vein harvest of the left lower extremity from the knee to the ankle, left atrial appendage oversewn and closed, epi-aortic ultrasound. Chest x-ray today showed mostly postsurgical changes no significant interval change no acute cardiopulmonary process WBC count is 7 hemoglobin 10.7 and lites are normal renal profile is normal Reevaluated today on 12/10/2022, patient is doing well, remains on room air, asymptomatic, doing well with incentive spirometry, patient is already ambulating, he is in atrial fibrillation with controlled ventricular rate, all his chest tubes and catheters have been removed. Patient is being considered for discharge in the next 24 hours. Chest x-ray showed small left-sided pleural effusion. Not large enough to consider thoracentesis. Labs today were basically unremarkable including normal CBC and basic metabolic profile potassium is a bit low at 3.3 Progress note dated 12/11/2022. The patient is seen today in room 356. Is currently on room air. He's not receiving any IV fluids. The plan is for possible discharge home, although we will leave that up to cardiothoracic surgery. He's postop day #5. White count 5, hemoglobin 10.3, hematocrit 29.9, and platelet count 120,000. Sodium 139, potassium 3.5, chlorides 105, CO2 29, BUN 19, and creatinine 0.7. Calcium is 8. Chest x-ray shows stable postoperative changes. Objective - Vital Signs Vital signs: Vital Signs Temp 98.1 F 12/11/22 08:20 Pulse 63 12/11/22 08:20 Resp 18 12/11/22 08:20 BP 107/69 12/11/22 08:20 Pulse Ox 95 12/11/22 08:20 FiO2 21 12/10/22 09:06 Intake & Output 12/10/22 12/11/22 12/11/22 18:59 06:59 18:59 Intake Total 853 574 Output Total 575 300 Balance 278 -300 574 Weight 77.2 kg Intake: IV 20 Invasive Line 4 20 Oral 833 574 Output: Urine 575 300 Other: Voiding Method Urinal Urinal Urinal Self-Catheterization Self-Catheterization Self-Catheterization # Bowel Movements 1 ABP, PAP, CO, CI - Last Documented Arterial Blood Pressure 111/68 Pulmonary Artery Pressure 23/10 Cardiac Output 4.2 Cardiac Index 2.2 - Exam No acute distress, oriented 3. HEENT examination is grossly unremarkable. Neck supple. Full range of motion. No adenopathy thyromegaly or neck vein distention. Cardiovascular examination reveals regular rhythm rate. S1-S2 normal. No S3 or S4. No discernible murmur noted. Heart rate 63 bpm. Lungs reveal clear breath sounds. Breath sounds are equal bilaterally. No adventitious lung sounds including wheezes rhonchi or crackles. Room air saturation is 95%. Abdomen soft bowel sounds are heard. No masses or tenderness. Extremities are intact. No cyanosis clubbing or edema. Skin is without rash or lesion. Neurologic examination is brief but nonfocal. - Labs CBC & Chem 7: 12/11/22 05:26 12/11/22 05:26 Labs: Abnormal Lab Results - Last 24 Hours (Table) 12/10/22 12/10/22 12/11/22 Range/Units 11:22 16:27 05:26 RBC 3.13 L (4.30-5.90) m/uL Hgb 10.3 L (13.0-17.5) gm/dL Hct 29.9 L (39.0-53.0) % Plt Count 120 L (150-450) k/uL POC Glucose (mg/dL) 112 H 124 H (70-110) mg/dL Calcium (8.4-10.2) mg/dL 12/11/22 Range/Units 05:26 RBC (4.30-5.90) m/uL Hgb (13.0-17.5) gm/dL Hct (39.0-53.0) % Plt Count (150-450) k/uL POC Glucose (mg/dL) (70-110) mg/dL Calcium 8.0 L (8.4-10.2) mg/dL Assessment and Plan Assessment: Postop day #5, status post single-vessel bypass grafting, mitral valve repair, and left atrial appendage ligation. CAD. Mitral valve regurgitation. History of rate-controlled atrial fibrillation. Hyperlipidemia. Hypertension. COPD, stable. Obstructive sleep apnea syndrome. Urinary retention. Osteoarthritis. Ex tobacco user. Postoperative atelectasis. Plan: Plan dated 12/11/2022. The patient continues on appropriate medications. He is to take home the incentive spirometer with him, and use it on a regular basis. The patient's on appropriate medications. Labs, x-rays, and medications are all reviewed. The patient will have follow-up in our office in a couple weeks. No additional recommendations are made. The patient's on room air, and not receiving any IV fluids. Possible discharge home, by cardiothoracic surgery today. Time with Patient: Less than 30
[2022-12-11 11:55] LABS: Allen Test Performed? Yes
[2022-12-11 11:56] LABS: ABG Base Excess -0.9 mmol/L; ABG HCO3 24 mmol/L (21-25); ABG PCO2 42 mmHg (35-45); ABG PH 7.38 (7.35-7.45); ABG PO2 240 mmHg (83-108); ABG TCO2 26 mmol/L (19-24)
[2022-12-11 12:08] LABS: ABG Oxygen Saturation 99.8 % (94-97)
[2022-12-11 12:09] LABS: ABG Glucose Whole Blood 83 mg/dL (75-99); ABG Hematocrit 35 % (34.0-46.0); ABG Ionized Calcium 4.1 mg/dL (4.5-5.3); ABG Lactic Acid Whole Blood 0.8 mmol/L (0.5-1.6); ABG Potassium Whole Blood 3.3 mmol/L (3.4-4.5); ABG Sodium Whole Blood 145 mmol/L (135-146)
[2022-12-11 12:21] LABS: Allen Test Performed? Yes
[2022-12-11 12:23] LABS: Allen Test Performed? Yes
[2022-12-11 12:23] LABS: ABG Base Excess 2.3 mmol/L; ABG HCO3 28 mmol/L (21-25); ABG Oxygen Saturation 99.9 % (94-97); ABG PCO2 45 mmHg (35-45); ABG PO2 233 mmHg (83-108); ABG Potassium Whole Blood 3.8 mmol/L (3.4-4.5); ABG Sodium Whole Blood 144 mmol/L (135-146); ABG TCO2 29 mmol/L (19-24)
[2022-12-11 12:24] LABS: ABG Glucose Whole Blood 106 mg/dL (75-99); ABG Hematocrit 38 % (34.0-46.0); ABG Ionized Calcium 4.7 mg/dL (4.5-5.3); ABG Lactic Acid Whole Blood 0.9 mmol/L (0.5-1.6)
[2022-12-11 12:39] LABS: Allen Test Performed? Yes
[2022-12-11 12:40] LABS: ABG Glucose Whole Blood 109 mg/dL (75-99); ABG HCO3 27 mmol/L (21-25); ABG PCO2 44 mmHg (35-45); ABG PO2 >420 mmHg (83-108); ABG Potassium Whole Blood 4.2 mmol/L (3.4-4.5); ABG Sodium Whole Blood 143 mmol/L (135-146); ABG TCO2 28 mmol/L (19-24)
[2022-12-11 12:41] LABS: ABG Hematocrit 30 % (34.0-46.0); ABG Ionized Calcium 4.2 mg/dL (4.5-5.3)
[2022-12-11 12:43] LABS: ABG Base Excess 2.4 mmol/L; ABG Glucose Whole Blood 115 mg/dL (75-99); ABG HCO3 26 mmol/L (21-25); ABG PCO2 35 mmHg (35-45); ABG PH 7.48 (7.35-7.45); ABG PO2 >420 mmHg (83-108); ABG Potassium Whole Blood 4.6 mmol/L (3.4-4.5); ABG Sodium Whole Blood 141 mmol/L (135-146); ABG TCO2 27 mmol/L (19-24); Allen Test Performed? Yes
[2022-12-11 12:44] LABS: ABG Hematocrit 28 % (34.0-46.0); ABG Lactic Acid Whole Blood 1.1 mmol/L (0.5-1.6)
[2022-12-11 12:45] LABS: Allen Test Performed? Yes
[2022-12-11 12:46] LABS: ABG Base Excess 2.6 mmol/L; ABG Glucose Whole Blood 118 mg/dL (75-99); ABG HCO3 26 mmol/L (21-25); ABG Lactic Acid Whole Blood 1.2 mmol/L (0.5-1.6); ABG PCO2 35 mmHg (35-45); ABG PH 7.48 (7.35-7.45); ABG PO2 >420 mmHg (83-108); ABG Potassium Whole Blood 4.5 mmol/L (3.4-4.5); ABG Sodium Whole Blood 141 mmol/L (135-146); ABG TCO2 27 mmol/L (19-24)
[2022-12-11 12:47] LABS: ABG Hematocrit 29 % (34.0-46.0)
[2022-12-11 12:48] LABS: Allen Test Performed? Yes
[2022-12-11 12:49] LABS: ABG Base Excess 0.9 mmol/L; ABG Glucose Whole Blood 125 mg/dL (75-99); ABG HCO3 26 mmol/L (21-25); ABG Hematocrit 29 % (34.0-46.0); ABG Ionized Calcium 4.5 mg/dL (4.5-5.3); ABG Lactic Acid Whole Blood 1.8 mmol/L (0.5-1.6); ABG PCO2 41 mmHg (35-45); ABG PO2 326 mmHg (83-108); ABG Potassium Whole Blood 3.9 mmol/L (3.4-4.5); ABG Sodium Whole Blood 143 mmol/L (135-146); ABG TCO2 27 mmol/L (19-24)
[2022-12-11 12:51] LABS: ABG PCO2 46 mmHg (35-45); ABG PH 7.35 (7.35-7.45); ABG PO2 248 mmHg (83-108); Allen Test Performed? Yes
[2022-12-11 12:52] LABS: ABG Base Excess -0.3 mmol/L; ABG HCO3 26 mmol/L (21-25); ABG Oxygen Saturation 99.8 % (94-97); ABG Potassium Whole Blood 3.9 mmol/L (3.4-4.5); ABG Sodium Whole Blood 143 mmol/L (135-146); ABG TCO2 27 mmol/L (19-24)
[2022-12-11 12:56] LABS: ABG Glucose Whole Blood 108 mg/dL (75-99); ABG Hematocrit 33 % (34.0-46.0); ABG Ionized Calcium 4.3 mg/dL (4.5-5.3); ABG Lactic Acid Whole Blood 1.8 mmol/L (0.5-1.6)
[2022-12-11 13:03] LABS: ABG HCO3 26 mmol/L (21-25); ABG PCO2 35 mmHg (35-45); ABG PH 7.48 (7.35-7.45); ABG PO2 >420 mmHg (83-108); ABG TCO2 27 mmol/L (19-24)
[2022-12-11 13:04] LABS: ABG Base Excess 2.4 mmol/L; ABG Glucose Whole Blood 97 mg/dL (75-99); ABG Hematocrit 28 % (34.0-46.0); ABG Ionized Calcium 4.3 mg/dL (4.5-5.3); ABG Lactic Acid Whole Blood 0.9 mmol/L (0.5-1.6); ABG Potassium Whole Blood 4.9 mmol/L (3.4-4.5); ABG Sodium Whole Blood 141 mmol/L (135-146)
== END 2022-12-11 11:36 | disposition home health service (06) | DRG 220 ==
LOC: 2ORMAIN 05:47 → 2SICU 13:14 → 3SCARD 12-08 16:28
PROVIDERS: ADMIT Thoracic Surgery (Cardiothoracic Vascular Surgery); ATTEND Thoracic Surgery (Cardiothoracic Vascular Surgery)
PROC: 02L70ZK Occlusion of Left Atrial Appendage, Open Approach (ICD-10-PCS; 2022-12-06)
PROC: 30233K1 Transfusion of Nonautologous Frozen Plasma into Peripheral Vein, Percutaneous Approach (ICD-10-PCS; 2022-12-06)
PROC: 30233R1 Transfusion of Nonautologous Platelets into Peripheral Vein, Percutaneous Approach (ICD-10-PCS; 2022-12-06)
PROC: 30233M1 Transfusion of Nonautologous Plasma Cryoprecipitate into Peripheral Vein, Percutaneous Approach (ICD-10-PCS; 2022-12-06)
PROC: 6A551Z2 Pheresis of Platelets, Multiple (ICD-10-PCS; 2022-12-06)
PROC: 02UG0JZ Supplement Mitral Valve with Synthetic Substitute, Open Approach (ICD-10-PCS; principal; 2022-12-06 08:30)
PROC: 0210093 Bypass Coronary Artery, One Artery from Coronary Artery with Autologous Venous Tissue, Open Approach (ICD-10-PCS; 2022-12-06 08:30)
PROC: 06BQ4ZZ Excision of Left Saphenous Vein, Percutaneous Endoscopic Approach (ICD-10-PCS; 2022-12-06 08:30)
PROC: 5A1221Z Performance of Cardiac Output, Continuous (ICD-10-PCS; 2022-12-06 08:30)
DX: I25.10 Atherosclerotic heart disease of native coronary artery without angina pectoris (principal); D62 Acute posthemorrhagic anemia; I48.19 Other persistent atrial fibrillation; J98.11 Atelectasis; D69.59 Other secondary thrombocytopenia; J44.9 Chronic obstructive pulmonary disease, unspecified; I11.0 Hypertensive heart disease with heart failure; I50.9 Heart failure, unspecified; E11.9 Type 2 diabetes mellitus without complications; I08.1 Rheumatic disorders of both mitral and tricuspid valves; F32.A Depression, unspecified; B95.61 Methicillin susceptible Staphylococcus aureus infection as the cause of diseases classified elsewhere; E78.5 Hyperlipidemia, unspecified; G47.33 Obstructive sleep apnea (adult) (pediatric); K21.9 Gastro-esophageal reflux disease without esophagitis; Z96.642 Presence of left artificial hip joint; M19.90 Unspecified osteoarthritis, unspecified site; R33.9 Retention of urine, unspecified; R09.02 Hypoxemia; R06.03 Acute respiratory distress; R01.1 Cardiac murmur, unspecified; M81.0 Age-related osteoporosis without current pathological fracture; Z87.01 Personal history of pneumonia (recurrent); Z79.01 Long term (current) use of anticoagulants; Z79.899 Other long term (current) drug therapy; Z79.51 Long term (current) use of inhaled steroids; Z79.82 Long term (current) use of aspirin; Z87.891 Personal history of nicotine dependence; Z86.73 Personal history of transient ischemic attack (TIA), and cerebral infarction without residual deficits
CPT/HCPCS: 71045; 71046; 80048; 80053; 82330; 82805; 83036; 83735; 85025; 85027; 85384; 85520; 85610; 85730; 86850; 86870; 86880; 86891; 86900; 86901; 86902; 86920; 94002; 94640; 94760

== ENCOUNTER 2022-12-18 15:24 | Inpatient (IN) | payer OTHER, MEDICARE ==
--- NOTE | 2022-12-18 16:10 | ED ---
Dizziness HPI - General Source: patient Mode of arrival: ambulatory Limitations: no limitations <Keke Blount - Last Filed: 12/18/22 16:10> - History of Present Illness MD Complaint: dizziness, difficulty walking -: minutes(s) Timing: sudden onset, now resolved Description: off-balance History of Same: No History of Trauma: No Severity: moderate Associated Symptoms: denies other symptoms <Ismael Ross - Last Filed: 12/19/22 06:52> - General Chief Complaint: Dizziness Stated Complaint: irregular blood pressure-post heart surgery Time Seen by Provider: 12/18/22 16:10 - History of Present Illness Initial Comments: Patient is a 72-year-old male who is sent over from Dr. Moore's office for low blood pressure and elevated heart rate. Patient had open heart surgery last Sunday. Patient denies any chest pain or difficulty breathing. States that he was dizzy earlier today but no dizziness at this time. (Keke Blount) This patient is a 72-year-old man here to have evaluation after he was sent by Dr. Moore's clinic. The patient states he was feeling pretty well, and then today while at the clinic when he was called back to the room he was feeling lightheaded. Patient's daughter adds information that he had a hard time get ting onto the scale as he was off balance and seem to be having difficulty following directions. The patient states that it felt like his left leg was asleep at the time. He states that he feels back at baseline now. Patient's daughter states that he does seem better now. (Ismael Ross) - Related Data Home Medications Medication Instructions Recorded Confirmed Rivaroxaban [Xarelto] 20 mg PO DAILY 06/11/15 12/18/22 buPROPion HCL [Wellbutrin SR] 200 mg PO BID 12/04/18 12/18/22 carvediloL [Coreg] 6.25 mg PO BID 12/04/18 12/18/22 Fluticasone/Umeclidin/Vilanter 1 puff INHALATION RT-DAILY 02/18/20 12/18/22 [Trelegy Ellipta 100-62.5-25] Ascorbic Acid [Vitamin C] 500 mg PO DAILY 06/26/22 12/18/22 Cholecalciferol [Vitamin D3 (25 25 mcg PO DAILY 06/26/22 12/18/22 Mcg = 1000 Iu)] Zinc Gluconate [Zinc] 50 mg PO DAILY 06/26/22 12/18/22 Atorvastatin [Lipitor] 20 mg PO DAILY 10/09/22 12/18/22 Calcium Carbonate [Calcium] 600 mg PO DAILY 10/09/22 12/18/22 Ferrous Sulfate [Iron (65 MG 65 mg PO DAILY 10/09/22 12/18/22 Elemental)] oxyCODONE-APAP 10-325MG [Percocet 1 tab PO Q6HR PRN 10/09/22 12/18/22 10-325 mg] Sennosides-Docusate Sodium 2 tab PO HS PRN 12/18/22 12/18/22 [Senokot-S] Previous Rx's Medication Instructions Recorded Acetaminophen Tab [Tylenol] 650 mg PO Q4HR PRN tab 12/11/22 Amiodarone [Cordarone] 400 mg PO DAILY #20 tab 12/11/22 Aspirin 81 mg PO DAILY #30 tab 12/11/22 Pantoprazole [Protonix] 40 mg PO BID #0 12/11/22 Tamsulosin [Flomax] 0.4 mg PO PC-BRKFST #30 cap 12/11/22 lisinopriL [Zestril] 2.5 mg PO DAILY@1200 #30 tab 12/11/22 Allergies Allergy/AdvReac Type Severity Reaction Status Date / Time No Known Allergies Allergy Verified 12/18/22 17:21 Review of Systems ROS Other: All systems not noted in ROS Statement are negative. <Keke Blount - Last Filed: 12/18/22 16:10> ROS Other: All systems not noted in ROS Statement are negative. Constitutional: Denies: fever, chills Eyes: Denies: vision change Respiratory: Denies: cough, dyspnea Cardiovascular: Denies: chest pain, palpitations Gastrointestinal: Denies: abdominal pain, nausea, vomiting, diarrhea Genitourinary: Reports: other (Patient states that he uses intermittent straight cath for urination). Denies: dysuria Musculoskeletal: Denies: back pain Skin: Denies: rash Neurological: Reports: as per HPI, confusion. Denies: headache, weakness, numbness <Ismael Ross - Last Filed: 12/19/22 06:52> ROS Statement: Those systems with pertinent positive or pertinent negative responses have been documented in the HPI. Past Medical History Past Medical History: Atrial Fibrillation, Coronary Artery Disease (CAD), Heart Failure, COPD, GERD/Reflux, Hyperlipidemia, Hypertension, Musculoskeletal Disorder, Osteoarthritis (OA), Pneumonia, Sleep Apnea/CPAP/BIPAP Additional Past Medical History / Comment(s): mitral valve regurgitation,urinary retention-per patient he straight caths at home 3-4 times daily, osteoporosi s,no cpap,pt had one episode w/in last several months at [employer] when he could hear his friend talking to him but was not able to respond,hx pneumonia years ago History of Any Multi-Drug Resistant Organisms: None Reported Past Surgical History: Heart Catheterization, Hernia Repair, Joint Replacement, Orthopedic Surgery Additional Past Surgical History / Comment(s): repair of ESOPHAGUS tear, umbilical surg. x3,ORIF RIGHT HIP,RIGHT ARM PLATE AND SCREW, LEFT FOOT,left hip replaced, gordy shoulder surg,foot procedure,VLAD Past Anesthesia/Blood Transfusion Reactions: No Reported Reaction Additional Past Anesthesia/Blood Transfusion Reaction / Comment(s): no known hx blood transfusion Past Psychological History: Depression Smoking Status: Former smoker Past Alcohol Use History: None Reported Past Drug Use History: None Reported - Past Family History Mother Family Medical History: No Reported History <Keke Blount - Last Filed: 12/18/22 16:10> General Exam Limitations: no limitations <Keke Blount - Last Filed: 12/18/22 16:10> General appearance: alert, in no apparent distress Head exam: Present: atraumatic, normocephalic Eye exam: Present: normal appearance. Absent: scleral icterus, conjunctival injection, nystagmus Neck exam: Present: normal inspection Respiratory exam: Present: normal lung sounds bilaterally, other (The patient's thoracotomy incision is clean dry and intact. No erythema or warmth. No drainage). Absent: respiratory distress, wheezes, rales, rhonchi, stridor Cardiovascular Exam: Present: regular rate, normal rhythm, normal heart sounds. Absent: systolic murmur, diastolic murmur, rubs, gallop GI/Abdominal exam: Present: soft. Absent: distended, tenderness, guarding, rebound, rigid, mass Extremities exam: Present: normal inspection, normal capillary refill. Absent: pedal edema, calf tenderness Back exam: Present: normal inspection. Absent: CVA tenderness (R), CVA tenderness (L) Neurological exam: Present: alert, oriented X3, CN II-XII intact. Absent: motor sensory deficit Skin exam: Present: warm, dry, intact, normal color. Absent: rash <Ismael Ross - Last Filed: 12/19/22 06:52> Course Vital Signs 12/18/22 12/18/22 12/18/22 16:02 18:56 19:34 Temperature 98 F Pulse Rate 56 L 55 L 55 L Pulse Rate [ Pulse Oximetery ] Respiratory 18 18 18 Rate Blood Pressure 82/53 102/70 106/70 Blood Pressure [Right Arm] O2 Sat by Pulse 100 94 L 95 Oximetry 12/18/22 12/18/22 20:52 22:03 Temperature 97.9 F Pulse Rate 62 Pulse Rate [ 58 L Pulse Oximetery ] Respiratory 18 16 Rate Blood Pressure 112/76 Blood Pressure 114/73 [Right Arm] O2 Sat by Pulse 92 L 97 Oximetry EKG Findings - EKG Comments: EKG Findings:: Possible old lateral RI. - EKG Results: EKG: interpreted by ERMD, normal axis EKG shows: bradycardia, atrial fibrillation (With rate 59 bpm) <Ismael Ross - Last Filed: 12/19/22 06:52> Medical Decision Making - Lab Data Result diagrams: 12/18/22 17:05 12/18/22 17:05 <Ismael Ross - Last Filed: 12/19/22 06:52> - Medical Decision Making This patient is 72-year-old man sent from his primary physician's office where he had an episode when he was lightheaded, off balance, and found to be moderately hypotensive. Workup here included chest x-ray which I interpreted as showing pleural effusions. Radiology subsequently called out and added some information that raises concern of possible abscess related to his recent cardiothoracic surgery. CT of the chest with contrast was recommended, which I interpreted as showing bilateral pleural effusions. The case is discussed with patient's admitting physician and the patient will be admitted in the hospital have further workup related to the effusions and possible thoracentesis. The patient's blood pressure has normalized after having IV fluid bolus (Ismael Ross) - Lab Data Lab Results 12/18/22 12/18/22 12/18/22 Range/Units 17:05 17:05 17:05 WBC 7.6 (3.8-10.6) k/uL RBC 3.77 L (4.30-5.90) m/uL Hgb 12.3 L (13.0-17.5) gm/dL Hct 36.9 L (39.0-53.0) % MCV 97.9 (80.0-100.0) fL MCH 32.6 (25.0-35.0) pg MCHC 33.3 (31.0-37.0) g/dL RDW 15.1 (11.5-15.5) % Plt Count 297 D (150-450) k/uL MPV 8.4 Neutrophils % 73 % Lymphocytes % 14 % Monocytes % 5 % Eosinophils % 5 % Basophils % 0 % Neutrophils # 5.5 (1.3-7.7) k/uL Lymphocytes # 1.0 (1.0-4.8) k/uL Monocytes # 0.4 (0-1.0) k/uL Eosinophils # 0.4 (0-0.7) k/uL Basophils # 0.0 (0-0.2) k/uL Hypochromasia Slight Poikilocytosis Slight Macrocytosis Slight PT 14.9 H (9.0-12.0) sec INR 1.5 H (<1.2) APTT 38.9 H (22.0-30.0) sec Sodium 136 L (137-145) mmol/L Potassium 4.4 (3.5-5.1) mmol/L Chloride 105 (98-107) mmol/L Carbon Dioxide 27 (22-30) mmol/L Anion Gap 4 mmol/L BUN 15 (9-20) mg/dL Creatinine 0.84 (0.66-1.25) mg/dL Est GFR (CKD-EPI)AfAm >90 (>60 ml/min/1.73 sqM) Est GFR (CKD-EPI)NonAf 87 (>60 ml/min/1.73 sqM) Glucose 85 (74-99) mg/dL Calcium 8.4 (8.4-10.2) mg/dL Magnesium 2.2 (1.6-2.3) mg/dL Total Bilirubin 1.1 (0.2-1.3) mg/dL AST 18 (17-59) U/L ALT 17 (4-49) U/L Alkaline Phosphatase 60 (38-126) U/L Troponin I (0.000-0.034) ng/mL NT-Pro-B Natriuret Pep pg/mL Total Protein 5.4 L (6.3-8.2) g/dL Albumin 3.0 L (3.5-5.0) g/dL Urine Color Urine Appearance (Clear) Urine pH (5.0-8.0) Ur Specific [place] (1.001-1.035) Urine Protein (Negative) Urine Glucose (UA) (Negative) Urine Ketones (Negative) Urine Blood (Negative) Urine Nitrite (Negative) Urine Bilirubin (Negative) Urine Urobilinogen (<2.0) mg/dL Ur Leukocyte Esterase (Negative) 12/18/22 12/18/22 12/18/22 Range/Units 17:05 17:05 18:20 WBC (3.8-10.6) k/uL RBC (4.30-5.90) m/uL Hgb (13.0-17.5) gm/dL Hct (39.0-53.0) % MCV (80.0-100.0) fL MCH (25.0-35.0) pg MCHC (31.0-37.0) g/dL RDW (11.5-15.5) % Plt Count (150-450) k/uL MPV Neutrophils % % Lymphocytes % % Monocytes % % Eosinophils % % Basophils % % Neutrophils # (1.3-7.7) k/uL Lymphocytes # (1.0-4.8) k/uL Monocytes # (0-1.0) k/uL Eosinophils # (0-0.7) k/uL Basophils # (0-0.2) k/uL Hypochromasia Poikilocytosis Macrocytosis PT (9.0-12.0) sec INR (<1.2) APTT (22.0-30.0) sec Sodium (137-145) mmol/L Potassium (3.5-5.1) mmol/L Chloride (98-107) mmol/L Carbon Dioxide (22-30) mmol/L Anion Gap mmol/L BUN (9-20) mg/dL Creatinine (0.66-1.25) mg/dL Est GFR (CKD-EPI)AfAm (>60 ml/min/1.73 sqM) Est GFR (CKD-EPI)NonAf (>60 ml/min/1.73 sqM) Glucose (74-99) mg/dL Calcium (8.4-10.2) mg/dL Magnesium (1.6-2.3) mg/dL Total Bilirubin (0.2-1.3) mg/dL AST (17-59) U/L ALT (4-49) U/L Alkaline Phosphatase (38-126) U/L Troponin I 0.097 H* (0.000-0.034) ng/mL NT-Pro-B Natriuret Pep 2520 pg/mL Total Protein (6.3-8.2) g/dL Albumin (3.5-5.0) g/dL Urine Color Yellow Urine Appearance Clear (Clear) Urine pH 6.0 (5.0-8.0) Ur Specific [place] 1.031 (1.001-1.035) Urine Protein Trace H (Negative) Urine Glucose (UA) Negative (Negative) Urine Ketones Negative (Negative) Urine Blood Negative (Negative) Urine Nitrite Negative (Negative) Urine Bilirubin Negative (Negative) Urine Urobilinogen 3.0 (<2.0) mg/dL Ur Leukocyte Esterase Negative (Negative) Disposition <Keke Blount - Last Filed: 12/18/22 16:10> <Ismael Ross - Last Filed: 12/19/22 06:52> Clinical Impression: Pleural effusion, Hypotension Disposition: ADMITTED IP TO THIS HOSP Condition: Fair
[2022-12-18] MEDS ORDERED: SODIUM CHLORIDE 0.9% 500 ML 500 ML IV STA (16:55)
[2022-12-18] MEDS ORDERED: SODIUM CHLORIDE 0.9% 1,000 ML IV STA (16:55)
[2022-12-18 17:32] LABS: Basophils % (A) 0 %; Eosinophils # (A) 0.4 k/uL (0-0.7); Eosinophils % (A) 5 %; HCT 36.9 % (39.0-53.0); HGB 12.3 gm/dL (13.0-17.5); Hypochromasia Slight; Lymphocytes % (A) 14 %; MCH 32.6 pg (25.0-35.0); MCHC 33.3 g/dL (31.0-37.0); MCV 97.9 fL (80.0-100.0); Macrocytosis Slight; Mean Platelet Volume 8.4; Monocytes # (A) 0.4 k/uL (0-1.0); Monocytes % (A) 5 %; Neutrophils # (A) 5.5 k/uL (1.3-7.7); Neutrophils % (A) 73 %; Poikilocytosis Slight; RBC 3.77 m/uL (4.30-5.90); RDW 15.1 % (11.5-15.5); WBC 7.6 k/uL (3.8-10.6)
[2022-12-18 17:35] LABS: Platelet Count 297 k/uL (150-450)
--- NOTE | 2022-12-18 17:39 | XR ---
EXAMINATION TYPE: XR chest 2V DATE OF EXAM: 12/18/2022 COMPARISON: 12/11/2022 INDICATION: Chest pain TECHNIQUE: Frontal and lateral views of the chest are obtained. FINDINGS: The heart size is enlarged. The pulmonary vasculature is normal. There is a small to moderate left pleural effusion. Minimal right pleural effusion is present. Sterno mary jane wires are in the midline from prior cardiac valve surgery. There may be a hiatal hernia present. IMPRESSION: 1. Moderate left pleural fluid collection with minimal right pleural effusion. These have developed o r increased over the interval. 2. Air collection within the mid thorax. Consider hiatal hernia. In the proper clinical setting, absc ess should be considered. Contrast CT chest could further evaluate this finding. Report was called to the emergency room physician Dr. Wilson by Dr. Chavez by telephone the time of interpretation.
[2022-12-18 17:41] LABS: INR 1.5 (<1.2); Partial Thromboplastin Time 38.9 sec (22.0-30.0); Prothrombin Time 14.9 sec (9.0-12.0)
[2022-12-18 17:53] LABS: ALT 17 U/L (4-49); AST 18 U/L (17-59); African American GFR (CKD) >90 (>60 ml/min/1.73 sqM); Alkaline Phosphatase 60 U/L (38-126); Anion Gap 4 mmol/L; Blood Urea Nitrogen 15 mg/dL (9-20); Calcium 8.4 mg/dL (8.4-10.2); Carbon Dioxide 27 mmol/L (22-30); Chloride 105 mmol/L (98-107); Glucose 85 mg/dL (74-99); Magnesium 2.2 mg/dL (1.6-2.3); Non-African American GFR(CKD) 87 (>60 ml/min/1.73 sqM); Potassium 4.4 mmol/L (3.5-5.1); Sodium 136 mmol/L (137-145); Total Bilirubin 1.1 mg/dL (0.2-1.3); Total Protein 5.4 g/dL (6.3-8.2)
[2022-12-18] MEDS ORDERED: RX INFO: IV CONTRAST WAS GIVEN 1 EACH MISC MISCELLANE PRN (18:10)
[2022-12-18 18:32] LABS: Appearance,Urine Clear (Clear); Bilirubin,Urine Negative (Negative); Blood,Urine Negative (Negative); Color,Urine Yellow; Glucose,Urine (UA) Negative (Negative); Ketones,Urine Negative (Negative); Leukocyte Esterase,Urine Negative (Negative); Nitrite,Urine Negative (Negative); Protein,Urine Trace (Negative); Specific Gravity,Urine 1.031 (1.001-1.035)
--- NOTE | 2022-12-18 18:58 | CT ---
EXAMINATION TYPE: CT chest w con DATE OF EXAM: 12/18/2022 COMPARISON: Chest x-ray 12/18/2022, CT chest 08/01/2019 HISTORY: recent open hearts sx. CXR specified poss abscess CT DLP: 345.6 mGycm, Automated exposure control for dose reduction was used. CONTRAST: Performed injected with 100 mL of Isovue 300. TECHNIQUE: Axial images were obtained at 5 mm thick sections. Reconstructed images are reviewed on [employer] computer in the coronal plane. FINDINGS: Portion of the thyroid visualized is normal. No suspicious abscess formation is evident. There is a large hiatal hernia which can account for the appearance on the chest x-ray. There is a moderate left and small right pleural effusion. Adjacent co mpressive atelectasis is present. No enlarged mediastinal or hilar adenopathy is evident. A few small shoddy lymph nodes are present. The ascending aorta diameter at the level of the main pulmonary artery is 3.7 cm. The main pulmonary artery diameter at the bifurcation is 3.[address] sections are obtained through the upper abdomen. Gallstone is present. There is likely a n onobstructing left renal stone. IMPRESSIONS: 1. No suspicious abnormality to suggest mediastinal abscess. 2. There is a large hiatal hernia with air filling portions of the esophagus which can account for ap pearance on the chest x-ray same date. 3. Moderate left and small right pleural effusions with adjacent compressive atelectasis. 4. Cholelithiasis.
[2022-12-18] MEDS ORDERED: NITROGLYCERIN SL TABS 0.4 MG TAB SUBLINGUAL PRN (19:22)
[2022-12-18] MEDS ORDERED: oxyCODONE-APAP 10-325MG 1 EACH TAB PO PRN (19:26)
[2022-12-18] MEDS ORDERED: SENNOSIDES-DOCUSATE SODIUM 1 EACH TAB PO PRN (19:26)
[2022-12-18] MEDS: carvediloL 6.25 MG TAB PO SCH (23:17)
[2022-12-18] MEDS: PANTOPRAZOLE 40 MG TABLET PO SCH (23:17)
[2022-12-18] MEDS: buPROPion SR 100 MG TABLET.ER PO SCH (23:17)
[2022-12-19 07:11] LABS: Basophils % (A) 0 %; Eosinophils # (A) 0.4 k/uL (0-0.7); Eosinophils % (A) 6 %; HCT 33.8 % (39.0-53.0); Hypochromasia Moderate; Lymphocytes # (A) 0.8 k/uL (1.0-4.8); Lymphocytes % (A) 15 %; MCH 32.5 pg (25.0-35.0); MCHC 32.6 g/dL (31.0-37.0); MCV 99.8 fL (80.0-100.0); Macrocytosis Slight; Mean Platelet Volume 7.7; Monocytes # (A) 0.3 k/uL (0-1.0); Monocytes % (A) 5 %; Neutrophils # (A) 4.1 k/uL (1.3-7.7); Neutrophils % (A) 73 %; Platelet Count 247 k/uL (150-450); Poikilocytosis Slight; RBC 3.38 m/uL (4.30-5.90); RDW 14.7 % (11.5-15.5); WBC 5.6 k/uL (3.8-10.6)
--- NOTE | 2022-12-19 07:18 | P.CNPUL ---
History of Present Illness Consult date: 12/19/22 Requesting physician: Ismael Ross Reason for consult: pleural effusion Chief complaint: Lightheadedness History of present illness: I'm seeing this patient in new consultation today 12/19/2022 for a left-sided pleural effusion. Patient is a 72-year-old white male who recently underwent elective open-heart surgery on 12/06/2022 at this facility. Patient had a CABG 1 with a saphenous vein graft to the diagonal branch, mitral valve repair, and a left atrial appendage ligation. Patient's other medical history is significant for atrial fibrillation, COPD in which he takes Trelegy at home, obstructive sleep apnea without CPAP or BiPAP use, hyperlipidemia, hypertension, coronary artery disease, urinary retention in which he straight caths at home, osteoarthritis, and is an ex-smoker. The patient was sent over from Dr. Renato Moore's office yesterday afternoon for hypotension. Patient's only symptom was lightheadedness. Patient denies any chest pain, palpitations, syncope, lower extremity swelling. On arrival to the emergency room, patient was found to be in atrial fibrillation with slow ventricular response. Patient was on a combination of amiodarone 400 mg daily, Coreg 6.25 milligrams twice a day, and lisinopril 2.5 mg daily. He is currently anticoagulated on Xarelto. Incidentally, a moderate left-sided pleural effusion was seen on chest x-ray along with a minimal right pleural effusion. A follow-up chest CT with contrast redemonstrated these findings, along with large halo hernia, and cholelithiasis. Patient denies any shortness of breath, fever, cough, chest pain. Patient is currently resting in bed, on room air, in no acute distress. His oxygen saturation is currently 94%. CBC on arrival shows a WBC count of 7.6, hemoglobin 12.3, hematocrit 36.9, platelets 297,000. Patient's BMP was unremarkable. Troponins are elevated, and peaked at 0.097. Patient's COPD seems stable, and is maintained on a combination of Symbicort and Spiriva inhalers. Vital signs are stable. Review of Systems REVIEW OF SYSTEMS: CONSTITUTIONAL: Denies any recent significant weight loss or weight gain. EYES: Denies change in vision. EARS, NOSE, MOUTH, THROAT: Denies headaches, denies sore throat. CARDIOVASCULAR: Denies chest pain, palpitations or syncopal episodes. RESPIRATORY: Denies shortness of breath, cough, congestion or hemoptysis. GASTROINTESTINAL: Denies change in appetite, abdominal pain, nausea and vomiting, or diarrhea GENITOURINARY: Denies hematuria, denies infections. MUSKULOSKELETAL: Denies pain, denies swelling. INTEGUMENTARY: Denies rash, denies eczema. NEUROLOGICAL: Denies recent memory loss, no recent seizure activity. PSYCHIATRIC: Denies anxiety, denies depression. HEMATOLOGIC/LYMPHATIC: Denies anemia, denies enlarged lymph node Past Medical History Past Medical History: Atrial Fibrillation, Coronary Artery Disease (CAD), Heart Failure, COPD, GERD/Reflux, Hyperlipidemia, Hypertension, Musculoskeletal Disorder, Osteoarthritis (OA), Pneumonia, Sleep Apnea/CPAP/BIPAP Additional Past Medical History / Comment(s): mitral valve regurgitation,urinary retention-per patient he straight caths at home 3-4 times daily, osteoporosis,no cpap,pt had one episode w/in last several months at [employer] when he could hear his friend talking to him but was not able to respond,hx pneumonia years ago History of Any Multi-Drug Resistant Organisms: None Reported Past Surgical History: Heart Catheterization, Hernia Repair, Joint Replacement, Orthopedic Surgery Additional Past Surgical History / Comment(s): repair of ESOPHAGUS tear, umbilical surg. x3,ORIF RIGHT HIP,RIGHT ARM PLATE AND SCREW, LEFT FOOT,left hip replaced, gordy shoulder surg,foot procedure,VLAD Past Anesthesia/Blood Transfusion Reactions: No Reported Reaction Additional Past Anesthesia/Blood Transfusion Reaction / Comment(s): no known hx blood transfusion Past Psychological History: Depression Smoking Status: Former smoker Past Alcohol Use History: None Reported Past Drug Use History: None Reported - Past Family History Mother Family Medical History: No Reported History Medications and Allergies Home Medications Medication Instructions Recorded Confirmed Type Rivaroxaban [Xarelto] 20 mg PO DAILY 06/11/15 12/18/22 History buPROPion HCL [Wellbutrin SR] 200 mg PO BID 12/04/18 12/18/22 History carvediloL [Coreg] 6.25 mg PO BID 12/04/18 12/18/22 History Fluticasone/Umeclidin/Vilanter 1 puff INHALATION RT-DAILY 02/18/20 12/18/22 History [Trelegy Ellipta 100-62.5-25] Ascorbic Acid [Vitamin C] 500 mg PO DAILY 06/26/22 12/18/22 History Cholecalciferol [Vitamin D3 (25 25 mcg PO DAILY 06/26/22 12/18/22 History Mcg = 1000 Iu)] Zinc Gluconate [Zinc] 50 mg PO DAILY 06/26/22 12/18/22 History Atorvastatin [Lipitor] 20 mg PO DAILY 10/09/22 12/18/22 History Calcium Carbonate [Calcium] 600 mg PO DAILY 10/09/22 12/18/22 History Ferrous Sulfate [Iron (65 MG 65 mg PO DAILY 10/09/22 12/18/22 History Elemental)] oxyCODONE-APAP 10-325MG [Percocet 1 tab PO Q6HR PRN 10/09/22 12/18/22 History 10-325 mg] Acetaminophen Tab [Tylenol] 650 mg PO Q4HR PRN tab 12/11/22 12/18/22 Rx Amiodarone [Cordarone] 400 mg PO DAILY #20 tab 12/11/22 12/18/22 Rx Aspirin 81 mg PO DAILY #30 tab 12/11/22 12/18/22 Rx Pantoprazole [Protonix] 40 mg PO BID #0 12/11/22 12/18/22 Rx Tamsulosin [Flomax] 0.4 mg PO PC-BRKFST #30 cap 12/11/22 12/18/22 Rx lisinopriL [Zestril] 2.5 mg PO DAILY@1200 #30 tab 12/11/22 12/18/22 Rx Sennosides-Docusate Sodium 2 tab PO HS PRN 12/18/22 12/18/22 History [Senokot-S] Allergies Allergy/AdvReac Type Severity Reaction Status Date / Time No Known Allergies Allergy Verified 12/18/22 17:21 Physical Exam Vitals: Vital Signs Temp Pulse Pulse Resp BP BP Pulse Ox 12/19/22 02:00 98.0 F 63 16 126/75 94 L 12/18/22 22:03 97.9 F 58 L 16 114/73 97 12/18/22 20:52 62 18 112/76 92 L 12/18/22 19:34 55 L 18 106/70 95 12/18/22 18:56 55 L 18 102/70 94 L 12/18/22 16:02 98 F 56 L 18 82/53 100 Intake and Output 12/18/22 12/18/22 12/19/22 14:59 22:59 06:59 Other: Voiding Method Toilet Self-Catheterization # Voids 1 Weight 73.936 kg GENERAL EXAM: Alert, 72-year-old white male, comfortable in no apparent distress. HEAD: Normocephalic and atraumatic EYES: Normal reaction of pupils, equal size. NOSE: Clear with pink turbinates. THROAT: No erythema or exudates. NECK: No masses, no JVD. CHEST: Midsternal incision is approximated, clean LUNGS: Equal air entry with diminished lung sounds at the left base. no crackles, wheeze, or rhonchi. On room air. No conversational dyspnea or accessory muscle use.. CVS: S1 and S2 normal with no audible murmur, irregular rhythm. No extra heart sounds ABDOMEN: No hepatosplenomegaly, active bowel sounds, no guarding or rigidity. SPINE: No scoliosis or deformity SKIN: No rashes CENTRAL NERVOUS SYSTEM: No focal deficits, tone is normal in all 4 extremities. EXTREMITIES: There is no peripheral edema, clubbing, or cyanosis. Peripheral pulses are intact. Results - Laboratory Findings CBC and BMP: 12/19/22 06:31 12/19/22 06:31 PT/INR, D-dimer PT 14.9 sec (9.0-12.0) H 12/18/22 17:05 INR 1.5 (<1.2) H 12/18/22 17:05 Abnormal lab findings: Abnormal Labs 12/18/22 12/18/22 12/18/22 17:05 17:05 17:05 RBC 3.77 L Hgb 12.3 L Hct 36.9 L PT 14.9 H INR 1.5 H APTT 38.9 H Sodium 136 L Troponin I Total Protein 5.4 L Albumin 3.0 L Urine Protein 12/18/22 12/18/22 12/18/22 17:05 18:20 20:12 RBC Hgb Hct PT INR APTT Sodium Troponin I 0.097 H* 0.093 H* Total Protein Albumin Urine Protein Trace H 12/18/22 23:01 RBC Hgb Hct PT INR APTT Sodium Troponin I 0.088 H* Total Protein Albumin Urine Protein - Diagnostic Findings Chest x-ray: image reviewed CT scan - chest: image reviewed Assessment and Plan Assessment: Atrial fibrillation with slow ventricular response and hypotension on arrival to ER. Moderate size left pleural effusion was incidentally found on chest x-ray. Patient is asymptomatic and on room air Coronary artery disease and history of mitral regurgitation status post coronary artery bypass graft with a SVG to the diagonal branch, mitral valve repair, and left atrial appendage ligation on 12/06/22 Elevated troponins Stable background COPD obstructive sleep apnea without CPAP or BiPAP history of urinary retention requiring straight catheterizations osteoarthritis ex-smoker Plan: Patient's medications, labs, chest x-ray and chest CT were reviewed From a pulmonary standpoint, patient is quite asymptomatic Patient may not need thoracentesis patient's Xarelto would have to be held prior to the procedure if indicated On room air Continue combination of Symbicort and Spiriva inhalers. Blood pressure and heart rate seems stable at this time. Anticoagulated on Xarelto Cardiology was consulted Protonix for GI prophylaxis We will continue to follow I have personally seen and examined the patient, performed the documentation and the assessment and plan as written. Number of minutes spent on the visit:20 This is a joint evaluation that was done along with a nurse practitioner. The patient has bilateral pleural effusion. The pleural effusion is worse on the left. The patient on anticoagulation with Xarelto and the last tablet that was given to him was this morning. This was given to him at 9 AM. He has chronic atrial fibrillation. I'm going to hold off the Xarelto for now and to his thoracentesis on the left with the next 24-48 hours. Please obtain a consent and make the necessary preparations. Number of minutes spent on the visit:30 Time with Patient: Greater than 30
[2022-12-19 07:37] LABS: ALT 14 U/L (4-49); AST 15 U/L (17-59); African American GFR (CKD) >90 (>60 ml/min/1.73 sqM); Albumin 2.5 g/dL (3.5-5.0); Albumin/Globulin Ratio 1.2; Alkaline Phosphatase 54 U/L (38-126); Anion Gap 4 mmol/L; Blood Urea Nitrogen 13 mg/dL (9-20); Carbon Dioxide 27 mmol/L (22-30); Chloride 107 mmol/L (98-107); Globulin 2.1 g/dL; Glucose 81 mg/dL (74-99); Non-African American GFR(CKD) 81 (>60 ml/min/1.73 sqM); Potassium 4.4 mmol/L (3.5-5.1); Sodium 138 mmol/L (137-145); Total Protein 4.6 g/dL (6.3-8.2)
[2022-12-19] MEDS ORDERED: TAMSULOSIN 0.4 MG CAP.ER.24H PO SCH (08:30)
[2022-12-19] MEDS ORDERED: ASPIRIN 325 MG TAB PO SCH (09:00)
[2022-12-19] MEDS ORDERED: AMIODARONE 200 MG TAB PO SCH (09:00)
[2022-12-19] MEDS: FERROUS SULFATE 325 MG TAB PO SCH (09:10)
[2022-12-19] MEDS: PANTOPRAZOLE 40 MG TABLET PO SCH ×2 (09:10→17:47)
[2022-12-19] MEDS: CALCIUM CARBONATE 500 MG CHEWABLE PO SCH (09:11)
[2022-12-19] MEDS: carvediloL 6.25 MG TAB PO SCH (09:11)
[2022-12-19] MEDS: buPROPion SR 100 MG TABLET.ER PO SCH ×2 (09:11→20:29)
[2022-12-19] MEDS: ASPIRIN 81 MG PO SCH (09:11)
[2022-12-19] MEDS: CHOLECALCIFEROL 25 MCG (1000 IU) TABLET PO SCH (09:11)
[2022-12-19] MEDS: ATORVASTATIN 20 MG TAB PO SCH (09:11)
[2022-12-19] MEDS: SYMBICORT 80-4.5 MCG INHALER INHALATION SCH ×2 (09:39→18:24)
[2022-12-19] MEDS: IPRATROPIUM 0.5 MG/2.5 ML NEBU INHALATION SCH ×4 (09:39→18:24)
[2022-12-19] MEDS: RIVAROXABAN 20 MG TAB PO SCH ×2 (09:56→19:13)
--- NOTE | 2022-12-19 10:22 | HP ---
HISTORY AND PHYSICAL HISTORY OF PRESENT ILLNESS: A 72-year-old white male sent from the office due to hypotension, blood pressure 80s, systolic, sitting down, down to 60, standing up, systolically. He was admitted to the hospital for severe dehydration and orthostatic hypotension. His heart rate has been going from 40s up to 120s. He was admitted to the hospital for severe hypotension. Cardiology fluids, rehydration, and monitoring per Cardiology, Pulmonary, and Cardiac Surgery prior to being discharged. HOME MEDICATIONS: See list. PAST SURGICAL HISTORY: Recently, status post CABG surgery with a valvular heart replacement. PHYSICAL EXAMINATION: VITAL SIGNS: Blood pressure with fluid boluses given is now low 100s admission, respiratory rate 12 to 14. CARDIOVASCULAR: S1, S2. LUNGS: Rales at the base. 2+ edema. ASSESSMENT: Status post valvular heart repair and coronary artery bypass graft x1; cholelithiasis; hiatal hernia; chronic obstructive pulmonary disease, end-stage. Prognosis is guarded. Rehydrate. Check for orthostatic hypotension. Cardiology will reassess drugs. Possibly give midodrine for hypotension. MMODL / IJN: [id number] /
--- NOTE | 2022-12-19 11:11 | P.CRDCN ---
History of Present Illness Consult date: 12/19/22 History of present illness: HISTORY OF PRESENT ILLNESS: This is 72-year-old male patient of Dr. Lewis with past medical history of persistent atrial fibrillation, mitral regurgitation status post mitral valve repair, coronary artery disease status post CABG, dilated cardiomyopathy, hypertension, hyperlipidemia, urinary retention with straight cath. We have been asked to evaluate the patient regarding elevated troponins. Patient was recently hospitalized and underwent CABG 1 vessel with SVG to diagonal coronary artery and mitral valve repair on 12/06. Patient states that yesterday he had a follow-up appointment scheduled Dr. Moore and cardiothoracic surgery. He went to his appointment with Dr. Moore and found that his blood pressure was low and his heart rate was high. He was then sent into the emergency center for further evaluation. Patient states that he feels that his heart rate has been running high and low with fluctuations. He denies having any chest pain, no shortness of breath. No lightheadedness or dizziness. EKG atrial fibrillation with ventricular rate of 59, second EKG atrial fibrillation with ventricular rate 53 CAT scan of the chest revealed no mediastinal abscess. Large hiatal hernia. Moderate left and small right pleural effusions with adjacent compressive atelectasis. Cholelithiasis. Chest x-ray moderate left pleural fluid collection with minimal right pleural effusion. Air collection within the mid thorax consider hiatal hernia WBC 5.6, hemoglobin 11, platelet count 247. Electrolytes and renal function nor mal. Troponin 0.097, 0.093, 0.083. Cortisol level X. Liver function tests within normal limits. ProBNP 2520. Home cardiac medications: Amiodarone 400 mg daily, aspirin 81 mg daily, Lipitor 20 mg daily, Coreg 6.25 mg twice daily, lisinopril 2.5 mg daily, Xarelto 20 g daily PHYSICAL EXAM: VITAL SIGNS: Reviewed. Blood pressure 110/74, heart rate in the 50s to 70s. GENERAL: Well-developed in no acute distress. NECK: Supple. No JVD or thyromegaly LUNGS: Respirations even and unlabored. Lungs essentially clear to auscultation bilaterally, diminished. HEART: Irregular rate and rhythm. S1 and S2 heard. EXTREMITIES: Normal range of motion. No clubbing or cyanosis. Peripheral pulses intact. No lower extremity edema ASSESSMENT: Hypotension Pleural effusions Coronary artery disease, status post 1 vessel CABG with SVG to diagonal coronary artery 4/5 Mitral valve regurgitation, status post mitral valve repair Hypertension Hyperlipidemia Persistent atrial fibrillation COPD Obstructive sleep apnea History of urinary retention PLAN: Continue patient's home cardiac medications Decrease Coreg to 3.125 mg twice daily Further recommendations pending patient's course Nurse practitioner note has been reviewed by physician. Signing provider agrees with the documented findings, assessment, and plan of care. Past Medical History Past Medical History: Atrial Fibrillation, Coronary Artery Disease (CAD), Heart Failure, COPD, GERD/Reflux, Hyperlipidemia, Hypertension, Musculoskeletal Disorder, Osteoarthritis (OA), Pneumonia, Sleep Apnea/CPAP/BIPAP Additional Past Medical History / Comment(s): mitral valve regurgitation,urinary retention-per patient he straight caths at home 3-4 times daily, osteoporosis,no cpap,pt had one episode w/in last several months at [employer] when he could hear his friend talking to him but was not able to respond,hx pneumonia years ago History of Any Multi-Drug Resistant Organisms: None Reported Past Surgical History: Heart Catheterization, Hernia Repair, Joint Replacement, Orthopedic Surgery Additional Past Surgical History / Comment(s): repair of ESOPHAGUS tear, umbilical surg. x3,ORIF RIGHT HIP,RIGHT ARM PLATE AND SCREW, LEFT FOOT,left hip replaced, gordy shoulder surg,foot procedure,VLAD Past Anesthesia/Blood Transfusion Reactions: No Reported Reaction Additional Past Anesthesia/Blood Transfusion Reaction / Comment(s): no known hx blood transfusion Past Psychological History: Depression Smoking Status: Former smoker Past Alcohol Use History: None Reported Past Drug Use History: None Reported - Past Family History Mother Family Medical History: No Reported History Medications and Allergies Home Medications Medication Instructions Recorded Confirmed Type Rivaroxaban [Xarelto] 20 mg PO DAILY 06/11/15 12/18/22 History buPROPion HCL [Wellbutrin SR] 200 mg PO BID 12/04/18 12/18/22 History carvediloL [Coreg] 6.25 mg PO BID 12/04/18 12/18/22 History Fluticasone/Umeclidin/Vilanter 1 puff INHALATION RT-DAILY 02/18/20 12/18/22 His tory [Trelegy Ellipta 100-62.5-25] Ascorbic Acid [Vitamin C] 500 mg PO DAILY 06/26/22 12/18/22 History Cholecalciferol [Vitamin D3 (25 25 mcg PO DAILY 06/26/22 12/18/22 History Mcg = 1000 Iu)] Zinc Gluconate [Zinc] 50 mg PO DAILY 06/26/22 12/18/22 History Atorvastatin [Lipitor] 20 mg PO DAILY 10/09/22 12/18/22 History Calcium Carbonate [Calcium] 600 mg PO DAILY 10/09/22 12/18/22 History Ferrous Sulfate [Iron (65 MG 65 mg PO DAILY 10/09/22 12/18/22 History Elemental)] oxyCODONE-APAP 10-325MG [Percocet 1 tab PO Q6HR PRN 10/09/22 12/18/22 History 10-325 mg] Acetaminophen Tab [Tylenol] 650 mg PO Q4HR PRN tab 12/11/22 12/18/22 Rx Amiodarone [Cordarone] 400 mg PO DAILY #20 tab 12/11/22 12/18/22 Rx Aspirin 81 mg PO DAILY #30 tab 12/11/22 12/18/22 Rx Pantoprazole [Protonix] 40 mg PO BID #0 12/11/22 12/18/22 Rx Tamsulosin [Flomax] 0.4 mg PO PC-BRKFST #30 cap 12/11/22 12/18/22 Rx lisinopriL [Zestril] 2.5 mg PO DAILY@1200 #30 tab 12/11/22 12/18/22 Rx Sennosides-Docusate Sodium 2 tab PO HS PRN 12/18/22 12/18/22 History [Senokot-S] Allergies Allergy/AdvReac Type Severity Reaction Status Date / Time No Known Allergies Allergy Verified 12/18/22 17:21 Physical Exam Vitals: Vital Signs Temp Pulse Pulse Resp BP BP Pulse Ox 12/19/22 07:35 98.3 F 58 L 16 110/74 93 L 12/19/22 02:00 98.0 F 63 16 126/75 94 L 12/18/22 22:03 97.9 F 58 L 16 114/73 97 12/18/22 20:52 62 18 112/76 92 L 12/18/22 19:34 55 L 18 106/70 95 12/18/22 18:56 55 L 18 102/70 94 L 12/18/22 16:02 98 F 56 L 18 82/53 100 Intake and Output 12/18/22 12/19/22 12/19/22 22:59 06:59 14:59 Intake Total 1000 Balance 1000 Intake: Intake, IV Titration 1000 Amount Sodium Chloride 0.9% 1, 1000 000 ml @ 130 mls/hr IV . Q7H42M STA Rx#:[id number] Other: Voiding Method Toilet Self-Catheterization # Voids 1 Weight 73.936 kg Results 12/19/22 06:31 12/19/22 06:31 Cardiac Enzymes 12/18/22 12/18/22 12/18/22 Range/Units 17:05 17:05 20:12 AST 18 (17-59) U/L Troponin I 0.097 H* 0.093 H* (0.000-0.034) ng/mL 12/18/22 12/19/22 Range/Units 23:01 06:31 AST 15 L (17-59) U/L Troponin I 0.088 H* (0.000-0.034) ng/mL Coagulation 12/18/22 Range/Units 17:05 PT 14.9 H (9.0-12.0) sec APTT 38.9 H (22.0-30.0) sec CBC 12/18/22 12/19/22 Range/Units 17:05 06:31 WBC 7.6 5.6 (3.8-10.6) k/uL RBC 3.77 L 3.38 L (4.30-5.90) m/uL Hgb 12.3 L 11.0 L (13.0-17.5) gm/dL Hct 36.9 L 33.8 L (39.0-53.0) % Plt Count 297 D 247 (150-450) k/uL Comprehensive Metabolic Panel 12/18/22 12/19/22 Range/Units 17:05 06:31 Sodium 136 L 138 (137-145) mmol/L Potassium 4.4 4.4 (3.5-5.1) mmol/L Chloride 105 107 (98-107) mmol/L Carbon Dioxide 27 27 (22-30) mmol/L BUN 15 13 (9-20) mg/dL Creatinine 0.84 0.94 (0.66-1.25) mg/dL Glucose 85 81 (74-99) mg/dL Calcium 8.4 8.0 L (8.4-10.2) mg/dL AST 18 15 L (17-59) U/L ALT 17 14 (4-49) U/L Alkaline Phosphatase 60 54 (38-126) U/L Total Protein 5.4 L 4.6 L (6.3-8.2) g/dL Albumin 3.0 L 2.5 L (3.5-5.0) g/dL Current Medications Generic Name Dose Route Start Last Admin Trade Name Freq PRN Reason Stop Dose Admin Amiodarone HCl 400 mg 12/19/22 09:00 Amiodarone 200 Mg Tab PO DAILY [facility] Aspirin 81 mg 12/19/22 09:00 Aspirin 81 Mg PO DAILY [facility] Atorvastatin Calcium 20 mg 12/19/22 09:00 Atorvastatin 20 Mg Tab PO DAILY [facility] Budesonide/Formoterol Fumarate 2 puff 12/19/22 08:00 Symbicort 80-4.5 Mcg Inhaler INHALATION RT-BID [facility] Bupropion HCl 200 mg 12/18/22 21:00 12/18/22 23:17 Bupropion Sr 100 Mg Tablet.Er PO 200 mg BID [facility] Administration Calcium Carbonate/Glycine 500 mg 12/19/22 09:00 Calcium Carbonate 500 Mg Chewable PO DAILY [facility] Carvedilol 6.25 mg 12/18/22 21:00 12/18/22 23:17 Carvedilol 6.25 Mg Tab PO Not Given AC-BID [facility] Cholecalciferol 25 mcg 12/19/22 09:00 Cholecalciferol 25 Mcg (1000 Iu) Tablet PO DAILY [facility] Ferrous Sulfate 325 mg 12/19/22 09:00 Ferrous Sulfate 325 Mg Tab PO DAILY [facility] Ipratropium Thayer 0.5 mg 12/19/22 08:00 Ipratropium 0.5 Mg/2.5 Ml Nebu INHALATION RT-QID [facility] Lisinopril 2.5 mg 12/19/22 12:00 Lisinopril 2.5 Mg Tab PO DAILY@1200 [facility] Miscellaneous Information 1 each 12/18/22 18:10 Rx Info: Iv Contrast Was Given 1 Each Misc MISCELLANE 12/20/22 18:11 DAILY PRN Per Protocol Nitroglycerin 0.4 mg 12/18/22 19:22 Nitroglycerin Sl Tabs 0.4 Mg Tab SUBLINGUAL Q5M PRN Chest Pain Oxycodone/Acetaminophen 1 each 12/18/22 19:26 Oxycodone-Apap 10-325mg 1 Each Tab PO Q6HR PRN Pain Pantoprazole Sodium 40 mg 12/18/22 21:00 12/18/22 23:17 Pantoprazole 40 Mg Tablet PO 40 mg AC-BID PRE[facility] Administration Rivaroxaban 20 mg 12/19/22 09:00 Rivaroxaban 20 Mg Tab PO DAILY [facility] Protocol Senna/Docusate Sodium 2 each 12/18/22 19:26 Sennosides-Docusate Sodium 1 Each Tab PO HS PRN Constipation Tamsulosin HCl 0.4 mg 12/19/22 08:30 Tamsulosin 0.4 Mg Cap.Er.24h PO PC-BRKFST [facility] Intake and Output 12/18/22 12/19/22 12/19/22 22:59 06:59 14:59 Intake Total 1000 Balance 1000 Intake: Intake, IV Titration 1000 Amount Sodium Chloride 0.9% 1, 1000 000 ml @ 130 mls/hr IV . Q7H42M STA Rx#:[id number] Other: Voiding Method Toilet Self-Catheterization # Voids 1 Weight 73.936 kg 12/19/22 06:31 12/19/22 06:31
--- NOTE | 2022-12-19 13:04 | P.GSCN ---
History of Present Illness Consult date: 12/19/22 Reason for Consult: Known to our service from recent open heart Requesting physician: Ismael Ross History of present illness: This is a 72-year-old gentleman who follows outpatient with Dr. Renato Moore for primary care Dr. Lewis for cardiology. He has a previous medical history of coronary artery disease and mitral valve regurgitation status post single-vessel CABG and mitral valve repair 12/06/2022, hypertension, hyperlipidemia, persistent atrial fibrillation on Xarelto for anticoagulation, TIA, previous to bacco dependence, COPD, obstructive sleep apnea without CPAP use, pneumonia, urinary retention requiring straight catheterization at home, and depression. This gentleman was recently hospitalized for elective mitral valve repair and CABG. His postoperative course was uneventful and he was discharged home with home care on postop day #5. He was supposed to follow up in the cardiac surgery office yesterday with the [employer] however he did not make his appointment. He did make his appointment with Dr. Moore yesterday and while in Dr. Moore's office had an episode of orthostatic hypotension and dizziness. He was recommended to report to the emergency room for evaluation and treatment. By t he time he got to the emergency room he was back to his baseline, although his blood pressure was 82/53 which did normalize with fluid bolus. EKG demonstrated controlled atrial fibrillation with heart rate 59 bpm. He did have a chest x- ray demonstrating bilateral pleural effusions. This was confirmed on CT scan. The patient was admitted for evaluation and treatment with consultation placed to pulmonology for possible thoracentesis. From their standpoint patient is very asymptomatic and likely does not require thoracentesis at this time. Consultation was placed to cardiothoracic surgery as the patient is known to our service. Review of Systems Review of systems was completed and was negative except as noted - Cardiovascular Reports lightheadedness - Neurological Reports balance difficulties Past Medical History Past Medical History: Atrial Fibrillation, Coronary Artery Disease (CAD), Heart Failure, COPD, GERD/Reflux, Hyperlipidemia, Hypertension, Musculoskeletal Disorder, Osteoarthritis (OA), Pneumonia, Sleep Apnea/CPAP/BIPAP Additional Past Medical History / Comment(s): mitral valve regurgitation,urinary retention-per patient he straight caths at home 3-4 times daily, osteoporosis,no cpap,pt had one episode w/in last several months at [employer] when he could hear his friend talking to him but was not able to respond,hx pneumonia years ago History of Any Multi-Drug Resistant Organisms: None Reported Past Surgical History: Coronary Bypass/CABG, Heart Catheterization, Hernia Repair, Joint Replacement, Orthopedic Surgery Additional Past Surgical History / Comment(s): repair of ESOPHAGUS tear, umbilical surg. x3,ORIF RIGHT HIP,RIGHT ARM PLATE AND SCREW, LEFT FOOT,left hip replaced, gordy shoulder surg,foot procedure,VLAD; 1V CABG/mitral valve repair 12/06/2022 Past Anesthesia/Blood Transfusion Reactions: No Reported Reaction Additional Past Anesthesia/Blood Transfusion Reaction / Comm: no known hx blood transfusion Past Psychological History: Depression Smoking Status: Former smoker Past Alcohol Use History: None Reported Past Drug Use History: None Reported - Past Family History Mother Family Medical History: No Reported History Medications and Allergies Home Medications Medication Instructions Recorded Confirmed Type Rivaroxaban [Xarelto] 20 mg PO DAILY 06/11/15 12/18/22 History buPROPion HCL [Wellbutrin SR] 200 mg PO BID 12/04/18 12/18/22 History carvediloL [Coreg] 6.25 mg PO BID 12/04/18 12/18/22 History Fluticasone/Umeclidin/Vilanter 1 puff INHALATION RT-DAILY 02/18/20 12/18/22 History [Alba Ellipta 100-62.5-25] Ascorbic Acid [Vitamin C] 500 mg PO DAILY 06/26/22 12/18/22 History Cholecalciferol [Vitamin D3 (25 25 mcg PO DAILY 06/26/22 12/18/22 History Mcg = 1000 Iu)] Zinc Gluconate [Zinc] 50 mg PO DAILY 06/26/22 12/18/22 History Atorvastatin [Lipitor] 20 mg PO DAILY 10/09/22 12/18/22 History Calcium Carbonate [Calcium] 600 mg PO DAILY 10/09/22 12/18/22 History Ferrous Sulfate [Iron (65 MG 65 mg PO DAILY 10/09/22 12/18/22 History Elemental)] oxyCODONE-APAP 10-325MG [Percocet 1 tab PO Q6HR PRN 10/09/22 12/18/22 History 10-325 mg] Acetaminophen Tab [Tylenol] 650 mg PO Q4HR PRN tab 12/11/22 12/18/22 Rx Amiodarone [Cordarone] 400 mg PO DAILY #20 tab 12/11/22 12/18/22 Rx Aspirin 81 mg PO DAILY #30 tab 12/11/22 12/18/22 Rx Pantoprazole [Protonix] 40 mg PO BID #0 12/11/22 12/18/22 Rx Tamsulosin [Flomax] 0.4 mg PO PC-BRKFST #30 cap 12/11/22 12/18/22 Rx lisinopriL [Zestril] 2.5 mg PO DAILY@1200 #30 tab 12/11/22 12/18/22 Rx Sennosides-Docusate Sodium 2 tab PO HS PRN 12/18/22 12/18/22 History [Senokot-S] Allergies Allergy/AdvReac Type Severity Reaction Status Date / Time No Known Allergies Allergy Verified 12/18/22 17:21 Surgical - Exam Vital Signs Temp Pulse Resp BP Pulse Ox 98 F 56 L 18 82/53 100 12/18/22 16:02 12/18/22 16:02 12/18/22 16:02 12/18/22 16:02 12/18/22 16:02 CONSTITUTIONAL: Awake and alert, appears comfortable, cooperative, well- developed, well-nourished, no pain, no acute distress EYES: Pupils equal, round, reactive to light, normal ocular movement ENT: Moist mucous membranes without oral lesions present NECK: No masses, no bruits, trachea midline RESPIRATORY: Lungs sounds diminished bilaterally. Respirations even, nonlabored. Currently on room air with oxygen saturation 93%. Strong cough. CARDIOVASCULAR: S1, S2 present. Irregular rate and rhythm, controlled atrial fibrillation on telemetry. Sternum stable. Palpable peripheral pulses bila terally. No edema present. No calf pain or tenderness noted GASTROINTESTINAL: Abdomen soft, nontender, nondistended without masses or organomegaly noted. There is no rebound or guarding present. Active bowel sounds present 4 quadrants. GENITOURINARY: Deferred INTEGUMENTARY: Skin is warm and dry, anterior chest incision well approximated without redness or drainage, left lower semi-EVH site well approximated NEUROLOGIC: Cranial nerves II through XII intact, normal coordination, no obvi ous motor or sensory deficits, speech is normal MUSKULOSKELETAL: Able to move all extremities, strength equal bilaterally, normal posture PSYCHIATRIC: Alert and oriented to person place and time, appropriate affect, intact judgment and insight Results - Labs 12/19/22 06:31 12/19/22 06:31 Abnormal Lab Results - Last 24 Hours (Table) 12/18/22 12/18/22 12/18/22 Range/Units 17:05 17:05 17:05 RBC 3.77 L (4.30-5.90) m/uL Hgb 12.3 L (13.0-17.5) gm/dL Hct 36.9 L (39.0-53.0) % Lymphocytes # (1.0-4.8) k/uL PT 14.9 H (9.0-12.0) sec INR 1.5 H (<1.2) APTT 38.9 H (22.0-30.0) sec Sodium 136 L (137-145) mmol/L Calcium (8.4-10.2) mg/dL AST (17-59) U/L Troponin I (0.000-0.034) ng/mL Total Protein 5.4 L (6.3-8.2) g/dL Albumin 3.0 L (3.5-5.0) g/dL Urine Protein (Negative) 12/18/22 12/18/22 12/18/22 Range/Units 17:05 18:20 20:12 RBC (4.30-5.90) m/uL Hgb (13.0-17.5) gm/dL Hct (39.0-53.0) % Lymphocytes # (1.0-4.8) k/uL PT (9.0-12.0) sec INR (<1.2) APTT (22.0-30.0) sec Sodium (137-145) mmol/L Calcium (8.4-10.2) mg/dL AST (17-59) U/L Troponin I 0.097 H* 0.093 H* (0.000-0.034) ng/mL Total Protein (6.3-8.2) g/dL Albumin (3.5-5.0) g/dL Urine Protein Trace H (Negative) 12/18/22 12/19/22 12/19/22 Range/Units 23:01 06:31 06:31 RBC 3.38 L (4.30-5.90) m/uL Hgb 11.0 L (13.0-17.5) gm/dL Hct 33.8 L (39.0-53.0) % Lymphocytes # 0.8 L (1.0-4.8) k/uL PT (9.0-12.0) sec INR (<1.2) APTT (22.0-30.0) sec Sodium (137-145) mmol/L Calcium 8.0 L (8.4-10.2) mg/dL AST 15 L (17-59) U/L Troponin I 0.088 H* (0.000-0.034) ng/mL Total Protein 4.6 L (6.3-8.2) g/dL Albumin 2.5 L (3.5-5.0) g/dL Urine Protein (Negative) Diabetes panel 12/18/22 12/19/22 Range/Units 17:05 06:31 Sodium 136 L 138 (137-145) mmol/L Potassium 4.4 4.4 (3.5-5.1) mmol/L Chloride 105 107 (98-107) mmol/L Carbon Dioxide 27 27 (22-30) mmol/L BUN 15 13 (9-20) mg/dL Creatinine 0.84 0.94 (0.66-1.25) mg/dL Glucose 85 81 (74-99) mg/dL Calcium 8.4 8.0 L (8.4-10.2) mg/dL AST 18 15 L (17-59) U/L ALT 17 14 (4-49) U/L Alkaline Phosphatase 60 54 (38-126) U/L Total Protein 5.4 L 4.6 L (6.3-8.2) g/dL Albumin 3.0 L 2.5 L (3.5-5.0) g/dL Calcium panel 12/18/22 12/19/22 Range/Units 17:05 06:31 Calcium 8.4 8.0 L (8.4-10.2) mg/dL Albumin 3.0 L 2.5 L (3.5-5.0) g/dL Pituitary panel 12/18/22 12/19/22 Range/Units 17:05 06:31 Sodium 136 L 138 (137-145) mmol/L Potassium 4.4 4.4 (3.5-5.1) mmol/L Chloride 105 107 (98-107) mmol/L Carbon Dioxide 27 27 (22-30) mmol/L BUN 15 13 (9-20) mg/dL Creatinine 0.84 0.94 (0.66-1.25) mg/dL Glucose 85 81 (74-99) mg/dL Calcium 8.4 8.0 L (8.4-10.2) mg/dL Adrenal panel 12/18/22 12/19/22 Range/Units 17:05 06:31 Sodium 136 L 138 (137-145) mmol/L Potassium 4.4 4.4 (3.5-5.1) mmol/L Chloride 105 107 (98-107) mmol/L Carbon Dioxide 27 27 (22-30) mmol/L BUN 15 13 (9-20) mg/dL Creatinine 0.84 0.94 (0.66-1.25) mg/dL Glucose 85 81 (74-99) mg/dL Calcium 8.4 8.0 L (8.4-10.2) mg/dL Total Bilirubin 1.1 1.0 (0.2-1.3) mg/dL AST 18 15 L (17-59) U/L ALT 17 14 (4-49) U/L Alkaline Phosphatase 60 54 (38-126) U/L Total Protein 5.4 L 4.6 L (6.3-8.2) g/dL Albumin 3.0 L 2.5 L (3.5-5.0) g/dL - Imaging Chest x-ray: report reviewed, image reviewed CT scan - chest: report reviewed, image reviewed EKG: image reviewed Assessment and Plan Assessment: Orthostatic hypotension Bilateral pleural effusions, expected outcomes after open heart surgery Coronary artery disease status post single-vessel CABG 12/06/2022 Mitral valve regurgitation status post mitral valve repair 12/06/2022 History of hypertension Hyperlipidemia Persistent atrial fibrillation on Xarelto for anticoagulation, status post ligation of the left atrial appendage History of TIA Previous tobacco dependence COPD Obstructive sleep apnea without CPAP use Pneumonia Urinary retention requiring straight catheterization at home Depression Plan: The patient was seen and examined the bedside. Chart/diagnostics reviewed. The case was discussed in detail with Dr. Mathew. Pleural effusion as part of a normal postoperative open heart course, the patient is not symptomatic, and does not need to be drained at this time. Orthostatic depression heart rate were ordered, patient encouraged to drink fluid. Per Dr. Mathew's recommendation patient should be discharged to home to follow-up outpatient. Post cardiac surgery discharge instructions and follow-up appointments were placed on patient's discharge plan. [place] home care can be ordered at the daughter's request. Current medication regimen, will stop amiodarone. Increase activity, ambulate as tolerated. Encourage incentive spirometry use. Sternal precautions. Medical management per Dr. Moore, cardiology, although Dr. Mathew is comfortable with discharging patient to home. I have personally seen and examined the patient, performed the documentation and the assessment and plan as written. Number of minutes spent on the visit: 30. PIPE Lees The patient is a 72 y/o male, well-known to our service, s/p CABG/MV repair by Dr. Mathew on 12/06/22, who presented to his primary care physician's office yesterday for a follow up visit. He was noted to be orthostatic and was admitted to the hospital. Subsequent additional workup has been negative. Today he feels much better and has ambulated without difficulty. No plans for additional testing or intervention on our part. Ok to discharge home. I have personally seen and examined the patient, reviewed the documentation and the assessment and plan as written. Number of minutes spent on the visit: 45. Jay Palumbo M.D.
[2022-12-19 16:33] LABS: Chol/HDL Ratio 2.03 Ratio; LDL Cholesterol,Calculated 30.8 mg/dL (0.0-131.0); VLDL Calculation 10.14 mg/dL (5.00-40.00)
[2022-12-19] MEDS: carvediloL 3.125 MG TAB PO SCH (17:47)
[2022-12-20] MEDS: SYMBICORT 80-4.5 MCG INHALER INHALATION SCH ×2 (07:52→18:08)
[2022-12-20] MEDS: IPRATROPIUM 0.5 MG/2.5 ML NEBU INHALATION SCH ×4 (07:52→18:08)
[2022-12-20] MEDS: PANTOPRAZOLE 40 MG TABLET PO SCH ×2 (10:01→17:13)
[2022-12-20] MEDS: ATORVASTATIN 20 MG TAB PO SCH (10:01)
[2022-12-20] MEDS: CHOLECALCIFEROL 25 MCG (1000 IU) TABLET PO SCH (10:01)
[2022-12-20] MEDS: ASPIRIN 81 MG PO SCH (10:01)
[2022-12-20] MEDS: CALCIUM CARBONATE 500 MG CHEWABLE PO SCH (10:01)
[2022-12-20] MEDS: carvediloL 3.125 MG TAB PO SCH ×2 (10:01→17:14)
[2022-12-20] MEDS: FERROUS SULFATE 325 MG TAB PO SCH (10:02)
[2022-12-20] MEDS: buPROPion SR 100 MG TABLET.ER PO SCH ×2 (10:02→21:21)
--- NOTE | 2022-12-20 10:22 | P.PN ---
Subjective Progress Note Date: 12/20/22 HISTORY OF PRESENT ILLNESS: This is 72-year-old male patient of Dr. Lewis with past medical history of p ersistent atrial fibrillation, mitral regurgitation status post mitral valve repair, coronary artery disease status post CABG, dilated cardiomyopathy, hypertension, hyperlipidemia, urinary retention with straight cath. We have been asked to evaluate the patient regarding elevated troponins. Patient was recently hospitalized and underwent CABG 1 vessel with SVG to diagonal coronary artery and mitral valve repair on 12/06. Patient states that yesterday he had a follow-up appointment scheduled Dr. Moore and cardiothoracic surgery. He went to his appointment with Dr. Moore and found that his blood pressure was low and his heart rate was high. He was then sent into the emergency center for further evaluation. Patient states that he feels that his heart rate has been running high and low with fluctuations. He denies having any chest pain, no shortness of breath. No lightheadedness or dizziness. EKG atrial fibrillation with ventricular rate of 59, second EKG atrial fibrillation with ventricular rate 53 CAT scan of the chest revealed no mediastinal abscess. Large hiatal hernia. Moderate left and small right pleural effusions with adjacent compressive atelectasis. Cholelithiasis. Chest x-ray moderate left pleural fluid collection with minimal right pleural effusion. Air collection within the mid thorax consider hiatal hernia WBC 5.6, hemoglobin 11, platelet count 247. Electrolytes and renal function normal. Troponin 0.097, 0.093, 0.083. Cortisol level X. Liver function tests within normal limits. ProBNP 2520. Home cardiac medications: Amiodarone 400 mg daily, aspirin 81 mg daily, Lipitor 20 mg daily, Coreg 6.25 mg twice daily, lisinopril 2.5 mg daily, Xarelto 20 g daily 12/20 Patient is seen in follow-up. He denies chest pain, no shortness of breath at r est. He states that he is going to have the pleural fluid drained today. Heart rate is running in the 50s and 60s, blood pressure 124/79 and pulse ox 94% on room air. PHYSICAL EXAM: VITAL SIGNS: Reviewed. GENERAL: Well-developed in no acute distress. NECK: Supple. No JVD or thyromegaly LUNGS: Respirations even and unlabored. Lungs essentially clear to auscultation bilaterally, diminished. HEART: Irregular rate and rhythm. S1 and S2 heard. EXTREMITIES: Normal range of motion. No clubbing or cyanosis. Peripheral pulses intact. No lower extremity edema ASSESSMENT: Hypotension Pleural effusions Coronary artery disease, status post 1 vessel CABG with SVG to diagonal coronary artery 4/5 Mitral valve regurgitation, status post mitral valve repair Hypertension Hyperlipidemia Persistent atrial fibrillation COPD Obstructive sleep apnea History of urinary retention PLAN: Continue patient's home cardiac medications Continued decreased dose of Coreg 3.125 mg twice daily Further recommendations pending patient's course Nurse practitioner note has been reviewed by physician. Signing provider agrees with the documented findings, assessment, and plan of care. Objective - Vital Signs Vital signs: Vital Signs Temp 98.1 F 12/20/22 07:21 Pulse 60 12/20/22 08:10 Resp 16 12/20/22 07:21 BP 124/79 12/20/22 07:21 Pulse Ox 94 L 12/20/22 07:21 FiO2 Intake & Output 12/19/22 12/20/22 12/20/22 18:59 06:59 18:59 Intake Total 1560 200 Balance 1560 200 Intake: Intake, IV Titration 1560 Amount Sodium Chloride 0.9% 1, 1560 000 ml @ 130 mls/hr IV . Q7H42M STA Rx#:[id number] Oral 200 Other: Voiding Method Toilet Toilet Toilet Self-Catheterization Self-Catheterization Self-Catheterization - Labs CBC & Chem 7: 12/19/22 06:31 12/19/22 06:31 Labs: Abnormal Lab Results - Last 24 Hours (Table) 12/19/22 Range/Units 06:31 HDL Cholesterol 39.60 L (40.00-60.00) mg/dL Microbiology - Last 24 Hours (Table) 12/18/22 17:15 Blood Culture - Preliminary Blood No Growth after 24 hours 12/18/22 17:00 Blood Culture - Preliminary Blood No Growth after 24 hours
--- NOTE | 2022-12-20 11:11 | PN ---
PROGRESS NOTE SUBJECTIVE: A 72-year-old white male came in with hypotension, shortness of breath, and sick sinus syndrome. Surgery consult was done today status post open heart. He says he is feeling a little bit better. He is having trouble breathing. OBJECTIVE: VITAL SIGNS: Saturation with oxygen 93%. HEART: S1, S2. OPHTHALMOLOGIC: Pupils equal, round, reactive. INTEGUMENT: Warm, dry, intact. LABORATORY DATA: INR is 1.5, hemoglobin is 12.3. Albumin is 2.5. Troponins 0.088, 0.097 and 0.093. He has orthostatic hypotension, bilateral pleural effusions, status post open heart, coronary artery disease, status post single vessel CABG, status post mitral valve repair, hypertension, dyslipidemia, persistent atrial fibrillation, on Xarelto COPD, sleep apnea, needs CPAP or oxygen at night, urinary retention, depression. Dr. Mathew says he has a pleural effusion postop. Orthostatic heart rates were low. Encouraged to drink fluids. He will stop his amiodarone and increase his diet. Possible current treatment with midodrine. Medications are reviewed. Prognosis guarded. MMODL / IJN: [id number] /
--- NOTE | 2022-12-20 16:24 | P.PN ---
Subjective Progress Note Date: 12/20/22 I'm seeing this patient in new consultation today 12/19/2022 for a left-sided pleural effusion. Patient is a 72-year-old white male who recently underwent elective open-heart surgery on 12/06/2022 at this facility. Patient had a CABG 1 with a saphenous vein graft to the diagonal branch, mitral valve repair, and a left atrial appendage ligation. Patient's other medical history is significant for atrial fibrillation, COPD in which he takes Trelegy at home, obstructive sleep apnea without CPAP or BiPAP use, hyperlipidemia, hypertension, coronary artery disease, urinary retention in which he straight caths at home, osteoarthritis, and is an ex-smoker. The patient was sent over from Dr. Renato Moore's office yesterday afternoon for hypotension. Patient's only symptom was lightheadedness. Patient denies any chest pain, palpitations, syncope, lower extremity swelling. On arrival to the emergency room, patient was found to be in atrial fibrillation with slow ventricular response. Patient was on a combination of amiodarone 400 mg daily, Coreg 6.25 milligrams twice a day, and lisinopril 2.5 mg daily. He is currently anticoagulated on Xarelto. Incidentally, a moderate left-sided pleural effusion was seen on chest x-ray along with a minimal right pleural effusion. A follow-up chest CT with contrast redemonstrated these findings, along with large halo hernia, and cholelithiasis. Patient denies any shortness of breath, fever, cough, chest pain. Patient is currently resting in bed, on room air, in no acute distress. His oxygen saturation is currently 94%. CBC on arrival shows a WBC count of 7.6, hemoglobin 12.3, hematocrit 36.9, platelets 297,000. Patient's BMP was unremarkable. Troponins are elevated, and peaked at 0.097. Patient's COPD seems stable, and is maintained on a combination of Symbicort and Spiriva inhalers. Vital signs are stable. On today's evaluation of 12/20/2022, the patient is off anticoagulants and a left-sided thoracentesis will be done to evacuate a pleural effusion. Otherwise, the patient has no other specific complaints. No new labs are av ailable from today. The patient is currently on room air oxygen. Objective - Vital Signs Vital signs: Vital Signs Temp 98.4 F 12/20/22 13:00 Pulse 56 L 12/20/22 15:38 Resp 16 12/20/22 13:00 BP 130/74 12/20/22 13:00 Pulse Ox 95 12/20/22 13:00 FiO2 Intake & Output 12/19/22 12/20/22 12/20/22 18:59 06:59 18:59 Intake Total 1560 200 Balance 1560 200 Intake: Intake, IV Titration 1560 Amount Sodium Chloride 0.9% 1, 1560 000 ml @ 130 mls/hr IV . Q7H42M STA Rx#:[id number] Oral 200 Other: Voiding Method Toilet Toilet Toilet Self-Catheterization Self-Catheterization Self-Catheterization - Exam GENERAL EXAM: Alert, 72-year-old white male, comfortable in no apparent distress. HEAD: Normocephalic and atraumatic EYES: Normal reaction of pupils, equal size. NOSE: Clear with pink turbinates. THROAT: No erythema or exudates. NECK: No masses, no JVD. CHEST: Midsternal incision is approximated, clean LUNGS: Equal air entry with diminished lung sounds at the left base. no crackles, wheeze, or rhonchi. On room air. No conversational dyspnea or accessory muscle use.. CVS: S1 and S2 normal with no audible murmur, irregular rhythm. No extra heart sounds ABDOMEN: No hepatosplenomegaly, active bowel sounds, no guarding or rigidity. SPINE: No scoliosis or deformity SKIN: No rashes CENTRAL NERVOUS SYSTEM: No focal deficits, tone is normal in all 4 extremities. EXTREMITIES: There is no peripheral edema, clubbing, or cyanosis. Peripheral pulses are intact. - Labs CBC & Chem 7: 12/19/22 06:31 12/19/22 06:31 Labs: Abnormal Lab Results - Last 24 Hours (Table) 12/19/22 Range/Units 06:31 HDL Cholesterol 39.60 L (40.00-60.00) mg/dL Microbiology - Last 24 Hours (Table) 12/18/22 17:15 Blood Culture - Preliminary Blood No Growth after 24 hours 12/18/22 17:00 Blood Culture - Preliminary Blood No Growth after 24 hours Assessment and Plan Assessment: Atrial fibrillation with slow ventricular response and hypotension, recovered and his rate is controlled for now Moderate size left pleural effusion was incidentally found on chest x-ray. Patient is asymptomatic and on room air Coronary artery disease and history of mitral regurgitation status post coronary artery bypass graft with a SVG to the diagonal branch, mitral valve repair, and left atrial appendage ligation on 12/06/22 Elevated troponins Stable background COPD obstructive sleep apnea without CPAP or BiPAP history of urinary retention requiring straight catheterizations osteoarthritis ex-smoker Plan: Patient is off anticoagulants We'll proceed with a bedside thoracentesis on the left Follow-up chest x-ray will be done We'll continue to follow Possible discharge if the procedure was uncomplicated and the patient remains stable.
--- NOTE | 2022-12-20 16:37 | P.PCN ---
Date of Procedure: 12/20/22 Preoperative Diagnosis: Left-sided pleural effusion Postoperative Diagnosis: Same Procedure(s) Performed: Left-sided thoracentesis Anesthesia: local Surgeon: Kim Ward Pathology: other Condition: stable Disposition: floor Operative Findings: A time out was performed and the chest x-ray was reviewed, the appropriate side was confirmed and marked. My hands were washed immediately prior to the procedure. I wore a surgical cap, mask with protective eyewear, sterile gown and sterile gloves throughout the procedure. The patient was prepped and draped in a sterile manner using chlorhexidine scrub after the appropriate level was percussed and confirmed by ultrasound. 1% lidocaine was used to anesthesize the skin, subcutaneous tissue, superior aspect of the rib periosteum and parietal pleura. A finder needle was then introduced over the superior aspect of the rib to locate the pleural fluid; 2colored fluid was aspirated at a depth of approximately 2 cm. A 10-blade scalpel was used to mary the skin at the insertion site. The [id number] needle was then introduced through the skin incision into the pleural space using negative aspiration pressure and the red colometric indicator to confirm appropriate positioning of the needle. The thoracentesis catheter was then threaded without difficulty. 1500 ml of turbid colored fluid was removed without difficulty. The catheter was then removed. No immediate complications were noted during the procedure. A post-procedure chest x-ray is pending at the time of this note. The fluid will cytology be sent for studies. Estimated blood loss is 0cc
--- NOTE | 2022-12-20 16:59 | XR ---
EXAMINATION TYPE: XR chest 1V portable DATE OF EXAM: 12/20/2022 4:48 PM COMPARISON: Chest radiographs from 12/18/2022. TECHNIQUE: XR chest 1V portable Frontal view of the chest. CLINICAL INDICATION:Male, 72 years old with history of Post thoracentesis; FINDINGS: Lungs/Pleura: Small left pleural effusion without large pneumothorax. No focal consolidation or left right-sided pleural effusion. Pulmonary vascularity: Unremarkable. Heart/mediastinum: Cardiomediastinal silhouette is enlarged and stable. Musculoskeletal: No acute osseous pathology. Midline sternotomy wires and surgical clips project over the mediastinum. IMPRESSION: Persistent small left pleural effusion. No large pneumothorax.
--- NOTE | 2022-12-21 02:16 | PN ---
PROGRESS NOTE SUBJECTIVE: Status post thoracentesis of 1.5 L of fluid on the left side of the chest, possible thoracentesis on the right side tomorrow. Status post bypass and valvular repair. Continues on Symbicort for his breathing, Atrovent for his breathing for testicular precautions and also for atrial fibrillation for prophylaxis, Coreg for hypertension, Zestril for hypertension. OBJECTIVE: VITAL SIGNS: O2 is 97%, blood pressure is 108 to 120s over 70s to 60s, temp 99.1, and pulse 74 to 60. PLAN: Status post CABG surgery, large pleural effusions, orthostatic hypotension, dehydration, all improved, status post drainage. Waiting for the fluids, conditions. COPD, continue home medicines. Rehydrate. Thoracentesis was done today. Other side will be done tomorrow, PT OT, then possible discharge. MMODL / IJN: [id number] /
[2022-12-21] MEDS: IPRATROPIUM 0.5 MG/2.5 ML NEBU INHALATION SCH ×3 (07:39→15:35)
[2022-12-21] MEDS: SYMBICORT 80-4.5 MCG INHALER INHALATION SCH (07:40)
[2022-12-21] MEDS: RIVAROXABAN 20 MG TAB PO SCH (08:04)
[2022-12-21] MEDS ORDERED: ACETAMINOPHEN TAB 325 MG TAB PO PRN (08:05)
[2022-12-21] MEDS: CHOLECALCIFEROL 25 MCG (1000 IU) TABLET PO SCH (08:14)
[2022-12-21] MEDS: FERROUS SULFATE 325 MG TAB PO SCH (08:14)
[2022-12-21] MEDS: ATORVASTATIN 20 MG TAB PO SCH (08:14)
[2022-12-21] MEDS: carvediloL 3.125 MG TAB PO SCH ×2 (08:14→17:03)
[2022-12-21] MEDS: ASPIRIN 81 MG PO SCH (08:14)
[2022-12-21] MEDS: CALCIUM CARBONATE 500 MG CHEWABLE PO SCH (08:14)
[2022-12-21] MEDS: buPROPion SR 100 MG TABLET.ER PO SCH (08:15)
[2022-12-21] MEDS: PANTOPRAZOLE 40 MG TABLET PO SCH ×2 (08:19→17:03)
[2022-12-21 10:27] LABS: Basophils # (A) 0.06 X 10*3/uL (0.00-0.10); Basophils % (A) 0.8 %; Eosinophils # (A) 0.35 X 10*3/uL (0.04-0.35); Eosinophils % (A) 4.6 %; Immature Grans, Automated 0.9 %; Lymphocytes # (A) 1.09 X 10*3/uL (0.90-5.00); Lymphocytes % (A) 14.4 %; MCH 32.7 pg (27.0-32.0); MCHC 32.4 g/dL (32.0-37.0); MCV 100.8 fL (80.0-97.0); Mean Platelet Volume 10.1 fL (9.5-12.2); Monocytes # (A) 0.81 X 10*3/uL (0.20-1.00); Monocytes % (A) 10.7 %; NRBC Per 100 WBC 0 /100 WBCS (0.0-0.0); Neutrophils # (A) 5.19 X 10*3/uL (1.80-7.70); Neutrophils % (A) 68.6 %; Platelet Count 285 X 10*3/uL (140-440); RBC 3.67 X 10*6/uL (4.40-5.60); RDW 15.6 % (11.5-14.5); WBC 7.57 X 10*3/uL (4.50-10.00)
--- NOTE | 2022-12-21 11:26 | P.PN ---
Subjective Progress Note Date: 12/21/22 HISTORY OF PRESENT ILLNESS: This is 72-year-old male patient of Dr. Lewis with past medical history of p ersistent atrial fibrillation, mitral regurgitation status post mitral valve repair, coronary artery disease status post CABG, dilated cardiomyopathy, hypertension, hyperlipidemia, urinary retention with straight cath. We have been asked to evaluate the patient regarding elevated troponins. Patient was recently hospitalized and underwent CABG 1 vessel with SVG to diagonal coronary artery and mitral valve repair on 12/06. Patient states that yesterday he had a follow-up appointment scheduled Dr. Moore and cardiothoracic surgery. He went to his appointment with Dr. Moore and found that his blood pressure was low and his heart rate was high. He was then sent into the emergency center for further evaluation. Patient states that he feels that his heart rate has been running high and low with fluctuations. He denies having any chest pain, no shortness of breath. No lightheadedness or dizziness. EKG atrial fibrillation with ventricular rate of 59, second EKG atrial fibrillation with ventricular rate 53 CAT scan of the chest revealed no mediastinal abscess. Large hiatal hernia. Moderate left and small right pleural effusions with adjacent compressive atelectasis. Cholelithiasis. Chest x-ray moderate left pleural fluid collection with minimal right pleural effusion. Air collection within the mid thorax consider hiatal hernia WBC 5.6, hemoglobin 11, platelet count 247. Electrolytes and renal function normal. Troponin 0.097, 0.093, 0.083. Cortisol level X. Liver function tests within normal limits. ProBNP 2520. Home cardiac medications: Amiodarone 400 mg daily, aspirin 81 mg daily, Lipitor 20 mg daily, Coreg 6.25 mg twice daily, lisinopril 2.5 mg daily, Xarelto 20 g daily 12/20 Patient is seen in follow-up. He denies chest pain, no shortness of breath at r est. He states that he is going to have the pleural fluid drained today. Heart rate is running in the 50s and 60s, blood pressure 124/79 and pulse ox 94% on room air. 12/21 patient is seen today in follow-up. Yesterday he underwent left-sided thoracentesis with removal of 1500 ML's of pleural fluid by Dr. Ward. Patient states he feels his breathing is much improved after that procedure. C hest x-ray reveals persistent small left pleural effusion. No large pneumothorax. Patient states that he fears he has more fluid developing on the left side since yesterday. HR 50-60s. BP 117/73. Tele afib with controlled v rate. PHYSICAL EXAM: VITAL SIGNS: Reviewed. GENERAL: Well-developed in no acute distress. NECK: Supple. No JVD or thyromegaly LUNGS: Respirations even and unlabored. Lungs diminished bilaterally more so on the left. HEART: Irregular rate and rhythm. S1 and S2 heard. EXTREMITIES: Normal range of motion. No clubbing or cyanosis. Peripheral pulses intact. No lower extremity edema ASSESSMENT: Hypotension Pleural effusions s/p L thoracentesis 12/20 Coronary artery disease, status post 1 vessel CABG with SVG to diagonal coronary artery 12/06 Mitral valve regurgitation, status post mitral valve repair Hypertension Hyperlipidemia Persistent atrial fibrillation COPD Obstructive sleep apnea History of urinary retention PLAN: Continue patient's home cardiac medications Continue decreased dose of Coreg 3.125 mg twice daily Further recommendations pending patient's course Nurse practitioner note has been reviewed by physician. Signing provider agrees with the documented findings, assessment, and plan of care. Objective - Vital Signs Vital signs: Vital Signs Temp 98.5 F 12/21/22 07:12 Pulse 64 12/21/22 07:54 Resp 16 12/21/22 07:12 BP 117/73 12/21/22 07:12 Pulse Ox 94 L 12/21/22 07:40 FiO2 Intake & Output 12/20/22 12/21/22 12/21/22 18:59 06:59 18:59 Intake Total 200 200 Balance 200 200 Intake: Oral 200 200 Other: Voiding Method Toilet Toilet Self-Catheterization Self-Catheterization # Voids 1 - Labs CBC & Chem 7: 12/21/22 06:41 12/19/22 06:31 Labs: Microbiology - Last 24 Hours (Table) 12/20/22 17:48 Body Fluid Culture - Preliminary Pleural Fluid 12/20/22 17:48 Anaerobic Culture - Preliminary Pleural Fluid 12/18/22 17:00 Blood Culture - Preliminary Blood No Growth after 48 hours 12/18/22 17:15 Blood Culture - Preliminary Blood No Growth after 48 hours
[2022-12-21 12:34] VITALS: RESP 18; TEMP 98.4
[2022-12-21 13:54] LABS: Albumin/Globulin Ratio 1.75 (1.60-3.17); Anion Gap 9.2 mmol/L (10.00-18.00); BUN/Creat Ratio 13.62 Ratio (12.00-20.00); Blood Urea Nitrogen 12.9 mg/dL (9.0-27.0); Calcium 8.7 mg/dL (8.7-10.3); Globulin 1.7 g/dL (1.6-3.3); Non-African American GFR(CKD) 79.4 (60.0-200.0); Potassium 4.1 mmol/L (3.5-5.5); Total Bilirubin 0.8 mg/dL (0.30-1.20); Total Protein 4.7 g/dL (6.2-8.2)
--- NOTE | 2022-12-21 16:38 | P.PN ---
Subjective Progress Note Date: 12/21/22 I'm seeing this patient in new consultation today 12/19/2022 for a left-sided pleural effusion. Patient is a 72-year-old white male who recently underwent elective open-heart surgery on 12/06/2022 at this facility. Patient had a CABG 1 with a saphenous vein graft to the diagonal branch, mitral valve repair, and a left atrial appendage ligation. Patient's other medical history is significant for atrial fibrillation, COPD in which he takes Trelegy at home, obstructive sleep apnea without CPAP or BiPAP use, hyperlipidemia, hypertension, coronary artery disease, urinary retention in which he straight caths at home, osteoarthritis, and is an ex-smoker. The patient was sent over from Dr. Renato Moore's office yesterday afternoon for hypotension. Patient's only symptom was lightheadedness. Patient denies any chest pain, palpitations, syncope, lower extremity swelling. On arrival to the emergency room, patient was found to be in atrial fibrillation with slow ventricular response. Patient was on a combination of amiodarone 400 mg daily, Coreg 6.25 milligrams twice a day, and lisinopril 2.5 mg daily. He is currently anticoagulated on Xarelto. Incidentally, a moderate left-sided pleural effusion was seen on chest x-ray along with a minimal right pleural effusion. A follow-up chest CT with contrast redemonstrated these findings, along with large halo hernia, and cholelithiasis. Patient denies any shortness of breath, fever, cough, chest pain. Patient is currently resting in bed, on room air, in no acute distress. His oxygen saturation is currently 94%. CBC on arrival shows a WBC count of 7.6, hemoglobin 12.3, hematocrit 36.9, platelets 297,000. Patient's BMP was unremarkable. Troponins are elevated, and peaked at 0.097. Patient's COPD seems stable, and is maintained on a combination of Symbicort and Spiriva inhalers. Vital signs are stable. On today's evaluation of 12/20/2022, the patient is off anticoagulants and a left-sided thoracentesis will be done to evacuate a pleural effusion. Otherwise, the patient has no other specific complaints. No new labs are av ailable from today. The patient is currently on room air oxygen. On 12/21/2022, the patient is stable on room air oxygen. The patient underwent a thoracentesis yesterday and a total of 1.5 L of pleural fluid was aspirated from the left lung without any major complications. Fluid cytology is still pending for now. Meanwhile, the patient is stable. The patient is back on anticoagulation. No other active issues for now. No need to do any interventions on the right side as the amount of pleural fluid is small. Objective - Vital Signs Vital signs: Vital Signs Temp 98.4 F 12/21/22 12:15 Pulse 60 12/21/22 15:46 Resp 18 12/21/22 12:15 BP 112/76 12/21/22 12:15 Pulse Ox 96 12/21/22 12:15 FiO2 Intake & Output 12/20/22 12/21/22 12/21/22 18:59 06:59 18:59 Intake Total 200 200 Balance 200 200 Intake: Oral 200 200 Other: Voiding Method Toilet Toilet Toilet Self-Catheterization Self-Catheterization Self-Catheterization # Voids 1 - Exam GENERAL EXAM: Alert, 72-year-old white male, comfortable in no apparent distress. HEAD: Normocephalic and atraumatic EYES: Normal reaction of pupils, equal size. NOSE: Clear with pink turbinates. THROAT: No erythema or exudates. NECK: No masses, no JVD. CHEST: Midsternal incision is approximated, clean LUNGS: Equal air entry with diminished lung sounds at the left base. no crackle s, wheeze, or rhonchi. On room air. No conversational dyspnea or accessory muscle use.. The patient has improved aeration in the left lung base postthoracentesis CVS: S1 and S2 normal with no audible murmur, irregular rhythm. No extra heart sounds ABDOMEN: No hepatosplenomegaly, active bowel sounds, no guarding or rigidity. SPINE: No scoliosis or deformity SKIN: No rashes CENTRAL NERVOUS SYSTEM: No focal deficits, tone is normal in all 4 extremities. EXTREMITIES: There is no peripheral edema, clubbing, or cyanosis. Peripheral pulses are intact. - Labs CBC & Chem 7: 12/21/22 06:41 12/21/22 06:41 Labs: Abnormal Lab Results - Last 24 Hours (Table) 12/21/22 12/21/22 Range/Units 06:41 06:41 RBC 3.67 L (4.40-5.60) X 10*6/uL Hgb 12.0 L (13.0-17.0) g/dL Hct 37.0 L (39.6-50.0) % MCV 100.8 H (80.0-97.0) fL MCH 32.7 H (27.0-32.0) pg RDW 15.6 H (11.5-14.5) % Immature Gran # 0.07 H (0.00-0.04) X 10*3/uL Chloride 110 H (96-109) mmol/L Anion Gap 9.20 L (10.00-18.00) mmol/L AST 13 L (14-35) U/L Total Protein 4.7 L (6.2-8.2) g/dL Albumin 3.0 L (3.8-4.9) g/dL Microbiology - Last 24 Hours (Table) 12/20/22 17:48 Gram Stain - Preliminary Pleural Fluid Body Fluid Culture - Preliminary 12/20/22 17:48 Anaerobic Culture - Preliminary Pleural Fluid 12/18/22 17:00 Blood Culture - Preliminary Blood No Growth after 48 hours 12/18/22 17:15 Blood Culture - Preliminary Blood No Growth after 48 hours Assessment and Plan Assessment: Atrial fibrillation with slow ventricular response and hypotension, recovered and his rate is controlled for now Moderate size left pleural effusion was incidentally found on chest x-ray. Patient is asymptomatic and on room air, post thoracentesis and evacuation of 1.5 L of pleural fluid. Coronary artery disease and history of mitral regurgitation status post coronary artery bypass graft with a SVG to the diagonal branch, mitral valve repair, and left atrial appendage ligation on 12/06/22 Elevated troponins Stable background COPD obstructive sleep apnea without CPAP or BiPAP history of urinary retention requiring straight catheterizations osteoarthritis ex-smoker Plan: Patient can be discharged home Resume anticoagulants Outpatient follow-up within a week or 2 for a follow-up chest x-ray Continue using incentive spirometer Condition is stable
[2022-12-21 17:03] VITALS: BP 115/75; PULSE 71
== END 2022-12-21 17:50 | disposition home health service (06) | DRG 292 ==
LOC: EC 15:24 → 5NMEDONC 19:22
PROVIDERS: ADMIT Family Medicine; ATTEND Family Medicine
PROC: 0W9B3ZX Drainage of Left Pleural Cavity, Percutaneous Approach, Diagnostic (ICD-10-PCS; principal; 2022-12-20)
DX: I11.0 Hypertensive heart disease with heart failure (principal); I48.19 Other persistent atrial fibrillation; J91.8 Pleural effusion in other conditions classified elsewhere; I95.1 Orthostatic hypotension; I42.0 Dilated cardiomyopathy; E86.0 Dehydration; E78.5 Hyperlipidemia, unspecified; F32.A Depression, unspecified; G47.33 Obstructive sleep apnea (adult) (pediatric); I25.10 Atherosclerotic heart disease of native coronary artery without angina pectoris; I34.0 Nonrheumatic mitral (valve) insufficiency; I49.5 Sick sinus syndrome; J44.9 Chronic obstructive pulmonary disease, unspecified; I50.9 Heart failure, unspecified; K44.9 Diaphragmatic hernia without obstruction or gangrene; R33.9 Retention of urine, unspecified; K80.20 Calculus of gallbladder without cholecystitis without obstruction; M19.90 Unspecified osteoarthritis, unspecified site; M81.0 Age-related osteoporosis without current pathological fracture; Z96.642 Presence of left artificial hip joint; Z79.01 Long term (current) use of anticoagulants; Z79.82 Long term (current) use of aspirin; Z79.899 Other long term (current) drug therapy; Z86.73 Personal history of transient ischemic attack (TIA), and cerebral infarction without residual deficits; Z87.891 Personal history of nicotine dependence; Z95.1 Presence of aortocoronary bypass graft; Z95.2 Presence of prosthetic heart valve
CPT/HCPCS: 36415; 71045; 71046; 71260; 80053; 80061; 81003; 82533; 83735; 83880; 84484; 85025; 85610; 85730; 87040; 87070; 87075; 87205; 88108; 88305; 93005; 94640; 94760; 96360; 99285

== ENCOUNTER → 2023-01-15 | Outpatient (CLI) | payer MEDICARE, OTHER ==
--- NOTE | 2023-01-15 11:38 | CT ---
EXAMINATION TYPE: CT chest wo con DATE OF EXAM: 01/15/2023 COMPARISON: 12/18/2022 HISTORY: Pleural effusion. History of open heart surgery on 12/06/22. CT DLP: 399 mGycm. Automated Exposure Control for Dose Reduction was Utilized. TECHNIQUE: CT scan of the thorax is performed without IV contrast. FINDINGS: There has been marked improvement in the appearance of the chest. The right sided atelectasis and ple ural effusion has resolved. Left pleural effusion has decreased and a small to moderate pleural effus ion persists. There is also persistence mild left lower lobe compressive atelectasis.. There are no suspicious lung masses or nodules. There is mild aneurysmal dilatation of ascending thoracic aorta which measures 4.1 cm. There is no me diastinal, hilar or axillary adenopathy. The osseous structures are intact. There is a large hiatal hernia. Limited scanning of the upper abdomen reveals a persistent gallstone. IMPRESSION: 1. Resolution of the right-sided pleural effusion and atelectasis. 2. Persistent but reduced small to moderate left pleural effusion and mild left lower lobe atelectasi s. 3. Large hiatal hernia. No change. 4. Cholelithiasis. No change. 5. Mild aneurysmal dilatation of ascending thoracic aorta measuring 4.1 cm.
== END | disposition home or self-care (01) ==
LOC: RADCTMAIN 10:23
PROVIDERS: ATTEND Family Medicine
DX: J98.11 Atelectasis (principal); K44.9 Diaphragmatic hernia without obstruction or gangrene; K80.20 Calculus of gallbladder without cholecystitis without obstruction; I71.21 Aneurysm of the ascending aorta, without rupture; J91.8 Pleural effusion in other conditions classified elsewhere
CPT/HCPCS: 71250

== ENCOUNTER 2023-03-30 17:11 | Emergency (ER) | payer MEDICARE, OTHER ==
[2023-03-30 17:29] VITALS: BP 122/53; PULSE 56; RESP 20; TEMP 98
--- NOTE | 2023-03-30 20:21 | XR ---
EXAMINATION TYPE: XR foot limited LT DATE OF EXAM: 03/30/2023 8:06 PM INDICATION: Patient age:Male; 72 years old; Reason for study: foreign body; PHH. COMPARISON: None TECHNIQUE: The left foot was examined in the AP, oblique, and lateral projections. FINDINGS/IMPRESSION: Pes planus with hardware in place. Hardware appears intact. No evidence of fracture. Atherosclerosis of the arterial vasculature. No additional radiopaque foreign bodies..
--- NOTE | 2023-03-30 20:32 | ED ---
General Adult HPI - General Chief complaint: Extremity Injury, Lower Stated complaint: Foreign Object L Foot Time Seen by Provider: 03/30/23 19:12 Source: patient Mode of arrival: ambulatory Limitations: no limitations - History of Present Illness Initial comments: Derick is a 72-year-old gentleman who presents the ER today for evaluation of foreign body sensation in the left foot. Patient reports he didn't step on anything but he was worried there is may be something in his shoe that irritated his foot. No obvious injuries. - Related Data Home Medications Medication Instructions Recorded Confirmed Rivaroxaban [Xarelto] 20 mg PO DAILY 06/11/15 01/05/23 buPROPion HCL [Wellbutrin SR] 200 mg PO BID 12/04/18 01/05/23 Fluticasone/Umeclidin/Vilanter 1 puff INHALATION RT-DAILY 02/18/20 01/05/23 [Trelegy Ellipta 100-62.5-25] Ascorbic Acid [Vitamin C] 500 mg PO DAILY 06/26/22 01/05/23 Cholecalciferol [Vitamin D3 (25 25 mcg PO DAILY 06/26/22 01/05/23 Mcg = 1000 Iu)] Zinc Gluconate [Zinc] 50 mg PO DAILY 06/26/22 01/05/23 Atorvastatin [Lipitor] 20 mg PO DAILY 10/09/22 01/05/23 Calcium Carbonate [Calcium] 600 mg PO DAILY 10/09/22 01/05/23 Ferrous Sulfate [Iron (65 MG 65 mg PO DAILY 10/09/22 01/05/23 Elemental)] oxyCODONE-APAP 10-325MG [Percocet 1 tab PO Q6HR PRN 10/09/22 01/05/23 10-325 mg] Sennosides-Docusate Sodium 2 tab PO HS PRN 12/18/22 01/05/23 [Senokot-S] Furosemide [Lasix] 40 mg PO DAILY 01/05/23 01/05/23 Potassium Chloride [Klor-Con M20] 20 meq PO DAILY 01/05/23 01/05/23 Previous Rx's Medication Instructions Recorded Acetaminophen Tab [Tylenol] 650 mg PO Q4HR PRN tab 12/11/22 Aspirin 81 mg PO DAILY #30 tab 12/11/22 Pantoprazole [Protonix] 40 mg PO BID #0 12/11/22 Tamsulosin [Flomax] 0.4 mg PO PC-BRKFST #30 cap 12/11/22 lisinopriL [Zestril] 2.5 mg PO DAILY@1200 #30 tab 12/11/22 Nitroglycerin Sl Tabs [Nitrostat] 0.4 mg SUBLINGUAL Q5M PRN tab 12/21/22 carvediloL [Coreg] 3.125 mg PO AC-BID 30 Days #60 tab 12/21/22 Allergies Allergy/AdvReac Type Severity Reaction Status Date / Time No Known Allergies Allergy Verified 03/30/23 17:29 Review of Systems ROS Statement: Those systems with pertinent positive or pertinent negative responses have been documented in the HPI. ROS Other: All systems not noted in ROS Statement are negative. Past Medical History Past Medical History: Atrial Fibrillation, Coronary Artery Disease (CAD), Heart Failure, COPD, GERD/Reflux, Hyperlipidemia, Hypertension, Musculoskeletal Disorder, Osteoarthritis (OA), Pneumonia, Sleep Apnea/CPAP/BIPAP Additional Past Medical History / Comment(s): mitral valve regurgitation,urinary retention-per patient he straight caths at home 3-4 times daily, osteoporo sis,no cpap,pt had one episode w/in last several months at [facility] when he could hear his friend talking to him but was not able to respond,hx pneumonia years ago History of Any Multi-Drug Resistant Organisms: None Reported Past Surgical History: Heart Catheterization, Hernia Repair, Joint Replacement, Orthopedic Surgery Additional Past Surgical History / Comment(s): repair of ESOPHAGUS tear, umbilical surg. x3,ORIF RIGHT HIP,RIGHT ARM PLATE AND SCREW, LEFT FOOT,left hip replaced, gordy shoulder surg,foot procedure,VLAD Past Anesthesia/Blood Transfusion Reactions: No Reported Reaction Additional Past Anesthesia/Blood Transfusion Reaction / Comment(s): no known hx blood transfusion Past Psychological History: Depression Smoking Status: Former smoker Past Alcohol Use History: None Reported Past Drug Use History: None Reported - Past Family History Mother Family Medical History: No Reported History General Exam - General Exam Comments Initial Comments: Physical Exam GENERAL: Patient is well-developed and well-nourished. Patient is nontoxic and well-hydrated and is in no distress. HENT: Normocephalic, Atraumatic. EYES: PERRL, EOMI PULMONARY: Unlabored respirations. CARDIOVASCULAR: RRR Warm and well perfused extremities ABDOMEN: Non-distended SKIN: There are surgical scars on the foot Plantar surface of the foot is calloused, no obvious injuries, no puncture wounds Area of tenderness appears to be blistered without signs of infection : Deferred NEUROLOGIC: Alert and oriented Normal speech Normal gait MUSCULOSKELETAL: Moving all extremities with no apparent injury PSYCHIATRIC: No SI/HI Limitations: no limitations Course Vital Signs 03/30/23 17:27 Temperature 98 F Pulse Rate 56 L Respiratory 20 Rate Blood Pressure 122/53 O2 Sat by Pulse 99 Oximetry Medical Decision Making - Medical Decision Making Patient was seen and evaluated history is obtained from the patient. Physical exam reveals no obvious injuries or site of puncture. X-ray was obtained there may be a less than 2 mm foreign body at the plantar surface of foot however this may be artifact. However I do not feel safe to open the foot to look for such a small foreign body as showing is no obvious puncture site. Recommend supportive care. Patient discharged stable condition. Was pt. sent in by a medical professional or institution (, PA, MOBILE HOME TECHNICIAN, urgent care, hospital, or intermediate...) When possible be specific @ -No Did you speak to anyone other than the patient for history (EMS, parent, family, police, friend...)? What history was obtained from this source @ -No Did you review nursing and triage notes (agree or disagree)? Why? @ -I reviewed and agree with nursing and triage notes Were old charts reviewed (outside hosp., previous admission, EMS record, old EKG, old radiological studies, urgent care reports/EKG's, intermediate records)? Report findings @ -No old charts were reviewed Differential Diagnosis (chest pain, altered mental status, abdominal pain women, abdominal pain men, vaginal bleeding, weakness, fever, dyspnea, syncope, headache, dizziness, GI bleed, back pain, seizure, CVA, palpatations, mental health, musculoskeletal)? @ -not applicable EKG interpreted by me (3pts min.). @ -As above X-rays interpreted by me (1pt min.). @ -See a possible very small foreign body in the plantar surface of the foot CT interpreted by me (1pt min.). @ -None done U/S interpreted by me (1pt. min.). @ -None done What testing was considered but not performed or refused? (CT, X-rays, U/S, labs)? Why? @ -None What meds were considered but not given or refused? Why? @ -None Did you discuss the management of the patient with other professionals (professionals i.e. , PA, MOBILE HOME TECHNICIAN, lab, RT, psych nurse, social science teacher, punch press setter, teacher, community relations officer, catalytic case operator)? Give summary @ -No Was smoking cessation discussed for >3mins.? @ -No Was critical care preformed (if so, how long)? @ -No Were there social determinants of health that impacted care today? How? (Homelessness, low income, unemployed, alcoholism, drug addiction, transportation, low edu. Level, literacy, decrease access to med. care, snf, rehab)? @ -No Was there de-escalation of care discussed even if they declined (Discuss DNR or withdrawal of care, Hospice)? DNR status @ -No What co-morbidities impacted this encounter? (DM, HTN, Smoking, COPD, CAD, Cancer, CVA, ARF, Chemo, Hep., AIDS, mental health diagnosis, sleep apnea, morbid obesity)? @ -None Was patient admitted / discharged? Hospital course, mention meds given and route, prescriptions, significant lab abnormalities, going to OR and other pertinent info. @ -Discharge Undiagnosed new problem with uncertain prognosis? @ -No Drug Therapy requiring intensive monitoring for toxicity (Heparin, Nitro, Insulin, Cardizem)? @ -No Were any procedures done? @ -No Diagnosis/symptom? @ Left foot pain Acute, or Chronic, or Acute on Chronic? @ -default Uncomplicated (without systemic symptoms) or Complicated (systemic symptoms)? @ -default Side effects of treatment? @ -No Exacerbation, Progression, or Severe Exacerbation? @ -No Poses a threat to life or bodily function? How? (Chest pain, [place], [place], pneumonia, PE, COPD, DKA, ARF, appy, cholecystitis, CVA, Diverticulitis, Homicidal, Suicidal, threat to staff... and all critical care pts) @ -No Disposition Clinical Impression: Left foot pain Disposition: HOME SELF-CARE Condition: Stable Additional Instructions: There is no large foreign body, it is not safe to cut into the foot for such a small finding. Keep the foot clean, soak in warm water, return for any worsening pain or development or redness. Is patient prescribed a controlled substance at d/c from ED?: No Referrals: Renato Moore MD [Primary Care Provider] - 1-2 days
== END 2023-03-30 21:05 | disposition home or self-care (01) ==
LOC: EC 17:11
DX: M79.672 Pain in left foot (principal); I11.0 Hypertensive heart disease with heart failure; I50.9 Heart failure, unspecified; I25.10 Atherosclerotic heart disease of native coronary artery without angina pectoris; J44.9 Chronic obstructive pulmonary disease, unspecified; I48.91 Unspecified atrial fibrillation; F32.A Depression, unspecified; Z79.01 Long term (current) use of anticoagulants; Z79.51 Long term (current) use of inhaled steroids; Z79.899 Other long term (current) drug therapy; Z87.891 Personal history of nicotine dependence
CPT/HCPCS: 99283

== ENCOUNTER 2023-05-10 11:23 | Emergency (ER) | payer MEDICARE, OTHER ==
[2023-05-10] MEDS ORDERED: SODIUM CHLORIDE 0.9% 500 ML 500 ML IV ONE (11:51)
[2023-05-10] MEDS ORDERED: ONDANSETRON 4 MG/2 ML VIAL IVP STA (11:51)
[2023-05-10] MEDS ORDERED: ACETAMINOPHEN IV (For NPO) 1,000 MG in EMPTY BAG 1 BAG IVPB STA (11:52)
--- NOTE | 2023-05-10 12:02 | ED ---
General Adult HPI - General Chief complaint: Shortness of Breath Stated complaint: Cough, vomiting Time Seen by Provider: 05/10/23 11:38 Source: patient, RN notes reviewed Mode of arrival: wheelchair Limitations: no limitations - History of Present Illness Initial comments: 72-year-old male presents emergency Department chief cough congestion, vomiting. Patient states symptoms have been present last 3 days states she feels pain along his lower ribs, increasing nausea and vomiting states she's been coughing causes him to vomit also. He does have a history of COPD. He denies any back pain, flank pain denies any sick contacts. The states she's felt hot and cold trapezius had a fever. Denies any dysuria denies any diarrhea constipation. - Related Data Home Medications Medication Instructions Recorded Confirmed Rivaroxaban [Xarelto] 20 mg PO DAILY 06/11/15 01/05/23 buPROPion HCL [Wellbutrin SR] 200 mg PO BID 12/04/18 01/05/23 Fluticasone/Umeclidin/Vilanter 1 puff INHALATION RT-DAILY 02/18/20 01/05/23 [Trebranden Ellipta 100-62.5-25] Ascorbic Acid [Vitamin C] 500 mg PO DAILY 06/26/22 01/05/23 Cholecalciferol [Vitamin D3 (25 25 mcg PO DAILY 06/26/22 01/05/23 Mcg = 1000 Iu)] Zinc Gluconate [Zinc] 50 mg PO DAILY 06/26/22 01/05/23 Atorvastatin [Lipitor] 20 mg PO DAILY 10/09/22 01/05/23 Calcium Carbonate [Calcium] 600 mg PO DAILY 10/09/22 01/05/23 Ferrous Sulfate [Iron (65 MG 65 mg PO DAILY 10/09/22 01/05/23 Elemental)] oxyCODONE-APAP 10-325MG [Percocet 1 tab PO Q6HR PRN 10/09/22 01/05/23 10-325 mg] Sennosides-Docusate Sodium 2 tab PO HS PRN 12/18/22 01/05/23 [Senokot-S] Furosemide [Lasix] 40 mg PO DAILY 01/05/23 01/05/23 Potassium Chloride [Klor-Con M20] 20 meq PO DAILY 01/05/23 01/05/23 Previous Rx's Medication Instructions Recorded Acetaminophen Tab [Tylenol] 650 mg PO Q4HR PRN tab 12/11/22 Aspirin 81 mg PO DAILY #30 tab 12/11/22 Pantoprazole [Protonix] 40 mg PO BID #0 12/11/22 Tamsulosin [Flomax] 0.4 mg PO PC-BRKFST #30 cap 12/11/22 lisinopriL [Zestril] 2.5 mg PO DAILY@1200 #30 tab 12/11/22 Nitroglycerin Sl Tabs [Nitrostat] 0.4 mg SUBLINGUAL Q5M PRN tab 12/21/22 carvediloL [Coreg] 3.125 mg PO AC-BID 30 Days #60 tab 12/21/22 Ondansetron Odt [Zofran Odt] 4 mg PO Q8HR PRN #10 tab 05/10/23 Sulfamethox-Tmp 800-160Mg [Bactrim 1 each PO Q12HR #14 tab 05/10/23 Ds] Allergies Allergy/AdvReac Type Severity Reaction Status Date / Time No Known Allergies Allergy Verified 05/10/23 11:42 Review of Systems ROS Statement: Those systems with pertinent positive or pertinent negative responses have been documented in the HPI. ROS Other: All systems not noted in ROS Statement are negative. Past Medical History Past Medical History: Atrial Fibrillation, Coronary Artery Disease (CAD), Heart Failure, COPD, GERD/Reflux, Hyperlipidemia, Hypertension, Musculoskeletal Disorder, Osteoarthritis (OA), Pneumonia, Sleep Apnea/CPAP/BIPAP Additional Past Medical History / Comment(s): mitral valve regurgitation,urinary retention-per patient he straight caths at home 3-4 times daily, osteoporosis,no cpap,pt had one episode w/in last several months at [employer] when he could hear his friend talking to him but was not able to respond,hx pneumonia years ago History of Any Multi-Drug Resistant Organisms: None Reported Past Surgical History: Coronary Bypass/CABG, Heart Catheterization, Hernia Repair, Joint Replacement, Orthopedic Surgery Additional Past Surgical History / Comment(s): repair of ESOPHAGUS tear, umbilical surg. x3,ORIF RIGHT HIP,RIGHT ARM PLATE AND SCREW, LEFT FOOT,left hip replaced, gordy shoulder surg,foot procedure,VLAD Past Anesthesia/Blood Transfusion Reactions: No Reported Reaction Additional Past Anesthesia/Blood Transfusion Reaction / Comment(s): no known hx blood transfusion Past Psychological History: Depression Smoking Status: Former smoker Past Alcohol Use History: None Reported Past Drug Use History: None Reported - Past Family History Mother Family Medical History: No Reported History General Exam Limitations: no limitations General appearance: alert, in no apparent distress Head exam: Present: atraumatic, normocephalic, normal inspection Eye exam: Present: normal appearance, PERRL, EOMI. Absent: scleral icterus, conjunctival injection, periorbital swelling ENT exam: Present: normal exam, normal oropharynx, mucous membranes moist Neck exam: Present: normal inspection, full ROM. Absent: tenderness, meningismus, lymphadenopathy Respiratory exam: Absent: normal lung sounds bilaterally, respiratory distress, wheezes, rales, rhonchi, stridor Cardiovascular Exam: Present: regular rate, normal rhythm, normal heart sounds. Absent: systolic murmur, diastolic murmur, rubs, gallop, clicks GI/Abdominal exam: Present: soft, tenderness, normal bowel sounds. Absent: distended, guarding, rebound, rigid Course Vital Signs 05/10/23 05/10/23 05/10/23 11:30 12:16 13:07 Temperature 99.5 F 100.0 F H Pulse Rate 74 74 72 Respiratory 28 H 22 20 Rate Blood Pressure 157/96 170/85 155/77 O2 Sat by Pulse 100 100 98 Oximetry 05/10/23 05/10/23 13:51 15:19 Temperature Pulse Rate 71 76 Respiratory 18 18 Rate Blood Pressure 144/99 150/89 O2 Sat by Pulse 97 96 Oximetry EKG Findings - EKG Comments: EKG Findings:: EKG performed at 11:36 A. fib rate of 78 QRS 124 QT / QTC 429/462 - EKG Results: EKG: interpreted by ERMD Medical Decision Making - Medical Decision Making Was pt. sent in by a medical professional or institution (, PA, IMPREGNATION OPERATOR, urgent care, hospital, or halfway...) When possible be specific @ -No Did you speak to anyone other than the patient for history (EMS, parent, family, police, friend...)? What history was obtained from this source @ -No Did you review nursing and triage notes (agree or disagree)? Why? @ -I reviewed and agree with nursing and triage notes Were old charts reviewed (outside hosp., previous admission, EMS record, old EKG, old radiological studies, urgent care reports/EKG's, halfway records)? Report findings @ -No old charts were reviewed Differential Diagnosis (chest pain, altered mental status, abdominal pain women, abdominal pain men, vaginal bleeding, weakness, fever, dyspnea, syncope, headache, dizziness, GI bleed, back pain, seizure, CVA, palpatations, mental health, musculoskeletal)? @ -Differential Abdominal Pain Men: Appendicitis, cholecystitis, diverticulosis, ischemic bowel, pancreatitis, hepatitis, UTI, gastroenteritis, AAA, incarcerated hernia, bowel obstruction, co nstipation, inflammatory bowel, hepatitis, peptic ulcer disease, splenic infarction, perforated viscus, testicular torsion, this is not meant to be an all-inclusive listle EKG interpreted by me (3pts min.). @ -As above X-rays interpreted by me (1pt min.). @ -Chest x-ray shows COPD changes CT interpreted by me (1pt min.). @ -None done U/S interpreted by me (1pt. min.). @ -None done What testing was considered but not performed or refused? (CT, X-rays, U/S, labs)? Why? @ -None What meds were considered but not given or refused? Why? @ -None Did you discuss the management of the patient with other professionals (professionals i.e. , PA, IMPREGNATION OPERATOR, lab, RT, psych nurse, social work faculty member, heel breaster, teacher, training systems officer, caseworker protective services)? Give summary @ -No Was smoking cessation discussed for >3mins.? @ -No Was critical care preformed (if so, how long)? @ -No Were there social determinants of health that impacted care today? How? (Homelessness, low income, unemployed, alcoholism, drug addiction, transportation, low edu. Level, literacy, decrease access to med. care, senior living, rehab)? @ -No Was there de-escalation of care discussed even if they declined (Discuss DNR or withdrawal of care, Hospice)? DNR status @ -No What co-morbidities impacted this encounter? (DM, HTN, Smoking, COPD, CAD, Cancer, CVA, ARF, Chemo, Hep., AIDS, mental health diagnosis, sleep apnea, morbid obesity)? @ -COPD Was patient admitted / discharged? Hospital course, mention meds given and route, prescriptions, significant lab abnormalities, going to OR and other pertinent info. @ -Discharge patient feels greatly improved he has no localized abdominal pain vomiting has resolved. Patient is discharged in stable condition return parameters were discussed. Undiagnosed new problem with uncertain prognosis? @ -No Drug Therapy requiring intensive monitoring for toxicity (Heparin, Nitro, Insulin, Cardizem)? @ -No Were any procedures done? @ -No Diagnosis/symptom? @ -Nausea vomiting, dehydration, cough viral illness Acute, or Chronic, or Acute on Chronic? @ -Acute Uncomplicated (without systemic symptoms) or Complicated (systemic symptoms)? @ -Complicated Side effects of treatment? @ -No Exacerbation, Progression, or Severe Exacerbation? @ -No Poses a threat to life or bodily function? How? (Chest pain, USA, OR, pneumonia, PE, COPD, DKA, ARF, appy, cholecystitis, CVA, Diverticulitis, Homicidal, Brock icidal, threat to staff... and all critical care pts) @ -No - Lab Data Result diagrams: 05/10/23 12:10 05/10/23 12:10 Lab Results 05/10/23 05/10/23 05/10/23 Range/Units 12:10 12:10 12:10 WBC 8.8 (3.8-10.6) k/uL RBC 4.65 (4.30-5.90) m/uL Hgb 14.3 (13.0-17.5) gm/dL Hct 43.3 (39.0-53.0) % MCV 93.1 (80.0-100.0) fL MCH 30.8 (25.0-35.0) pg MCHC 33.0 (31.0-37.0) g/dL RDW 14.7 (11.5-15.5) % Plt Count 154 (150-450) k/uL MPV 9.6 Neutrophils % 82 % Lymphocytes % 14 % Monocytes % 3 % Eosinophils % 0 % Basophils % 0 % Neutrophils # 7.2 (1.3-7.7) k/uL Lymphocytes # 1.2 (1.0-4.8) k/uL Monocytes # 0.2 (0-1.0) k/uL Eosinophils # 0.0 (0-0.7) k/uL Basophils # 0.0 (0-0.2) k/uL Sodium 139 (137-145) mmol/L Potassium 4.3 (3.5-5.1) mmol/L Chloride 108 H (98-107) mmol/L Carbon Dioxide 21 L (22-30) mmol/L Anion Gap 10 mmol/L BUN 17 (9-20) mg/dL Creatinine 0.70 (0.66-1.25) mg/dL Est GFR (CKD-EPI)AfAm >90 (>60 ml/min/1.73 sqM) Est GFR (CKD-EPI)NonAf >90 (>60 ml/min/1.73 sqM) Glucose 175 H (74-99) mg/dL Lactic Ac Sepsis Rflx Plasma Lactic Acid Serge 3.4 H* (0.7-2.0) mmol/L Calcium 9.5 (8.4-10.2) mg/dL Magnesium 1.8 (1.6-2.3) mg/dL Total Bilirubin 1.5 H (0.2-1.3) mg/dL AST 29 (17-59) U/L ALT 21 (4-49) U/L Alkaline Phosphatase 64 (38-126) U/L Troponin I (0.000-0.034) ng/mL NT-Pro-B Natriuret Pep 6910 pg/mL Total Protein 6.4 (6.3-8.2) g/dL Albumin 3.8 (3.5-5.0) g/dL Urine Color Urine Appearance (Clear) Urine pH (5.0-8.0) Ur Specific [place] (1.001-1.035) Urine Protein (Negative) Urine Glucose (UA) (Negative) Urine Ketones (Negative) Urine Blood (Negative) Urine Nitrite (Negative) Urine Bilirubin (Negative) Urine Urobilinogen (<2.0) mg/dL Ur Leukocyte Esterase (Negative) Urine RBC (0-5) /hpf Urine WBC (0-5) /hpf Ur Squamous Epith Cells (0-4) /hpf Amorphous Sediment (None) /hpf Urine Bacteria (None) /hpf Urine Mucus (None) /hpf Influenza Type A (PCR) (Not Detectd) Influenza Type B (PCR) (Not Detectd) RSV (PCR) (Not Detectd) SARS-CoV-2 (PCR) (Not Detectd) 09/07/23 09/07/23 09/07/23 Range/Units 12:10 12:10 12:59 WBC (3.8-10.6) k/uL RBC (4.30-5.90) m/uL Hgb (13.0-17.5) gm/dL Hct (39.0-53.0) % MCV (80.0-100.0) fL MCH (25.0-35.0) pg MCHC (31.0-37.0) g/dL RDW (11.5-15.5) % Plt Count (150-450) k/uL MPV Neutrophils % % Lymphocytes % % Monocytes % % Eosinophils % % Basophils % % Neutrophils # (1.3-7.7) k/uL Lymphocytes # (1.0-4.8) k/uL Monocytes # (0-1.0) k/uL Eosinophils # (0-0.7) k/uL Basophils # (0-0.2) k/uL Sodium (137-145) mmol/L Potassium (3.5-5.1) mmol/L Chloride (98-107) mmol/L Carbon Dioxide (22-30) mmol/L Anion Gap mmol/L BUN (9-20) mg/dL Creatinine (0.66-1.25) mg/dL Est GFR (CKD-EPI)AfAm (>60 ml/min/1.73 sqM) Est GFR (CKD-EPI)NonAf (>60 ml/min/1.73 sqM) Glucose (74-99) mg/dL Lactic Ac Sepsis Rflx Y Plasma Lactic Acid Serge (0.7-2.0) mmol/L Calcium (8.4-10.2) mg/dL Magnesium (1.6-2.3) mg/dL Total Bilirubin (0.2-1.3) mg/dL AST (17-59) U/L ALT (4-49) U/L Alkaline Phosphatase (38-126) U/L Troponin I <0.012 (0.000-0.034) ng/mL NT-Pro-B Natriuret Pep pg/mL Total Protein (6.3-8.2) g/dL Albumin (3.5-5.0) g/dL Urine Color Urine Appearance (Clear) Urine pH (5.0-8.0) Ur Specific [place] (1.001-1.035) Urine Protein (Negative) Urine Glucose (UA) (Negative) Urine Ketones (Negative) Urine Blood (Negative) Urine Nitrite (Negative) Urine Bilirubin (Negative) Urine Urobilinogen (<2.0) mg/dL Ur Leukocyte Esterase (Negative) Urine RBC (0-5) /hpf Urine WBC (0-5) /hpf Ur Squamous Epith Cells (0-4) /hpf Amorphous Sediment (None) /hpf Urine Bacteria (None) /hpf Urine Mucus (None) /hpf Influenza Type A (PCR) Not Detected (Not Detectd) Influenza Type B (PCR) Not Detected (Not Detectd) RSV (PCR) Not Detected (Not Detectd) SARS-CoV-2 (PCR) Not Detected (Not Detectd) 05/10/23 Range/Units 14:28 WBC (3.8-10.6) k/uL RBC (4.30-5.90) m/uL Hgb (13.0-17.5) gm/dL Hct (39.0-53.0) % MCV (80.0-100.0) fL MCH (25.0-35.0) pg MCHC (31.0-37.0) g/dL RDW (11.5-15.5) % Plt Count (150-450) k/uL MPV Neutrophils % % Lymphocytes % % Monocytes % % Eosinophils % % Basophils % % Neutrophils # (1.3-7.7) k/uL Lymphocytes # (1.0-4.8) k/uL Monocytes # (0-1.0) k/uL Eosinophils # (0-0.7) k/uL Basophils # (0-0.2) k/uL Sodium (137-145) mmol/L Potassium (3.5-5.1) mmol/L Chloride (98-107) mmol/L Carbon Dioxide (22-30) mmol/L Anion Gap mmol/L BUN (9-20) mg/dL Creatinine (0.66-1.25) mg/dL Est GFR (CKD-EPI)AfAm (>60 ml/min/1.73 sqM) Est GFR (CKD-EPI)NonAf (>60 ml/min/1.73 sqM) Glucose (74-99) mg/dL Lactic Ac Sepsis Rflx Plasma Lactic Acid Serge (0.7-2.0) mmol/L Calcium (8.4-10.2) mg/dL Magnesium (1.6-2.3) mg/dL Total Bilirubin (0.2-1.3) mg/dL AST (17-59) U/L ALT (4-49) U/L Alkaline Phosphatase (38-126) U/L Troponin I (0.000-0.034) ng/mL NT-Pro-B Natriuret Pep pg/mL Total Protein (6.3-8.2) g/dL Albumin (3.5-5.0) g/dL Urine Color Yellow Urine Appearance Clear (Clear) Urine pH 6.5 (5.0-8.0) Ur Specific [place] 1.030 (1.001-1.035) Urine Protein Trace H (Negative) Urine Glucose (UA) 2+ H (Negative) Urine Ketones 2+ H (Negative) Urine Blood Negative (Negative) Urine Nitrite Positive (Negative) Urine Bilirubin Negative (Negative) Urine Urobilinogen 4.0 (<2.0) mg/dL Ur Leukocyte Esterase Trace H (Negative) Urine RBC 1 (0-5) /hpf Urine WBC 12 H (0-5) /hpf Ur Squamous Epith Cells 2 (0-4) /hpf Amorphous Sediment Few H (None) /hpf Urine Bacteria Rare H (None) /hpf Urine Mucus Occasional H (None) /hpf Influenza Type A (PCR) (Not Detectd) Influenza Type B (PCR) (Not Detectd) RSV (PCR) (Not Detectd) SARS-CoV-2 (PCR) (Not Detectd) Disposition Clinical Impression: Nausea & vomiting, Cough, UTI (urinary tract infection) Disposition: HOME SELF-CARE Condition: Stable Instructions (If sedation given, give patient instructions): Acute Nausea and Vomiting (ED) Additional Instructions: Please return to the Emergency Department if symptoms worsen or any other concerns. Prescriptions: Sulfamethox-Tmp 800-160Mg [Bactrim Ds] 1 each PO Q12HR #14 tab Ondansetron Odt [Zofran Odt] 4 mg PO Q8HR PRN #10 tab PRN Reason: Nausea Is patient prescribed a controlled substance at d/c from ED?: No Referrals: Renato Moore MD [Primary Care Provider] - 1-2 days Time of Disposition: 15:40
[2023-05-10 12:20] VITALS: TEMP 100
[2023-05-10 12:39] LABS: Basophils % (A) 0 %; Eosinophils % (A) 0 %; HCT 43.3 % (39.0-53.0); HGB 14.3 gm/dL (13.0-17.5); Lymphocytes # (A) 1.2 k/uL (1.0-4.8); Lymphocytes % (A) 14 %; MCH 30.8 pg (25.0-35.0); MCV 93.1 fL (80.0-100.0); Mean Platelet Volume 9.6; Monocytes # (A) 0.2 k/uL (0-1.0); Monocytes % (A) 3 %; Neutrophils # (A) 7.2 k/uL (1.3-7.7); Neutrophils % (A) 82 %; Platelet Count 154 k/uL (150-450); RBC 4.65 m/uL (4.30-5.90); RDW 14.7 % (11.5-15.5); WBC 8.8 k/uL (3.8-10.6)
--- NOTE | 2023-05-10 12:49 | XR ---
EXAMINATION TYPE: XR chest 2V DATE OF EXAM: 05/10/2023 COMPARISON: 01/05/2023 TECHNIQUE: PA and lateral views submitted. HISTORY: Difficulty breathing FINDINGS: The lungs are clear and there is no pneumothorax, pleural effusion, or focal pneumonia. Heart size normal and no overt failure. Osseous structures demonstrate hypertrophic and degenerative changes of the spine. Heart is enlarged and there is post median sternotomy changes. Use osteopenia and arthropa thy of the shoulders Rotator cuff disease on the left. Hyperinflation compatible with COPD. Atherosclerotic change aorta. Chronic appearing compression and wedge fracture lower thoracic\thoracolumbar junction. IMPRESSION: 1. Cardiomegaly with COPD and no evidence of acute infiltrate or overt failure..
[2023-05-10] MEDS ORDERED: METOCLOPRAMIDE 5 MG/ML 2 ML VIAL IVP STA (12:55)
[2023-05-10 12:57] LABS: ALT 21 U/L (4-49); AST 29 U/L (17-59); African American GFR (CKD) >90 (>60 ml/min/1.73 sqM); Albumin 3.8 g/dL (3.5-5.0); Alkaline Phosphatase 64 U/L (38-126); Anion Gap 10 mmol/L; Blood Urea Nitrogen 17 mg/dL (9-20); Calcium 9.5 mg/dL (8.4-10.2); Carbon Dioxide 21 mmol/L (22-30); Chloride 108 mmol/L (98-107); Glucose 175 mg/dL (74-99); Magnesium 1.8 mg/dL (1.6-2.3); Non-African American GFR(CKD) >90 (>60 ml/min/1.73 sqM); Potassium 4.3 mmol/L (3.5-5.1); Sodium 139 mmol/L (137-145); Total Bilirubin 1.5 mg/dL (0.2-1.3); Total Protein 6.4 g/dL (6.3-8.2)
[2023-05-10 13:05] LABS: NT-Pro-B-Type Natriuretic Pept 6910 pg/mL
[2023-05-10 13:54] VITALS: RESP 18
[2023-05-10 15:24] VITALS: BP 150/89; PULSE 76
[2023-05-10 15:42] LABS: Amorphous Sediment,Urine Few /hpf; Appearance,Urine Clear (Clear); Bacteria,Urine Rare /hpf; Bilirubin,Urine Negative (Negative); Blood,Urine Negative (Negative); Color,Urine Yellow; Glucose,Urine (UA) 2+ (Negative); Leukocyte Esterase,Urine Trace (Negative); Mucus,Urine Occasional /hpf; Nitrite,Urine Positive (Negative); PH, Urine 6.5 (5.0-8.0); Protein,Urine Trace (Negative); RBC,Urine 1 /hpf (0-5); Squamous Epithelial Cell,Urine 2 /hpf (0-4); WBC,Urine 12 /hpf (0-5)
[2023-05-10 15:58] LABS: Ketones,Urine 2+ (Negative)
[2023-05-10] MEDS ORDERED: cefTRIAXone IN SWFI 1,000 MG/10 ML SYRINGE IVP STA (15:59)
== END 2023-05-10 16:03 | disposition home or self-care (01) ==
LOC: EC 11:23
DX: R11.2 Nausea with vomiting, unspecified (principal); R05.9 Cough, unspecified; N39.0 Urinary tract infection, site not specified; I48.91 Unspecified atrial fibrillation; I25.10 Atherosclerotic heart disease of native coronary artery without angina pectoris; J44.9 Chronic obstructive pulmonary disease, unspecified; K21.9 Gastro-esophageal reflux disease without esophagitis; E78.5 Hyperlipidemia, unspecified; I10 Essential (primary) hypertension; M19.90 Unspecified osteoarthritis, unspecified site; F32.A Depression, unspecified; Z87.891 Personal history of nicotine dependence; Z79.01 Long term (current) use of anticoagulants; Z79.899 Other long term (current) drug therapy; Z20.822 Contact with and (suspected) exposure to COVID-19
CPT/HCPCS: 36415; 93005; 83880; 80053; 83605; 83735; 84484; 85025; 81001; 87636; 71046; 99285; 96374; 96375 ×2; J2765; J2405; J0131

== ENCOUNTER 2023-05-11 11:57 | Inpatient (IN) | payer MEDICARE, OTHER ==
[2023-05-11] MEDS ORDERED: PANTOPRAZOLE 40 MG/10 ML VIAL IVP STA (12:23)
[2023-05-11] MEDS ORDERED: SODIUM CHLORIDE 0.9% 1,000 ML IV ONE (12:25)
[2023-05-11 12:51] LABS: Basophils % (A) 0 %; Eosinophils % (A) 0 %; HCT 42.9 % (39.0-53.0); HGB 14.1 gm/dL (13.0-17.5); Lymphocytes # (A) 1.1 k/uL (1.0-4.8); Lymphocytes % (A) 10 %; MCH 30.5 pg (25.0-35.0); MCHC 32.8 g/dL (31.0-37.0); MCV 93.1 fL (80.0-100.0); Mean Platelet Volume 8.2; Monocytes # (A) 0.7 k/uL (0-1.0); Monocytes % (A) 6 %; Neutrophils # (A) 9.8 k/uL (1.3-7.7); Neutrophils % (A) 83 %; Platelet Count 147 k/uL (150-450); RBC 4.61 m/uL (4.30-5.90); WBC 11.9 k/uL (3.8-10.6)
[2023-05-11] MEDS ORDERED: chlorproMAZINE 25 MG/ML 2 ML AMP IM PRN (13:01)
--- NOTE | 2023-05-11 13:08 | ED ---
General Adult HPI - General Chief complaint: Urogenital Stated complaint: herrnia Time Seen by Provider: 05/11/23 12:05 Source: patient, RN notes reviewed Mode of arrival: ambulatory Limitations: no limitations - History of Present Illness Initial comments: 72-year-old male with a past medical history significant for coronary artery disease, PVCs, hypertension presents to the emergency department with a chief complaint of nausea and vomiting. Patient reports worsening nausea and vomiting for the last 4 days. He was seen and evaluated by his PCP prior to arrival who recommended he be evaluated in the ED to rule out a hiatal hernia. Patient is also complaining of dark maroon colored, the last 4 days. He does take her also. Denies recent alcohol use. Palpitations, shortness of breath. Patient states "I just feel really fatigued. " He does admit that he is currently taking Xarelto." - Related Data Home Medications Medication Instructions Recorded Confirmed Rivaroxaban [Xarelto] 20 mg PO DAILY 06/11/15 05/11/23 buPROPion HCL [Wellbutrin SR] 200 mg PO BID 12/04/18 05/11/23 Fluticasone/Umeclidin/Vilanter 1 puff INHALATION RT-DAILY 02/18/20 05/11/23 [Trelegy Ellipta 100-62.5-25] Ascorbic Acid [Vitamin C] 1,000 mg PO DAILY 06/26/22 05/11/23 Cholecalciferol [Vitamin D3 (25 25 mcg PO DAILY 06/26/22 05/11/23 Mcg = 1000 Iu)] Zinc Gluconate [Zinc] 50 mg PO DAILY 06/26/22 05/11/23 Calcium Carbonate [Calcium] 600 mg PO DAILY 10/09/22 05/11/23 oxyCODONE-APAP 10-325MG [Percocet 1 tab PO Q6HR PRN 10/09/22 05/11/23 10-325 mg] Furosemide [Lasix] 40 mg PO DAILY 01/05/23 05/11/23 Potassium Chloride [Klor-Con M20] 20 meq PO DAILY 01/05/23 05/11/23 Blood Vitality Supplement 1 tab PO DAILY 05/11/23 05/11/23 Pantoprazole [Protonix] 40 mg PO TID 05/11/23 05/11/23 Prostate Advanced Supplement 1 tab PO DAILY 05/11/23 05/11/23 Sulfamethox-Tmp 800-160Mg [Bactrim 1 tab PO DIRECTED 05/11/23 05/11/23 Ds] carvediloL [Coreg] 6.25 mg PO BID 05/11/23 05/11/23 tadalafiL 5 mg PO DAILY 05/11/23 05/11/23 Previous Rx's Medication Instructions Recorded Acetaminophen Tab [Tylenol] 650 mg PO Q4HR PRN tab 12/11/22 lisinopriL [Zestril] 2.5 mg PO DAILY@1200 #30 tab 12/11/22 Nitroglycerin Sl Tabs [Nitrostat] 0.4 mg SUBLINGUAL Q5M PRN tab 12/21/22 Ondansetron Odt [Zofran Odt] 4 mg PO Q8HR PRN #10 tab 05/10/23 Allergies Allergy/AdvReac Type Severity Reaction Status Date / Time No Known Allergies Allergy Verified 05/11/23 16:44 Review of Systems ROS Statement: Those systems with pertinent positive or pertinent negative responses have been documented in the HPI. ROS Other: All systems not noted in ROS Statement are negative. Past Medical History Past Medical History: Atrial Fibrillation, Coronary Artery Disease (CAD), Heart Failure, COPD, GERD/Reflux, Hyperlipidemia, Hypertension, Musculoskeletal Disorder, Osteoarthritis (OA), Pneumonia, Sleep Apnea/CPAP/BIPAP Additional Past Medical History / Comment(s): mitral valve regurgitation,urinary retention-per patient he straight caths at home 3-4 times daily, osteoporosis,no cpap,pt had one episode w/in last several months at [employer] when he could hear his friend talking to him but was not able to respond,hx pneumonia years ago History of Any Multi-Drug Resistant Organisms: None Reported Past Surgical History: Coronary Bypass/CABG, Heart Catheterization, Hernia Repair, Joint Replacement, Orthopedic Surgery Additional Past Surgical History / Comment(s): repair of ESOPHAGUS tear, umbilical surg. x3,ORIF RIGHT HIP,RIGHT ARM PLATE AND SCREW, LEFT FOOT,left hip replaced, gordy shoulder surg,foot procedure,VLAD Past Anesthesia/Blood Transfusion Reactions: No Reported Reaction Additional Past Anesthesia/Blood Transfusion Reaction / Comment(s): no known hx blood transfusion Past Psychological History: Depression Smoking Status: Former smoker Past Alcohol Use History: None Reported Past Drug Use History: None Reported - Past Family History Mother Family Medical History: No Reported History General Exam - General Exam Comments Initial Comments: General: Alert, in no acute distress Head: atraumatic normocephalic. Eyes PERRL, EOMI intact, mucous membranes moist Respiratory: Lungs clear to auscultation bilaterally Cardiovascular: Heart rate regular rate and rhythm, surgical scar and chest appears well-healed. Abdominal: Soft without guarding or rebound Extremities: Normal inspection with full range of motion and normal capillary refill Neuroogic: alert and oriented 3, CN II-XII intact, able to ambulate with steady gait Skin: warm dry and intact with normal color Limitations: no limitations Course Vital Signs 05/11/23 05/11/23 05/11/23 12:00 13:00 14:56 Temperature 98.3 F Pulse Rate 50 L 70 Respiratory 20 16 Rate Blood Pressure 145/82 160/98 159/111 O2 Sat by Pulse 98 98 Oximetry 05/11/23 05/11/23 05/11/23 15:58 17:36 17:53 Temperature 99.2 F Pulse Rate 65 61 64 Respiratory 18 16 18 Rate Blood Pressure 159/94 137/84 137/84 O2 Sat by Pulse 99 98 98 Oximetry - Reevaluation(s) Reevaluation #1: 05/11/23 14:16 Should reevaluated and updated on results. Patient offers no complaints at this time. EKG Findings - EKG Comments: EKG Findings:: I interpreted the following: EKG performed at 12:45 rate 50 bpm. *KS interval, QRS duration 122, QRS Qt/QTc 351/509 Medical Decision Making - Medical Decision Making Was pt. sent in by a medical professional or institution (, PA, DIRECTOR OF ACCREDITATION, urgent care, hospital, or care home...) When possible be specific @ -[No] Did you speak to anyone other than the patient for history (EMS, parent, family, police, friend...)? What history was obtained from this source @ -[No] Did you review nursing and triage notes (agree or disagree)? Why? @ -[I reviewed and agree with nursing and triage notes] Were old charts reviewed (outside hosp., previous admission, EMS record, old EKG, old radiological studies, urgent care reports/EKG's, care home records)? Report findings @ -[No old charts were reviewed] Differential Diagnosis (chest pain, altered mental status, abdominal pain women, abdominal pain men, vaginal bleeding, weakness, fever, dyspnea, syncope, headache, dizziness, GI bleed, back pain, seizure, CVA, palpatations, mental health, musculoskeletal)? @ -[not applicable] EKG interpreted by me (3pts min.). @ -[As above] X-rays interpreted by me (1pt min.). @ -[None done] CT interpreted by me (1pt min.). @ -CT reveals moderate hiatal hernia with mold repair material likely from failed repair. U/S interpreted by me (1pt. min.). @ -[None done] What testing was considered but not performed or refused? (CT, X-rays, U/S, labs)? Why? @ -[None] What meds were considered but not given or refused? Why? @ -[None] Did you discuss the management of the patient with other professionals (professionals i.e. , PA, DIRECTOR OF ACCREDITATION, lab, RT, psych nurse, social service technician, tie knitter helper, teacher, licensed loan officer assistant, high risk case manager)? Give summary @ -[No] Was smoking cessation discussed for >3mins.? @ -[No] Was critical care preformed (if so, how long)? @ -[No] Were there social determinants of health that impacted care today? How? (Homelessness, low income, unemployed, alcoholism, drug addiction, transportation, low edu. Level, literacy, decrease access to med. care, alf, rehab)? @ -[No] Was there de-escalation of care discussed even if they declined (Discuss DNR or withdrawal of care, Hospice)? DNR status @ -[No] What co-morbidities impacted this encounter? (DM, HTN, Smoking, COPD, CAD, Cancer, CVA, ARF, Chemo, Hep., AIDS, mental health diagnosis, sleep apnea, morbid obesity)? @ -[None] Was patient admitted / discharged? Hospital course, mention meds given and route, prescriptions, significant lab abnormalities, going to OR and other pertinent info. @ -Admission. This is a pleasant 72-year-old male who presents the emergency department with a chief complaint of nausea and vomiting and hiccups. Patient had a thorough history and physical exam performed on the ED. Physical exam is essentially unremarkable. Patient is at baseline bradycardic. No abdominal tenderness noted. Patient had laboratory studies which were essentially unremarkable. Results revealed hiatal hernia. Case discussed with Dr. Moore who is requesting that the patient admitted to be evaluated by [facility] surgery. Case discussed with ALICIA Rojas who agrees with plan of care Undiagnosed new problem with uncertain prognosis? @ -[No] Drug Therapy requiring intensive monitoring for toxicity (Heparin, Nitro, Insulin, Cardizem)? @ -[No] Were any procedures done? @ -[No] Diagnosis/symptom? @ -Hiatal Hernia - Nausea and Vomiting Acute, or Chronic, or Acute on Chronic? @ -Acute Uncomplicated (without systemic symptoms) or Complicated (systemic symptoms)? @ -Complicated Side effects of treatment? @ -[No] Exacerbation, Progression, or Severe Exacerbation? @ -[No] Poses a threat to life or bodily function? How? (Chest pain, USA, NH, pneumonia, PE, COPD, DKA, ARF, appy, cholecystitis, CVA, Diverticulitis, Homicidal, Suicidal, threat to staff... and all critical care pts) @ -Mooderate likelihood - Lab Data Result diagrams: 05/11/23 12:22 05/11/23 12:22 Lab Results 05/11/23 05/11/23 05/11/23 Range/Units 12:22 12:22 12:22 WBC 11.9 H (3.8-10.6) k/uL RBC 4.61 (4.30-5.90) m/uL Hgb 14.1 (13.0-17.5) gm/dL Hct 42.9 (39.0-53.0) % MCV 93.1 (80.0-100.0) fL MCH 30.5 (25.0-35.0) pg MCHC 32.8 (31.0-37.0) g/dL RDW 15.0 (11.5-15.5) % Plt Count 147 L (150-450) k/uL MPV 8.2 Neutrophils % 83 % Lymphocytes % 10 % Monocytes % 6 % Eosinophils % 0 % Basophils % 0 % Neutrophils # 9.8 H (1.3-7.7) k/uL Lymphocytes # 1.1 (1.0-4.8) k/uL Monocytes # 0.7 (0-1.0) k/uL Eosinophils # 0.0 (0-0.7) k/uL Basophils # 0.0 (0-0.2) k/uL PT 11.1 (9.0-12.0) sec INR 1.1 (<1.2) APTT 23.9 (22.0-30.0) sec Sodium 139 (137-145) mmol/L Potassium 3.9 (3.5-5.1) mmol/L Chloride 107 (98-107) mmol/L Carbon Dioxide 22 (22-30) mmol/L Anion Gap 10 mmol/L BUN 17 (9-20) mg/dL Creatinine 0.69 (0.66-1.25) mg/dL Est GFR (CKD-EPI)AfAm >90 (>60 ml/min/1.73 sqM) Est GFR (CKD-EPI)NonAf >90 (>60 ml/min/1.73 sqM) Glucose 130 H (74-99) mg/dL Lactic Ac Sepsis Rflx Plasma Lactic Acid Serge (0.7-2.0) mmol/L Calcium 9.2 (8.4-10.2) mg/dL Total Bilirubin 1.6 H (0.2-1.3) mg/dL Conjugated Bilirubin 0.0 (0.0-0.3) mg/dL Unconjugated Bilirubin 1.3 H (0.0-1.1) mg/dL Delta Bilirubin 0.3 H (0.0-0.2) mg/dL AST 33 (17-59) U/L ALT 22 (4-49) U/L Alkaline Phosphatase 55 (38-126) U/L Total Protein 6.2 L (6.3-8.2) g/dL Albumin 3.6 (3.5-5.0) g/dL Influenza Type A (PCR) (Not Detectd) Influenza Type B (PCR) (Not Detectd) RSV (PCR) (Not Detectd) SARS-CoV-2 (PCR) (Not Detectd) 05/11/23 05/11/23 05/11/23 Range/Units 12:22 12:22 13:30 WBC (3.8-10.6) k/uL RBC (4.30-5.90) m/uL Hgb (13.0-17.5) gm/dL Hct (39.0-53.0) % MCV (80.0-100.0) fL MCH (25.0-35.0) pg MCHC (31.0-37.0) g/dL RDW (11.5-15.5) % Plt Count (150-450) k/uL MPV Neutrophils % % Lymphocytes % % Monocytes % % Eosinophils % % Basophils % % Neutrophils # (1.3-7.7) k/uL Lymphocytes # (1.0-4.8) k/uL Monocytes # (0-1.0) k/uL Eosinophils # (0-0.7) k/uL Basophils # (0-0.2) k/uL PT (9.0-12.0) sec INR (<1.2) APTT (22.0-30.0) sec Sodium (137-145) mmol/L Potassium (3.5-5.1) mmol/L Chloride (98-107) mmol/L Carbon Dioxide (22-30) mmol/L Anion Gap mmol/L BUN (9-20) mg/dL Creatinine (0.66-1.25) mg/dL Est GFR (CKD-EPI)AfAm (>60 ml/min/1.73 sqM) Est GFR (CKD-EPI)NonAf (>60 ml/min/1.73 sqM) Glucose (74-99) mg/dL Lactic Ac Sepsis Rflx Y Plasma Lactic Acid Serge 3.0 H* (0.7-2.0) mmol/L Calcium (8.4-10.2) mg/dL Total Bilirubin (0.2-1.3) mg/dL Conjugated Bilirubin (0.0-0.3) mg/dL Unconjugated Bilirubin (0.0-1.1) mg/dL Delta Bilirubin (0.0-0.2) mg/dL AST (17-59) U/L ALT (4-49) U/L Alkaline Phosphatase (38-126) U/L Total Protein (6.3-8.2) g/dL Albumin (3.5-5.0) g/dL Influenza Type A (PCR) Not Detected (Not Detectd) Influenza Type B (PCR) Not Detected (Not Detectd) RSV (PCR) Not Detected (Not Detectd) SARS-CoV-2 (PCR) Not Detected (Not Detectd) Disposition Clinical Impression: Hiatal hernia, Nausea & vomiting Disposition: ADMITTED IP TO THIS HOSP Condition: Stable Is patient prescribed a controlled substance at d/c from ED?: No Time of Disposition: 18:45
[2023-05-11 13:23] LABS: ALT 22 U/L (4-49); AST 33 U/L (17-59); African American GFR (CKD) >90 (>60 ml/min/1.73 sqM); Albumin 3.6 g/dL (3.5-5.0); Alkaline Phosphatase 55 U/L (38-126); Anion Gap 10 mmol/L; Bilirubin, Delta 0.3 mg/dL (0.0-0.2); Bilirubin,Unconjugated 1.3 mg/dL (0.0-1.1); Blood Urea Nitrogen 17 mg/dL (9-20); Calcium 9.2 mg/dL (8.4-10.2); Carbon Dioxide 22 mmol/L (22-30); Chloride 107 mmol/L (98-107); Glucose 130 mg/dL (74-99); Non-African American GFR(CKD) >90 (>60 ml/min/1.73 sqM); Potassium 3.9 mmol/L (3.5-5.1); Sodium 139 mmol/L (137-145); Total Bilirubin 1.6 mg/dL (0.2-1.3); Total Protein 6.2 g/dL (6.3-8.2)
[2023-05-11 13:28] LABS: INR 1.1 (<1.2); Partial Thromboplastin Time 23.9 sec (22.0-30.0); Prothrombin Time 11.1 sec (9.0-12.0)
--- NOTE | 2023-05-11 16:13 | CT ---
EXAMINATION TYPE: CT abdomen pelvis w con DATE OF EXAM: 05/11/2023 COMPARISON: Chest 01/15/2023 and abdomen pelvis 11/12/2014 HISTORY: 72-year-old male with hiccups, sent by PCP for hernia eval TECHNIQUE: Contiguous axial scanning of the abdomen and pelvis following administration of 100 ml Iso tigist 300 IV contrast. Delayed images through the kidneys and coronal/sagittal reconstructions perform ed. CT DLP: 895.9 mGycm Automated exposure control for dose reduction was used. FINDINGS: The heart is upper limits of normal in size without pericardial effusion. There is a moderate-sized hiatal hernia involving a third of the stomach in the lower chest. Prominen t air-fluid level within the hernia sac. There appears to be a trace right pleural effusion with some mild patchy posterior basilar atelectasis. Prominent reflux of contrast into the hepatic veins. No focal liver lesion or biliary ductal dilatation. Portal venous system is patent. No abnormal gallb ladder distention. 1 cm stone within the gallbladder. Adrenal glands, right kidney, spleen, and atrophic pancreas show no gross abnormal body. 6 mm stone left kidney has developed since 2014. No dilated small bowel, free fluid, or free air. No mesenteric or retroperitoneal lymphadenopathy. Extensive left-sided colonic diverticulosis especially in the sigmoid colon with redundant sigmoid co deion. Normal appendix. Annular thickening for a short segment of the mid sigmoid colon located in the right lower quadrant, axial image 46 and 47. No surrounding inflammatory changes seen. Trace pelvic free fluid. Bladder partially distended. No pelvic lymphadenopathy seen. Bones: Left hip hemiarthroplasty. Previous percutaneous screw fixation across the right femoral neck. Chronic appearing anterior wedge deformity L1 given interbody ankylosis across T12-L1. Moderate degen erative disc disease L5-S1 with transitional, partially lumbarized S1 vertebral body. Hypertrophic fa cet arthropathy mid to lower lumbar spine. IMPRESSION: 1. REDEMONSTRATED MODERATE SIZED HIATAL HERNIA INVOLVING A THIRD OF THE STOMACH IN THE LOWER CHEST. P ROMINENT FLUID WITHIN THE HERNIA SAC COULD REPRESENT GASTROESOPHAGEAL REFLUX. UNABLE TO ADEQUATELY SESS THE MUCOSA HERE. CORRELATE TO EXCLUDE GASTRITIS. 2. PREVIOUS SURGICAL MATERIAL AT THE DIAPHRAGMATIC HIATUS MAY REFLECT FAILED HERNIA REPAIR. 3. EXTENSIVE LEFT-SIDED COLONIC DIVERTICULOSIS ESPECIALLY WITHIN THE REDUNDANT SIGMOID COLON. THERE I S SHORT SEGMENT ANNULAR THICKENING INVOLVING THE MID SIGMOID COLON THAT COULD REPRESENT FOCAL PERISTA LSIS/SPASM, CHRONIC DIVERTICULITIS, OR NEOPLASM. RECOMMEND DIRECT VISUALIZATION IF ROUTINE SCREENING COLONOSCOPY IS NOT BEING PERFORMED. 4. NEW TRACE RIGHT PLEURAL EFFUSION. 5. 1 CM GALLSTONE. 6 MM LEFT KIDNEY STONE.
[2023-05-11] MEDS ORDERED: NALOXONE 0.4 MG/ML 1 ML VIAL IV PRN (17:35)
[2023-05-11] MEDS: SODIUM CHLORIDE 0.9% 1,000 ML IV SCH (17:53)
[2023-05-11] MEDS ORDERED: NITROGLYCERIN SL TABS 0.4 MG TAB SUBLINGUAL PRN (20:22)
[2023-05-11] MEDS: buPROPion SR 100 MG TABLET.ER PO SCH (21:25)
[2023-05-11] MEDS: PANTOPRAZOLE 40 MG TABLET PO SCH (21:25)
[2023-05-11] MEDS: carvediloL 6.25 MG TAB PO SCH (21:25)
[2023-05-11] MEDS: ONDANSETRON ODT 4 MG TAB PO PRN (21:29)
[2023-05-12] MEDS: IPRATROPIUM 0.5 MG/2.5 ML NEBU INHALATION SCH ×2 (07:53→11:41)
[2023-05-12] MEDS ORDERED: SYMBICORT 80-4.5 MCG INHALER INHALATION SCH (08:00)
[2023-05-12] MEDS: ZINC SULFATE 220 MG CAP PO SCH (08:59)
[2023-05-12] MEDS: POTASSIUM CHLORIDE ER 20 MEQ TAB.ER PO SCH (08:59)
[2023-05-12] MEDS: carvediloL 6.25 MG TAB PO SCH ×2 (08:59→19:36)
[2023-05-12] MEDS: CALCIUM CARBONATE 500 MG CHEWABLE PO SCH (08:59)
[2023-05-12] MEDS: PANTOPRAZOLE 40 MG TABLET PO SCH ×3 (08:59→19:36)
[2023-05-12] MEDS: CHOLECALCIFEROL 25 MCG (1000 IU) TABLET PO SCH (08:59)
[2023-05-12] MEDS: ASCORBIC ACID 500 MG TAB PO SCH (09:00)
[2023-05-12] MEDS ORDERED: [UNRECOGNIZED DRUG - OTHER] PO SCH (09:00)
[2023-05-12] MEDS: buPROPion SR 100 MG TABLET.ER PO SCH ×2 (09:00→19:36)
[2023-05-12] MEDS: RIVAROXABAN 20 MG TAB PO SCH (09:00)
[2023-05-12] MEDS: NON FORMULARY DRUG (Tadalafil [Tadalafil] 5 MG Tablet) PO SCH (09:00)
[2023-05-12] MEDS ORDERED: [UNRECOGNIZED DRUG - OTHER] PO SCH (09:00)
[2023-05-12] MEDS: FUROSEMIDE 40 MG TAB PO SCH (09:00)
[2023-05-12] MEDS: oxyCODONE-APAP 10-325MG 1 EACH TAB PO PRN ×2 (09:02→19:36)
[2023-05-12 09:21] LABS: Basophils % (A) 0 %; Eosinophils % (A) 1 %; HGB 12.3 gm/dL (13.0-17.5); Lymphocytes # (A) 1.3 k/uL (1.0-4.8); Lymphocytes % (A) 15 %; MCHC 32.3 g/dL (31.0-37.0); MCV 92.9 fL (80.0-100.0); Mean Platelet Volume 9.5; Monocytes # (A) 0.6 k/uL (0-1.0); Monocytes % (A) 7 %; Neutrophils # (A) 6.5 k/uL (1.3-7.7); Neutrophils % (A) 76 %; Platelet Count 136 k/uL (150-450); RBC 4.09 m/uL (4.30-5.90); RDW 15.1 % (11.5-15.5); WBC 8.6 k/uL (3.8-10.6)
[2023-05-12 09:59] LABS: African American GFR (CKD) >90 (>60 ml/min/1.73 sqM); Anion Gap 8 mmol/L; Blood Urea Nitrogen 16 mg/dL (9-20); Calcium 8.8 mg/dL (8.4-10.2); Carbon Dioxide 22 mmol/L (22-30); Chloride 110 mmol/L (98-107); Glucose 99 mg/dL (74-99); Non-African American GFR(CKD) >90 (>60 ml/min/1.73 sqM); Potassium 3.7 mmol/L (3.5-5.1); Sodium 140 mmol/L (137-145)
--- NOTE | 2023-05-12 13:13 | HP ---
HISTORY AND PHYSICAL HISTORY OF PRESENT ILLNESS: 72-year-old white male, came to the emergency room for progressive nausea and vomiting, unable to keep anything down, severely dehydrated, admitted for a surgical consult and fluid rehydration. He has recurrent hiatal hernia that has been operated on 3 times, possibly failing again. He is fatigued, short of breath. He has atrial fibrillation. He takes Xarelto for atrial fibrillation, COPD, and pulmonary hypertension. HOME MEDICINES: 1. Xarelto 20 mg daily. 2. Wellbutrin SR 200 b.i.d. 3. Vitamin C. 4. Vitamin D. 5. Zinc. 6. Calcium. 7. Percocet 10/325 q.i.d. 8. Lasix 40 daily. 9. Klor-Con 20 mEq daily. 10.Protonix 40 mg t.i.d. 11.Coreg 6.25 b.i.d. 12. daily. ALLERGIES: Negative. REVIEW OF SYSTEMS: Fourteen-point review of systems otherwise negative except for progressive nausea and vomiting, abdominal pain, 10/10 pain. PAST MEDICAL HISTORY: Atrial fibrillation, coronary artery disease, CHF, COPD, GERD, dyslipidemia, hypertension, osteoarthritis, pneumonia, CPAP, urinary retention, straight caths at home 3 to 4 times a day. SURGICAL HISTORY: CABG, heart catheterization, hernia repair, orthopedic surgery. PHYSICAL EXAMINATION: VITAL SIGNS: Temperature 98.3, pulse 50 to 70, respiratory rate 16 to 20, blood pressure O2 98. CARDIOVASCULAR: S1, S2. LUNGS: Scattered rhonchi and wheeze. PSYCH: Fair mood and affect. NEUROLOGIC: Alert and oriented x3. INTEGUMENT: Dry skin turgor. Dry mucous membranes. GI: Increased bowel sounds. Tense to palpation diffuse. No guarding. ASSESSMENT: 1. Acute abdominal pain. 2. Progressive nausea and vomiting. 3. Diarrhea. 4. Mild leukocytosis, thrombocytopenia. 5. Chronic obstructive pulmonary disease. 6. Pulmonary hypertension. 7. Coronary artery disease. 8. Prognosis guarded. Rehydrate. Surgical consult. CAT scan of the abdomen and pelvis. Please see further orders. MMODL / IJN: [id number] /
[2023-05-12] MEDS: ONDANSETRON ODT 4 MG TAB PO PRN (13:36)
--- NOTE | 2023-05-12 15:01 | P.GSCN ---
History of Present Illness Consult date: 05/12/23 History of present illness: Has history of hiatal hernia with repair. Reports occasional epigastric abdominal pain. CT chest reviewed with recurrent hiatal hernia. Also independent findings of gallstones. Recommend barium swallow for dysphagia including esophageal dysmotility. Will need repeat upper endoscopy. Recommend US gallbladder for epigastric pain. Low fat diet advised. Past Medical History Past Medical History: Atrial Fibrillation, Coronary Artery Disease (CAD), Heart Failure, COPD, GERD/Reflux, Hyperlipidemia, Hypertension, Musculoskeletal Disorder, Osteoarthritis (OA), Pneumonia, Sleep Apnea/CPAP/BIPAP Additional Past Medical History / Comment(s): mitral valve regurgitation,urinary retention-per patient he straight caths at home 3-4 times daily, osteoporosis,no cpap,pt had one episode w/in last several months at [employer] when he could hear his friend talking to him but was not able to respond,hx pneumonia years ago History of Any Multi-Drug Resistant Organisms: None Reported Past Surgical History: Coronary Bypass/CABG, Heart Catheterization, Hernia Repair, Joint Replacement, Orthopedic Surgery Additional Past Surgical History / Comment(s): repair of ESOPHAGUS tear, umbilical surg. x3,ORIF RIGHT HIP,RIGHT ARM PLATE AND SCREW, LEFT FOOT,left hip replaced, gordy shoulder surg,foot procedure,VLAD Past Anesthesia/Blood Transfusion Reactions: No Reported Reaction Additional Past Anesthesia/Blood Transfusion Reaction / Comm: no known hx blood transfusion Past Psychological History: Depression Smoking Status: Former smoker Past Alcohol Use History: None Reported Additional Past Alcohol Use History / Comment(s): quit smoking 1986 Past Drug Use History: None Reported - Past Family History Mother Family Medical History: No Reported History Medications and Allergies Home Medications Medication Instructions Recorded Confirmed Type Rivaroxaban [Xarelto] 20 mg PO DAILY 06/11/15 05/11/23 History buPROPion HCL [Wellbutrin SR] 200 mg PO BID 12/04/18 05/11/23 History Fluticasone/Umeclidin/Vilanter 1 puff INHALATION RT-DAILY 02/18/20 05/11/23 History [Trelecatherine Ellipta 100-62.5-25] Ascorbic Acid [Vitamin C] 1,000 mg PO DAILY 06/26/22 05/11/23 History Cholecalciferol [Vitamin D3 (25 25 mcg PO DAILY 06/26/22 05/11/23 History Mcg = 1000 Iu)] Zinc Gluconate [Zinc] 50 mg PO DAILY 06/26/22 05/11/23 History Calcium Carbonate [Calcium] 600 mg PO DAILY 10/09/22 05/11/23 History oxyCODONE-APAP 10-325MG [Percocet 1 tab PO Q6HR PRN 10/09/22 05/11/23 History 10-325 mg] Acetaminophen Tab [Tylenol] 650 mg PO Q4HR PRN tab 12/11/22 05/11/23 Rx lisinopriL [Zestril] 2.5 mg PO DAILY@1200 #30 tab 12/11/22 05/11/23 Rx Nitroglycerin Sl Tabs [Nitrostat] 0.4 mg SUBLINGUAL Q5M PRN tab 12/21/22 Rx Furosemide [Lasix] 40 mg PO DAILY 01/05/23 05/11/23 History Potassium Chloride [Klor-Con M20] 20 meq PO DAILY 01/05/23 05/11/23 History Ondansetron Odt [Zofran Odt] 4 mg PO Q8HR PRN #10 tab 05/10/23 05/11/23 Rx Blood Vitality Supplement 1 tab PO DAILY 05/11/23 05/11/23 History Pantoprazole [Protonix] 40 mg PO TID 05/11/23 05/11/23 History Prostate Advanced Supplement 1 tab PO DAILY 05/11/23 05/11/23 History Sulfamethox-Tmp 800-160Mg [Bactrim 1 tab PO DIRECTED 05/11/23 05/11/23 History Ds] carvediloL [Coreg] 6.25 mg PO BID 05/11/23 05/11/23 History tadalafiL 5 mg PO DAILY 05/11/23 05/11/23 History Allergies Allergy/AdvReac Type Severity Reaction Status Date / Time No Known Allergies Allergy Verified 05/11/23 16:44 Surgical - Exam Vital Signs Temp Pulse Resp BP Pulse Ox 98.3 F 50 L 20 145/82 98 05/11/23 12:00 05/11/23 12:00 05/11/23 12:00 05/11/23 12:00 05/11/23 12:00 Results - Labs 05/12/23 08:19 05/12/23 08:19 Abnormal Lab Results - Last 24 Hours (Table) 05/12/23 05/12/23 Range/Units 08:19 08:19 RBC 4.09 L (4.30-5.90) m/uL Hgb 12.3 L (13.0-17.5) gm/dL Hct 38.0 L (39.0-53.0) % Plt Count 136 L (150-450) k/uL Chloride 110 H (98-107) mmol/L Diabetes panel 05/12/23 Range/Units 08:19 Sodium 140 (137-145) mmol/L Potassium 3.7 (3.5-5.1) mmol/L Chloride 110 H (98-107) mmol/L Carbon Dioxide 22 (22-30) mmol/L BUN 16 (9-20) mg/dL Creatinine 0.70 (0.66-1.25) mg/dL Glucose 99 (74-99) mg/dL Calcium 8.8 (8.4-10.2) mg/dL Thyroid panel 05/12/23 Range/Units 08:19 TSH 0.990 (0.465-4.680) mIU/L Calcium panel 05/12/23 Range/Units 08:19 Calcium 8.8 (8.4-10.2) mg/dL Pituitary panel 05/12/23 05/12/23 Range/Units 08:19 08:19 Sodium 140 (137-145) mmol/L Potassium 3.7 (3.5-5.1) mmol/L Chloride 110 H (98-107) mmol/L Carbon Dioxide 22 (22-30) mmol/L BUN 16 (9-20) mg/dL Creatinine 0.70 (0.66-1.25) mg/dL Glucose 99 (74-99) mg/dL Calcium 8.8 (8.4-10.2) mg/dL TSH 0.990 (0.465-4.680) mIU/L Adrenal panel 05/12/23 Range/Units 08:19 Sodium 140 (137-145) mmol/L Potassium 3.7 (3.5-5.1) mmol/L Chloride 110 H (98-107) mmol/L Carbon Dioxide 22 (22-30) mmol/L BUN 16 (9-20) mg/dL Creatinine 0.70 (0.66-1.25) mg/dL Glucose 99 (74-99) mg/dL Calcium 8.8 (8.4-10.2) mg/dL
[2023-05-12] MEDS: IPRATROPIUM-ALBUTEROL 3 ML NEB INHALATION SCH ×2 (16:10→19:38)
--- NOTE | 2023-05-12 16:24 | US ---
EXAMINATION TYPE: US gallbladder DATE OF EXAM: 05/12/2023 COMPARISON: NONE CLINICAL INDICATION: Male, 72 years old with history of Gallstones; Gallstone. Epigastric pain TECHNIQUE: Multiple sonographic images of the right upper quadrant are obtained. FINDINGS: EXAM MEASUREMENTS: Liver Length: 16.3 cm Gallbladder Wall: 0.3 cm CBD: 0.6 cm Right Kidney: 8.9 x 4.5 x 5.7 cm *Technical limitations due to large amount of overlying bowel gas Pancreas: Obscured by bowel gas Liver: visualized portions appear wnl Gallbladder: stone = 1.3cm Evidence for sonographic De Souza's sign: no CBD: upper limits of normal Right Kidney: no evidence of hydronephrosis IMPRESSION: 1. Hepatomegaly. 2. Cholelithiasis. Minimal gallbladder wall thickening is present. Consider acute cholecystitis.
[2023-05-12] MEDS: SODIUM CHLORIDE 0.9% 1,000 ML IV SCH (18:21)
[2023-05-12] MEDS: BUDESONIDE 0.5 MG/2 ML NEBU INHALATION SCH (19:38)
[2023-05-12] MEDS: ZOLPIDEM 5 MG TAB PO PRN (19:40)
[2023-05-13] MEDS: oxyCODONE-APAP 10-325MG 1 EACH TAB PO PRN ×2 (08:55→17:02)
[2023-05-13] MEDS: METOCLOPRAMIDE 5 MG/ML 2 ML VIAL IVP PRN ×2 (08:55→14:41)
[2023-05-13] MEDS: CALCIUM CARBONATE 500 MG CHEWABLE PO SCH (08:58)
[2023-05-13] MEDS: ZINC SULFATE 220 MG CAP PO SCH (08:58)
[2023-05-13] MEDS: POTASSIUM CHLORIDE ER 20 MEQ TAB.ER PO SCH (08:58)
[2023-05-13] MEDS: ASCORBIC ACID 500 MG TAB PO SCH (08:58)
[2023-05-13] MEDS: carvediloL 6.25 MG TAB PO SCH ×2 (08:58→21:21)
[2023-05-13] MEDS: PANTOPRAZOLE 40 MG TABLET PO SCH ×3 (08:58→21:21)
[2023-05-13] MEDS: CHOLECALCIFEROL 25 MCG (1000 IU) TABLET PO SCH (08:58)
[2023-05-13] MEDS: FUROSEMIDE 40 MG TAB PO SCH (08:58)
[2023-05-13] MEDS: NON FORMULARY DRUG (Tadalafil [Tadalafil] 5 MG Tablet) PO SCH (08:59)
[2023-05-13] MEDS: BUDESONIDE 0.5 MG/2 ML NEBU INHALATION SCH ×2 (08:59→20:43)
[2023-05-13] MEDS: buPROPion SR 100 MG TABLET.ER PO SCH ×2 (08:59→21:21)
[2023-05-13] MEDS: IPRATROPIUM-ALBUTEROL 3 ML NEB INHALATION SCH ×4 (08:59→20:43)
[2023-05-13] MEDS: RIVAROXABAN 20 MG TAB PO SCH (08:59)
[2023-05-13 09:20] LABS: Basophils # (A) 0.03 X 10*3/uL (0.00-0.10); Basophils % (A) 0.3 %; Eosinophils # (A) 0.11 X 10*3/uL (0.04-0.35); Eosinophils % (A) 1.2 %; HCT 41.7 % (39.6-50.0); HGB 13.6 d/dL (13.0-17.0); Lymphocytes # (A) 1.21 X 10*3/uL (0.90-5.00); Lymphocytes % (A) 13.5 %; MCH 29.8 pg (27.0-32.0); MCHC 32.6 d/dL (32.0-37.0); MCV 91.2 FL (80.0-97.0); Mean Platelet Volume 11.6 FL (9.5-12.2); Monocytes # (A) 0.84 X 10*3/uL (0.20-1.00); Monocytes % (A) 9.4 %; NRBC Per 100 WBC 0 X 10*3/uL (0.00-0.01); Neutrophils # (A) 6.74 X 10*3/uL (1.80-7.70); Neutrophils % (A) 75.2 %; Platelet Count 171 X 10*3/uL (140-440); RBC 4.57 X 10*6/uL (4.40-5.60); WBC 8.97 X 10*3/uL (4.50-10.00)
[2023-05-13 09:36] LABS: ALT 35 U/L (10-49); AST 25 U/L (14-35); Albumin 3.8 d/dL (3.8-4.9); Albumin/Globulin Ratio 2.38 Ratio (1.60-3.17); Alkaline Phosphatase 54 U/L (41-126); BUN/Creat Ratio 22.38 Ratio (12.00-20.00); Blood Urea Nitrogen 17.9 mg/dL (9.0-27.0); Calcium 9.2 mg/dL (8.7-10.3); Carbon Dioxide 26.8 mmol/L (21.6-31.8); Chloride 109 mmol/L (96-109); Globulin 1.6 d/dL (1.6-3.3); Glucose 104 mg/dL (70-110); Potassium 4.2 mmol/L (3.5-5.5); Sodium 144 mmol/L (135-145); Total Protein 5.4 d/dL (6.2-8.2)
--- NOTE | 2023-05-13 13:01 | P.CRDCN ---
History of Present Illness Consult date: 05/13/23 Consult reason: atrial fibrillation Chief complaint: Nausea, vomitting, abdominal pain History of present illness: History of present illness: Patient is a pleasant 72-year-old male with significant past medical history of atrial fibrillation, mitral regurgitation status post mitral valve repair, coronary artery disease status post CABG 12/2022, dilated cardiomyopathy, hypertension, hyperlipidemia, urinary retention with straight cath who presented to the emergency department with complaints of nausea, vomiting, abdominal pain. He does follow with Dr. Lewis in the office. He underwent CABG 1 vessel with SVG to diagonal coronary artery and mitral valve repair on 12/06/22. He has not been feeling well for the past few days with nausea and vomiting. Does complain of left sided abdominal pain. He does have some shortness of breath with exertion. CT abdomen/pelvis shows moderate hiatal hernia and diverticulosis. Gallbladder ultrasound shows hepatomegaly, cholelithiasis and concerns for possible acute cholecystitis. He was evaluated by general surgery with plans for a a hiata scan tomorrow. Patient reports that he can walk up one flight of stairs without stopping. He is currently doing cardiac rehab. He denies any chest pain or pressure. Denies any shortness of breath at rest. No dizziness or syncope. He does feel tired and has had a decreased appetite. Labs reviewed BNP elevated at 6910, troponin was negative. EKG reviewed shows atrial fibrillation with slow ventricular response with premature aberrantly conducted complexes, nonspecific ST abnormality REVIEW OF SYSTEMS: No fever or chills. No cough or expectoration. No diaphoresis. Reports shortness of breath with exertion. Patient denies headache, dizziness, blurred vision, double vision. Reports left-sided abdominal pain. Reports nausea, vomiting. No hematochezia. Denies any black stools or blood in his stools. Denies dysuria or hematuria. No muscle weakness or numbness. No chest pain or pressure. PHYSICAL EXAMINATION: This is a 72-year-old male in no apparent distress at the time of my examination. HEENT: Head is atraumatic, normocephalic. Pupils are equal, round. Sclerae anicteric. Conjunctivae are clear. Mucous membranes of the mouth are moist. Neck is supple. There is no jugular venous distention. No carotid bruit is heard. CHEST EXAMINATION: Lungs are clear to auscultation. No chest wall tenderness is noted on palpation or with deep breathing. HEART EXAMINATION: Heart irregular rate and rhythm. S1, S2 heard. No murmurs, gallops or rub. ABDOMEN: Soft, tender left upper quadrant. Bowel sounds are heard. EXTREMITIES: 2+ peripheral pulses with no evidence of peripheral edema and no calf tenderness noted. NEUROLOGIC EXAMINATION: Patient is awake, alert and oriented x3. IMPRESSION AND PLAN: Paroxysmal atrial fibrillation Bradycardia Mitral regurgitation status post mitral valve repair 12/06/22 CAD status post CABG 12/06/2022 Hypertension Hyperlipidemia History of urinary retention Hiatal hernia Abdominal pain PLAN: We will check echocardiogram to evaluate heart function and structure. He can do 4 METS of activity and therefore is cleared for surgery if need be. Continue with current regimen. We will follow. I am dictating on behalf of Dr. Brandon Tejada's history/physical and ass essment/plan. Past Medical History Past Medical History: Atrial Fibrillation, Coronary Artery Disease (CAD), Heart Failure, COPD, GERD/Reflux, Hyperlipidemia, Hypertension, Musculoskeletal Disorder, Osteoarthritis (OA), Pneumonia, Sleep Apnea/CPAP/BIPAP Additional Past Medical History / Comment(s): mitral valve regurgitation,urinary retention-per patient he straight caths at home 3-4 times daily, osteoporosis,no cpap,pt had one episode w/in last several months at [employer] when he could hear his friend talking to him but was not able to respond,hx pneumonia years ago History of Any Multi-Drug Resistant Organisms: None Reported Past Surgical History: Coronary Bypass/CABG, Heart Catheterization, Hernia Repair, Joint Replacement, Orthopedic Surgery Additional Past Surgical History / Comment(s): repair of ESOPHAGUS tear, umbilical surg. x3,ORIF RIGHT HIP,RIGHT ARM PLATE AND SCREW, LEFT FOOT,left hip replaced, gordy shoulder surg,foot procedure,VLAD Past Anesthesia/Blood Transfusion Reactions: No Reported Reaction Additional Past Anesthesia/Blood Transfusion Reaction / Comment(s): no known hx blood transfusion Past Psychological History: Depression Smoking Status: Former smoker Past Alcohol Use History: None Reported Additional Past Alcohol Use History / Comment(s): quit smoking 1986 Past Drug Use History: None Reported - Past Family History Mother Family Medical History: No Reported History Medications and Allergies Home Medications Medication Instructions Recorded Confirmed Type Rivaroxaban [Xarelto] 20 mg PO DAILY 06/11/15 05/11/23 History buPROPion HCL [Wellbutrin SR] 200 mg PO BID 12/04/18 05/11/23 History Fluticasone/Umeclidin/Vilanter 1 puff INHALATION RT-DAILY 02/18/20 05/11/23 History [Trelegy Ellipta 100-62.5-25] Ascorbic Acid [Vitamin C] 1,000 mg PO DAILY 06/26/22 05/11/23 History Cholecalciferol [Vitamin D3 (25 25 mcg PO DAILY 06/26/22 05/11/23 History Mcg = 1000 Iu)] Zinc Gluconate [Zinc] 50 mg PO DAILY 06/26/22 05/11/23 History Calcium Carbonate [Calcium] 600 mg PO DAILY 10/09/22 05/11/23 History oxyCODONE-APAP 10-325MG [Percocet 1 tab PO Q6HR PRN 10/09/22 05/11/23 History 10-325 mg] Acetaminophen Tab [Tylenol] 650 mg PO Q4HR PRN tab 12/11/22 05/11/23 Rx lisinopriL [Zestril] 2.5 mg PO DAILY@1200 #30 tab 12/11/22 05/11/23 Rx Nitroglycerin Sl Tabs [Nitrostat] 0.4 mg SUBLINGUAL Q5M PRN tab 12/21/22 05/11/23 Rx Furosemide [Lasix] 40 mg PO DAILY 01/05/23 05/11/23 History Potassium Chloride [Klor-Con M20] 20 meq PO DAILY 01/05/23 05/11/23 History Ondansetron Odt [Zofran Odt] 4 mg PO Q8HR PRN #10 tab 05/10/23 05/11/23 Rx Blood Vitality Supplement 1 tab PO DAILY 05/11/23 05/11/23 History Pantoprazole [Protonix] 40 mg PO TID 05/11/23 05/11/23 History Prostate Advanced Supplement 1 tab PO DAILY 05/11/23 05/11/23 History Sulfamethox-Tmp 800-160Mg [Bactrim 1 tab PO DIRECTED 05/11/23 05/11/23 History Ds] carvediloL [Coreg] 6.25 mg PO BID 05/11/23 05/11/23 History tadalafiL 5 mg PO DAILY 05/11/23 05/11/23 History Allergies Allergy/AdvReac Type Severity Reaction Status Date / Time No Known Allergies Allergy Verified 05/11/23 16:44 Physical Exam Vitals: Vital Signs Temp Pulse Resp BP Pulse Ox 05/13/23 07:00 98.3 F 52 L 14 150/95 97 05/13/23 00:36 98.9 F 47 L 14 152/87 95 05/12/23 19:37 99.1 F 65 16 160/93 96 05/12/23 15:00 99.1 F 63 16 150/85 98 Intake and Output 05/12/23 05/13/23 05/13/23 22:59 06:59 14:59 Other: # Voids 0 1 Results 05/13/23 05:54 05/13/23 05:54 Cardiac Enzymes 05/13/23 Range/Units 05:54 AST 25 (14-35) U/L CBC 05/13/23 Range/Units 05:54 WBC 8.97 (4.50-10.00) X 10*3/uL RBC 4.57 (4.40-5.60) X 10*6/uL Hgb 13.6 (13.0-17.0) d/dL Hct 41.7 (39.6-50.0) % Plt Count 171 (140-440) X 10*3/uL Comprehensive Metabolic Panel 05/13/23 Range/Units 05:54 Sodium 144 (135-145) mmol/L Potassium 4.2 (3.5-5.5) mmol/L Chloride 109 (96-109) mmol/L Carbon Dioxide 26.8 (21.6-31.8) mmol/L BUN 17.9 (9.0-27.0) mg/dL Creatinine 0.8 (0.6-1.5) mg/dL Glucose 104 (70-110) mg/dL Calcium 9.2 (8.7-10.3) mg/dL AST 25 (14-35) U/L ALT 35 (10-49) U/L Alkaline Phosphatase 54 (41-126) U/L Total Protein 5.4 L (6.2-8.2) d/dL Albumin 3.8 (3.8-4.9) d/dL Current Medications Generic Name Dose Route Start Last Admin Trade Name Freq PRN Reason Stop Dose Admin Acetaminophen 650 mg 05/11/23 20:22 Acetaminophen Tab 325 Mg Tab PO Q4HR PRN Fever And/ Or Mild Pain (1-3) Albuterol/Ipratropium 3 ml 05/12/23 16:00 05/13/23 12:08 Ipratropium-Albuterol 3 Ml Neb INHALATION Not Given RT-QID PREM Ascorbic Acid 1,000 mg 05/12/23 09:00 05/13/23 08:58 Ascorbic Acid 500 Mg Tab PO 1,000 mg DAILY PREM Administration Budesonide 0.5 mg 05/12/23 20:00 05/13/23 08:59 Budesonide 0.5 Mg/2 Ml Nebu INHALATION Not Given RT-BID PREM Bupropion HCl 200 mg 05/11/23 21:00 05/13/23 08:59 Bupropion Sr 100 Mg Tablet.Er PO 200 mg BID PREM Administration Calcium Carbonate/Glycine 500 mg 05/12/23 09:00 05/13/23 08:58 Calcium Carbonate 500 Mg Chewable PO 500 mg DAILY PREM Administration Carvedilol 6.25 mg 05/11/23 21:00 05/13/23 08:58 Carvedilol 6.25 Mg Tab PO 6.25 mg BID PREM Administration Chlorpromazine HCl 25 mg 05/11/23 13:01 05/11/23 21:25 Chlorpromazine 25 Mg/Ml 2 Ml Amp IM 25 mg ONCE PRN Administration Mild Anxiety Cholecalciferol 25 mcg 05/12/23 09:00 05/13/23 08:58 Cholecalciferol 25 Mcg (1000 Iu) Tablet PO 25 mcg DAILY PREM Administration Cyclobenzaprine HCl 5 mg 05/13/23 12:36 Cyclobenzaprine 5 Mg Tab PO Q6HR PRN Muscle Spasm Furosemide 40 mg 05/12/23 09:00 05/13/23 08:58 Furosemide 40 Mg Tab PO 40 mg DAILY PREM Administration Sodium Chloride 1,000 mls @ 20 mls/hr 05/11/23 17:45 05/12/23 18:21 Saline 0.9% IV 20 mls/hr .Q24H PREM Administration Lisinopril 2.5 mg 05/12/23 12:00 05/13/23 11:04 Lisinopril 2.5 Mg Tab PO 2.5 mg DAILY@1200 PREM Administration Metoclopramide HCl 10 mg 05/12/23 17:22 05/13/23 08:55 Metoclopramide 5 Mg/Ml 2 Ml Vial IVP 10 mg Q6HR PRN Administration GI Upset Naloxone HCl 0.2 mg 05/11/23 17:35 Naloxone 0.4 Mg/Ml 1 Ml Vial IV Q2M PRN Opioid Reversal Nitroglycerin 0.4 mg 05/11/23 20:22 Nitroglycerin Sl Tabs 0.4 Mg Tab SUBLINGUAL Q5M PRN Chest Pain Non-Formulary Medication 5 mg 05/12/23 09:00 05/13/23 08:59 Tadalafil [Tadalafil] PO Not Given DAILY PREM Ondansetron HCl 4 mg 05/11/23 20:22 05/12/23 13:36 Ondansetron Odt 4 Mg Tab PO 4 mg Q8HR PRN Administration Nausea Oxycodone/Acetaminophen 1 each 05/11/23 20:22 05/13/23 08:55 Oxycodone-Apap 10-325mg 1 Each Tab PO 1 each Q6HR PRN Administration Pain Pantoprazole Sodium 40 mg 05/11/23 22:00 05/13/23 08:58 Pantoprazole 40 Mg Tablet PO 40 mg TID PREM Administration Potassium Chloride 20 meq 05/12/23 09:00 05/13/23 08:58 Potassium Chloride Er 20 Meq Tab.Er PO 20 meq DAILY PREM Administration Rivaroxaban 20 mg 05/12/23 09:00 05/13/23 08:59 Rivaroxaban 20 Mg Tab PO Not Given DAILY PREM Protocol Zinc Sulfate 220 mg 05/12/23 09:00 05/13/23 08:58 Zinc Sulfate 220 Mg Cap PO 220 mg DAILY PREM Administration Zolpidem Tartrate 5 mg 05/12/23 17:22 05/12/23 19:40 Zolpidem 5 Mg Tab PO 5 mg HS PRN Administration Insomnia Intake and Output 05/12/23 05/13/23 05/13/23 22:59 06:59 14:59 Other: # Voids 0 1 05/13/23 05:54 05/13/23 05:54
--- NOTE | 2023-05-13 14:02 | P.PN ---
Subjective Progress Note Date: 05/13/23 Resting comfortably. Lunch tray not eaten. STUDIES: US gallbladder independently reviewed demonstrates stone at neck of gallbladder. Moderate hepatomegaly noted. PLAN: 1. Agree with HIDA for acute cholecystitis. 2. Barium swallow pending which allows identifies esophageal dysmotility including severity of reflux and hiatal hernia. Objective - Vital Signs Vital signs: Vital Signs Temp 98.3 F 05/13/23 07:00 Pulse 52 L 05/13/23 07:00 Resp 14 05/13/23 07:00 BP 150/95 05/13/23 07:00 Pulse Ox 97 05/13/23 07:00 FiO2 Intake & Output 05/12/23 05/13/23 05/13/23 18:59 06:59 18:59 Other: # Voids 1 1 - Labs CBC & Chem 7: 05/13/23 05:54 05/13/23 05:54 Labs: Abnormal Lab Results - Last 24 Hours (Table) 05/13/23 05/13/23 Range/Units 05:54 05:54 RDW 15.0 H (11.5-14.5) % BUN/Creatinine Ratio 22.38 H (12.00-20.00) Ratio Total Protein 5.4 L (6.2-8.2) d/dL
[2023-05-13] MEDS: CYCLOBENZAPRINE 5 MG TAB PO PRN (14:41)
[2023-05-13] MEDS ORDERED: HEPARIN SODIUM 1,000 UN/ML (10ML VL) IV ONE (15:17)
[2023-05-13] MEDS ORDERED: HEPARIN SODIUM,PORCINE 5,000 UNIT/ML 1 ML VIAL SQ SCH (16:00)
[2023-05-13] MEDS: HEPARIN SOD,PORK IN 0.45% NACL 25,000 UNIT in 0.45% NACL 1 250ML.BAG IV SCH (16:16)
--- NOTE | 2023-05-13 16:23 | CT ---
EXAMINATION TYPE: CT chest angio for PE DATE OF EXAM: 05/13/2023 COMPARISON: CT chest dated 12/18/2022 HISTORY: elevated d-dimer CT DLP: 254.5 mGycm Automated exposure control for dose reduction was used. CONTRAST: CT Chest for pulmonary embolism performed with with IV Contrast, patient injected with 100 mL of Isov ue 370. 3-D postprocessing was performed. FINDINGS: The lungs are clear of consolidative, interstitial or masslike density. There is a small right pleural effusion. There is no pneumothorax. There are no filling defects within the pulmonary arteries or branches to suggest pulmonary embolism. There is a mildly enlarged 15.8 mm right hilar lymph node. There is mild aneurysmal dilatation of ascending thoracic aorta which measures 4.2 cm. There is a large hiatal hernia. There are median sternotomy wires otherwise the osseous structures are intact. There is a single gallstone. IMPRESSION: 1. No evidence of pulmonary embolism. 2. Small right pleural effusion. 3. Mild aneurysmal dilatation of ascending thoracic aorta measuring 4.2 cm 4. Large hiatal hernia. 5. Cholelithiasis 5. Mildly enlarged right hilar lymph node.
[2023-05-13] MEDS: SODIUM CHLORIDE 0.9% 1,000 ML IV SCH (16:54)
[2023-05-13 18:41] LABS: Basophils % (A) 0 %; Eosinophils # (A) 0.1 k/uL (0-0.7); Eosinophils % (A) 2 %; HCT 45.2 % (39.0-53.0); HGB 14.4 gm/dL (13.0-17.5); Lymphocytes # (A) 1.3 k/uL (1.0-4.8); Lymphocytes % (A) 16 %; MCH 29.7 pg (25.0-35.0); MCHC 31.7 g/dL (31.0-37.0); MCV 93.6 fL (80.0-100.0); Mean Platelet Volume 8.5; Monocytes # (A) 0.6 k/uL (0-1.0); Monocytes % (A) 7 %; Neutrophils # (A) 5.6 k/uL (1.3-7.7); Neutrophils % (A) 73 %; Platelet Count 174 k/uL (150-450); RBC 4.83 m/uL (4.30-5.90); RDW 14.7 % (11.5-15.5); WBC 7.7 k/uL (3.8-10.6)
[2023-05-13] MEDS ORDERED: BACLOFEN 10 MG TAB PO PRN (18:45)
[2023-05-13 18:49] LABS: INR 1.2 (<1.2); Partial Thromboplastin Time 50.4 sec (22.0-30.0); Prothrombin Time 12.1 sec (9.0-12.0)
[2023-05-13] MEDS: METOCLOPRAMIDE 5 MG/ML 2 ML VIAL IVP SCH (18:58)
[2023-05-13] MEDS: ZOLPIDEM 5 MG TAB PO PRN (21:21)
[2023-05-13] MEDS: ACETAMINOPHEN TAB 325 MG TAB PO PRN (21:21)
[2023-05-14] MEDS: BACLOFEN 10 MG TAB PO SCH ×5 (01:13→21:26)
[2023-05-14] MEDS: METOCLOPRAMIDE 5 MG/ML 2 ML VIAL IVP SCH ×5 (01:13→23:04)
[2023-05-14] MEDS: CYCLOBENZAPRINE 5 MG TAB PO PRN (01:59)
[2023-05-14] MEDS: ACETAMINOPHEN TAB 325 MG TAB PO PRN (01:59)
[2023-05-14] MEDS: HEPARIN SODIUM 1,000 UN/ML (10ML VL) IV PRN ×2 (01:59→12:21)
--- NOTE | 2023-05-14 04:55 | PN ---
PROGRESS NOTE PHYSICAL EXAMINATION: VITAL SIGNS: The patient's pulse is 60s and it goes down to 47 to 52, temperature 98.3, blood pressure 150s to 160s/85 to 95, O2 of 97 on room air, respiratory rate of 14 to 16. CARDIOVASCULAR: S1, S2. LUNGS: Transmitted upper airway sounds. HEMATOLOGY: Negative for Homans. GI: Mild tenderness to palpation, epigastric. LABORATORY DATA: Sodium is 144, potassium 4.2, BUN and creatinine are 17 and 0.8. White count was 8.9, hemoglobin is 13.6. PLAN: Surgical recommendation was gallbladder ultrasound, which shows cholecystitis, possibly order a HIDA scan for tomorrow, then possibly have gallbladder removed, and she also has recommended a barium swallow small bowel follow-through, but ultrasound shows cholecystitis. Hopefully, gallbladder will have to come out. MMODL / IJN: [id number] /
[2023-05-14] MEDS: BUDESONIDE 0.5 MG/2 ML NEBU INHALATION SCH ×2 (08:31→20:49)
[2023-05-14] MEDS: IPRATROPIUM-ALBUTEROL 3 ML NEB INHALATION SCH ×4 (08:31→20:49)
[2023-05-14] MEDS: ZINC SULFATE 220 MG CAP PO SCH (09:06)
[2023-05-14] MEDS: ONDANSETRON ODT 4 MG TAB PO PRN ×2 (09:06→21:25)
[2023-05-14] MEDS: buPROPion SR 100 MG TABLET.ER PO SCH ×2 (09:07→21:26)
[2023-05-14] MEDS: CHOLECALCIFEROL 25 MCG (1000 IU) TABLET PO SCH (09:07)
[2023-05-14] MEDS: FUROSEMIDE 40 MG TAB PO SCH (09:07)
[2023-05-14] MEDS: PANTOPRAZOLE 40 MG TABLET PO SCH ×3 (09:07→23:04)
[2023-05-14] MEDS: POTASSIUM CHLORIDE ER 20 MEQ TAB.ER PO SCH (09:07)
[2023-05-14] MEDS: oxyCODONE-APAP 10-325MG 1 EACH TAB PO PRN (09:07)
[2023-05-14] MEDS: CALCIUM CARBONATE 500 MG CHEWABLE PO SCH (09:07)
[2023-05-14] MEDS: carvediloL 6.25 MG TAB PO SCH ×2 (09:07→21:25)
[2023-05-14] MEDS: ASCORBIC ACID 500 MG TAB PO SCH (09:07)
--- NOTE | 2023-05-14 09:37 | NM ---
EXAMINATION TYPE: NM hepatobiliary w EF DATE OF EXAM: 05/14/2023 COMPARISON: Gallbladder ultrasound 05/12/2023, CT abdomen pelvis 05/11/2023 CLINICAL INDICATION: Male, 72 years old with history of elevated bilirubin; TECHNIQUE: After the intravenous administration of 4.79 mCi Tc 99m Mebrofenin hepatobiliary scintigra phy is performed. Immediate images post injection. FINDINGS: There is satisfactory initial accumulation of tracer by the liver. The gallbladder is visualized wit hin 30 minutes. The small bowel activity is noted within 24 minutes. At one hour 1.5 CCK was given and gallbladder ejection fraction is calculated at 6 percent. Therefore there is no scintigraphic kelly dence of cystic or common bile duct obstruction. IMPRESSION: 1. No common bile duct or cystic duct obstruction to suggest acute cholecystitis. 2. Gallbladder dyskinesia with ejection fraction of 6%.
[2023-05-14] MEDS: NON FORMULARY DRUG (Tadalafil [Tadalafil] 5 MG Tablet) PO SCH (10:23)
[2023-05-14 11:10] LABS: Basophils % (A) 0 %; Eosinophils # (A) 0.2 k/uL (0-0.7); Eosinophils % (A) 3 %; HGB 13.6 gm/dL (13.0-17.5); Lymphocytes # (A) 0.9 k/uL (1.0-4.8); Lymphocytes % (A) 15 %; MCH 30.6 pg (25.0-35.0); MCHC 33.3 g/dL (31.0-37.0); MCV 91.9 fL (80.0-100.0); Mean Platelet Volume 9.7; Monocytes # (A) 0.5 k/uL (0-1.0); Monocytes % (A) 8 %; Neutrophils # (A) 4.3 k/uL (1.3-7.7); Neutrophils % (A) 73 %; Platelet Count 157 k/uL (150-450); RBC 4.46 m/uL (4.30-5.90)
[2023-05-14 11:32] LABS: INR 1.1 (<1.2); Prothrombin Time 11.9 sec (9.0-12.0)
--- NOTE | 2023-05-14 12:55 | P.PN ---
Subjective Progress Note Date: 05/14/23 CHIEF COMPLAINT: Epigastric abdominal pain HISTORY OF PRESENT ILLNESS: Patient with history of a large recurrent hiatal hernia. Ultrasound with evidence of gallstone. Patient has had a recurrence hiatal hernia repair 3. The last repair with with a Dr. Sanchez out of [facility] in 2020. Patient also reports having cardiac bypass surgery this past December. Patient apparently did require transfer to the cardiac floor due to chest pain and elevated troponin. He is currently on IV heparin drip. Computed tomography scan was negative for PE. HIDA scan shows no calm bile duct or cystic duct obstruction to suggest acute cholecystitis. Gallbladder dyskinesia with an EF of 66%. Afebrile. WBC 6 Hgb 13 PHYSICAL EXAM: VITAL SIGNS: Reviewed GENERAL: Well-developed in no acute distress. HEENT: No sclera icterus. Extraocular movements grossly intact. Moist buccal mucosa. Head is atraumatic, normocephalic. Hears conversational speech. No nasal drainage. NECK: Supple without lymphadenopathy. CHEST: Non-labored respirations and equal bilateral excursions. CARDIOVASCULAR: Palpable 2+ radial pulses. ABDOMEN: Soft. Nondistended. Nontender. MUSCULOSKELETAL: No clubbing or cyanosis. NEUROLOGIC: No focal or lateralizing signs. Cranial nerves II through XII grossly intact. PSYCH: Appropriate affect. Alert and oriented to person, place and time. SKIN: Well perfused. Good skin turgor. ASSESSMENT: 1. Epigastric abdominal pain 2. Recurrent hiatal hernia 3 surgeries 3. History of CABG in December 4. Gallbladder dyskinesia 5. Cholelithiasis 6. Dysphagia 7. Chest pain and elevated troponins PLAN: -Patient scheduled for barium swallow eval today -Continue cardiac workup. Patient has Echo ordered and is currently on IV heparin due to elevated troponins. -Continue supportive care -Continue low-fat Physician Structures Engineer note has been reviewed by physician. Signing provider agrees with the documented findings, assessment, and plan of care. Objective - Vital Signs Vital signs: Vital Signs Temp 97.4 F L 05/14/23 09:00 Pulse 58 L 05/14/23 09:00 Resp 16 05/14/23 09:00 BP 170/98 05/14/23 09:00 Pulse Ox 97 05/14/23 09:00 FiO2 Intake & Output 05/13/23 05/14/23 05/14/23 18:59 06:59 18:59 Intake Total 0 81.757 Output Total 0 Balance 0 81.757 Intake: Intake, IV Titration 81.757 Amount Heparin Sod,Pork in 0.45% 81.757 NaCl 25,000 unit In 0.45 % NaCl 1 250ml.bag @ 12 UNITS/KG/HR 8.546 mls/hr IV .Q24H [facility] Rx#: [id number] Oral 0 Output: Urine 0 Other: Voiding Method Self-Catheterization # Voids 3 1 # Bowel Movements 0 - Labs CBC & Chem 7: 05/14/23 10:22 05/13/23 05:54 Labs: Abnormal Lab Results - Last 24 Hours (Table) 05/13/23 05/13/23 05/13/23 Range/Units 07:49 13:04 17:52 PT 12.1 H (9.0-12.0) sec INR 1.2 H (<1.2) APTT 50.4 H (22.0-30.0) sec D-Dimer 1.59 H (<0.60) mg/L FEU Troponin I 0.087 H* (0.000-0.034) ng/mL 05/13/23 05/13/23 Range/Units 17:52 21:40 PT (9.0-12.0) sec INR (<1.2) APTT (22.0-30.0) sec D-Dimer (<0.60) mg/L FEU Troponin I 0.080 H* 0.097 H* (0.000-0.034) ng/mL
--- NOTE | 2023-05-14 13:33 | CA ---
Transthoracic Echo Report Name: Derick Valle Age: 72 Gender: M : 1950 Exam Date: 05/14/2023 11:53 Exam Location: [facility] Ht (in): 70 Wt (lb): 157 Ordering Physician: Ingrid De La Torre MD ([id number]) Attending/Referring Phys: Alum Mixer Amira Robles RDCS Procedure CPT: Indications: LV function, assess mitral valve Cardiac Hx: Hx of CABG Technical Quality: Fair Contrast 1: Total Dose (mL): Contrast 2: Total Dose (mL): MEASUREMENTS (Male / Female) Normal Values 2D ECHO LV Diastolic Diameter PLAX 4.9 cm 4.2 - 5.9 / 3.9 - 5.3 cm LV Systolic Diameter PLAX 4.1 cm IVS Diastolic Thickness 1.5 cm 0.6 - 1.0 / 0.6 - 0.9 cm LVPW Diastolic Thickness 1.4 cm 0.6 - 1.0 / 0.6 - 0.9 cm LV Relative Wall Thickness 0.6 RV Internal Dim ED PLAX 4.5 cm LA Systolic Diameter LX 4.6 cm 3.0 - 4.0 / 2.7 - 3.8 cm LV Diastolic Volume MOD BP 99.0 cm??? 67 - 155 / 56 - 104 cm??? LV Systolic Volume MOD BP 52.1 cm??? - 58 / 19 - 49 cm??? LV Ejection Fraction MOD BP 47.3 % >= 55 % LV Cardiac Index MOD BP 1248.8 cm???/min???m??? LV Diastolic Volume MOD 4C 116.1 cm??? LV Systolic Volume MOD 4C 74.7 cm??? LV Ejection Fraction MOD 4C 35.7 % LV Cardiac Index MOD 4C 1104.3 cm???/min???m??? LV Diastolic Length 4C 8.3 cm LV Systolic Length 4C 7.3 cm LV Diastolic Volume MOD 2C 82.3 cm??? LV Systolic Volume MOD 2C 44.0 cm??? LV Ejection Fraction MOD 2C 46.6 % LV Cardiac Index MOD 2C 1021.8 cm???/min???m??? LV Diastolic Length 2C 8.7 cm LV Systolic Length 2C 7.7 cm LA Volume 118.8 cm??? 18 - 58 / 22 - 52 cm??? M-MODE Aortic Root Diameter MM 3.7 cm MV E Point Septal Separation 1.3 cm AV Cusp Separation MM 2.1 cm DOPPLER AV Peak Velocity 98.6 cm/s AV Peak Gradient 3.9 mmHg MV Peak Velocity 136.8 cm/s MV Peak Gradient 7.5 mmHg MV Mean Velocity 59.1 cm/s MV Mean Gradient 1.9 mmHg MV Velocity Time Integral 47.7 cm MV Area PHT 3.0 cm??? Mitral E Point Velocity 112.8 cm/s Mitral A Point Velocity 71.3 cm/s Mitral E to A Ratio 1.6 MV Deceleration Time 256.1 ms TR Peak Velocity 277.7 cm/s TR Peak Gradient 30.9 mmHg Right Ventricular Systolic Press 34.6 mmHg FINDINGS Left Ventricle Left ventricular ejection fraction is estimated at 40-45 %. Left ventricular cavity size normal. Moderately left ventricle hypertrophy. Moderately decreased left ventricular ejection fraction. Inferoapical and inferoseptal hypokinesis Right Ventricle Severe right ventricular dilatation. Mild pulmonary hypertension. Right ventricular systolic pressure estimated at 35 mm hg. Right Atrium Moderate right atrial dilatation. Left Atrium Mildly increased left atrial diameter. Severely increased left atrial volume. Moderately increased left atrial area. Mitral Valve Severe mitral and ask ossification. Mild mitral regurgitation. Aortic Valve Trileaflet aortic valve. Aortic valve sclerosis. Tricuspid Valve Structurally normal tricuspid valve. Mild tricuspid regurgitation. Pulmonic Valve Structurally normal pulmonic valve. No pulmonic regurgitation. Pericardium No pericardial effusion. Aorta Normal size aortic root and proximal ascending aorta. CONCLUSIONS 1. Moderately impaired left ventricle systolic function with segmental wall motion abnormality 2. Severe mitral annulus calcification with mild mitral regurgitation 3. Mild tricuspid regurgitation Previewed by: Dr. Flores Castro MD (Electronically Signed) Final Date: 14 May 2023 13:32
[2023-05-14] MEDS: HEPARIN SOD,PORK IN 0.45% NACL 25,000 UNIT in 0.45% NACL 1 250ML.BAG IV SCH (17:03)
[2023-05-14] MEDS: SODIUM CHLORIDE 0.9% 1,000 ML IV SCH (18:45)
--- NOTE | 2023-05-15 06:02 | PN ---
PROGRESS NOTE HISTORY OF PRESENT ILLNESS: This is a 72-year-old white male, whose abdominal pain is slightly better today with the Reglan and muscle relaxers, still on heparin drip due to elevated troponin. He has an abnormal HIDA scan with 6% ejection fraction. His ultrasound shows cholecystitis. He had upper GI today, which is pending. White count 6, hemoglobin is normal at 13.6. Troponin 0.08, 0.097. Barium swallow is not read yet. Echocardiogram showed ejection fraction is 47%. RSVP is 74. Prognosis guarded. Continue cardiac etiology, possible cholecystitis will be needed in the next 24 to 48 hours for abdominal pain, depending on barium swallow. MMODL / IJN: [id number] /
[2023-05-15] MEDS: METOCLOPRAMIDE 5 MG/ML 2 ML VIAL IVP SCH ×3 (06:31→17:17)
--- NOTE | 2023-05-15 07:45 | PN ---
PROGRESS NOTE Mr. Valle is being considered for hiatal hernia surgery and also a question of some gallbladder surgery. He has gallstones. His troponin is equivocal in the range of 0.8, but flat. He has had mitral valve repair and a single-vessel bypass surgery that was performed in December of this year. He does not have any chest pain. EKG does not reveal any acute changes. I am recommending we evaluate LV function by echocardiogram and if this is normal, he can proceed with gallbladder surgery. He has chronic atrial fibrillation with rate control. His Xarelto is being held and is on IV heparin. He was seen yesterday by Dr. Farmer, who suggested a HIDA scan, which is to be performed today. We will evaluate echocardiogram and then assess the risks. No absolute contraindication. The patient is in atrial fib, rate is controlled. Heparin is being administered and Xarelto held. OBJECTIVE: VITAL SIGNS: Stable. CARDIOVASCULAR: S1, S2 with a regular rate and rhythm noted. Short systolic murmur at the apex. LUNGS: Revealed decent air entry. ABDOMEN: Soft, nontender. Rest of physical exam is unremarkable. MMODL / IJN: [id number] /
--- NOTE | 2023-05-15 08:11 | FL ---
ESOPHOGRAM. HISTORY: Emesis Esophagram was performed per the several contrast exiting. Patient swallowed thin liquid barium witho ut difficulty or delay. Esophageal peristalsis and motility appear to be within normal limits. There is no evidence for filling defect, mass or diverticulum. There is small hiatal hernia noted. Subsequently single contrast cervical esophagram was performed which fails demonstrate evidence for a spiration penetration or mass. IMPRESSION: Small hiatal hernia.
[2023-05-15] MEDS: IPRATROPIUM-ALBUTEROL 3 ML NEB INHALATION SCH ×4 (08:51→21:07)
[2023-05-15] MEDS: BUDESONIDE 0.5 MG/2 ML NEBU INHALATION SCH ×2 (08:51→21:07)
[2023-05-15] MEDS ORDERED: RIVAROXABAN 20 MG TAB PO STA (09:03)
[2023-05-15] MEDS: NON FORMULARY DRUG (Tadalafil [Tadalafil] 5 MG Tablet) PO SCH (09:15)
[2023-05-15 09:20] LABS: African American GFR (CKD) >90 (>60 ml/min/1.73 sqM); Anion Gap 11 mmol/L; Blood Urea Nitrogen 16 mg/dL (9-20); Calcium 8.9 mg/dL (8.4-10.2); Carbon Dioxide 22 mmol/L (22-30); Chloride 107 mmol/L (98-107); Glucose 70 mg/dL (74-99); Non-African American GFR(CKD) 88 (>60 ml/min/1.73 sqM); Potassium 3.6 mmol/L (3.5-5.1); Sodium 140 mmol/L (137-145)
[2023-05-15] MEDS: ZINC SULFATE 220 MG CAP PO SCH (09:21)
[2023-05-15] MEDS: POTASSIUM CHLORIDE ER 20 MEQ TAB.ER PO SCH (09:21)
[2023-05-15] MEDS: buPROPion SR 100 MG TABLET.ER PO SCH ×2 (09:21→22:11)
[2023-05-15] MEDS: CALCIUM CARBONATE 500 MG CHEWABLE PO SCH (09:21)
[2023-05-15] MEDS: FUROSEMIDE 40 MG TAB PO SCH (09:21)
[2023-05-15] MEDS: BACLOFEN 10 MG TAB PO SCH ×3 (09:22→15:55)
[2023-05-15] MEDS: carvediloL 6.25 MG TAB PO SCH ×2 (09:22→22:11)
[2023-05-15] MEDS: PANTOPRAZOLE 40 MG TABLET PO SCH ×3 (09:22→22:11)
[2023-05-15] MEDS: ASCORBIC ACID 500 MG TAB PO SCH (09:22)
[2023-05-15 09:30] LABS: Basophils # (A) 0.1 k/uL (0-0.2); Basophils % (A) 1 %; Eosinophils # (A) 0.3 k/uL (0-0.7); Eosinophils % (A) 3 %; HGB 16.3 gm/dL (13.0-17.5); Lymphocytes # (A) 1.5 k/uL (1.0-4.8); Lymphocytes % (A) 15 %; MCH 31.5 pg (25.0-35.0); MCHC 33.3 g/dL (31.0-37.0); MCV 94.6 fL (80.0-100.0); Mean Platelet Volume 8.3; Monocytes # (A) 0.6 k/uL (0-1.0); Monocytes % (A) 6 %; Neutrophils % (A) 73 %; RBC 5.18 m/uL (4.30-5.90); RDW 14.9 % (11.5-15.5); WBC 9.6 k/uL (3.8-10.6)
[2023-05-15] MEDS: CHOLECALCIFEROL 25 MCG (1000 IU) TABLET PO SCH (09:33)
[2023-05-15 10:07] LABS: Platelet Count 195 k/uL (150-450)
--- NOTE | 2023-05-15 10:46 | P.PN ---
Subjective Progress Note Date: 05/15/23 CHIEF COMPLAINT: Epigastric abdominal pain HISTORY OF PRESENT ILLNESS: Patient appears comfortable. No complaints of pain. He had modified barium swallow completed this morning showing a small hiatal hernia. Currently on a low-fat diet. HIDA scan shows no common bile duct or cystic duct obstruction to suggest acute cholecystitis. Gallbladder dyskinesia with an EF of 6%. Afebrile. WBC 9.6 hgb 16.3 PHYSICAL EXAM: VITAL SIGNS: Reviewed GENERAL: Well-developed in no acute distress. HEENT: No sclera icterus. Extraocular movements grossly intact. Moist buccal mucosa. Head is atraumatic, normocephalic. Hears conversational speech. No nasal drainage. NECK: Supple without lymphadenopathy. CHEST: Non-labored respirations and equal bilateral excursions. CARDIOVASCULAR: Palpable 2+ radial pulses. ABDOMEN: Soft. Nondistended. MUSCULOSKELETAL: No clubbing or cyanosis. NEUROLOGIC: No focal or lateralizing signs. Cranial nerves II through XII grossly intact. PSYCH: Appropriate affect. Alert and oriented to person, place and time. SKIN: Well perfused. Good skin turgor. ASSESSMENT: 1. Epigastric abdominal pain 2. Recurrent hiatal hernia 3 surgeries 3. History of CABG in December 4. Gallbladder dyskinesia 5. Cholelithiasis 6. Dysphagia 7. Chest pain and elevated troponins. Seen by cardiology service PLAN: -No plans for surgical intervention during this admission -Case discussed with cardiology service they are recommending no surgical intervention for at least 2 weeks -Recommend outpatient cholecystectomy -For patient's recurrent hiatal hernia recommended follow-up with a tertiary care center -Continue low-fat diet Physician Tar Chaser note has been reviewed by physician. Signing provider agrees with the documented findings, assessment, and plan of care. Objective - Vital Signs Vital signs: Vital Signs Temp 98.1 F 05/15/23 09:08 Pulse 68 05/15/23 09:08 Resp 16 05/15/23 09:08 BP 133/86 05/15/23 09:08 Pulse Ox 96 05/15/23 09:08 FiO2 Intake & Output 05/14/23 05/15/23 05/15/23 18:59 06:59 18:59 Intake Total 168.243 120 Balance 168.243 120 Intake: Intake, IV Titration 168.243 Amount Heparin Sod,Pork in 0.45% 168.243 NaCl 25,000 unit In 0.45 % NaCl 1 250ml.bag @ 12 UNITS/KG/HR 8.546 mls/hr IV .Q24H [facility] Rx#: [id number] Oral 120 Other: Voiding Method Self-Catheterization Self-Catheterization # Voids 2 1 1 - Labs CBC & Chem 7: 05/15/23 08:52 05/15/23 08:52 Labs: Abnormal Lab Results - Last 24 Hours (Table) 05/14/23 05/14/23 05/14/23 Range/Units 10:22 10:22 19:16 Lymphocytes # 0.9 L (1.0-4.8) k/uL APTT 31.9 H 60.1 H (22.0-30.0) sec Glucose (74-99) mg/dL 05/15/23 05/15/23 Range/Units 08:52 08:52 Lymphocytes # (1.0-4.8) k/uL APTT 71.1 H (22.0-30.0) sec Glucose 70 L (74-99) mg/dL
--- NOTE | 2023-05-15 11:46 | P.PN ---
Subjective Progress Note Date: 05/15/23 History of present illness: This is a 72-year-old male was being considered for hiatal hernia surgery and also gallbladder surgery. His troponins were equivocal in the range of 0.08 but flat. He also has history of mitral valve repair and single vessel bypass surgery that was performed in December of this year. Patient does not have any chest pain. EKG does not reveal any acute changes. Echocardiogram revealed moderately impaired left ventricular systolic function with segmental wall motion abnormality. Severe mitral annulus calcification with mild mitral regurgitation. Mild tricuspid regurgitation. EF was 40-45%. Patient was on heparin drip as Xarelto was on hold in anticipation of possible surgery. Discussed case with Dr. Murillo this morning and recommend holding on surgery for 2 weeks. Telemetry is atrial fibrillation with rate control Physical examination: LUNGS: Clear to auscultation. No wheezes or rhonchi. No intercostal retractions. HEART: Regular rate and rhythm. Short systolic murmur at the apex. EXTREMITIES: No pedal edema. NEUROLOGICAL: Patient is awake, alert and oriented. Assessment: Elevated troponin, acute coronary syndrome ruled out History of coronary artery disease status post single vessel bypass surgery History of mitral valve repair Hiatal hernia surgery history Cholecystitis Plan: Discontinue heparin drip and resume Xarelto Recommending waiting 2 weeks for surgical intervention Patient is cleared for discharge from cardiology and patient may follow-up with Dr. Lewis in the office for outpatient stress testing. Nurse practitioner note has been reviewed, I agree with documented findings and plan of care. Patient was seen and examined. Objective - Vital Signs Vital signs: Vital Signs Temp 98.0 F 05/14/23 23:33 Pulse 57 L 05/15/23 04:00 Resp 18 05/15/23 04:00 BP 168/96 05/15/23 04:00 Pulse Ox 94 L 05/15/23 04:00 FiO2 Intake & Output 05/14/23 05/15/23 05/15/23 18:59 06:59 18:59 Intake Total 168.243 120 Balance 168.243 120 Intake: Intake, IV Titration 168.243 Amount Heparin Sod,Pork in 0.45% 168.243 NaCl 25,000 unit In 0.45 % NaCl 1 250ml.bag @ 12 UNITS/KG/HR 8.546 mls/hr IV .Q24H [facility] Rx#: [id number] Oral 120 Other: Voiding Method Self-Catheterization Self-Catheterization # Voids 2 1 - Labs CBC & Chem 7: 05/15/23 08:52 05/15/23 08:52 Labs: Abnormal Lab Results - Last 24 Hours (Table) 05/14/23 05/14/23 05/14/23 Range/Units 10:22 10:22 19:16 Lymphocytes # 0.9 L (1.0-4.8) k/uL APTT 31.9 H 60.1 H (22.0-30.0) sec
[2023-05-15] MEDS: SODIUM CHLORIDE 0.9% 1,000 ML IV SCH (16:13)
[2023-05-15] MEDS ORDERED: BACLOFEN 10 MG TAB PO PRN (19:37)
--- NOTE | 2023-05-15 23:42 | PN ---
PROGRESS NOTE The patient was seen by Surgeon and Cardiology, had a barium swallow today. Apparently, Surgery is not going to operate on the gallbladder. He has a small hiatal hernia, which isn't vague. He is trying to get his gallbladder out. Recurrent hiatal hernia, history of CABG, gallbladder dyskinesia, cholelithiasis, dysphagia, possibly outpatient, cholecystectomy, hiatal hernia looks fine. Surgery cleared him for discharge. I will send him home. PROGNOSIS: Guarded. MMODL / IJN: [id number] /
[2023-05-16] MEDS: METOCLOPRAMIDE 5 MG/ML 2 ML VIAL IVP SCH ×3 (00:48→13:04)
[2023-05-16 08:57] VITALS: RESP 16; TEMP 97.9
[2023-05-16] MEDS: PANTOPRAZOLE 40 MG TABLET PO SCH (08:57)
[2023-05-16] MEDS: ASCORBIC ACID 500 MG TAB PO SCH (08:57)
[2023-05-16] MEDS: carvediloL 6.25 MG TAB PO SCH (08:57)
[2023-05-16] MEDS: CALCIUM CARBONATE 500 MG CHEWABLE PO SCH (08:57)
[2023-05-16] MEDS: FUROSEMIDE 40 MG TAB PO SCH (08:57)
[2023-05-16] MEDS: buPROPion SR 100 MG TABLET.ER PO SCH (08:57)
[2023-05-16] MEDS: CHOLECALCIFEROL 25 MCG (1000 IU) TABLET PO SCH (08:57)
[2023-05-16] MEDS: ZINC SULFATE 220 MG CAP PO SCH (08:57)
[2023-05-16] MEDS: POTASSIUM CHLORIDE ER 20 MEQ TAB.ER PO SCH (08:58)
[2023-05-16] MEDS: BUDESONIDE 0.5 MG/2 ML NEBU INHALATION SCH (09:07)
[2023-05-16] MEDS: IPRATROPIUM-ALBUTEROL 3 ML NEB INHALATION SCH ×2 (09:08→15:56)
[2023-05-16] MEDS: NON FORMULARY DRUG (Tadalafil [Tadalafil] 5 MG Tablet) PO SCH (09:49)
[2023-05-16 12:17] VITALS: BP 126/88; PULSE 54
--- NOTE | 2023-05-16 12:58 | P.PN ---
Subjective Progress Note Date: 05/16/23 CHIEF COMPLAINT: Epigastric abdominal pain HISTORY OF PRESENT ILLNESS: No complaints of pain. Tolerating diet. He had modified barium swallow completed this morning showing a small hiatal hernia. CT chest with evidence of large hiatal hernia. Currently on a low-fat diet. HIDA scan shows no common bile duct or cystic duct obstruction to suggest acute cholecystitis. Gallbladder dyskinesia with an EF of 6%. Afebrile. WBC 9.6 hgb 16.3 PHYSICAL EXAM: VITAL SIGNS: Reviewed GENERAL: Well-developed in no acute distress. HEENT: No sclera icterus. Extraocular movements grossly intact. Moist buccal mucosa. Head is atraumatic, normocephalic. Hears conversational speech. No nasal drainage. NECK: Supple without lymphadenopathy. CHEST: Non-labored respirations and equal bilateral excursions. CARDIOVASCULAR: Palpable 2+ radial pulses. ABDOMEN: Soft. Nondistended. MUSCULOSKELETAL: No clubbing or cyanosis. NEUROLOGIC: No focal or lateralizing signs. Cranial nerves II through XII david ssly intact. PSYCH: Appropriate affect. Alert and oriented to person, place and time. SKIN: Well perfused. Good skin turgor. ASSESSMENT: 1. Epigastric abdominal pain 2. Recurrent hiatal hernia 3 surgeries 3. History of CABG in December 4. Gallbladder dyskinesia 5. Cholelithiasis 6. Dysphagia 7. Chest pain and elevated troponins. Seen by cardiology service PLAN: -No plans for surgical intervention during this admission -Case discussed with cardiology service they are recommending no surgical intervention for at least 2 weeks -Recommend outpatient cholecystectomy -For patient's recurrent hiatal hernia recommended follow-up with a tertiary care center -Continue low-fat diet -Patient can be discharged from surgical standpoint when medically cleared Physician Pheresis Specialist note has been reviewed by physician. Signing provider agrees with the documented findings, assessment, and plan of care. Objective - Vital Signs Vital signs: Vital Signs Temp 97.9 F 05/16/23 08:54 Pulse 64 05/16/23 08:54 Resp 16 05/16/23 08:54 BP 140/86 05/16/23 08:54 Pulse Ox 98 05/16/23 08:54 FiO2 Intake & Output 05/15/23 05/16/23 05/16/23 18:59 06:59 18:59 Other: Voiding Method Self-Catheterization Self-Catheterization Self-Catheterization # Voids 2 - Labs CBC & Chem 7: 05/15/23 08:52 05/15/23 08:52
== END 2023-05-16 17:00 | disposition home or self-care (01) | DRG 445 ==
LOC: EC 11:57 → 6NMEDSUR 17:42 → 3SCARD 05-13 17:20 → OBSVTOIN 05-13 18:44
PROVIDERS: ADMIT Family Medicine; ATTEND Family Medicine
DX: K80.10 Calculus of gallbladder with chronic cholecystitis without obstruction (principal); I42.0 Dilated cardiomyopathy; K44.9 Diaphragmatic hernia without obstruction or gangrene; I25.10 Atherosclerotic heart disease of native coronary artery without angina pectoris; Z20.822 Contact with and (suspected) exposure to COVID-19; I50.9 Heart failure, unspecified; I48.0 Paroxysmal atrial fibrillation; I11.0 Hypertensive heart disease with heart failure; E78.5 Hyperlipidemia, unspecified; R13.10 Dysphagia, unspecified; Z79.01 Long term (current) use of anticoagulants; R00.1 Bradycardia, unspecified; D69.6 Thrombocytopenia, unspecified; I27.20 Pulmonary hypertension, unspecified; M19.90 Unspecified osteoarthritis, unspecified site; K21.9 Gastro-esophageal reflux disease without esophagitis; M81.0 Age-related osteoporosis without current pathological fracture; R11.2 Nausea with vomiting, unspecified; R33.8 Other retention of urine; K82.8 Other specified diseases of gallbladder; R79.89 Other specified abnormal findings of blood chemistry; I08.1 Rheumatic disorders of both mitral and tricuspid valves; R01.1 Cardiac murmur, unspecified; Z79.899 Other long term (current) drug therapy; Z95.1 Presence of aortocoronary bypass graft; Z96.642 Presence of left artificial hip joint; Z87.01 Personal history of pneumonia (recurrent); Z95.2 Presence of prosthetic heart valve; Z90.49 Acquired absence of other specified parts of digestive tract
CPT/HCPCS: 36415; 71275; 74177; 74220; 76705; 78226; 80048; 80053; 82248; 83605; 84443; 84484; 85025; 85379; 85610; 85730; 87636; 93005; 93306; 94640; 96361; 96374; 99285

== ENCOUNTER → 2023-11-08 | Outpatient (CLI) | payer MEDICARE ==
--- NOTE | 2023-11-08 12:42 | BD ---
EXAMINATION TYPE: Axial Bone Density DATE OF EXAM: 11/08/2023 CLINICAL HISTORY: 73 years old Male. ICD-10 CODE: M85.88 OTH DISRD OF BONE DENSITY AND STRUCTURE, OT Height: 66 Weight: 163.6 FRAX RISK QUESTIONS: Alcohol (3 or more units per day): no Family History (Parent hip fracture): no Glucocorticoids (More than 3mos): no History of Fracture in Adulthood: yes Secondary Osteoporosis: 1. Type 1 Diabetes: no 2. Hyperthyroidism: no 3. Menopause before 45: na 4. Malnutrition: no 5. Chronic liver disease: no Rheumatoid Arthritis: no Current Tobacco Use: no RISK FACTORS HISTORY OF: Hip Fracture (Right/Left): Bilateral When: 2001 and 2018 Spine Fracture: Compression Fx's When: 1968 History of Wrist Fracture: Rt Forearm When: 1991 Surgery to Spine/Hip(right/left)/Wrist (right/left): bilateral hips and rt forearm MEDICATIONS: Thyroid Medications: no Osteoporosis Medications: no EXAM MEASUREMENTS: Bone mineral densitometry was performed using the [employer] System. Bone mineral density as measured about the Lumbar spine is: ----- L1-L4(G/cm2): 0.937 T Score Values are as follows: ----- L1: -1.7 ----- L2: -2.3 ----- L3: -1.6 ----- L4: -2.4 ----- L1-L4: -2.0 Z Score Values are as follows: ----- L1: -1.2 ----- L2: -1.9 ----- L3: -1.2 ----- L4: -2.0 ----- L1-L4: -1.6 Baseline Study Bone mineral density about the L Wrist (g/cm2): 0.622 T Score values are as follows: -----Dist. R+U: -2.1 -----Prox. R+U: -1.3 -----Radius total: -1.9 Z Score values are as follows: -----Dist. R+U: -1.1 -----Prox. R+U: -0.3 -----Radius total: -0.9 Baseline Study FRAX%s: The graph provided illustrates a % chance for a major osteoporotic fx and a % chance for the hips probability for fx in 10 years time. No frax given due to the hip not being scanned. IMPRESSION: Osteopenia (T Score between -2.5 and -1). There is slightly increased risk of fracture and the patient may be considered for treatment. Re-Screen 2-5 years. NOTE: T-SCORE=SD OF THE YOUNG ADULT MEAN.
== END | disposition home or self-care (01) ==
LOC: RADBDWWP 10:42
PROVIDERS: ATTEND Family Medicine
DX: M85.89 Other specified disorders of bone density and structure, multiple sites (principal)
CPT/HCPCS: 77080

== ENCOUNTER 2024-03-11 21:59 | Emergency (ER) | payer MEDICARE, OTHER ==
[2024-03-11] MEDS: BACLOFEN 10 MG TAB PO STA (23:53)
[2024-03-11] MEDS: METOCLOPRAMIDE 5 MG/ML 2 ML VIAL IM STA (23:54)
[2024-03-12] MEDS: chlorproMAZINE 25 MG TAB PO STA (01:13)
[2024-03-12 01:54] VITALS: BP 136/98; PULSE 86; RESP 17; TEMP 99
--- NOTE | 2024-03-12 02:05 | ED ---
Abdominal Pain HPI - General Chief Complaint: Abdominal Pain Stated Complaint: Extreme Hicups,Nausea Time Seen by Provider: 03/11/24 23:12 Source: patient, RN notes reviewed Mode of arrival: ambulatory Limitations: no limitations - History of Present Illness Initial Comments: 73-year-old male presented to the ED with a chief complaint of hiccups. Per vincent tsang's daughter and patient has had a history of hip cups intermittent for the last 4 years. States that past medications that are prescribed for him whenever he has these intermittent episodes however has run out prompting presentation to the ED for further evaluation. Per patient's daughter at bedside, acting his normal self. Patient otherwise denies any other complaint. No chest pain or sh ortness of breath. No other complaints at this time. - Related Data Home Medications Medication Instructions Recorded Confirmed Rivaroxaban [Xarelto] 20 mg PO DAILY 06/11/15 05/11/23 buPROPion HCL [Wellbutrin SR] 200 mg PO BID 12/04/18 05/11/23 Fluticasone/Umeclidin/Vilanter 1 puff INHALATION RT-DAILY 02/18/20 05/11/23 [Trelegy Ellipta 100-62.5-25] Ascorbic Acid [Vitamin C] 1,000 mg PO DAILY 06/26/22 05/11/23 Cholecalciferol [Vitamin D3 (25 25 mcg PO DAILY 06/26/22 05/11/23 Mcg = 1000 Iu)] Zinc Gluconate [Zinc] 50 mg PO DAILY 06/26/22 05/11/23 Calcium Carbonate [Calcium] 600 mg PO DAILY 10/09/22 05/11/23 oxyCODONE-APAP 10-325MG [Percocet 1 tab PO Q6HR PRN 10/09/22 05/11/23 10-325 mg] Furosemide [Lasix] 40 mg PO DAILY 01/05/23 05/11/23 Potassium Chloride [Klor-Con M20] 20 meq PO DAILY 01/05/23 05/11/23 Blood Vitality Supplement 1 tab PO DAILY 05/11/23 05/11/23 Pantoprazole [Protonix] 40 mg PO TID 05/11/23 05/11/23 Prostate Advanced Supplement 1 tab PO DAILY 05/11/23 05/11/23 carvediloL [Coreg] 6.25 mg PO BID 05/11/23 05/11/23 tadalafiL 5 mg PO DAILY 05/11/23 05/11/23 Previous Rx's Medication Instructions Recorded Acetaminophen Tab [Tylenol] 650 mg PO Q4HR PRN tab 12/11/22 lisinopriL [Zestril] 2.5 mg PO DAILY@1200 #30 tab 12/11/22 Nitroglycerin Sl Tabs [Nitrostat] 0.4 mg SUBLINGUAL Q5M PRN tab 12/21/22 Ondansetron Odt [Zofran ODT] 4 mg PO Q8HR PRN #10 tab 05/10/23 Budesonide [Pulmicort] 0.5 mg INHALATION RT-BID 30 Days 05/16/23 #60 ml Ipratropium-Albuterol Nebulize 3 ml INHALATION RT-QID 30 Days 05/16/23 [Duoneb 0.5 mg-3 mg/3 ml Soln] #120 each Baclofen 10 mg PO TID #12 tab 03/12/24 Metoclopramide [Reglan] 10 mg PO Q6H #12 tab 03/12/24 Allergies Allergy/AdvReac Type Severity Reaction Status Date / Time No Known Allergies Allergy Verified 03/11/24 22:11 Review of Systems ROS Statement: Those systems with pertinent positive or pertinent negative responses have been documented in the HPI. ROS Other: All systems not noted in ROS Statement are negative. Past Medical History Past Medical History: Atrial Fibrillation, Coronary Artery Disease (CAD), Heart Failure, COPD, GERD/Reflux, Hyperlipidemia, Hypertension, Musculoskeletal Disorder, Osteoarthritis (OA), Pneumonia, Sleep Apnea/CPAP/BIPAP Additional Past Medical History / Comment(s): mitral valve regurgitation,urinary retention-per patient he straight caths at home 3-4 times daily, osteoporosis,no cpap,pt had one episode w/in last several months at [employer] when he could hear his friend talking to him but was not able to respond,hx pneumonia years ago History of Any Multi-Drug Resistant Organisms: None Reported Past Surgical History: Coronary Bypass/CABG, Heart Catheterization, Hernia Repair, Joint Replacement, Orthopedic Surgery Additional Past Surgical History / Comment(s): repair of ESOPHAGUS tear, umbilical surg. x3,ORIF RIGHT HIP,RIGHT ARM PLATE AND SCREW, LEFT FOOT,left hip replaced, gordy shoulder surg,foot procedure,VLAD Past Anesthesia/Blood Transfusion Reactions: No Reported Reaction Additional Past Anesthesia/Blood Transfusion Reaction / Comment(s): no known hx blood transfusion Past Psychological History: Depression Smoking Status: Former smoker Past Alcohol Use History: None Reported Past Drug Use History: None Reported - Past Family History Mother Family Medical History: No Reported History General Exam Limitations: no limitations General appearance: alert, in no apparent distress Eye exam: Present: normal appearance Neck exam: Present: normal inspection Respiratory exam: Present: normal lung sounds bilaterally Cardiovascular Exam: Present: regular rate GI/Abdominal exam: Present: soft Neurological exam: Present: alert, oriented X3 Skin exam: Present: warm, dry Course Vital Signs 03/11/24 03/12/24 22:08 01:54 Temperature 98.2 F 99.0 F Pulse Rate 68 86 Respiratory 14 17 Rate Blood Pressure 163/90 136/98 O2 Sat by Pulse 97 95 Oximetry Medical Decision Making - Medical Decision Making Was pt. sent in by a medical professional or institution (, PA, [employer], urgent care, hospital, or detention...) When possible be specific @ -No Did you speak to anyone other than the patient for history (EMS, parent, family, police, friend...)? What history was obtained from this source @ -No Did you review nursing and triage notes (agree or disagree)? Why? @ -I reviewed and agree with nursing and triage notes Were old charts reviewed (outside hosp., previous admission, EMS record, old EKG, old radiological studies, urgent care reports/EKG's, detention records)? Report findings @ -No old charts were reviewed Differential Diagnosis (chest pain, altered mental status, abdominal pain women, abdominal pain men, vaginal bleeding, weakness, fever, dyspnea, syncope, headache, dizziness, GI bleed, back pain, seizure, CVA, palpatations, mental health, musculoskeletal)? @ -Differential Altered Mental Status: Hypoglycemia, DKA, hypercapnia, ETOH, overdose, CO poisoning, trauma, myxedema coma, HTN encephalopathy, infection, encephalitis, psychosis, intercranial hemorrhage, hepatic encephalopathy, meningitis, CVA, this is not meant to be an all-inclusive list EKG interpreted by me (3pts min.). @ -None X-rays interpreted by me (1pt min.). @ -None done CT interpreted by me (1pt min.). @ -None done U/S interpreted by me (1pt. min.). @ -None done What testing was considered but not performed or refused? (CT, X-rays, U/S, labs)? Why? @ -None What meds were considered but not given or refused? Why? @ -None Did you discuss the management of the patient with other professionals (professionals i.e. , PA, [employer], lab, RT, psych nurse, social worker delinquency prevention, social services director, teacher, diplomatic officer, special education case manager)? Give summary @ -No Was smoking cessation discussed for >3mins.? @ -No Was critical care preformed (if so, how long)? @ -No Were there social determinants of health that impacted care today? How? (Homelessness, low income, unemployed, alcoholism, drug addiction, transportation, low edu. Level, literacy, decrease access to med. care, nursing home, rehab)? @ -No Was there de-escalation of care discussed even if they declined (Discuss DNR or withdrawal of care, Hospice)? DNR status @ -No What co-morbidities impacted this encounter? (DM, HTN, Smoking, COPD, CAD, Cancer, CVA, ARF, Chemo, Hep., AIDS, mental health diagnosis, sleep apnea, morbid obesity)? @ -None Was patient admitted / discharged? Hospital course, mention meds given and route, prescriptions, significant lab abnormalities, going to OR and other pertinent info. @ -Discharge 73-year-old male presented to the ED with a chief complaint of hiccups which patient has history of for the past 4 years however has run out of medications that he usually takes to help with his hiccups. Patient provided Reglan, baclofen, Thorazine with significant improvement and resolution. Discharged home with prescription for Reglan and baclofen. Advise close follow-up with PCP. Discussed return precautions with patient and family who verbalized agreement. Undiagnosed new problem with uncertain prognosis? @ -No Drug Therapy requiring intensive monitoring for toxicity (Heparin, Nitro, Insulin, Cardizem)? @ -No Were any procedures done? @ -No Diagnosis/symptom? @ -Hiccups Acute, or Chronic, or Acute on Chronic? @ -Acute on chronic Uncomplicated (without systemic symptoms) or Complicated (systemic symptoms)? @ -Uncomplicated Side effects of treatment? @ -No Exacerbation, Progression, or Severe Exacerbation? @ -No Poses a threat to life or bodily function? How? (Chest pain, [place], [place], pneumonia, PE, COPD, DKA, ARF, appy, cholecystitis, CVA, Diverticulitis, Homicidal, Suicidal, threat to staff... and all critical care pts) @ -No Disposition Clinical Impression: Hiccups Disposition: HOME SELF-CARE Condition: Good Instructions (If sedation given, give patient instructions): Hiccups (ED) Additional Instructions: Please return to the Emergency Department if symptoms worsen or any other concerns. Please follow-up with your primary care provider. Prescriptions: Baclofen 10 mg PO TID #12 tab Metoclopramide [Reglan] 10 mg PO Q6H #12 tab Is patient prescribed a controlled substance at d/c from ED?: No Referrals: Renato Moore MD [Primary Care Provider] - 1-2 days Time of Disposition: 02:10
== END 2024-03-12 02:15 | disposition home or self-care (01) ==
LOC: EC 21:59
DX: R06.6 Hiccough (principal); Z87.891 Personal history of nicotine dependence
CPT/HCPCS: 99283; 96372; J2765

== ENCOUNTER 2024-03-28 17:16 | Observation (INO) | payer MEDICARE ==
--- NOTE | 2024-03-28 17:49 | ED ---
Weakness HPI - General Chief complaint: Weakness Stated complaint: AMS Time Seen by Provider: 03/28/24 17:31 Source: patient, EMS, RN notes reviewed Mode of arrival: EMS - History of Present Illness Initial comments: Is a 73-year-old male presents emergency department accompanied by his daughter chief complaint of altered mental status and weakness. Father is concerned that the patient has been confused upon recent questioning he is not answering questions appropriately. Patient was evaluated by his primary care provider next week for ulcer care report to emergency department for fluid rehydration with concern for dehydration he declined. Currently patient is denying all symptoms such as abdominal pain, chest pain or pressure, shortness of breath, headaches, dizziness, neurological changes, changes in urinary frequency or urgency, dysuria, diarrhea or constipation. - Related Data Home Medications Medication Instructions Recorded Confirmed Rivaroxaban [Xarelto] 20 mg PO DAILY 06/11/15 05/11/23 buPROPion HCL [Wellbutrin SR] 200 mg PO BID 12/04/18 05/11/23 Fluticasone/Umeclidin/Vilanter 1 puff INHALATION RT-DAILY 02/18/20 05/11/23 [Trelecatherine Ellipta 100-62.5-25] Ascorbic Acid [Vitamin C] 1,000 mg PO DAILY 06/26/22 05/11/23 Cholecalciferol [Vitamin D3 (25 25 mcg PO DAILY 06/26/22 05/11/23 Mcg = 1000 Iu)] Zinc Gluconate [Zinc] 50 mg PO DAILY 06/26/22 05/11/23 Calcium Carbonate [Calcium] 600 mg PO DAILY 10/09/22 05/11/23 oxyCODONE-APAP 10-325MG [Percocet 1 tab PO Q6HR PRN 10/09/22 05/11/23 10-325 mg] Furosemide [Lasix] 40 mg PO DAILY 01/05/23 05/11/23 Potassium Chloride [Klor-Con M20] 20 meq PO DAILY 01/05/23 05/11/23 Blood Vitality Supplement 1 tab PO DAILY 05/11/23 05/11/23 Pantoprazole [Protonix] 40 mg PO TID 05/11/23 05/11/23 Prostate Advanced Supplement 1 tab PO DAILY 05/11/23 05/11/23 carvediloL [Coreg] 6.25 mg PO BID 05/11/23 05/11/23 tadalafiL 5 mg PO DAILY 05/11/23 05/11/23 Previous Rx's Medication Instructions Recorded Acetaminophen Tab [Tylenol] 650 mg PO Q4HR PRN tab 12/11/22 lisinopriL [Zestril] 2.5 mg PO DAILY@1200 #30 tab 12/11/22 Nitroglycerin Sl Tabs [Nitrostat] 0.4 mg SUBLINGUAL Q5M PRN tab 12/21/22 Ondansetron Odt [Zofran ODT] 4 mg PO Q8HR PRN #10 tab 05/10/23 Budesonide [Pulmicort] 0.5 mg INHALATION RT-BID 30 Days 05/16/23 #60 ml Ipratropium-Albuterol Nebulize 3 ml INHALATION RT-QID 30 Days 05/16/23 [Duoneb 0.5 mg-3 mg/3 ml Soln] #120 each Baclofen 10 mg PO TID #12 tab 03/12/24 Metoclopramide [Reglan] 10 mg PO Q6H #12 tab 03/12/24 Allergies Allergy/AdvReac Type Severity Reaction Status Date / Time No Known Allergies Allergy Verified 03/28/24 17:28 Review of Systems ROS Statement: Those systems with pertinent positive or pertinent negative responses have been documented in the HPI. ROS Other: All systems not noted in ROS Statement are negative. Past Medical History Past Medical History: Atrial Fibrillation, Coronary Artery Disease (CAD), Heart Failure, COPD, GERD/Reflux, Hyperlipidemia, Hypertension, Musculoskeletal Disorder, Osteoarthritis (OA), Pneumonia, Sleep Apnea/CPAP/BIPAP Additional Past Medical History / Comment(s): mitral valve regurgitation,urinary retention-per patient he straight caths at home 3-4 times daily, osteoporosis,no cpap,pt had one episode w/in last several months at [place] when he could hear his friend talking to him but was not able to respond,hx pneumonia years ago History of Any Multi-Drug Resistant Organisms: None Reported Past Surgical History: Coronary Bypass/CABG, Heart Catheterization, Hernia Repair, Joint Replacement, Orthopedic Surgery Additional Past Surgical History / Comment(s): repair of ESOPHAGUS tear, umbilical surg. x3,ORIF RIGHT HIP,RIGHT ARM PLATE AND SCREW, LEFT FOOT,left hip replaced, gordy shoulder surg,foot procedure,VLAD Past Anesthesia/Blood Transfusion Reactions: No Reported Reaction Additional Past Anesthesia/Blood Transfusion Reaction / Comment(s): no known hx blood transfusion Past Psychological History: Depression Smoking Status: Former smoker Past Alcohol Use History: None Reported Past Drug Use History: None Reported - Past Family History Mother Family Medical History: No Reported History General Exam General appearance: alert, in no apparent distress Head exam: Present: atraumatic, normocephalic, normal inspection Eye exam: Present: normal appearance, PERRL, EOMI. Absent: scleral icterus, conjunctival injection, periorbital swelling ENT exam: Present: normal exam, mucous membranes moist Neck exam: Present: normal inspection. Absent: tenderness, meningismus, lymphadenopathy Respiratory exam: Present: normal lung sounds bilaterally. Absent: respiratory distress, wheezes, rales, rhonchi, stridor Cardiovascular Exam: Present: regular rate, normal rhythm. Absent: normal heart sounds (murmur), systolic murmur, diastolic murmur, rubs, gallop, clicks GI/Abdominal exam: Present: soft, normal bowel sounds. Absent: distended, tenderness, guarding, rebound, rigid Extremities exam: Present: normal inspection, full ROM, normal capillary refill. Absent: tenderness, pedal edema, joint swelling, calf tenderness Back exam: Present: normal inspection Neurological exam: Present: alert, oriented X3, CN II-XII intact, other Psychiatric exam: Present: normal affect, normal mood Skin exam: Present: warm, dry, intact, normal color. Absent: rash Course Vital Signs 03/28/24 03/28/24 03/28/24 17:24 18:28 21:40 Temperature 99 F Pulse Rate 88 75 82 Respiratory 18 16 18 Rate Blood Pressure 119/79 124/86 135/86 O2 Sat by Pulse 96 98 96 Oximetry Medical Decision Making - Medical Decision Making Was pt. sent in by a medical professional or institution (, PA, GENERAL STUDIES PROGRAM CHAIR, urgent care, hospital, or [facility]...) When possible be specific @ -No Did you speak to anyone other than the patient for history (EMS, parent, family, police, friend...)? What history was obtained from this source @ -To the patient's daughter at bedside states the patient was recently evaluated by her primary care provider and was advised to report to the emergency department for IV fluid hydration otherwise the patient declined Did you review nursing and triage notes (agree or disagree)? Why? @ -I reviewed and agree with nursing and triage notes Were old charts reviewed (outside hosp., previous admission, EMS record, old EKG, old radiological studies, urgent care reports/EKG's, [facility] records)? Report findings @ -No old charts were reviewed Differential Diagnosis (chest pain, altered mental status, abdominal pain women, abdominal pain men, vaginal bleeding, weakness, fever, dyspnea, syncope, headache, dizziness, GI bleed, back pain, seizure, CVA, palpatations, mental health, musculoskeletal)? @ -Differential Altered Mental Status: Hypoglycemia, DKA, hypercapnia, ETOH, overdose, CO poisoning, trauma, myxedema coma, HTN encephalopathy, infection, encephalitis, psychosis, intercranial hemorrhage, hepatic encephalopathy, meningitis, CVA, this is not meant to be an all-inclusive list EKG interpreted by me (3pts min.). @ -Completed at 1824, atrial fibrillation, ventricular rate 81, QTc 454. No acute signs of ischemia X-rays interpreted by me (1pt min.). @ -None done CT interpreted by me (1pt min.). @ -None done U/S interpreted by me (1pt. min.). @ -None done What testing was considered but not performed or refused? (CT, X-rays, U/S, labs)? Why? @ -None What meds were considered but not given or refused? Why? @ -None Did you discuss the management of the patient with other professionals (professionals i.e. , PA, GENERAL STUDIES PROGRAM CHAIR, lab, RT, psych nurse, social worker delinquency prevention, multimedia engineer, teacher, community service officer, manager case management)? Give summary @ -The patient's primary care provider, Dr. Moore, prior to admission of the patient for leukocytosis with a urinary tract infection and altered mental status. Patient is excepted. Recommend the patient receive a dose of Rocephin pending urinary culture results. Was smoking cessation discussed for >3mins.? @ -No Was critical care preformed (if so, how long)? @ -No Were there social determinants of health that impacted care today? How? (Homeles sness, low income, unemployed, alcoholism, drug addiction, transportation, low edu. Level, literacy, decrease access to med. care, half-way, rehab)? @ -No Was there de-escalation of care discussed even if they declined (Discuss DNR or withdrawal of care, Hospice)? DNR status @ -No What co-morbidities impacted this encounter? (DM, HTN, Smoking, COPD, CAD, Cancer, CVA, ARF, Chemo, Hep., AIDS, mental health diagnosis, sleep apnea, morbid obesity)? @ -None Was patient admitted / discharged? Hospital course, mention meds given and route, prescriptions, significant lab abnormalities, going to OR and other pertinent info. @ -Bedded. 73-year-old male with altered mental status. On my discussion with patient he is alert and oriented to person, place, time, and situation. There are no neurological deficits noted. No acute findings on examination. Labs reveal a leukocytosis of 16.1 and neutrophilia of 13.6. CMP no acute findings, troponin nonelevated at 0.013. Urinalysis remarkable for infection including large leukocyte esterase, moderate blood cells and moderate bacteria. This ti me, patient will be admitted to medicine for IV antibiotics due to urinary tract infection with leukocytosis. Altered mental status. Patient given dose of Rocephin. admitted to dr. Moore. Dicsused with Dr. Ross Undiagnosed new problem with uncertain prognosis? @ -No Drug Therapy requiring intensive monitoring for toxicity (Heparin, Nitro, Insulin, Cardizem)? @ -No Were any procedures done? @ -No Diagnosis/symptom? @ -urinary tract infection, altered mental status, leukocytosis Acute, or Chronic, or Acute on Chronic? @ -Acute Uncomplicated (without systemic symptoms) or Complicated (systemic symptoms)? @ -complicated Side effects of treatment? @ -No Exacerbation, Progression, or Severe Exacerbation? @ -No Poses a threat to life or bodily function? How? (Chest pain, [place], ME, pneumonia, PE, COPD, DKA, ARF, appy, cholecystitis, CVA, Diverticulitis, Homicidal, Suicidal, threat to staff... and all critical care pts) @ -potentially, UTI can lead to multiorgan system involvement and potential bacteremia and sepsis. - Lab Data Result diagrams: 03/28/24 17:48 03/28/24 17:48 Lab Results 03/28/24 03/28/24 03/28/24 Range/Units 17:48 17:48 17:48 WBC 16.1 H (3.8-10.6) k/uL RBC 5.60 (4.30-5.90) m/uL Hgb 15.3 (13.0-17.5) gm/dL Hct 49.1 (39.0-53.0) % MCV 87.7 (80.0-100.0) fL MCH 27.2 (25.0-35.0) pg MCHC 31.0 (31.0-37.0) g/dL RDW 17.1 H (11.5-15.5) % Plt Count 223 (150-450) k/uL MPV 9.4 Neutrophils % 85 % Lymphocytes % 7 % Monocytes % 7 % Eosinophils % 1 % Basophils % 0 % Neutrophils # 13.6 H (1.3-7.7) k/uL Lymphocytes # 1.1 (1.0-4.8) k/uL Monocytes # 1.1 H (0-1.0) k/uL Eosinophils # 0.1 (0-0.7) k/uL Basophils # 0.1 (0-0.2) k/uL Hypochromasia Moderate Anisocytosis Slight PT 13.1 H (10.0-12.5) sec INR 1.2 H (<1.2) APTT 29.0 (22.0-30.0) sec Sodium (137-145) mmol/L Potassium (3.5-5.1) mmol/L Chloride (98-107) mmol/L Carbon Dioxide (22-30) mmol/L Anion Gap mmol/L BUN (9-20) mg/dL Creatinine (0.66-1.25) mg/dL Est GFR (CKD-EPI)AfAm (>60 ml/min/1.73 sqM) Est GFR (CKD-EPI)NonAf (>60 ml/min/1.73 sqM) Glucose (74-99) mg/dL Plasma Lactic Acid Serge (0.7-2.0) mmol/L Calcium (8.4-10.2) mg/dL Magnesium (1.6-2.3) mg/dL Total Bilirubin (0.2-1.3) mg/dL AST (17-59) U/L ALT (4-49) U/L Alkaline Phosphatase (38-126) U/L Troponin I (0.000-0.034) ng/mL Total Protein (6.3-8.2) g/dL Albumin (3.5-5.0) g/dL Urine Color Yellow Urine Appearance Cloudy (Clear) Urine pH 5.5 (5.0-8.0) Ur Specific [place] 1.018 (1.001-1.035) Urine Protein 1+ H (Negative) Urine Glucose (UA) Negative (Negative) Urine Ketones Negative (Negative) Urine Blood Negative (Negative) Urine Nitrite Negative (Negative) Urine Bilirubin Negative (Negative) Urine Urobilinogen 2.0 (<2.0) mg/dL Ur Leukocyte Esterase Large H (Negative) Urine RBC 8 H (0-5) /hpf Urine WBC 81 H (0-5) /hpf Ur Squamous Epith Cells 2 (0-4) /hpf Urine Bacteria Moderate H (None) /hpf Urine Mucus Rare H (None) /hpf 03/28/24 03/28/24 03/28/24 Range/Units 17:48 17:48 17:48 WBC (3.8-10.6) k/uL RBC (4.30-5.90) m/uL Hgb (13.0-17.5) gm/dL Hct (39.0-53.0) % MCV (80.0-100.0) fL MCH (25.0-35.0) pg MCHC (31.0-37.0) g/dL RDW (11.5-15.5) % Plt Count (150-450) k/uL MPV Neutrophils % % Lymphocytes % % Monocytes % % Eosinophils % % Basophils % % Neutrophils # (1.3-7.7) k/uL Lymphocytes # (1.0-4.8) k/uL Monocytes # (0-1.0) k/uL Eosinophils # (0-0.7) k/uL Basophils # (0-0.2) k/uL Hypochromasia Anisocytosis PT (10.0-12.5) sec INR (<1.2) APTT (22.0-30.0) sec Sodium 138 (137-145) mmol/L Potassium 4.0 (3.5-5.1) mmol/L Chloride 107 (98-107) mmol/L Carbon Dioxide 27 (22-30) mmol/L Anion Gap 4 mmol/L BUN 14 (9-20) mg/dL Creatinine 1.09 (0.66-1.25) mg/dL Est GFR (CKD-EPI)AfAm 77 (>60 ml/min/1.73 sqM) Est GFR (CKD-EPI)NonAf 67 (>60 ml/min/1.73 sqM) Glucose 95 (74-99) mg/dL Plasma Lactic Acid Serge 1.6 (0.7-2.0) mmol/L Calcium 8.8 (8.4-10.2) mg/dL Magnesium 1.8 (1.6-2.3) mg/dL Total Bilirubin 1.9 H (0.2-1.3) mg/dL AST 21 (17-59) U/L ALT 11 (4-49) U/L Alkaline Phosphatase 54 (38-126) U/L Troponin I 0.013 (0.000-0.034) ng/mL Total Protein 5.3 L (6.3-8.2) g/dL Albumin 3.2 L (3.5-5.0) g/dL Urine Color Urine Appearance (Clear) Urine pH (5.0-8.0) Ur Specific [place] (1.001-1.035) Urine Protein (Negative) Urine Glucose (UA) (Negative) Urine Ketones (Negative) Urine Blood (Negative) Urine Nitrite (Negative) Urine Bilirubin (Negative) Urine Urobilinogen (<2.0) mg/dL Ur Leukocyte Esterase (Negative) Urine RBC (0-5) /hpf Urine WBC (0-5) /hpf Ur Squamous Epith Cells (0-4) /hpf Urine Bacteria (None) /hpf Urine Mucus (None) /hpf Disposition Clinical Impression: UTI (urinary tract infection), Leukocytosis Disposition: ADMITTED IP TO THIS HOSP Condition: Fair
[2024-03-28] MEDS: SODIUM CHLORIDE 0.9% 500 ML 500 ML IV STA (18:57)
[2024-03-28 19:09] LABS: Anisocytosis Slight; Basophils # (A) 0.1 k/uL (0-0.2); Basophils % (A) 0 %; Eosinophils # (A) 0.1 k/uL (0-0.7); Eosinophils % (A) 1 %; HCT 49.1 % (39.0-53.0); HGB 15.3 gm/dL (13.0-17.5); Hypochromasia Moderate; Lymphocytes # (A) 1.1 k/uL (1.0-4.8); Lymphocytes % (A) 7 %; MCH 27.2 pg (25.0-35.0); MCV 87.7 fL (80.0-100.0); Mean Platelet Volume 9.4; Monocytes # (A) 1.1 k/uL (0-1.0); Monocytes % (A) 7 %; Neutrophils # (A) 13.6 k/uL (1.3-7.7); Neutrophils % (A) 85 %; Platelet Count 223 k/uL (150-450); RDW 17.1 % (11.5-15.5); WBC 16.1 k/uL (3.8-10.6)
[2024-03-28 19:17] LABS: INR 1.2 (<1.2)
[2024-03-28 19:18] LABS: Prothrombin Time 13.1 sec (10.0-12.5)
[2024-03-28 19:22] LABS: ALT 11 U/L (4-49); AST 21 U/L (17-59); African American GFR (CKD) 77 (>60 ml/min/1.73 sqM); Albumin 3.2 g/dL (3.5-5.0); Alkaline Phosphatase 54 U/L (38-126); Anion Gap 4 mmol/L; Blood Urea Nitrogen 14 mg/dL (9-20); Calcium 8.8 mg/dL (8.4-10.2); Carbon Dioxide 27 mmol/L (22-30); Chloride 107 mmol/L (98-107); Glucose 95 mg/dL (74-99); Magnesium 1.8 mg/dL (1.6-2.3); Non-African American GFR(CKD) 67 (>60 ml/min/1.73 sqM); Sodium 138 mmol/L (137-145); Total Bilirubin 1.9 mg/dL (0.2-1.3); Total Protein 5.3 g/dL (6.3-8.2)
[2024-03-28 20:28] LABS: Appearance,Urine Cloudy (Clear); Bacteria,Urine Moderate /hpf; Bilirubin,Urine Negative (Negative); Blood,Urine Negative (Negative); Color,Urine Yellow; Glucose,Urine (UA) Negative (Negative); Ketones,Urine Negative (Negative); Leukocyte Esterase,Urine Large (Negative); Mucus,Urine Rare /hpf; Nitrite,Urine Negative (Negative); PH, Urine 5.5 (5.0-8.0); Protein,Urine 1+ (Negative); RBC,Urine 8 /hpf (0-5); Specific Gravity,Urine 1.018 (1.001-1.035); Squamous Epithelial Cell,Urine 2 /hpf (0-4); WBC,Urine 81 /hpf (0-5)
[2024-03-28] MEDS ORDERED: ACETAMINOPHEN TAB 325 MG TAB PO PRN (21:15)
[2024-03-28] MEDS ORDERED: IBUPROFEN 400 MG TAB PO PRN (21:15)
[2024-03-28] MEDS ORDERED: NALOXONE 0.4 MG/ML 1 ML VIAL IV PRN (21:15)
[2024-03-28] MEDS: SODIUM CHLORIDE 0.9% 1,000 ML IV SCH (22:39)
[2024-03-29 07:18] LABS: Anisocytosis Slight; Basophils % (A) 0 %; Eosinophils # (A) 0.1 k/uL (0-0.7); Eosinophils % (A) 1 %; HCT 44.5 % (39.0-53.0); HGB 13.9 gm/dL (13.0-17.5); Hypochromasia Marked; Lymphocytes # (A) 1.2 k/uL (1.0-4.8); Lymphocytes % (A) 14 %; MCH 27.5 pg (25.0-35.0); MCHC 31.2 g/dL (31.0-37.0); MCV 88.1 fL (80.0-100.0); Mean Platelet Volume 8.5; Monocytes # (A) 0.4 k/uL (0-1.0); Monocytes % (A) 5 %; Neutrophils # (A) 6.8 k/uL (1.3-7.7); Neutrophils % (A) 79 %; Platelet Count 196 k/uL (150-450); RBC 5.04 m/uL (4.30-5.90); RDW 16.8 % (11.5-15.5); WBC 8.7 k/uL (3.8-10.6)
[2024-03-29 07:34] LABS: African American GFR (CKD) >90 (>60 ml/min/1.73 sqM); Anion Gap 4 mmol/L; Blood Urea Nitrogen 13 mg/dL (9-20); Calcium 8.5 mg/dL (8.4-10.2); Carbon Dioxide 26 mmol/L (22-30); Chloride 109 mmol/L (98-107); Glucose 95 mg/dL (74-99); Non-African American GFR(CKD) 83 (>60 ml/min/1.73 sqM); Potassium 3.8 mmol/L (3.5-5.1); Sodium 139 mmol/L (137-145)
[2024-03-29] MEDS ORDERED: ONDANSETRON ODT 4 MG TAB PO PRN (08:02)
[2024-03-29] MEDS ORDERED: oxyCODONE-APAP 10-325MG 1 EACH TAB PO PRN (08:02)
--- NOTE | 2024-03-29 09:12 | HP ---
HISTORY AND PHYSICAL HISTORY OF PRESENT ILLNESS: The patient was recommended coming to the hospital for dehydration a week ago. At that time, he went home. He did not want to go to the hospital, came with altered mental status and weakness. The patient denies all symptoms currently in the ER except for some weakness. Denies any urinary frequency, dysuria, dizziness, or neurologic changes. HOME MEDS: 1. Xarelto 20 daily. 2. Wellbutrin XR 200 b.i.d. 3. Trelegy 100 daily. 4. Percocet 10 q.6. 5. Lasix 40 daily. 6. Protonix 40 b.i.d. 7. Coreg 6.25 b.i.d. 8. daily. 9. Potassium chloride 20 mEq daily. ALLERGIES: None known, negative allergies. REVIEW OF SYSTEMS: A 14-point review of systems otherwise negative. PAST MEDICAL HISTORY: Atrial fibrillation, coronary artery disease, heart failure, COPD, GERD, osteoarthritis, pneumonia, sleep apnea, dyslipidemia, mitral valve regurgitation, urinary retention. Straight cath 3 to 4 times a day. SURGERIES: CABG surgery, heart catheterization, hernia repair, joint replacement, orthopedic surgery, tear of the esophagus. FAMILY HISTORY: Mother is negative. PHYSICAL EXAMINATION: VITAL SIGNS: Stable, afebrile. CARDIOVASCULAR: S1, S2. LUNGS: Transmitted upper sounds. GI: Soft, nontender. HEMATOLOGY: Negative for Homans. PSYCH: Fair mood and affect. NEUROLOGIC: Alert and oriented x3. VITAL SIGNS: Blood pressure is 119 to 130s over 60s to 70s, pulse 70s to 80s, respiratory rate 16 to 18, and O2 96. LABORATORY DATA: White count 16.1. Suspect he has possible UTI and dehydration from urinary tract infection with large red cells, white cells in the urine, moderate bacteria. Start him on Rocephin, rehydrate him. Home medications will be reordered. Troponins negative. Lactic acid 1.6, sodium and potassium 138/4.0, UTI, dehydration, leukocytosis. Continue home medicines. IV antibiotics with Rocephin. Wait for further urine cultures. Prognosis guarded. MMODL / IJN: [id number] /
[2024-03-29] MEDS: METOCLOPRAMIDE 10 MG TAB PO SCH (12:05)
[2024-03-29] MEDS: PANTOPRAZOLE 40 MG TABLET PO SCH (12:06)
[2024-03-29] MEDS: buPROPion SR 100 MG TABLET.ER PO SCH (12:06)
[2024-03-29] MEDS: carvediloL 6.25 MG TAB PO SCH (12:06)
[2024-03-29] MEDS: RIVAROXABAN 20 MG TAB PO SCH (12:06)
[2024-03-29] MEDS: IPRATROPIUM-ALBUTEROL 3 ML NEB INHALATION SCH (12:13)
[2024-03-29] MEDS: BUDESONIDE 0.5 MG/2 ML NEBU INHALATION SCH (19:47)
--- NOTE | 2024-03-29 22:33 | P.CONS ---
History of Present Illness - Reason for Consult Consult date: 03/29/24 UTI Requesting physician: Renato Moore - Chief Complaint Weakness no energy x few days - History of Present Illness Patient is a 73-year-old male with a past medical history significant for hypertension hyperlipidemia COPD heart failure coronary artery disease atrial fibrillation patient also have a urinary retention requiring intermittent self-catheterization at home patient was brought into the hospital for evaluation of weakness and mental status changes apparently the patient was confused and not also the question appropriately for the patient has been brought to the hospital symptom going on for about a day or 2 patient denies having any high-grade fever or any chills denies any headache or URI symptoms no chest pain shortness of the cough no nausea no vomiting no abdominal pain or diarrhea urine seem to be slightly more concentrated but no evidence of any hematuria or difficulty doing the self-catheterization patient on presentation the hospital was afebrile and no fever have been called subsequently patient was nontachycardic hypotensive or hypoxic patient did have white count of 16.1 with a left shift creatinine 1.09 urine was positive with a culture is pending patient was started on Rocephin infectious disease was consulted for further management of antibiotic therapy Review of Systems Positive point and negatives has been mentioned in the HPI, complete review of systems was performed and all other systems are negative Past Medical History Past Medical History: Atrial Fibrillation, Coronary Artery Disease (CAD), Heart Failure, COPD, GERD/Reflux, Hyperlipidemia, Hypertension, Musculoskeletal Disorder, Osteoarthritis (OA), Pneumonia, Sleep Apnea/CPAP/BIPAP Additional Past Medical History / Comment(s): mitral valve regurgitation,urinary retention-per patient he straight caths at home 3-4 times daily, osteoporosis,no cpap,pt had one episode w/in last several months at [place] when he could hear his friend talking to him but was not able to respond,hx pneumonia years ago History of Any Multi-Drug Resistant Organisms: None Reported Past Surgical History: Coronary Bypass/CABG, Heart Catheterization, Hernia Repair, Joint Replacement, Orthopedic Surgery Additional Past Surgical History / Comment(s): repair of ESOPHAGUS tear, umbilical surg. x3,ORIF RIGHT HIP,RIGHT ARM PLATE AND SCREW, LEFT FOOT,left hip replaced, gordy shoulder surg,foot procedure,VLAD Past Anesthesia/Blood Transfusion Reactions: No Reported Reaction Additional Past Anesthesia/Blood Transfusion Reaction / Comm: no known hx blood transfusion Past Psychological History: Depression Smoking Status: Former smoker Past Alcohol Use History: None Reported Past Drug Use History: None Reported - Past Family History Mother Family Medical History: No Reported History Medications and Allergies Home Medications Medication Instructions Recorded Confirmed Type Rivaroxaban [Xarelto] 20 mg PO DAILY 06/11/15 03/29/24 History buPROPion HCL [Wellbutrin SR] 200 mg PO BID 12/04/18 03/29/24 History Fluticasone/Umeclidin/Vilanter 1 puff INHALATION RT-DAILY 02/18/20 03/29/24 History [Trelegy Ellipta 100-62.5-25] Ascorbic Acid [Vitamin C] 1,000 mg PO DAILY 06/26/22 03/29/24 History Cholecalciferol [Vitamin D3 (25 25 mcg PO DAILY 06/26/22 03/29/24 History Mcg = 1000 Iu)] Zinc Gluconate [Zinc] 50 mg PO DAILY 06/26/22 03/29/24 History Calcium Carbonate [Calcium] 600 mg PO DAILY 10/09/22 03/29/24 History oxyCODONE-APAP 10-325MG [Percocet 1 tab PO Q6HR PRN 10/09/22 03/29/24 History 10-325 mg] Acetaminophen Tab [Tylenol] 650 mg PO Q4HR PRN tab 12/11/22 03/29/24 Rx lisinopriL [Zestril] 2.5 mg PO DAILY@1200 #30 tab 12/11/22 03/29/24 Rx Furosemide [Lasix] 40 mg PO DAILY 01/05/23 03/29/24 History Blood Vitality Supplement 1 tab PO DAILY 05/11/23 03/29/24 History Pantoprazole [Protonix] 40 mg PO TID 05/11/23 03/29/24 History Prostate Advanced Supplement 1 tab PO DAILY 05/11/23 03/29/24 History carvediloL [Coreg] 6.25 mg PO BID 05/11/23 03/29/24 History tadalafiL 5 mg PO DAILY 05/11/23 03/29/24 History Budesonide [Pulmicort] 0.5 mg INHALATION RT-BID 30 Days 05/16/23 03/29/24 Rx #60 ml Ipratropium-Albuterol Nebulize 3 ml INHALATION RT-QID 30 Days 05/16/23 03/29/24 Rx [Duoneb 0.5 mg-3 mg/3 ml Soln] #120 each Baclofen 10 mg PO TID #12 tab 03/12/24 03/29/24 Rx Metoclopramide [Reglan] 10 mg PO Q6H #12 tab 03/12/24 03/29/24 Rx Dicyclomine [Bentyl] 10 mg PO BID 03/29/24 03/29/24 History Midodrine HCl [ProAmantine] 2.5 mg PO TID 03/29/24 03/29/24 History Yupelri 175mcg/3ml 175 mcg INHALATION RT-DAILY 03/29/24 03/29/24 History diazePAM [Valium] 5 mg PO BID 03/29/24 03/29/24 History Allergies Allergy/AdvReac Type Severity Reaction Status Date / Time No Known Allergies Allergy Verified 03/29/24 11:59 Physical Exam Vitals: Vital Signs Temp Pulse Pulse Resp BP BP BP 03/29/24 07:00 98.1 F 78 21 120/74 03/29/24 02:00 98.6 F 71 18 124/84 03/28/24 22:37 97.8 F 79 18 121/86 03/28/24 21:40 82 18 135/86 03/28/24 18:28 75 16 124/86 03/28/24 17:24 99 F 88 18 119/79 Pulse Ox 03/29/24 07:00 92 L 03/29/24 02:00 95 03/28/24 22:37 95 03/28/24 21:40 96 03/28/24 18:28 98 03/28/24 17:24 96 Intake and Output 03/28/24 03/29/24 03/29/24 22:59 06:59 14:59 Intake Total 240 118 Balance 240 118 Intake: Oral 240 118 Other: Voiding Method Self-Catheterization # Voids 1 Weight 80.739 kg GENERAL DESCRIPTION: Elderly male lying in bed, no distress. No tachypnea or accessory muscle of respiration use. HEENT: Shows Pallor , no scleral icterus. Oral mucous membrane is dry. No pharyngeal erythema or thrush NECK: Trachea central, no thyromegaly. LUNGS: Unlabored breathing. Clear to auscultation anteriorly. No wheeze or c rackle. HEART: S1, S2, regular rate and rhythm. No loud murmur ABDOMEN: Soft, no tenderness , guarding or rigidity, no organomegaly EXTREMITIES: No edema of feet. SKIN: No rash, no masses palpable. NEUROLOGICAL: The patient is awake, alert, oriented x3, mood and affect normal. Results CBC & Chem 7: 03/29/24 07:02 03/29/24 07:02 Labs: Abnormal Lab Results - Last 24 Hours (Table) 03/28/24 03/28/24 03/28/24 Range/Units 17:48 17:48 17:48 WBC 16.1 H (3.8-10.6) k/uL RDW 17.1 H (11.5-15.5) % Neutrophils # 13.6 H (1.3-7.7) k/uL Monocytes # 1.1 H (0-1.0) k/uL PT 13.1 H (10.0-12.5) sec INR 1.2 H (<1.2) Chloride (98-107) mmol/L Total Bilirubin (0.2-1.3) mg/dL Total Protein (6.3-8.2) g/dL Albumin (3.5-5.0) g/dL Urine Protein 1+ H (Negative) Ur Leukocyte Esterase Large H (Negative) Urine RBC 8 H (0-5) /hpf Urine WBC 81 H (0-5) /hpf Urine Bacteria Moderate H (None) /hpf Urine Mucus Rare H (None) /hpf 03/28/24 03/29/24 03/29/24 Range/Units 17:48 07:02 07:02 WBC (3.8-10.6) k/uL RDW 16.8 H (11.5-15.5) % Neutrophils # (1.3-7.7) k/uL Monocytes # (0-1.0) k/uL PT (10.0-12.5) sec INR (<1.2) Chloride 109 H (98-107) mmol/L Total Bilirubin 1.9 H (0.2-1.3) mg/dL Total Protein 5.3 L (6.3-8.2) g/dL Albumin 3.2 L (3.5-5.0) g/dL Urine Protein (Negative) Ur Leukocyte Esterase (Negative) Urine RBC (0-5) /hpf Urine WBC (0-5) /hpf Urine Bacteria (None) /hpf Urine Mucus (None) /hpf Assessment and Plan (1) Leukocytosis Current Visit: Yes Status: Acute Code(s): D72.829 - ELEVATED WHITE BLOOD CELL COUNT, UNSPECIFIED SNOMED Code(s): 799316651 (2) UTI (urinary tract infection) Current Visit: Yes Status: Acute Code(s): N39.0 - URINARY TRACT INFECTION, SITE NOT SPECIFIED SNOMED Code(s): 87031422 Plan: 1patient presented to hospital with generalized weakness mental status changes did have a positive UA in this patient who do have urinary tract requiring self- catheterization likely the source of this urinary tract infection and likely from enteric gram-negative pathogen. 2we will wait for the urine culture to finalize. 3continue with Rocephin 2 g daily Daughter the bedside questions Answered We will follow on clinical condition and cultures to further adjust medication if needed Thank you for this consultation we will follow the patient along with you Dictation was produced using [employer] dictation software. please excuse any grammatical, word or spelling errors. Time with Patient: Greater than 30
--- NOTE | 2024-03-30 16:52 | P.PN ---
Subjective Progress Note Date: 03/30/24 Principal diagnosis: Reason for follow-up is urinary tract infection Patient is a 73-year-old male with a past medical history significant for hypertension hyperlipidemia COPD heart failure coronary artery disease atrial fibrillation patient also have a urinary retention requiring intermittent self-catheterization was brought to the hospital complaining of weakness mental status changes did have a positive UA concerning for symptomatic urinary tract infection. On today's evaluation that is 03/30/2024,the patient remains to be afebrile, patient is on room air not requiring supplemental oxygen and denies any shortness of breath no chest pain or cough.Patient denies having any nausea or vomiting, no abdominal pain and no diarrhea has been reported. Patient white count normalized to 8.7, creatinine 0.91 urine is growing gram- negative bacilli Objective - Vital Signs Vital signs: Vital Signs Temp 97.9 F 03/30/24 14:50 Pulse 64 03/30/24 14:50 Resp 17 03/30/24 14:50 BP 101/69 03/30/24 14:50 Pulse Ox 94 L 03/30/24 14:50 FiO2 Intake & Output 03/29/24 03/30/24 03/30/24 18:59 06:59 18:59 Intake Total 236 1365 118 Output Total 500 1550 Balance -264 -185 118 Intake: Intake, IV Titration 825 Amount Sodium Chloride 0.9% 1, 825 000 ml @ 75 mls/hr IV . [id number] [facility] Rx#:[id number] Oral 236 540 118 Output: Urine 500 1550 Uretheral (David) 500 900 Other: Voiding Method Urinal Self-Catheterization # Voids 1 1 - Exam GENERAL DESCRIPTION: An elderly male lying in bed in no distress RESPIRATORY SYSTEM: Unlabored breathing , decreased breath sounds at bases HEART: S1 S2 regular rate and rhythm , ABDOMEN: Soft , no tenderness EXTREMITIES: No edema feet - Labs CBC & Chem 7: 03/29/24 07:02 03/29/24 07:02 Labs: Microbiology - Last 24 Hours (Table) 03/28/24 21:39 Urine Culture - Preliminary Urine,Catheterized Gram Neg Bacilli Assessment and Plan (1) Leukocytosis Current Visit: Yes Status: Acute Code(s): D72.829 - ELEVATED WHITE BLOOD CELL COUNT, UNSPECIFIED SNOMED Code(s): 963553350 (2) UTI (urinary tract infection) Current Visit: Yes Status: Acute Code(s): N39.0 - URINARY TRACT INFECTION, SITE NOT SPECIFIED SNOMED Code(s): 86646932 Plan: 1patient presented to hospital with generalized weakness mental status changes did have a positive UA in this patient who do have urinary tract requiring self- catheterization likely the source of this urinary tract infection and likely from enteric gram-negative pathogen. 2patient is currently growing gram-negative with ID sensitivities pending 3patient to continue with Rocephin 2 g daily while waiting for the culture to finalize Dictation was produced using [employer] dictation software. please excuse any grammatical, word or spelling errors. Time with Patient: Less than 30
--- NOTE | 2024-03-31 01:47 | PN ---
PROGRESS NOTE SUBJECTIVE: 73-year-old with UTI. David catheter was placed for urinary retention. Urology is consulted. Infectious Disease consulted for UTI with sepsis, dehydration with altered mental status, which is improving. OBJECTIVE: VITAL SIGNS: Blood pressures are 119-135/70s-80s, temperature 97 to 98, pulse 70s to 60s, respiratory rate 16 to 18. CARDIOVASCULAR: S1 and S2. ABDOMEN: Soft. EXTREMITIES: No cyanosis, clubbing, or edema. NECK: Supple. ASSESSMENT: 1. Leukocytosis. 2. Urinary tract infection. 3. Altered mental status secondary to dehydration. Self-catheterization gram- negative pathogen, waiting for the urine culture to finalize. May start Rocephin. Prognosis, guarded. MMODL / IJN: [id number] /
--- NOTE | 2024-03-31 11:55 | P.GSCN ---
History of Present Illness Consult date: 03/31/24 Reason for Consult: UTI, urinary retention History of present illness: This is a 73-year-old male admitted to the hospital with altered mental status and a UTI. He has chronic urinary retention currently being managed with clean intermittent catheterization 4-6 times a day. He indicated when he caths he obtains a volume of 750-1000 per catheterization he follows up with a urologist over at the [place]. He is unsure the cause of his urinary retention, but he has been managed with [facility] since that time. Denies any history of recurrent UTIs or previous history of kidney stones. Indicates he is able to catheterize himself without any difficulties. Urine culture on admission is growing E. coli, infectious disease has been consulted for his UTI Review of Systems - Constitutional Denies fever, Denies weight loss - EENT Ears, nose, mouth and throat: Denies dysphagia - Cardiovascular Denies chest pain, Denies shortness of breath - Respiratory Denies cough, Denies 7 - Gastrointestinal Reports as per HPI - Genitourinary Denies dysuria, Denies flank pain, Denies hematuria Past Medical History Past Medical History: Atrial Fibrillation, Coronary Artery Disease (CAD), Heart Failure, COPD, GERD/Reflux, Hyperlipidemia, Hypertension, Musculoskeletal Disorder, Osteoarthritis (OA), Pneumonia, Sleep Apnea/CPAP/BIPAP Additional Past Medical History / Comment(s): mitral valve regurgitation,urinary retention-per patient he straight caths at home 3-4 times daily, osteoporosis,no cpap,pt had one episode w/in last several months at [employer] when he could hear his friend talking to him but was not able to respond,hx pneumonia years ago History of Any Multi-Drug Resistant Organisms: None Reported Past Surgical History: Coronary Bypass/CABG, Heart Catheterization, Hernia Repair, Joint Replacement, Orthopedic Surgery Additional Past Surgical History / Comment(s): repair of ESOPHAGUS tear, umbilical surg. x3,ORIF RIGHT HIP,RIGHT ARM PLATE AND SCREW, LEFT FOOT,left hip replaced, gordy shoulder surg,foot procedure,VLAD Past Anesthesia/Blood Transfusion Reactions: No Reported Reaction Additional Past Anesthesia/Blood Transfusion Reaction / Comm: no known hx blood transfusion Past Psychological History: Depression Smoking Status: Former smoker Past Alcohol Use History: None Reported Past Drug Use History: None Reported - Past Family History Mother Family Medical History: No Reported History Medications and Allergies Home Medications Medication Instructions Recorded Confirmed Type Rivaroxaban [Xarelto] 20 mg PO DAILY 06/11/15 03/29/24 History buPROPion HCL [Wellbutrin SR] 200 mg PO BID 12/04/18 03/29/24 History Fluticasone/Umeclidin/Vilanter 1 puff INHALATION RT-DAILY 02/18/20 03/29/24 History [Trelegy Ellipta 100-62.5-25] Ascorbic Acid [Vitamin C] 1,000 mg PO DAILY 06/26/22 03/29/24 History Cholecalciferol [Vitamin D3 (25 25 mcg PO DAILY 06/26/22 03/29/24 History Mcg = 1000 Iu)] Zinc Gluconate [Zinc] 50 mg PO DAILY 06/26/22 03/29/24 History Calcium Carbonate [Calcium] 600 mg PO DAILY 10/09/22 03/29/24 History oxyCODONE-APAP 10-325MG [Percocet 1 tab PO Q6HR PRN 10/09/22 03/29/24 History 10-325 mg] Acetaminophen Tab [Tylenol] 650 mg PO Q4HR PRN tab 12/11/22 03/29/24 Rx lisinopriL [Zestril] 2.5 mg PO DAILY@1200 #30 tab 12/11/22 03/29/24 Rx Furosemide [Lasix] 40 mg PO DAILY 01/05/23 03/29/24 History Blood Vitality Supplement 1 tab PO DAILY 05/11/23 03/29/24 History Pantoprazole [Protonix] 40 mg PO TID 05/11/23 03/29/24 History Prostate Advanced Supplement 1 tab PO DAILY 05/11/23 03/29/24 History carvediloL [Coreg] 6.25 mg PO BID 05/11/23 03/29/24 History tadalafiL 5 mg PO DAILY 05/11/23 03/29/24 History Budesonide [Pulmicort] 0.5 mg INHALATION RT-BID 30 Days 05/16/23 03/29/24 Rx #60 ml Ipratropium-Albuterol Nebulize 3 ml INHALATION RT-QID 30 Days 05/16/23 03/29/24 Rx [Duoneb 0.5 mg-3 mg/3 ml Soln] #120 each Baclofen 10 mg PO TID #12 tab 03/12/24 03/29/24 Rx Metoclopramide [Reglan] 10 mg PO Q6H #12 tab 03/12/24 03/29/24 Rx Dicyclomine [Bentyl] 10 mg PO BID 03/29/24 03/29/24 History Midodrine HCl [ProAmantine] 2.5 mg PO TID 03/29/24 03/29/24 History Yupelri 175mcg/3ml 175 mcg INHALATION RT-DAILY 03/29/24 03/29/24 History diazePAM [Valium] 5 mg PO BID 03/29/24 03/29/24 History Allergies Allergy/AdvReac Type Severity Reaction Status Date / Time No Known Allergies Allergy Verified 03/29/24 11:59 Surgical - Exam Vital Signs Temp Pulse Resp BP Pulse Ox 99 F 88 18 119/79 96 03/28/24 17:24 03/28/24 17:24 03/28/24 17:24 03/28/24 17:24 03/28/24 17:24 - General no distress, no pain - Eyes normal ocular movement, no pale - ENT normal nares, normal mucosa - Respiratory normal expansion, normal respiratory effort - Psychiatric oriented to time, oriented to person, oriented to place Results - Labs 03/29/24 07:02 03/29/24 07:02 Microbiology - Last 24 Hours (Table) 03/28/24 21:39 Urine Culture - Final Urine,Catheterized Escherichia coli Assessment and Plan Assessment: 73-year-old male history of UTI, history of chronic retention being managed with [facility]. Indicated he catheter himself 4-6 times a day but is obtaining high- volume with catheterization. Discussed with him I would increase the frequency catheterization closer to 6 times a day given that he is obtaining 750-1000 mL. Discussed with him the goal should be to obtain around 500 mL with each catheterization. Discussed the high residual is contributing to his UTI. -Continue with [facility], recommend catheterizing 6 times a day -Follow-up with his [place] urologist -Antibiotics per infectious disease
[2024-03-31 14:39] VITALS: BP 136/85; RESP 18; TEMP 97.8
[2024-03-31 15:17] VITALS: PULSE 78
--- NOTE | 2024-04-02 08:29 | P.PN ---
Subjective Progress Note Date: 03/31/24 Principal diagnosis: Reason for follow-up is urinary tract infection Patient is a 73-year-old male with a past medical history significant for hypertension hyperlipidemia COPD heart failure coronary artery disease atrial fibrillation patient also have a urinary retention requiring intermittent self-catheterization was brought to the hospital complaining of weakness mental status changes did have a positive UA concerning for symptomatic urinary tract infection. On today's evaluation that is 03/31/2024, the patient continues to be afebrile, the patient is on room air and breathing comfortably, the Pt denies having any chest pain or cough, the patient denies having any abdominal pain no vomiting or any diarrhea has been reported by the nursing staff, patient mention feeling better and ready to go home. No new labs has been repeated today urine has been finalized with an E. coli that is a sensitive pathogen Objective - Vital Signs Vital signs: Vital Signs Temp 97.4 F L 03/31/24 07:07 Pulse 74 03/31/24 10:00 Resp 17 03/31/24 07:07 BP 157/97 03/31/24 07:07 Pulse Ox 98 03/31/24 07:07 FiO2 Intake & Output 03/30/24 03/31/24 03/31/24 18:59 06:59 18:59 Intake Total 118 Output Total 775 1800 Balance -657 -1800 Intake: Oral 118 Output: Urine 775 1800 Straight 900 Other: Voiding Method Urinal Self-Catheterization - Labs CBC & Chem 7: 03/29/24 07:02 03/29/24 07:02 Labs: Microbiology - Last 24 Hours (Table) 03/28/24 21:39 Urine Culture - Final Urine,Catheterized Escherichia coli Assessment and Plan (1) Leukocytosis Status: Acute Code(s): D72.829 - ELEVATED WHITE BLOOD CELL COUNT, UNSPECIFIED SNOMED Code(s): 709084065 (2) UTI (urinary tract infection) Status: Acute Code(s): N39.0 - URINARY TRACT INFECTION, SITE NOT SPECIFIED SNOMED Code(s): 14038486 Plan: 1patient presented to hospital with generalized weakness mental status changes did have a positive UA in this patient who do have urinary tract requiring self- catheterization likely the source of this urinary tract infection and likely from enteric gram-negative pathogen. 2patient urine has been finalized with an E. coli that is a sensitive pathogen he will finish therapy with oral Ceftin prescription was sent to the pharmacy Dictation was produced using [employer] dictation software. please excuse any grammatical, word or spelling errors. Time with Patient: Less than 30
== END 2024-03-31 16:38 | disposition home or self-care (01) ==
LOC: EC 17:16 → 6NMEDSUR 21:05
PROVIDERS: ADMIT Family Medicine; ATTEND Family Medicine
DX: N39.0 Urinary tract infection, site not specified (principal); E86.0 Dehydration; I48.91 Unspecified atrial fibrillation; I25.10 Atherosclerotic heart disease of native coronary artery without angina pectoris; I11.0 Hypertensive heart disease with heart failure; I50.9 Heart failure, unspecified; J44.9 Chronic obstructive pulmonary disease, unspecified; K21.9 Gastro-esophageal reflux disease without esophagitis; E78.5 Hyperlipidemia, unspecified; G47.30 Sleep apnea, unspecified; F32.A Depression, unspecified; Z87.440 Personal history of urinary (tract) infections; Z87.891 Personal history of nicotine dependence; Z95.1 Presence of aortocoronary bypass graft; Z79.01 Long term (current) use of anticoagulants; Z79.899 Other long term (current) drug therapy
CPT/HCPCS: 96361 ×3; 96365; 96366 ×2; 99285; 36415; 94640 ×6; 93005; 80053; 80048; 83605; 83735; 84484; 85025 ×2; 85610; 85730; 81001; 87086; 87077; 87186; G0378 ×4; S0106 ×3; J0696 ×3

== ENCOUNTER 2025-03-31 11:28 | Observation (INO) | payer OTHER, MEDICARE ==
--- NOTE | 2025-03-31 13:04 | ED ---
GI Bleed HPI - General Chief complaint: GI Bleed Stated complaint: Vomiting Blood Time Seen by Provider: 03/31/25 12:14 Source: patient, RN notes reviewed Mode of arrival: ambulatory Limitations: no limitations - History of Present Illness Initial comments: 74-year-old male presents emergency department with chief complaint of intractable hiccups, coffee-ground emesis. Patient has been sick the last couple days noticed some bright red blood initially but states has been vomiting black emesis now. He denies any blood thinners he states he has some upper abdominal discomfort. He states that he has intractable hiccups which this is not new for this patient. Patient denies any fevers or chills no chest pain no headache or dizziness he states he generally does not feel well. - Related Data Home Medications Medication Instructions Recorded Confirmed Rivaroxaban [Xarelto] 20 mg PO DAILY 06/11/15 10/04/24 buPROPion HCL [Wellbutrin SR] 200 mg PO BID 12/04/18 10/04/24 oxyCODONE-APAP 10-325MG [Percocet 1 tab PO QID 10/09/22 10/04/24 10-325 mg] Pantoprazole [Protonix] 40 mg PO TID 05/11/23 10/04/24 carvediloL [Coreg] 6.25 mg PO BID 05/11/23 10/04/24 tadalafiL 5 mg PO DAILY 05/11/23 10/04/24 Midodrine HCl [ProAmantine] 2.5 mg PO TID 03/29/24 10/04/24 Cholecalciferol [Vitamin D3 (125 125 mcg PO DAILY 10/04/24 10/04/24 Mcg = 5000 Iu)] Docusate [Colace] 100 mg PO DAILY 10/04/24 10/04/24 Fluticasone/Umeclidin/Vilanter 1 puff INHALATION RT-DAILY 10/04/24 10/04/24 [Trelegy Ellipta 200-62.5-25] Furosemide [Lasix] 20 mg PO DAILY 10/04/24 10/04/24 Terbinafine [LamISIL] 250 mg PO DAILY 10/04/24 10/04/24 chlorproMAZINE [Thorazine] 25 mg PO TID 10/04/24 10/04/24 Previous Rx's Medication Instructions Recorded Cefdinir [Omnicef] 300 mg PO BID 10 Days #20 cap 10/06/24 Ipratropium-Albuterol Nebulize 3 ml INHALATION RT-QID 30 Days 10/06/24 [Duoneb 0.5 mg-3 mg/3 ml Soln] #120 each Montelukast [Singulair] 10 mg PO HS 90 Days #90 tab 10/06/24 Tiotropium 2.5 Mcg/Puff [Spiriva 2 puff INHALATION RT-DAILY each 10/06/24 Respimat 2.5 Mcg] Allergies Allergy/AdvReac Type Severity Reaction Status Date / Time No Known Allergies Allergy Verified 10/04/24 18:54 Review of Systems ROS Statement: Those systems with pertinent positive or pertinent negative responses have been documented in the HPI. ROS Other: All systems not noted in ROS Statement are negative. Past Medical History Past Medical History: Atrial Fibrillation, Coronary Artery Disease (CAD), Heart Failure, COPD, GERD/Reflux, Hyperlipidemia, Hypertension, Musculoskeletal Disorder, Osteoarthritis (OA), Pneumonia, Sleep Apnea/CPAP/BIPAP Additional Past Medical History / Comment(s): mitral valve regurgitation,urinary retention-per patient he straight caths at home 3-4 times daily, osteoporosis,no cpap,pt had one episode w/in last several months at [employer] when he could hear his friend talking to him but was not able to respond,hx pneumonia years ago, recent uti History of Any Multi-Drug Resistant Organisms: None Reported Past Surgical History: Coronary Bypass/CABG, Heart Catheterization, Hernia Repair, Joint Replacement, Orthopedic Surgery Additional Past Surgical History / Comment(s): repair of ESOPHAGUS tear, umbilical surg. x3,ORIF RIGHT HIP,RIGHT ARM PLATE AND SCREW, LEFT FOOT,left hip replaced, gordy shoulder surg,foot procedure,VLAD Past Anesthesia/Blood Transfusion Reactions: No Reported Reaction Additional Past Anesthesia/Blood Transfusion Reaction / Comment(s): no known hx blood transfusion Past Psychological History: Depression Smoking Status: Former smoker Past Alcohol Use History: None Reported Past Drug Use History: None Reported - Past Family History Mother Family Medical History: No Reported History General Exam Limitations: no limitations General appearance: alert, in no apparent distress Head exam: Present: atraumatic, normocephalic, normal inspection Eye exam: Present: normal appearance, PERRL, EOMI. Absent: scleral icterus, conjunctival injection, periorbital swelling ENT exam: Present: normal exam, normal oropharynx, mucous membranes moist Neck exam: Present: normal inspection, full ROM. Absent: tenderness, meningismus, lymphadenopathy Respiratory exam: Present: normal lung sounds bilaterally. Absent: respiratory distress, wheezes, rales, rhonchi, stridor Cardiovascular Exam: Present: regular rate, normal rhythm, normal heart sounds. Absent: systolic murmur, diastolic murmur, rubs, gallop, clicks GI/Abdominal exam: Present: soft, normal bowel sounds. Absent: distended, tenderness, guarding, rebound, rigid Course Vital Signs 03/31/25 03/31/25 03/31/25 11:54 12:18 13:21 Temperature 98.5 F Pulse Rate 68 72 Respiratory 16 22 21 Rate Blood Pressure 135/83 167/105 O2 Sat by Pulse 97 96 Oximetry 03/31/25 14:46 Temperature Pulse Rate 75 Respiratory 17 Rate Blood Pressure 139/89 O2 Sat by Pulse 99 Oximetry Medical Decision Making - Medical Decision Making Was pt. sent in by a medical professional or institution (, PA, ORTHOTIC/PROSTHETIC CLINICIAN, urgent care, hospital, or care home...) When possible be specific @ -PCP Did you speak to anyone other than the patient for history (EMS, parent, family, police, friend...)? What history was obtained from this source @ -No Did you review nursing and triage notes (agree or disagree)? Why? @ -I reviewed and agree with nursing and triage notes Were old charts reviewed (outside hosp., previous admission, EMS record, old EKG, old radiological studies, urgent care reports/EKG's, care home records)? Report findings @ -No old charts were reviewed Differential Diagnosis (chest pain, altered mental status, abdominal pain women, abdominal pain men, vaginal bleeding, weakness, fever, dyspnea, syncope, headache, dizziness, GI bleed, back pain, seizure, CVA, palpatations, mental health, musculoskeletal)? @ -Differential GI Bleed: Esophageal varices, aortoenteric fistula, Mary [place]-Ko, gastritis, peptic ulcer disease, diverticulosis, inflammatory bowel disease, hemorrhoids, fissure, colitis, malignancy, Meckel's diverticulum, this is not meant to be an all- inclusive list. EKG interpreted by me (3pts min.). @ -None X-rays interpreted by me (1pt min.). @ -None done CT interpreted by me (1pt min.). @ -None done U/S interpreted by me (1pt. min.). @ -None done What testing was considered but not performed or refused? (CT, X-rays, U/S, labs)? Why? @ -None What meds were considered but not given or refused? Why? @ -None Did you discuss the management of the patient with other professionals (professionals i.e. , PA, ORTHOTIC/PROSTHETIC CLINICIAN, lab, RT, psych nurse, licensed master social worker, digging machine operator, teacher, animal services officer, community case manager)? Give summary @ -[Dr. Moore for admission Was smoking cessation discussed for >3mins.? @ -No Was critical care preformed (if so, how long)? @ -No Were there social determinants of health that impacted care today? How? (Homelessness, low income, unemployed, alcoholism, drug addiction, transportation, low edu. Level, literacy, decrease access to med. care, skilled nursing, rehab)? @ -No Was there de-escalation of care discussed even if they declined (Discuss DNR or withdrawal of care, Hospice)? DNR status @ -No What co-morbidities impacted this encounter? (DM, HTN, Smoking, COPD, CAD, Cancer, CVA, ARF, Chemo, Hep., AIDS, mental health diagnosis, sleep apnea, morbid obesity)? @ -None Was patient admitted / discharged? Hospital course, mention meds given and route, prescriptions, significant lab abnormalities, going to OR and other pertinent info. @ -Admitted patient has intractable hiccups, GI bleed. Patient will be admitted for GI evaluation and further treatment management. Undiagnosed new problem with uncertain prognosis? @ -No Drug Therapy requiring intensive monitoring for toxicity (Heparin, Nitro, Insuli n, Cardizem)? @ -No Were any procedures done? @ -No Diagnosis/symptom? @ -Coffee-ground emesis, intractable hiccups Acute, or Chronic, or Acute on Chronic? @ -Acute Uncomplicated (without systemic symptoms) or Complicated (systemic symptoms)? @ -Complicated Side effects of treatment? @ -No Exacerbation, Progression, or Severe Exacerbation? @ -No Poses a threat to life or bodily function? How? (Chest pain, USA, ME, pneumonia, PE, COPD, DKA, ARF, appy, cholecystitis, CVA, Diverticulitis, Homicidal, Suicidal, threat to staff... and all critical care pts) @ -[Yes possible anemia threat to organ failure - Lab Data Result diagrams: 03/31/25 13:06 03/31/25 13:06 Lab Results 03/31/25 03/31/25 03/31/25 Range/Units 13:06 13:06 13:06 WBC 8.52 (4.50-10.00) 10*3/uL RBC 4.95 (4.40-5.60) 10*6/uL Hgb 15.6 (13.0-17.0) g/dL Hct 44.3 (39.6-50.0) % MCV 89.5 (80.0-97.0) fL MCH 31.5 (27.0-32.0) pg MCHC 35.2 (32.0-37.0) g/dL Plt Count 157 (140-440) 10*3/uL MPV 11.2 (9.5-12.2) fL Immature Gran % (Auto) 0.2 % Neutrophils % 75.7 % Lymphocytes % 16.4 % Monocytes % 7.5 % Eosinophils % 0.0 % Basophils % 0.2 % Immature Gran # 0.02 (0.00-0.04) 10*3/uL Neutrophils # 6.44 (1.80-7.70) 10*3/uL Lymphocytes # 1.40 (0.90-5.00) 10*3/uL Monocytes # 0.64 (0.20-1.00) 10*3/uL Eosinophils # 0.00 L (0.04-0.35) 10*3/uL Basophils # 0.02 (0.00-0.10) 10*3/uL PT 11.5 (10.0-12.5) sec INR 1.1 (<1.2) APTT 24.7 (22.0-30.0) sec Sodium 138 (137-145) mmol/L Potassium 3.9 (3.5-5.1) mmol/L Chloride 106 (98-107) mmol/L Carbon Dioxide 21 L (22-30) mmol/L Anion Gap 11 mmol/L BUN 31 H (9-20) mg/dL Creatinine 0.76 (0.66-1.25) mg/dL Est GFR (CKD-EPI)AfAm >90 (>60 ml/min/1.73 sqM) Est GFR (CKD-EPI)NonAf 89 (>60 ml/min/1.73 sqM) Glucose 120 H (74-99) mg/dL Plasma Lactic Acid Serge (0.7-2.0) mmol/L Calcium 9.1 (8.4-10.2) mg/dL Total Bilirubin 1.8 H (0.2-1.3) mg/dL AST 27 (17-59) U/L ALT 15 (4-49) U/L Alkaline Phosphatase 65 (38-126) U/L Total Protein 6.5 (6.3-8.2) g/dL Albumin 4.4 (3.5-5.0) g/dL Lipase 16 L (23-300) U/L 07/29/25 Range/Units 13:06 WBC (4.50-10.00) 10*3/uL RBC (4.40-5.60) 10*6/uL Hgb (13.0-17.0) g/dL Hct (39.6-50.0) % MCV (80.0-97.0) fL MCH (27.0-32.0) pg MCHC (32.0-37.0) g/dL Plt Count (140-440) 10*3/uL MPV (9.5-12.2) fL Immature Gran % (Auto) % Neutrophils % % Lymphocytes % % Monocytes % % Eosinophils % % Basophils % % Immature Gran # (0.00-0.04) 10*3/uL Neutrophils # (1.80-7.70) 10*3/uL Lymphocytes # (0.90-5.00) 10*3/uL Monocytes # (0.20-1.00) 10*3/uL Eosinophils # (0.04-0.35) 10*3/uL Basophils # (0.00-0.10) 10*3/uL PT (10.0-12.5) sec INR (<1.2) APTT (22.0-30.0) sec Sodium (137-145) mmol/L Potassium (3.5-5.1) mmol/L Chloride (98-107) mmol/L Carbon Dioxide (22-30) mmol/L Anion Gap mmol/L BUN (9-20) mg/dL Creatinine (0.66-1.25) mg/dL Est GFR (CKD-EPI)AfAm (>60 ml/min/1.73 sqM) Est GFR (CKD-EPI)NonAf (>60 ml/min/1.73 sqM) Glucose (74-99) mg/dL Plasma Lactic Acid Serge 2.4 H* (0.7-2.0) mmol/L Calcium (8.4-10.2) mg/dL Total Bilirubin (0.2-1.3) mg/dL AST (17-59) U/L ALT (4-49) U/L Alkaline Phosphatase (38-126) U/L Total Protein (6.3-8.2) g/dL Albumin (3.5-5.0) g/dL Lipase (23-300) U/L Disposition Clinical Impression: Coffee ground emesis, Intractable hiccups Disposition: ADMITTED IP TO THIS [facility] Condition: Fair Referrals: Renato Moore MD [Primary Care Provider] - 1-2 days Time of Disposition: 15:25
[2025-03-31] MEDS: SODIUM CHLORIDE 0.9% 1,000 ML IV STA (13:14)
[2025-03-31] MEDS: METOCLOPRAMIDE 5 MG/ML 2 ML VIAL IVP STA (13:16)
[2025-03-31] MEDS: chlorproMAZINE 25 MG/ML 2 ML AMP IM STA (13:18)
[2025-03-31 13:28] LABS: Basophils # (A) 0.02 10*3/uL (0.00-0.10); Basophils % (A) 0.2 %; Eosinophils # (A) 0.00 10*3/uL (0.04-0.35); Eosinophils % (A) 0.0 %; HCT 44.3 % (39.6-50.0); HGB 15.6 g/dL (13.0-17.0); Lymphocytes # (A) 1.40 10*3/uL (0.90-5.00); Lymphocytes % (A) 16.4 %; MCH 31.5 pg (27.0-32.0); MCHC 35.2 g/dL (32.0-37.0); MCV 89.5 fL (80.0-97.0); Monocytes # (A) 0.64 10*3/uL (0.20-1.00); Monocytes % (A) 7.5 %; Neutrophils # (A) 6.44 10*3/uL (1.80-7.70); Neutrophils % (A) 75.7 %; Platelet Count 157 10*3/uL (140-440); RBC 4.95 10*6/uL (4.40-5.60); RDW 13.2 % (11.5-14.5); WBC 8.52 10*3/uL (4.50-10.00)
[2025-03-31 13:43] LABS: ALT 15 U/L (4-49); AST 27 U/L (17-59); African American GFR (CKD) >90 (>60 ml/min/1.73 sqM); Albumin 4.4 g/dL (3.5-5.0); Alkaline Phosphatase 65 U/L (38-126); Anion Gap 11 mmol/L; Blood Urea Nitrogen 31 mg/dL (9-20); Calcium 9.1 mg/dL (8.4-10.2); Carbon Dioxide 21 mmol/L (22-30); Chloride 106 mmol/L (98-107); Glucose 120 mg/dL (74-99); Lipase 16 U/L (23-300); Non-African American GFR(CKD) 89 (>60 ml/min/1.73 sqM); Potassium 3.9 mmol/L (3.5-5.1); Sodium 138 mmol/L (137-145); Total Protein 6.5 g/dL (6.3-8.2)
[2025-03-31 13:46] LABS: INR 1.1 (<1.2); Partial Thromboplastin Time 24.7 sec (22.0-30.0); Prothrombin Time 11.5 sec (10.0-12.5)
[2025-03-31] MEDS ORDERED: NALOXONE 0.4 MG/ML 1 ML VIAL IV PRN (15:26)
[2025-03-31] MEDS: PANTOPRAZOLE 40 MG/10 ML VIAL IV SCH (16:27)
[2025-03-31] MEDS: PANTOPRAZOLE 40 MG TABLET PO SCH (19:49)
[2025-03-31] MEDS: oxyCODONE-APAP 10-325MG 1 EACH TAB PO SCH (19:49)
[2025-03-31] MEDS: MIDODRINE 5 MG TAB PO SCH (19:49)
[2025-03-31] MEDS: ALPRAZolam 0.25 MG TAB PO SCH (21:03)
[2025-03-31] MEDS: buPROPion SR 100 MG TABLET.ER PO SCH (21:27)
[2025-03-31] MEDS ORDERED: PANTOPRAZOLE 40 MG TABLET PO SCH (22:00)
[2025-04-01] MEDS ORDERED: NON FORMULARY DRUG (Fluticasone/Umeclidin/Vilanter [Trelegy Ellipta 200-62.5-25] 1 EACH Bl INHALATION SCH (08:00)
[2025-04-01] MEDS: SYMBICORT 160-4.5 MCG INHALER INHALATION SCH (08:09)
[2025-04-01] MEDS: TIOTROPIUM 2.5 MCG INHALER INHALATION SCH (08:09)
[2025-04-01] MEDS ORDERED: RIVAROXABAN 20 MG TAB PO SCH (09:00)
--- NOTE | 2025-04-01 09:07 | CT ---
EXAMINATION TYPE: CT abdomen pelvis wo con CT DLP: 523.5 mGycm, Automated exposure control for dose reduction was used. DATE OF EXAM: 04/01/2025 8:50 AM COMPARISON: CT chest 10/06/2024, gallbladder ultrasound 05/22/2023, CT abdomen and pelvis 05/11/2023 CLINICAL INDICATION:Male, 74 years old with history of upper GI bleed; UPPER ABD PAIN TECHNIQUE: Standard CT of the abdomen and pelvis without IV or oral contrast. Lack of IV or oral co ntrast limits evaluation of solid and hollow organ viscera. Coronal and sagittal reformats were perfo rmed. FINDINGS: LOWER CHEST: Cardiomegaly with sternotomy wires. Mitral valvular replacement. Dependent right lower l obe consolidative opacities. Left lower lobe subsegmental atelectasis. Trace right pleural effusion. ABDOMEN LIVER: Unremarkable noncontrast appearance GALLBLADDER AND BILE DUCTS: Cholelithiasis. No biliary ductal dilatation. PANCREAS: Unremarkable noncontrast appearance SPLEEN: Unremarkable noncontrast appearance ADRENAL GLANDS: Unremarkable noncontrast appearance. KIDNEYS AND URETERS: No right-sided hydronephrosis or renal calculus. Mild to moderate left hydroure teronephrosis with poor visualization of the distal left ureter secondary to streak artifact from lef t hip prosthesis. There appears to be a 3 mm calculus within the distal left ureter near the ureterov esical junction. Additionally there appears to be a 10 x 4 mm calculus in the left ureterovesical raina ction. No left renal calculi. PELVIS BLADDER: Couple of punctate layering calculi within the urinary bladder measuring up to 3 mm. REPRODUCTIVE: Limited visualization due to streak artifact from left hip arthroplasty. ABDOMEN & PELVIS STOMACH AND BOWEL: Moderate size hiatal hernia with postsurgical changes at the GE junction.Distal co lonic diverticulosis without evidence for acute diverticulitis. Redundant sigmoid colon. No evidence of bowel obstruction. PERITONEUM: No evidence of pneumoperitoneum or free fluid. VASCULATURE: Mild atherosclerotic calcifications are present throughout the abdominal aorta and its b ranches. No evidence of aortic aneurysm. MUSCULOSKELETAL: No acute osseous abnormalities. Postsurgical changes from left hip arthroplasty. Fix ation screws involving the right proximal femur. Diffuse bone demineralization. Remote appearing ante rior wedge compression deformity of the L1 vertebral body with approximately 50% height loss and 2 mm retropulsion. LYMPH NODES: No gross evidence for lymphadenopathy. SOFT TISSUE/ABDOMINAL WALL: Small fat filled left inguinal hernia. IMPRESSION: 1. Mild to moderate left hydroureteronephrosis with an obstructing 10 x 4 mm calculus at the left ur eterovesical junction. Additional distal left ureter 3 mm calculus. Limited visualization of the dist al left ureter secondary to left hip arthroplasty streak artifact. 2. Couple of small calculi layering within the urinary bladder measured at 3 mm. 3. Colonic diverticulosis without evidence for acute diverticulitis. 4. Moderate-sized hiatal hernia with postsurgical changes of the GE junction. 5. Cholelithiasis. 6. Right lower lobe patchy dependent consolidative opacities which appear to represent atelectasis wi th trace right pleural effusion. [facility], , 04/01/2025 9:04 AM
--- NOTE | 2025-04-01 09:13 | P.CONS ---
History of Present Illness - Reason for Consult Consult date: 04/01/25 Intractable hiccups, upper GI bleed Requesting physician: Renato Moore - Chief Complaint Hiccups, vomiting - History of Present Illness This a pleasant 74-year-old male with atrial fibrillation, coronary artery disease, heart failure, COPD, GERD, hyperlipidemia, hypertension, osteoarthritis and sleep apnea who presented to the emergency department yesterday afternoon w ith complaints of intractable hiccups that started 3 days ago followed by onset of vomiting. Reports that he has had several episodes of emesis some that have been dark coffee-ground as well as some bright red blood specks. Denies any previous history of GI bleed. States he does get heartburn. Hemoglobin stable, does have some elevation in his BUN. Last episode of emesis was this morning with some dark blood. Patient does take Xarelto but has not taken it for 3 days now. He denies any abdominal pain, no blood in his stool. Review of Systems REVIEW OF SYSTEMS: CARDIOPULMONARY: No chest pain or shortness of breath. Gastrointestinal: No abdominal pain. No nausea or vomiting. Patient with coffee-ground and maroon-colored emesis. No rectal bleeding, or melena. GENITOURINARY: No dysuria or hematuria. MUSCULOSKELETAL: Reports normal range of motion., Joint pain. SKIN: No rashes. No jaundice. ENDOCRINE: No chills, fevers. No excessive weight gain or loss. No polydipsia or polyuria. PSYCHIATRIC: Unremarkable. NEUROLOGY: No change in mental status. Denies dizziness, headache. ENT: Vision unremarkable. CONSTITUTIONAL: No recent weight loss. No fever, chills, night sweats. Past Medical History Past Medical History: Atrial Fibrillation, Coronary Artery Disease (CAD), Heart Failure, COPD, GERD/Reflux, Hyperlipidemia, Hypertension, Musculoskeletal Disorder, Osteoarthritis (OA), Pneumonia, Sleep Apnea/CPAP/BIPAP Additional Past Medical History / Comment(s): mitral valve regurgitation,urinary retention-per patient he straight caths at home 3-4 times daily, osteoporosis,no cpap,pt had one episode w/in last several months at [employer] when he could hear his friend talking to him but was not able to respond,hx pneumonia years ago, recent uti History of Any Multi-Drug Resistant Organisms: None Reported Past Surgical History: Coronary Bypass/CABG, Heart Catheterization, Hernia Repair, Joint Replacement, Orthopedic Surgery Additional Past Surgical History / Comment(s): repair of ESOPHAGUS tear, umbilical surg. x3,ORIF RIGHT HIP,RIGHT ARM PLATE AND SCREW, LEFT FOOT,left hip replaced, gordy shoulder surg, left foot procedure,VLAD Past Anesthesia/Blood Transfusion Reactions: No Reported Reaction Additional Past Anesthesia/Blood Transfusion Reaction / Comm: no known hx blood transfusion Past Psychological History: Depression Smoking Status: Former smoker Past Alcohol Use History: Abuse, Daily Additional Past Alcohol Use History / Comment(s): quit smoking 1986, quit drinking 2009 Past Drug Use History: None Reported - Past Family History Mother Family Medical History: No Reported History Medications and Allergies Home Medications Medication Instructions Recorded Confirmed Type Rivaroxaban [Xarelto] 20 mg PO DAILY 06/11/15 03/31/25 History buPROPion HCL [Wellbutrin SR] 200 mg PO BID 12/04/18 03/31/25 History oxyCODONE-APAP 10-325MG [Percocet 1 tab PO QID 10/09/22 03/31/25 History 10-325 mg] Pantoprazole [Protonix] 40 mg PO TID 05/11/23 03/31/25 History carvediloL [Coreg] 6.25 mg PO BID 05/11/23 03/31/25 History tadalafiL 5 mg PO DAILY 05/11/23 03/31/25 History Midodrine HCl [ProAmantine] 2.5 mg PO TID 03/29/24 03/31/25 History Cholecalciferol [Vitamin D3 (125 125 mcg PO DAILY 10/04/24 03/31/25 History Mcg = 5000 Iu)] Docusate [Colace] 100 mg PO DAILY 10/04/24 03/31/25 History Fluticasone/Umeclidin/Vilanter 1 puff INHALATION RT-DAILY 10/04/24 03/31/25 History [Trelegy Ellipta 200-62.5-25] Furosemide [Lasix] 20 mg PO DAILY 10/04/24 03/31/25 History ALPRAZolam [Xanax] 0.25 mg PO HS 03/31/25 03/31/25 History Levofloxacin [Levaquin] 250 mg PO DAILY 03/31/25 03/31/25 History Montelukast [Singulair] 10 mg PO DAILY 03/31/25 03/31/25 History Allergies Allergy/AdvReac Type Severity Reaction Status Date / Time No Known Allergies Allergy Verified 03/31/25 17:26 Physical Exam Vitals: Vital Signs Temp Pulse Pulse Resp BP BP Pulse Ox 04/01/25 01:40 98.2 F 72 17 116/77 95 03/31/25 23:31 98.9 F 77 19 118/77 95 03/31/25 19:45 99.2 F 71 17 142/95 95 03/31/25 16:29 97.9 F 76 19 128/91 98 03/31/25 14:46 75 17 139/89 99 03/31/25 13:21 72 21 167/105 96 03/31/25 12:18 22 03/31/25 11:54 98.5 F 68 16 135/83 97 Intake and Output 03/31/25 03/31/25 04/01/25 14:59 22:59 06:59 Other: Voiding Method Self-Catheterization Self-Catheterization # Voids 0 # Bowel Movements 0 Weight 79.379 kg 79.379 kg General appearance: The patient is alert, oriented, appears in no acute distress. HET: Head is normocephalic and atraumatic. Conjunctiva pink. Sclera anicteric. Neck: Supple without lymphadenopathy. Trachea midline. Heart: Regular. Lungs: Equal expansion, normal respiratory effort. Abdomen: Soft, epigastric tenderness, nondistended. Skin: No rashes. No jaundice. Extremities: Normal skin color and turgor. No pedal edema. Neurological: No focal deficits. Alert and oriented x3. Results CBC & Chem 7: 03/31/25 13:06 03/31/25 13:06 Labs: Abnormal Lab Results - Last 24 Hours (Table) 03/31/25 03/31/25 03/31/25 Range/Units 13:06 13:06 13:06 Eosinophils # 0.00 L (0.04-0.35) 10*3/uL Carbon Dioxide 21 L (22-30) mmol/L BUN 31 H (9-20) mg/dL Glucose 120 H (74-99) mg/dL Plasma Lactic Acid Serge 2.4 H* (0.7-2.0) mmol/L Total Bilirubin 1.8 H (0.2-1.3) mg/dL Lipase 16 L (23-300) U/L 03/31/25 Range/Units 19:36 Eosinophils # (0.04-0.35) 10*3/uL Carbon Dioxide (22-30) mmol/L BUN (9-20) mg/dL Glucose (74-99) mg/dL Plasma Lactic Acid Serge 2.1 H* (0.7-2.0) mmol/L Total Bilirubin (0.2-1.3) mg/dL Lipase (23-300) U/L Assessment and Plan (1) Coffee ground emesis Narrative/Plan: 74-year-old male who has had hiccups that started about 3 days ago with subsequent nausea and vomiting with coffee-ground emesis who is on Xarelto for history of atrial fibrillation which is currently been held for 3 days now however continues to have dark emesis. No previous history of GI bleed. Does have some epigastric tenderness need to consider possible peptic ulcer disease, gastritis, esophagitis, AVM, or other possible etiologies. Will proceed with upper endoscopy For further evaluation. Current Visit: Yes Status: Acute Code(s): K92.0 - HEMATEMESIS SNOMED Code(s): 68342751 (2) Intractable hiccups Current Visit: Yes Status: Acute Code(s): R06.6 - HICCOUGH SNOMED Code(s): 06961560 (3) CAD (coronary artery disease) Current Visit: No Status: Acute Code(s): I25.10 - ATHSCL HEART DISEASE OF [place] CORONARY ARTERY W/O ANG PCTRS SNOMED Code(s): 01989462 (4) Chronic atrial fibrillation Current Visit: No Status: Acute Code(s): I48.2 - CHRONIC ATRIAL FIBRILLATION * DO NOT USE * SNOMED Code(s): 503977899 Plan: 1. Continue symptomatic and supportive care 2. Antiemetics as needed 3. Continue Thorazine as ordered 4. Continue Protonix 40 mg twice daily 5. Keep n.p.o. 6. Will plan for upper endoscopy today 7. Further recommendations forthcoming based on clinical course Thank you for this consultation, we will continue to follow. Dr. Diogo Lewis I agree with the dictator's note, documented as a scribe by Farheen Powell.
[2025-04-01] MEDS: DOCUSATE 100 MG CAP PO SCH (09:19)
[2025-04-01] MEDS: CHOLECALCIFEROL 125 MCG (5000 IU) TABLET PO SCH (09:19)
[2025-04-01] MEDS: FUROSEMIDE 20 MG TAB PO SCH (09:19)
[2025-04-01] MEDS: MONTELUKAST 10 MG TAB PO SCH (09:20)
[2025-04-01] MEDS: TADALAFIL 5 MG PO SCH (09:21)
[2025-04-01 09:47] LABS: Bacteria,Urine Rare /hpf; Bilirubin,Urine Negative (Negative); Blood,Urine Small (Negative); Budding Yeast,Urine Many /hpf; Color,Urine Yellow; Glucose,Urine (UA) Negative (Negative); Ketones,Urine Trace (Negative); Leukocyte Esterase,Urine Large (Negative); Mucus,Urine Few /hpf; Nitrite,Urine Positive (Negative); PH, Urine 6.0 (5.0-8.0); Protein,Urine Trace (Negative); RBC,Urine 25 /hpf (0-5); Specific Gravity,Urine 1.027 (1.001-1.035); Squamous Epithelial Cell,Urine <1 /hpf (0-4); Urobilinogen,Urine <2.0 mg/dL (<2.0); WBC,Urine >182 /hpf (0-5)
[2025-04-01] MEDS ORDERED: LIDOCAINE 1% INJ 10MG/ML (20 ML MDV) ONE (15:45)
[2025-04-01] MEDS ORDERED: PROPOFOL 10 MG/ML 20 ML VIAL IV ONE (15:45)
[2025-04-01] MEDS: LACTATED RINGERS 1,000 ML IV ONE (15:46)
--- NOTE | 2025-04-01 15:55 | P.PCN ---
Date of Procedure: 04/01/25 Procedure(s) Performed: BRIEF HISTORY: Patient is a 74-year-old, pleasant, white male admitted has been with nausea vomiting for the last 3 days duration. He had a few episodes of coffee-ground emesis. History of A-fib on Xarelto which is on hold for the last 3 days. PROCEDURE PERFORMED: Esophagogastroduodenoscopy. PREOPERATIVE DIAGNOSIS: Nausea vomiting and coffee-ground emesis. IV sedation per anesthesia. PROCEDURE: After informed consent was obtained, the patient was brought into the endoscopy unit. IV conscious sedation was administered by Anesthesia under continuous monitoring. Initially the Olympus GIF-140 video endoscope was inserted into the mouth. Esophagus intubated without any difficulty. It was gradually advanced into the stomach and duodenum and carefully examined. The bulb and the second part of the duodenum appeared normal. The scope at this time was withdrawn to the stomach, adequately insufflated with air, and upon careful examination, mucosa of the antrum, body, cardia and the fundus appeared normal. The scope was then withdrawn into the esophagus. Moderate size hiatal hernia noted. The GE junction was located at 39 cm from the incisors. There is a linear erosions in the distal esophagus with superficial exudates and ulcerations consistent with LA grade C reflux esophagitis. Rest of the esophagus appeared normal and the patient tolerated the procedure well. IMPRESSION: 1. Linear erosions with superficial exudates in the mid and distal esophagus consistent with LA grade C reflux esophagitis. 2. Moderate size hiatal hernia RECOMMENDATIONS: The findings of this examination were discussed with the patient. Continue with Protonix 40 mg twice daily. Advance to soft diet..
--- NOTE | 2025-04-02 13:49 | P.PN ---
Subjective Progress Note Date: 04/02/25 Principal diagnosis: Nausea and vomiting This a pleasant 74-year-old male with atrial fibrillation, coronary artery disease, heart failure, COPD, GERD, hyperlipidemia, hypertension, osteoarthritis and sleep apnea who presented to the emergency department yesterday afternoon with complaints of intractable hiccups that started 3 days ago followed by onset of vomiting. Reports that he has had several episodes of emesis some that have been dark coffee-ground as well as some bright red blood specks. Denies any previous history of GI bleed. States he does get heartburn. Hemoglobin stable, does have some elevation in his BUN. Last episode of emesis was this morning with some dark blood. Patient does take Xarelto but has not taken it for 3 days now. He denies any abdominal pain, no blood in his stool. 04/02/2025 Patient seen and examined today as a follow-up. Patient underwent upper endoscopy yesterday with findings of linear erosions with superficial exudates in the mid and distal esophagus consistent with LA grade C reflux esophagitis and a moderate size hiatal hernia. Patient is stating that he is still spitting up but it looks more like phlegm. Still has some occasional hiccups but not as severe. He denies any abdominal pain. Objective - Vital Signs Vital signs: Vital Signs Temp 98.7 F 04/02/25 07:23 Pulse 58 L 04/02/25 07:23 Resp 17 04/02/25 07:23 BP 130/70 04/02/25 07:23 Pulse Ox 97 04/02/25 07:23 FiO2 Intake & Output 04/01/25 04/02/25 04/02/25 18:59 06:59 18:59 Intake Total 100 Balance 100 Intake: IV 100 Other: Voiding Method Self-Catheterization Self-Catheterization # Voids 2 1 # Bowel Movements 1 - Exam General appearance: The patient is alert, oriented, appears in no acute distress. HET: Head is normocephalic and atraumatic. Conjunctiva pink. Sclera anicteric. Neck: Supple without lymphadenopathy. Abdomen: Soft, nontender, nondistended. Extremities: Normal skin color and turgor. No pedal edema Skin: No rashes, no jaundice Neurological: No focal deficits. Alert and oriented. - Labs CBC & Chem 7: 03/31/25 13:06 03/31/25 13:06 Assessment and Plan (1) Coffee ground emesis Narrative/Plan: 74-year-old male who has had hiccups that started about 3 days ago with subsequent nausea and vomiting with coffee-ground emesis who is on Xarelto for history of atrial fibrillation which is currently been held for 3 days now however continues to have dark emesis. No previous history of GI bleed. Does have some epigastric tenderness need to consider possible peptic ulcer disease, gastritis, esophagitis, AVM, or other possible etiologies. Will proceed with upper endoscopy For further evaluation. Coffee-ground emesis likely secondary to LA grade C reflux esophagitis. Recommend Protonix 40 mg twice daily. Antireflux measures. This was all discussed with the patient. Current Visit: Yes Status: Acute Code(s): K92.0 - HEMATEMESIS SNOMED Code(s): 37904191 (2) Intractable hiccups Current Visit: Yes Status: Acute Code(s): R06.6 - HICCOUGH SNOMED Code(s): 44674322 (3) CAD (coronary artery disease) Current Visit: No Status: Acute Code(s): I25.10 - ATHSCL HEART DISEASE OF [place] CORONARY ARTERY W/O ANG PCTRS SNOMED Code(s): 75090818 (4) Chronic atrial fibrillation Current Visit: No Status: Acute Code(s): I48.2 - CHRONIC ATRIAL FIBRILLATION * DO NOT USE * SNOMED Code(s): 861409440 Plan: 1. Continue symptomatic and supportive care 2. Antiemetics as needed 3. Continue Thorazine as ordered 4. Continue Protonix 40 mg twice daily 5. Diet as tolerated 6. Antireflux measures discussed with patient 7. Patient is cleared from gastroenterology for discharge. Outpatient follow- up in 4 weeks. Thank you for this consultation, we will sign off at this time. Dr. Diogo Lewis I agree with the dictator's note, documented as a scribe by aFrheen Powell.
[2025-04-02 16:02] LABS: Basophils # (A) 0.02 10*3/uL (0.00-0.10); Basophils % (A) 0.3 %; Eosinophils # (A) 0.06 10*3/uL (0.04-0.35); Eosinophils % (A) 0.9 %; HCT 41.3 % (39.6-50.0); HGB 13.9 g/dL (13.0-17.0); Lymphocytes # (A) 1.39 10*3/uL (0.90-5.00); Lymphocytes % (A) 20.7 %; MCH 31.2 pg (27.0-32.0); MCHC 33.7 g/dL (32.0-37.0); MCV 92.6 fL (80.0-97.0); Monocytes # (A) 0.56 10*3/uL (0.20-1.00); Monocytes % (A) 8.4 %; Neutrophils # (A) 4.62 10*3/uL (1.80-7.70); Neutrophils % (A) 69.0 %; Platelet Count 145 10*3/uL (140-440); RBC 4.46 10*6/uL (4.40-5.60); RDW 13.2 % (11.5-14.5); WBC 6.70 10*3/uL (4.50-10.00)
[2025-04-02 16:17] LABS: ALT 19 U/L (4-49); AST 28 U/L (17-59); African American GFR (CKD) >90 (>60 ml/min/1.73 sqM); Albumin 3.6 g/dL (3.5-5.0); Albumin/Globulin Ratio 1.8; Alkaline Phosphatase 55 U/L (38-126); Anion Gap 9 mmol/L; Blood Urea Nitrogen 18 mg/dL (9-20); Calcium 8.6 mg/dL (8.4-10.2); Carbon Dioxide 26 mmol/L (22-30); Chloride 106 mmol/L (98-107); Globulin 2.0 g/dL; Glucose 89 mg/dL (74-99); Non-African American GFR(CKD) 89 (>60 ml/min/1.73 sqM); Potassium 3.2 mmol/L (3.5-5.1); Sodium 141 mmol/L (137-145); Total Protein 5.6 g/dL (6.3-8.2)
--- NOTE | 2025-04-02 16:17 | HP ---
HISTORY AND PHYSICAL HISTORY OF PRESENT ILLNESS: 74-year-old white male, came with hiccups, coffee-grounds emesis, admitted for GI bleed. Seen in the emergency room on 03/31/2025. HOME MEDICATIONS: Reviewed. ALLERGIES: Negative. REVIEW OF SYSTEMS: A 14-point review of systems otherwise is negative. PAST MEDICAL HISTORY: Atrial fibrillation, coronary artery disease, heart failure, COPD, GERD, hypertension, osteoarthritis, pneumonia, sleep apnea. PAST SURGICAL HISTORY: Bypass surgery, heart catheterization, hernia repair, orthopedic surgery, joint replacement. PHYSICAL EXAMINATION: VITAL SIGNS: Temp 98.5, pulse 68-72, respiratory rate , blood pressure is 135 to 167 over 83 to 105, O2 96 to 97, respiratory rate . CARDIOVASCULAR: S1, S2. LUNGS: Scattered wheeze x4. HEMATOLOGY: Negative Homans. PSYCH: Fair mood and affect. NEUROLOGIC: Alert and oriented x3. LABORATORY DATA: Reviewed. ASSESSMENT: Coffee-grounds emesis, hiccups, chronic obstructive pulmonary disease. EGD hopefully by GI consult. Prognosis guarded. Please see further orders. MMODL / IJN: [id number] /
[2025-04-02] MEDS: cefTRIAXone 1,000 GM in SODIUM CHLORIDE 0.9% 50 ML IVPB STA (16:32)
[2025-04-02] MEDS: chlorproMAZINE 25 MG TAB PO PRN (16:47)
--- NOTE | 2025-04-03 03:18 | PN ---
PROGRESS NOTE SUBJECTIVE: 74-year-old white male, scheduled for EGD tomorrow. He came with coffee-grounds emesis. OBJECTIVE: VITAL SIGNS: Blood pressure 130 to 117/70, O2 95 to 97, respiratory rate 16-18, temp 98.7. GI: Soft, nontender. Hematology: Negative Homans. LABORATORY DATA: Urine shows white cells greater than 182. Lactic acid was 2.1, hemoglobin is 16.6 on admission. Sodium 138, potassium 3.9, lactic acid 2.4 to 2.1, 20, total bilirubin 1.0. ASSESSMENT: Dehydration, lactic acidosis, coffee-grounds emesis, thus he comes with emesis, chronic obstructive pulmonary disease, pulmonary hypertension. Prognosis guarded. Continue current treatments. Follow up in next 24 to 48 hours. Wait for GI doctor to do scope. Prognosis guarded. MMODL / IJN: [id number] /
--- NOTE | 2025-04-03 07:56 | P.CONS ---
History of Present Illness - Reason for Consult Consult date: 04/02/25 UTI Requesting physician: Renato Moore - Chief Complaint Hiccups and blood in the vomit x few days - History of Present Illness Patient is a 74-year-old male with a past medical history significant for Atrial Fibrillation, Coronary Artery Disease (CAD), Heart Failure, COPD, GERD/Reflux, Hyperlipidemia, Hypertension, Musculoskeletal Disorder, Osteoarthritis (OA), Pneumonia, Sleep Apnea/CPAP/BIPAP presenting to the hospital for evaluation of intractable hiccups and coffee-ground emesis patient did have some upper abdominal discomfort in addition to intractable hiccups patient denies having any fever or any chills no headache or URI symptoms no diarrhea or blood in the stool has been complaining of some blood in the urine as well but no significant burning or frequency of urine patient on presentation to the hospital was afebrile and no fever have been called subsequently patient was not tachycardic hypotensive or hypoxic he did have mildly elevated lactic acid subsequent normalized white count has been normal creatinine 0.76 UA was positive with a culture grew COVID is negative staph he did receive a dose of Rocephin infectious disease was consulted for possible UTI and need for further antibiotic therapy Review of Systems Positive point and negatives has been mentioned in the HPI, complete review of systems was performed and all other systems are negative Past Medical History Past Medical History: Atrial Fibrillation, Coronary Artery Disease (CAD), Heart Failure, COPD, GERD/Reflux, Hyperlipidemia, Hypertension, Musculoskeletal Disorder, Osteoarthritis (OA), Pneumonia, Sleep Apnea/CPAP/BIPAP Additional Past Medical History / Comment(s): mitral valve regurgitation,urinary retention-per patient he straight caths at home 3-4 times daily, osteoporosis,no cpap,pt had one episode w/in last several months at [employer] when he could hear his friend talking to him but was not able to respond,hx pneumonia years ago, recent uti History of Any Multi-Drug Resistant Organisms: None Reported Past Surgical History: Coronary Bypass/CABG, Heart Catheterization, Hernia Repair, Joint Replacement, Orthopedic Surgery Additional Past Surgical History / Comment(s): repair of ESOPHAGUS tear, umbilical surg. x3,ORIF RIGHT HIP,RIGHT ARM PLATE AND SCREW, LEFT FOOT,left hip replaced, gordy shoulder surg, left foot procedure,VLAD Past Anesthesia/Blood Transfusion Reactions: No Reported Reaction Additional Past Anesthesia/Blood Transfusion Reaction / Comm: no known hx blood transfusion Past Psychological History: Depression Smoking Status: Former smoker Past Alcohol Use History: Abuse, Daily Additional Past Alcohol Use History / Comment(s): quit smoking 1986, quit drinking 2009 Past Drug Use History: None Reported - Past Family History Mother Family Medical History: No Reported History Medications and Allergies Home Medications Medication Instructions Recorded Confirmed Type Rivaroxaban [Xarelto] 20 mg PO DAILY 06/11/15 03/31/25 History buPROPion HCL [Wellbutrin SR] 200 mg PO BID 12/04/18 03/31/25 History oxyCODONE-APAP 10-325MG [Percocet 1 tab PO QID 10/09/22 03/31/25 History 10-325 mg] carvediloL [Coreg] 6.25 mg PO BID 05/11/23 03/31/25 History tadalafiL 5 mg PO DAILY 05/11/23 03/31/25 History Midodrine HCl [ProAmantine] 2.5 mg PO TID 03/29/24 03/31/25 History Cholecalciferol [Vitamin D3 (125 125 mcg PO DAILY 10/04/24 03/31/25 History Mcg = 5000 Iu)] Docusate [Colace] 100 mg PO DAILY 10/04/24 03/31/25 History Fluticasone/Umeclidin/Vilanter 1 puff INHALATION RT-DAILY 10/04/24 03/31/25 History [Trelegy Ellipta 200-62.5-25] Furosemide [Lasix] 20 mg PO DAILY 10/04/24 03/31/25 History ALPRAZolam [Xanax] 0.25 mg PO HS 03/31/25 03/31/25 History Levofloxacin [Levaquin] 250 mg PO DAILY 03/31/25 03/31/25 History Montelukast [Singulair] 10 mg PO DAILY 03/31/25 03/31/25 History Pantoprazole [Protonix] 40 mg PO AC-BID #60 tab 04/02/25 Rx Allergies Allergy/AdvReac Type Severity Reaction Status Date / Time No Known Allergies Allergy Verified 03/31/25 17:26 Physical Exam Vitals: Vital Signs Temp Pulse Resp BP BP Pulse Ox 04/02/25 16:28 65 135/87 04/02/25 14:10 98.7 F 74 17 117/70 95 04/02/25 11:38 76 164/103 04/02/25 07:23 98.7 F 58 L 17 130/70 97 04/02/25 03:54 97.6 F 69 18 149/92 97 04/01/25 20:02 98.5 F 75 16 142/89 94 L 04/01/25 18:39 78 17 138/90 97 Intake and Output 04/02/25 04/02/25 04/02/25 06:59 14:59 22:59 Intake Total 240 Balance 240 Intake: Oral 240 Other: Voiding Method Self-Catheterization # Voids 1 3 GENERAL DESCRIPTION: Elderly male lying in bed, no distress. No tachypnea or accessory muscle of respiration use. HEENT: Shows Pallor , no scleral icterus. Oral mucous membrane is dry. NECK: Trachea central, no thyromegaly. LUNGS: Unlabored breathing. Clear to auscultation anteriorly. No wheeze or crackle. HEART: S1, S2, regular rate and rhythm. No loud murmur ABDOMEN: Soft, no tenderness , guarding or rigidity, no organomegaly EXTREMITIES: No edema of feet. SKIN: No rash, no masses palpable. NEUROLOGICAL: The patient is awake, alert, oriented x3, mood and affect normal. Results CBC & Chem 7: 04/02/25 15:43 04/02/25 15:43 Labs: Abnormal Lab Results - Last 24 Hours (Table) 04/02/25 04/02/25 Range/Units 15:43 15:43 Immature Gran # 0.05 H (0.00-0.04) 10*3/uL Potassium 3.2 L (3.5-5.1) mmol/L Total Protein 5.6 L (6.3-8.2) g/dL Microbiology - Last 24 Hours (Table) 04/01/25 07:30 Urine Culture - Preliminary Urine,Voided Coagulase Negative Staph Assessment and Plan (1) Positive urine culture Current Visit: Yes Status: Acute Code(s): R82.79 - OTHER ABNORMAL FINDINGS ON MICROBIOLOG EXAMINATION OF URINE SNOMED Code(s): 317176418 (2) UTI (urinary tract infection) Current Visit: No Status: Acute Code(s): N39.0 - URINARY TRACT INFECTION, SITE NOT SPECIFIED SNOMED Code(s): 54560591 Plan: 1patient was in the hospital mostly with hiccups and noted to have some blood in the vomit epigastric discomfort likely GI etiology and is being evaluated and treated by the GI services. 2patient also complaining of some hematuria but no burning or frequency no suprapubic pain did have a positive urine however culture is now growing coagulase-negative negative staff which could be skin doug. 3we will repeat his urine culture and hold on any further antibiotic therapy at this point as not behaving as a symptomatic UTI We will follow on clinical condition and cultures to further adjust medication if needed Thank you for this consultation we will follow the patient along with you Dictation was produced using [employer] dictation software. please excuse any grammatical, word or spelling errors. Time with Patient: Greater than 30
[2025-04-03 08:10] VITALS: BP 112/70; PULSE 79; RESP 16; TEMP 98
--- NOTE | 2025-04-03 08:38 | P.DS ---
Providers Date of admission: 03/31/25 16:25 Attending physician: Renato Moore Consults: 04/02/25 15:19 Consult Physician Routine Consulting Provider: Janette Barakat Consult Reason/Comments: uti Do you want consulting provider notified?: Yes Primary care physician: Renato [facility] Course: 74-year-old male with atrial fibrillation, coronary artery disease, heart failure, COPD, GERD, hyperlipidemia, hypertension, osteoarthritis and sleep apnea who presented to the emergency department yesterday afternoon with complaints of intractable hiccups that started 3 days ago followed by onset of vomiting. Reports that he has had several episodes of emesis some that have been dark coffee-ground as well as some bright red blood specks. Denies any previous history of GI bleed. States he does get heartburn. Hemoglobin stable, does have some elevation in his BUN. Last episode of emesis was this morning with some dark blood. Patient does take Xarelto but has not taken it for 3 days now. He denies any abdominal pain, no blood in his stool. 04/02/2025 Patient seen and examined today as a follow-up. Patient underwent upper endoscopy yesterday with findings of linear erosions with superficial exudates in the mid and distal esophagus consistent with LA grade C reflux esophagitis and a moderate size hiatal hernia. Patient is stating that he is still spitting up but it looks more like phlegm. Still has some occasional hiccups but not as severe. He denies any abdominal pain. --Patient underwent EGD which revealed linear necrosis and reflux esophagitis; patient is recommended to continue with Protonix and has been cleared by GI for discharge Urine culture reveals coagulase-negative staph; patient is currently on ceftriaxone and has been taking Levaquin; white blood count is normal - Recommend discontinuing antibiotic Patient stable for discharge home and follow-up with PCP and GI as outpatient Patient Condition at Discharge: Fair Plan - Discharge Summary New Discharge Prescriptions: New Pantoprazole [Protonix] 40 mg PO AC-BID #60 tab chlorproMAZINE [Thorazine] 50 mg PO QID PRN 5 Days #20 tab PRN Reason: hiccupps Continue Rivaroxaban [Xarelto] 20 mg PO DAILY buPROPion HCL [Wellbutrin SR] 200 mg PO BID oxyCODONE-APAP 10-325MG [Percocet 10-325 mg] 1 tab PO QID carvediloL [Coreg] 6.25 mg PO BID Midodrine HCl [ProAmantine] 2.5 mg PO TID Furosemide [Lasix] 20 mg PO DAILY Fluticasone/Umeclidin/Vilanter [Trelegy Ellipta 200-62.5-25] 1 puff INHALATION RT-DAILY Docusate [Colace] 100 mg PO DAILY Levofloxacin [Levaquin] 250 mg PO DAILY ALPRAZolam [Xanax] 0.25 mg PO HS tadalafiL 5 mg PO DAILY Cholecalciferol [Vitamin D3 (125 Mcg = 5000 Iu)] 125 mcg PO DAILY Montelukast [Singulair] 10 mg PO DAILY Discontinued Pantoprazole [Protonix] 40 mg PO TID Discharge Medication List Rivaroxaban [Xarelto] 20 mg PO DAILY 06/11/15 [History] buPROPion HCL [Wellbutrin SR] 200 mg PO BID 12/04/18 [History] oxyCODONE-APAP 10-325MG [Percocet 10-325 mg] 1 tab PO QID 10/09/22 [History] carvediloL [Coreg] 6.25 mg PO BID 05/11/23 [History] tadalafiL 5 mg PO DAILY 05/11/23 [History] Midodrine HCl [ProAmantine] 2.5 mg PO TID 03/29/24 [History] Cholecalciferol [Vitamin D3 (125 Mcg = 5000 Iu)] 125 mcg PO DAILY 10/04/24 [History] Docusate [Colace] 100 mg PO DAILY 10/04/24 [History] Fluticasone/Umeclidin/Vilanter [Trelegy Ellipta 200-62.5-25] 1 puff INHALATION RT-DAILY 10/04/24 [History] Furosemide [Lasix] 20 mg PO DAILY 10/04/24 [History] ALPRAZolam [Xanax] 0.25 mg PO HS 03/31/25 [History] Levofloxacin [Levaquin] 250 mg PO DAILY 03/31/25 [History] Montelukast [Singulair] 10 mg PO DAILY 03/31/25 [History] Pantoprazole [Protonix] 40 mg PO AC-BID #60 tab 04/02/25 [Rx] chlorproMAZINE [Thorazine] 50 mg PO QID PRN 5 Days #20 tab 04/03/25 [Rx] Follow up Appointment(s)/Referral(s): Renato Moore MD [Primary Care Provider] - 1-2 days Sherry Lewis MD [STAFF PHYSICIAN] - 4 Weeks Patient Instructions/Handouts: GERD (Gastroesophageal Reflux Disease) (DC) Discharge Disposition: HOME SELF-CARE
[2025-04-03 11:05] LABS: HCT 40.7 % (39.6-50.0); HGB 13.6 g/dL (13.0-17.0); MCH 31.1 pg (27.0-32.0); MCHC 33.4 g/dL (32.0-37.0); MCV 92.9 FL (80.0-97.0); NRBC Per 100 WBC 0 X 10*3/uL (0.00-0.01); Platelet Count 121 X 10*3/uL (140-440); RBC 4.38 X 10*6/uL (4.40-5.60); RDW 13.3 % (11.5-14.5); WBC 6.10 X 10*3/uL (4.50-10.00)
[2025-04-03 11:06] LABS: Basophils # (A) 0.02 X 10*3/uL (0.00-0.10); Basophils % (A) 0.3 %; Eosinophils # (A) 0.13 X 10*3/uL (0.04-0.35); Eosinophils % (A) 2.1 %; Immature Grans, Automated 0.50 %; Lymphocytes # (A) 1.06 X 10*3/uL (0.90-5.00); Lymphocytes % (A) 17.4 %; Monocytes # (A) 0.54 X 10*3/uL (0.20-1.00); Monocytes % (A) 8.9 %; Neutrophils # (A) 4.32 X 10*3/uL (1.80-7.70); Neutrophils % (A) 70.8 %
[2025-04-03 11:25] LABS: ALT 17 U/L (10-49); AST 19 U/L (14-35); Albumin 3.5 g/dL (3.8-4.9); Albumin/Globulin Ratio 2.19 Ratio (1.60-3.17); Alkaline Phosphatase 55 U/L (41-126); Anion Gap 12.90 mmol/L (4.00-12.00); BUN/Creat Ratio 20.38 Ratio (12.00-20.00); Blood Urea Nitrogen 16.3 mg/dL (9.0-27.0); Calcium 8.3 mg/dL (8.7-10.3); Carbon Dioxide 23.1 mmol/L (21.6-31.8); Chloride 108 mmol/L (96-109); Globulin 1.6 g/dL (1.6-3.3); Glucose 87 mg/dL (70-110); Potassium 3.1 mmol/L (3.5-5.5); Sodium 144 mmol/L (135-145); Total Protein 5.1 g/dL (6.2-8.2)
--- NOTE | 2025-04-07 01:39 | HP ---
HISTORY AND PHYSICAL HISTORY OF PRESENT ILLNESS: This is a 74-year-old white male came to the emergency room with intractable hiccups, coffee-grounds emesis, sick last couple days with bright red blood vomiting emesis now, his blood thinners were discontinued and he was admitted for possible upper GI bleed and for GI consult. Denies fever, chills, or headaches. HOME MEDICATIONS: Reviewed. ALLERGIES: Negative. REVIEW OF SYSTEMS: A 14-point review of systems otherwise is negative except for mentioned in HPI. PAST MEDICAL HISTORY: Atrial fibrillation, coronary artery disease, heart failure, COPD, GERD, hypertension, dyslipidemia, osteoarthritis, pneumonia, sleep apnea. PAST SURGICAL HISTORY: CABG, heart catheterization, hernia repair, joint replacement, orthopedic surgery, esophageal tear. FAMILY HISTORY: negative. PHYSICAL EXAMINATION: GENERAL: This is a white male, thin, cachectic. HEENT: Normocephalic, atraumatic. Pupils equal, round, reactive. NECK: Supple. No mass. RESPIRATORY: Transmitted upper sounds. CARDIOVASCULAR: Regular rate and rhythm. GI: Soft, nontender. HEMATOLOGY: Negative Homans. VITAL SIGNS: Pulse 75, respiratory rate 16 to 18, blood pressure 139/89, O2 of 99. LABORATORY DATA: Hemoglobin is 15.6, hematocrit 44.3, white count of 8.52. Lactic acid 2.4. ASSESSMENT: Coffee-grounds emesis, intractable hiccups, dehydration, chronic obstructive pulmonary disease. PLAN: Prognosis is guarded. Ambulate as tolerated. Please see further orders. GI consult. Possibly EGD. Hold anticoagulants. MMODL / IJN: [id number] /
== END 2025-04-03 11:05 | disposition home or self-care (01) ==
LOC: EC 11:28 → 6NMEDSUR 16:25
PROVIDERS: ADMIT Family Medicine; ATTEND Family Medicine
DX: K22.11 Ulcer of esophagus with bleeding (principal); K21.00 Gastro-esophageal reflux disease with esophagitis, without bleeding; K44.9 Diaphragmatic hernia without obstruction or gangrene; E87.20 Acidosis, unspecified; E86.0 Dehydration; N39.0 Urinary tract infection, site not specified; I11.0 Hypertensive heart disease with heart failure; I50.9 Heart failure, unspecified; I25.10 Atherosclerotic heart disease of native coronary artery without angina pectoris; I48.20 Chronic atrial fibrillation, unspecified; J44.9 Chronic obstructive pulmonary disease, unspecified; M19.90 Unspecified osteoarthritis, unspecified site; E78.5 Hyperlipidemia, unspecified; R06.6 Hiccough; G47.30 Sleep apnea, unspecified; I27.20 Pulmonary hypertension, unspecified; M81.0 Age-related osteoporosis without current pathological fracture; I34.0 Nonrheumatic mitral (valve) insufficiency; R82.79 Other abnormal findings on microbiological examination of urine; Z79.01 Long term (current) use of anticoagulants; Z79.891 Long term (current) use of opiate analgesic; Z79.51 Long term (current) use of inhaled steroids; Z79.899 Other long term (current) drug therapy; Z87.891 Personal history of nicotine dependence; Z87.01 Personal history of pneumonia (recurrent)
CPT/HCPCS: 96361 ×2; 96365; 96372; 96375; 99285; 36415; 80053 ×3; 83605; 83690; 85025 ×3; 85610; 85730; 81001; 87086; 87077; 87186; 74176; 43235; G0378 ×4; J2765; J3230; S0106 ×4; J2003; J0696; J2704; J2470